=== PATIENT | male | born 1955 | race Caucasian/White ===

== ENCOUNTER 2018-12-09 19:05 | Inpatient (IN) | payer SELFPAY ==
--- NOTE | 2018-12-09 20:26 | C.PDOC ---
History Of Present Illness Hx obtained per , patient has been on residential methadone, today she found him unresponsive in bed. Apparently patient was up all night and slept all day, around 1800 tried to wake him up but patient was not responsive although breathing on his own. Medics arrived and have 2mg intranasal narcan, patient now awake and alert but confused. He moves all extremities but is complaining of being hard of hearing especially on the right which is a new symptom. Denies fever, chills, nausea, or vomiting. Time Seen by Provider: 12/09/18 20:19 Chief Complaint (Nursing): Substance Abuse History Per: Family History/Exam Limitations: no limitations Onset/Duration Of Symptoms: Hrs Current Symptoms Are (Timing): Still Present Suicide/Self Injury Attempted (Context): None Modifying Factor(s): Other (Methadone) Severity: Moderate Pain Scale Rating Of: 4 Involuntary Hold By: None Recent travel outside of the [place]: No Additional History Per: Patient, EMS Past Medical History Reviewed: Historical Data, Nursing Documentation, Vital Signs Vital Signs: Last Vital Signs Temp 95 F L 12/09/18 19:18 Pulse 99 H 12/09/18 19:18 Resp 16 12/09/18 19:18 BP 126/89 12/09/18 19:18 Pulse Ox 93 L 12/09/18 19:18 - Medical History PMH: COPD, HIV, HTN (?) Family History: States: No Known Family Hx - Social History Hx Alcohol Use: No Hx Substance Use: Yes Review Of Systems Constitutional: Negative for: Fever, Chills ENT: Positive for: Other (Hard of hearing especially on right) Cardiovascular: Negative for: Chest Pain, Palpitations Respiratory: Negative for: Cough, Shortness of Breath Gastrointestinal: Negative for: Nausea, Vomiting Neurological: Positive for: Confusion. Negative for: Weakness, Numbness Physical Exam - Physical Exam Appears: Non-toxic, In Acute Distress Skin: Warm, Dry Head: Normacephalic Eye(s): bilateral: Other (Pupils pinpoint but reactive) Ear(s): Bilateral: Normal Oral Mucosa: Dry Neck: Trachea Midline, Supple Chest: Symmetrical, No Tenderness Cardiovascular: Rhythm Regular Respiratory: No Rales, No Rhonchi, No Wheezing Gastrointestinal/Abdominal: Soft, No Tenderness Back: Normal Inspection Extremity: No Tenderness, Other (Moves all extremities) Extremity: Bilateral: Atraumatic Pulses: Left Dorsalis Pedis: Normal, Right Dorsalis Pedis: Normal Neurological/Psych: Slow To Respond With Command, Other (Awake, alert, orien tedx2) Gait: Unable To Assess ED Course And Treatment - Laboratory Results Result Diagrams: 12/09/18 19:45 12/09/18 19:45 ECG: Interpreted By Me, Viewed By Me O2 Sat by Pulse Oximetry: 93 (Room air) Pulse Ox Interpretation: Abnormal - Radiology CXR: Interpreted by Me, Viewed By Me CXR Interpretation: Yes: Other (mild vasc congestion). No: Infiltrates, Fracture, Pnemothorax Progress Note: CT head, EKG, CXR, blood work, and urinalysis ordered. Pt was placed on a becca heating blanket Critical Care Time - Critical Care Note Total Time (in mins): 30 Documented critical care: time excludes all time spent performing seperately billable procedures. Disposition Discussed With : Florin Mak Comment: accepted the pt on his service and took over the care at 10:33 PM Doctor Will See Patient In The: ED Counseled Patient/Family Regarding: Studies Performed, Diagnosis - Disposition Disposition: HOSPITALIZED Disposition Time: 20:26 Condition: FAIR Forms: Legend [employer] (Gabonese) - Clinical Impression Clinical Impression: Drug abuse, Drug dependence, Drug overdose, Hypothermia - Scribe Statement The provider has reviewed the documentation as recorded by the Scribalfredo Dickerson All medical record entries made by the Scribe were at my direction and personally dictated by me. I have reviewed the chart and agree that the record a ccurately reflects my personal performance of the history, physical exam, medical decision making, and the department course for this patient. I have also personally directed, reviewed, and agree with the discharge instructions and disposition. Decision To Admit - Pt Status Changed To: Hospital Disposition Of: Inpatient - Admit Certification Admit to Inpatient:: After my assessment, the patient will require hospitalization for at least two midnights. This is because of the severity of symptoms shown, intensity of services needed, and/or the medical risk in this patient being treated as an outpatient. - InPatient: Physician Admission Certification: I certify that this patient requires 2 or more midnights of care for the following reason:: After my assessment, the patient will require hospitalization for at least two midnights. This is because of the severity of symptoms shown, intensity of services needed, and/or the medical risk in this patient being treated as an outpatient. - . Bed Request Type: Telemetry Admitting Physician: Florin Mak Patient Diagnosis: Drug abuse, Drug dependence, Drug overdose, Hypothermia
[2018-12-09 20:28] LABS: BASO % 0.3 % (0.0-2.0); EOS % 0.1 % (0.0-4.0); HEMOGLOBIN 18.9 g/dL (12.0-18.0); LYMPH # 0.7 K/uL (1.0-4.3); MEAN CELL VOLUME 100.6 fL (80.0-94.0); MEAN CORPUSCULAR HEMOGLOBIN 32.4 pg (27.0-31.0); MEAN CORPUSCULAR HGB CONC 32.2 g/dL (33.0-37.0); MEAN PLATELET VOLUME 9.2 fL (7.2-11.7); MONO # 0.5 K/uL (0.0-0.8); MONO % 5.2 % (0.0-10.0); NEUT % 87.4 % (50.0-75.0); PLATELET COUNT 149 K/uL (130-400); RBC 5.83 Mil/uL (4.40-5.90); RED CELL DISTRIBUTION WIDTH 15.3 % (11.5-14.5); WHITE BLOOD COUNT 10.3 K/uL (4.8-10.8)
[2018-12-09 20:34] LABS: ALB/GLOB RATIO 1.4 (1.0-2.1); ALBUMIN 4.5 g/dL (3.5-5.0); ALT/SGPT 306 U/L (21-72); AST/SGOT 347 U/L (17-59); BLOOD UREA NITROGEN 32 mg/dL (9-20); CALCIUM 9.1 mg/dl (8.6-10.4); GFR NON-AFRICAN AMERICAN 47
[2018-12-09 20:50] LABS: ANISOCYTOSIS SLIGHT; BANDS 5 % (0-2); LYMPHOCYTE 6 % (20-40); MONOCYTE 9 % (0-10); NEUTROPHIL 79 % (50-75); PLATELET ESTIMATE NORMAL (NORMAL); REACTIVE LYMPHOCYTES 1 % (0-0); TOTAL CELLS COUNTED 100
[2018-12-09 21:31] LABS: SQUAMOUS EPITHIAL 1 /hpf (0-5); URINE BACTERIA RARE (<OCC); URINE BILIRUBIN NEGATIVE (NEGATIVE); URINE BLOOD 2+ (NEGATIVE); URINE CLARITY Hazy (Clear); URINE COLOR Amber (YELLOW); URINE GLUCOSE (UA) NORMAL (Normal); URINE LEUKOCYTE ESTERASE NEG Leu/uL (Negative); URINE PROTEIN 2+ mg/dL (NEGATIVE)
[2018-12-09 21:43] LABS: BARBITURATES, UR NEGATIVE (NEGATIVE); OPIATES, UR NEGATIVE (NEGATIVE); PHENCYCLIDINE, UR NEGATIVE (NEGATIVE)
[2018-12-09 21:47] LABS: BENZODIAZEPINES, UR POSITIVE (NEGATIVE)
[2018-12-09] MEDS ORDERED: Piperacillin/Tazobact 3.375 gm 100 ML IVPB STA (22:35)
[2018-12-09 23:10] LABS: ARTERIAL BLOOD GAS HCO3 29.1 mmol/L (21-28); ARTERIAL BLOOD GAS O2 SAT 82.9 % (95-98); ARTERIAL BLOOD GAS PCO2 57 mm/Hg (35-45); ARTERIAL BLOOD GAS PH 7.37 (7.35-7.45); ARTERIAL BLOOD GAS PO2 44 mm/Hg (80-100); ARTERIAL BLOOD GAS TCO2 34.7 mmol/L (22-28)
--- NOTE | 2018-12-09 23:30 | CP.PCM.HP ---
<SchuylerKris - Last Filed: 12/10/18 04:37> History of Present Illness - History of Present Illness History of Present Illness: PGY-1 History and Physical for Dr. Mak Patient is a 63 year old male with past medical history of HTN, COPD, HIV, HCV (currently in remission) BIBEMS after being found unresponsive at home by . Per at bedside, patient was up all night prior and sleeping for majority of the day. She went to wake him up around 6:00 pm but patient was unre sponsive, noted to be breathing however. EMS was called, administered 2 mg intranasal narcan, patient became more alert and rousable but was still somnolent/confused. Patient found to be hypothermic in ED, was placed on a becca heating blanket. Patient is currently more alert, awake, and oriented. He does not recall the events prior to being unresponsive, denies taking any substances. He endorses subjective fevers, chills, productive cough with yellowish sputum production, intermittent palpitations for 2 weeks. He also endorses headaches "for months". No chest pain, shortness of breath, syncope, abdominal pain, n/v/d/c, dysuria, or changes in stool. PMHx: HTN, COPD, HIV, HCV PSHx: none Allergies: NKDA Home Medications: -Xanax 2 mg PO BID -on home methadone for 25 years; confirm home dose-- states about 150 mg total daily -[facility]--65 mg (?) methadone daily -[facility], [facility] Hx: unknown Social Hx: +tobacco: 1 ppd, several years; denies alcohol use; hx heroin abuse (stopped in ), on home methadone 25 years, abuses xanax Present on Admission - Present on Admission Any Indicators Present on Admission: No Review of Systems - Review of Systems All systems: reviewed and no additional remarkable complaints except Review of Systems: as per HPI - Constitutional Constitutional: Chills, Fever, Headache - EENT Eyes: absent: Blurred Vision, Change in Vision Nose/Mouth/Throat: absent: Nasal Congestion, Nasal Discharge - Cardiovascular Cardiovascular: Palpitations. absent: Chest Pain, Dyspnea, Dyspnea on Exertion, Leg Edema, Syncope - Respiratory Respiratory: Cough, Change in Mucous Color. absent: Wheezing - Gastrointestinal Gastrointestinal: absent: Abdominal Pain, Diarrhea, Nausea, Vomiting - Genitourinary Genitourinary: absent: Difficulty Urinating, Dysuria, Urinary Frequency, Urinary Urgency - Musculoskeletal Musculoskeletal: Myalgias - Integumentary Integumentary: As Per HPI - Neurological Neurological: As Per HPI, Confusion, Headaches. absent: Dizziness, Syncope, Tingling, Weakness - Psychiatric Psychiatric: As Per HPI - Endocrine Endocrine: As Per HPI - Hematologic/Lymphatic Hematologic: As Per HPI Past Patient History - Past Social History Smoking Status: Heavy Smoker > 10 Cigarettes Daily - CARDIAC Hx Hypertension: Yes (?) - PULMONARY Hx Chronic Obstructive Pulmonary Disease (COPD): Yes - HEMATOLOGICAL/ONCOLOGICAL Hx Human Immunodeficiency Virus (HIV): Yes - PSYCHIATRIC Hx Substance Use: Yes - SURGICAL HISTORY Hx Surgeries: No Meds Allergies/Adverse Reactions: Allergies Allergy/AdvReac Type Severity Reaction Status Date / Time No Known Allergies Allergy Unverified 12/09/18 19:18 Physical Exam - Constitutional Appears: Non-toxic, Chronically Ill Additional comments: somnolent - Head Exam Head Exam: ATRAUMATIC, NORMAL INSPECTION, NORMOCEPHALIC - Eye Exam Eye Exam: EOMI, Normal appearance Pupil Exam: Miosis, NORMAL ACCOMODATION - ENT Exam ENT Exam: Mucous Membranes Dry, Normal Exam - Neck Exam Neck exam: Positive for: Full Rom, Normal Inspection. Negative for: Tenderness - Respiratory Exam Respiratory Exam: Clear to Auscultation Bilateral, NORMAL BREATHING PATTERN. absent: Accessory Muscle Use, Rales, Rhonchi, Wheezes, Respiratory Distress, Stridor - Cardiovascular Exam Cardiovascular Exam: REGULAR RHYTHM, +S1, +S2 - GI/Abdominal Exam GI & Abdominal Exam: Normal Bowel Sounds, Soft. absent: Distended, Firm, Guarding, Rebound, Rigid - Extremities Exam Extremities exam: Positive for: normal capillary refill, normal inspection, pedal pulses present. Negative for: calf tenderness, pedal edema - Back Exam Back exam: NORMAL INSPECTION - Neurological Exam Neurological exam: Alert, CN II-XII Intact, Oriented x3 - Psychiatric Exam Psychiatric exam: Normal Affect, Normal Mood - Skin Skin Exam: Dry, Intact, Normal Color, Warm Results - Vital Signs Recent Vital Signs: Last Vital Signs Temp 95 F L 12/09/18 19:18 Pulse 99 H 12/09/18 19:18 Resp 16 12/09/18 19:18 BP 126/89 12/09/18 19:18 Pulse Ox 93 L 12/09/18 22:42 - Labs Result Diagrams: 12/09/18 19:45 12/09/18 19:45 Labs: Laboratory Results - last 24 hr 12/09/18 12/09/18 12/09/18 19:26 19:45 19:45 WBC 10.3 RBC 5.83 Hgb 18.9 H Hct 58.7 H MCV 100.6 H MCH 32.4 H MCHC 32.2 L RDW 15.3 H Plt Count 149 MPV 9.2 Neut % (Auto) 87.4 H Lymph % (Auto) 7.0 L [place] % (Auto) 5.2 Eos % (Auto) 0.1 Baso % (Auto) 0.3 Neut # (Auto) 9.0 H Lymph # (Auto) 0.7 L [place] # (Auto) 0.5 Eos # (Auto) 0.0 Baso # (Auto) 0.0 Neutrophils % (Manual) 79 H Band Neutrophils % 5 H Lymphocytes % (Manual) 6 L Reactive Lymphs % 1 H Monocytes % (Manual) 9 Platelet Estimate Normal Anisocytosis (manual) Slight Macrocytosis (manual) Slight Puncture Site pCO2 pO2 HCO3 ABG pH ABG Total CO2 ABG O2 Saturation ABG Base Excess Jorge Test ABG Potassium A-a O2 Difference Respiratory Index Glucose Lactate Liter Flow FiO2 Crit Value Called To Crit Value Called By Crit Value Read Back Blood Gas Notified Time Sodium 139 Potassium 5.2 Chloride 94 L Carbon Dioxide 26 Anion Gap 23 H BUN 32 H Creatinine 1.5 Est GFR ( Amer) 57 Est GFR (Non-Af Amer) 47 POC Glucose (mg/dL) 133 H Random Glucose 170 H Calcium 9.1 Phosphorus 10.6 H Magnesium 2.0 Total Bilirubin 1.8 H AST 347 H ALT 306 H Alkaline Phosphatase 115 Total Protein 7.7 Albumin 4.5 Globulin 3.2 Albumin/Globulin Ratio 1.4 Arterial Blood Potassium Urine Color Urine Clarity Urine pH Ur Specific [place] Urine Protein Urine Glucose (UA) Urine Ketones Urine Blood Urine Nitrate Urine Bilirubin Urine Urobilinogen Ur Leukocyte Esterase Urine WBC (Auto) Urine RBC (Auto) Ur Squamous Epith Cells Urine Bacteria Hyaline Casts Urine Opiates Screen Urine Methadone Screen Ur Barbiturates Screen Ur Phencyclidine Scrn Ur Amphetamines Screen U Benzodiazepines Scrn U Oth Cocaine Metabols U Cannabinoids Screen Alcohol, Quantitative < 10 12/09/18 12/09/18 12/09/18 21:17 21:17 23:07 WBC RBC Hgb Hct MCV MCH MCHC RDW Plt Count MPV Neut % (Auto) Lymph % (Auto) [place] % (Auto) Eos % (Auto) Baso % (Auto) Neut # (Auto) Lymph # (Auto) [place] # (Auto) Eos # (Auto) Baso # (Auto) Neutrophils % (Manual) Band Neutrophils % Lymphocytes % (Manual) Reactive Lymphs % Monocytes % (Manual) Platelet Estimate Anisocytosis (manual) Macrocytosis (manual) Puncture Site Lb pCO2 57 H pO2 44 L* HCO3 29.1 H ABG pH 7.37 ABG Total CO2 34.7 H ABG O2 Saturation 82.9 L ABG Base Excess 6.0 H Jorge Test Na ABG Potassium 4.5 A-a O2 Difference 141.0 Respiratory Index 3.2 Glucose 120 H Lactate 2.8 H Liter Flow 4.0 FiO2 36.0 Crit Value Called To Dr dong Crit Value Called By Janusz chen Crit Value Read Back Y Blood Gas Notified Time 2309 Sodium 138.0 Potassium Chloride 101.0 Carbon Dioxide Anion Gap BUN Creatinine Est GFR ( Amer) Est GFR (Non-Af Amer) POC Glucose (mg/dL) Random Glucose Calcium Phosphorus Magnesium Total Bilirubin AST ALT Alkaline Phosphatase Total Protein Albumin Globulin Albumin/Globulin Ratio Arterial Blood Potassium 4.5 Urine Color Radha Urine Clarity Hazy Urine pH 5.0 Ur Specific [place] 1.017 Urine Protein 2+ H Urine Glucose (UA) Normal Urine Ketones Negative Urine Blood 2+ H Urine Nitrate Negative Urine Bilirubin Negative Urine Urobilinogen 4.0 Ur Leukocyte Esterase Neg Urine WBC (Auto) 2 Urine RBC (Auto) 3 Ur Squamous Epith Cells 1 Urine Bacteria Rare Hyaline Casts 11-20 H Urine Opiates Screen Negative Urine Methadone Screen Positive H Ur Barbiturates Screen Negative Ur Phencyclidine Scrn Negative Ur Amphetamines Screen Negative U Benzodiazepines Scrn Positive U Oth Cocaine Metabols Negative U Cannabinoids Screen Negative Alcohol, Quantitative Assessment & Plan - Assessment and Plan (Free Text) Assessment: 63 year old M with PMHx of HIV, HCV (in remission), HTN, COPD BIBEMS after being found unresponsive by at home, hypothermic on admission. Given 2 mg Narcan on field, more rousable and alert. Plan: Sepsis Criteria -Temp 95 -HR 99 -L shift present -Lactate 2.8 -received 2 mg intranasal Narcan on field, more rousable, alert and oriented -heating blanket -vitals q2h -CXR: mild vascular congestion -f/u official read -f/u CT head -f/u EKG -NS IVF -ID consulted (Dr. Camilo) -vanc/zosyn Shortness of breath, productive cough -s/p zosyn x1 in ED -CXR: mild pulmonary vascular congestion -f/u official read -vanc/zosyn HIV -not on any home meds -CD4 -viral load -ID (Dr. Camilo) consulted Hx of HCV -f/u active hepatitis panel Hx of COPD -duonebs q4 prn -O2 via NC prn Hx Substance Abuse -UDS: (+) methadone, benzos -serum alcohol, acetaminophen negative -confirm home methadone dose -Psychiatry (Dr. Saucedo) on board PPx, Diet, Disposition -DVT ppx: scds, lovenox -GI ppx: protonix 40 daily -Diet: HHD Case discussed with Dr. Aubree Payan DO, PGY-1 <Florin Mak - Last Filed: 12/10/18 06:15> Results - Vital Signs Recent Vital Signs: Last Vital Signs Temp 97.8 F 12/10/18 01:52 Pulse 105 H 12/10/18 01:52 Resp 20 12/10/18 01:52 BP 120/80 12/10/18 01:52 Pulse Ox 100 12/10/18 04:06 - Labs Result Diagrams: 12/09/18 19:45 12/09/18 19:45 Labs: Laboratory Results - last 24 hr 12/09/18 12/09/18 12/09/18 19:26 19:45 19:45 WBC 10.3 RBC 5.83 Hgb 18.9 H Hct 58.7 H MCV 100.6 H MCH 32.4 H MCHC 32.2 L RDW 15.3 H Plt Count 149 MPV 9.2 Neut % (Auto) 87.4 H Lymph % (Auto) 7.0 L [place] % (Auto) 5.2 Eos % (Auto) 0.1 Baso % (Auto) 0.3 Neut # (Auto) 9.0 H Lymph # (Auto) 0.7 L [place] # (Auto) 0.5 Eos # (Auto) 0.0 Baso # (Auto) 0.0 Neutrophils % (Manual) 79 H Band Neutrophils % 5 H Lymphocytes % (Manual) 6 L Reactive Lymphs % 1 H Monocytes % (Manual) 9 Platelet Estimate Normal Anisocytosis (manual) Slight Macrocytosis (manual) Slight Puncture Site pCO2 pO2 HCO3 ABG pH ABG Total CO2 ABG O2 Saturation ABG Base Excess Jorge Test ABG Potassium A-a O2 Difference Respiratory Index Glucose Lactate Liter Flow FiO2 Crit Value Called To Crit Value Called By Crit Value Read Back Blood Gas Notified Time Sodium 139 Potassium 5.2 Chloride 94 L Carbon Dioxide 26 Anion Gap 23 H BUN 32 H Creatinine 1.5 Est GFR ( Amer) 57 Est GFR (Non-Af Amer) 47 POC Glucose (mg/dL) 133 H Random Glucose 170 H Calcium 9.1 Phosphorus 10.6 H Magnesium 2.0 Total Bilirubin 1.8 H AST 347 H ALT 306 H Alkaline Phosphatase 115 Troponin I NT-Pro-B Natriuret Pep Total Protein 7.7 Albumin 4.5 Globulin 3.2 Albumin/Globulin Ratio 1.4 Arterial Blood Potassium Urine Color Urine Clarity Urine pH Ur Specific [place] Urine Protein Urine Glucose (UA) Urine Ketones Urine Blood Urine Nitrate Urine Bilirubin Urine Urobilinogen Ur Leukocyte Esterase Urine WBC (Auto) Urine RBC (Auto) Ur Squamous Epith Cells Urine Bacteria Hyaline Casts Salicylates Urine Opiates Screen Urine Methadone Screen Acetaminophen Ur Barbiturates Screen Ur Phencyclidine Scrn Ur Amphetamines Screen U Benzodiazepines Scrn U Oth Cocaine Metabols U Cannabinoids Screen Alcohol, Quantitative < 10 Hepatitis A IgM Ab Hep Bs Antigen Hep B Core IgM Ab Hepatitis C Antibody 12/09/18 12/09/18 12/09/18 21:17 21:17 23:07 WBC RBC Hgb Hct MCV MCH MCHC RDW Plt Count MPV Neut % (Auto) Lymph % (Auto) [place] % (Auto) Eos % (Auto) Baso % (Auto) Neut # (Auto) Lymph # (Auto) [place] # (Auto) Eos # (Auto) Baso # (Auto) Neutrophils % (Manual) Band Neutrophils % Lymphocytes % (Manual) Reactive Lymphs % Monocytes % (Manual) Platelet Estimate Anisocytosis (manual) Macrocytosis (manual) Puncture Site Lb pCO2 57 H pO2 44 L* HCO3 29.1 H ABG pH 7.37 ABG Total CO2 34.7 H ABG O2 Saturation 82.9 L ABG Base Excess 6.0 H Jorge Test Na ABG Potassium 4.5 A-a O2 Difference 141.0 Respiratory Index 3.2 Glucose 120 H Lactate 2.8 H Liter Flow 4.0 FiO2 36.0 Crit Value Called To Dr dong Crit Value Called By Janusz chen Crit Value Read Back Y Blood Gas Notified Time 2308 Sodium 138.0 Potassium Chloride 101.0 Carbon Dioxide Anion Gap BUN Creatinine Est GFR ( Amer) Est GFR (Non-Af Amer) POC Glucose (mg/dL) Random Glucose Calcium Phosphorus Magnesium Total Bilirubin AST ALT Alkaline Phosphatase Troponin I NT-Pro-B Natriuret Pep Total Protein Albumin Globulin Albumin/Globulin Ratio Arterial Blood Potassium 4.5 Urine Color Radha Urine Clarity Hazy Urine pH 5.0 Ur Specific [place] 1.017 Urine Protein 2+ H Urine Glucose (UA) Normal Urine Ketones Negative Urine Blood 2+ H Urine Nitrate Negative Urine Bilirubin Negative Urine Urobilinogen 4.0 Ur Leukocyte Esterase Neg Urine WBC (Auto) 2 Urine RBC (Auto) 3 Ur Squamous Epith Cells 1 Urine Bacteria Rare Hyaline Casts 11-20 H Salicylates Urine Opiates Screen Negative Urine Methadone Screen Positive H Acetaminophen Ur Barbiturates Screen Negative Ur Phencyclidine Scrn Negative Ur Amphetamines Screen Negative U Benzodiazepines Scrn Positive U Oth Cocaine Metabols Negative U Cannabinoids Screen Negative Alcohol, Quantitative Hepatitis A IgM Ab Hep Bs Antigen Hep B Core IgM Ab Hepatitis C Antibody 12/10/18 12/10/18 12/10/18 00:27 00:27 00:27 WBC RBC Hgb Hct MCV MCH MCHC RDW Plt Count MPV Neut % (Auto) Lymph % (Auto) [place] % (Auto) Eos % (Auto) Baso % (Auto) Neut # (Auto) Lymph # (Auto) [place] # (Auto) Eos # (Auto) Baso # (Auto) Neutrophils % (Manual) Band Neutrophils % Lymphocytes % (Manual) Reactive Lymphs % Monocytes % (Manual) Platelet Estimate Anisocytosis (manual) Macrocytosis (manual) Puncture Site pCO2 pO2 HCO3 ABG pH ABG Total CO2 ABG O2 Saturation ABG Base Excess Jorge Test ABG Potassium A-a O2 Difference Respiratory Index Glucose Lactate Liter Flow FiO2 Crit Value Called To Crit Value Called By Crit Value Read Back Blood Gas Notified Time Sodium Potassium Chloride Carbon Dioxide Anion Gap BUN Creatinine Est GFR ( Amer) Est GFR (Non-Af Amer) POC Glucose (mg/dL) Random Glucose Calcium Phosphorus Magnesium Total Bilirubin AST ALT Alkaline Phosphatase Troponin I 0.6490 H* NT-Pro-B Natriuret Pep 5160 H Total Protein Albumin Globulin Albumin/Globulin Ratio Arterial Blood Potassium Urine Color Urine Clarity Urine pH Ur Specific [place] Urine Protein Urine Glucose (UA) Urine Ketones Urine Blood Urine Nitrate Urine Bilirubin Urine Urobilinogen Ur Leukocyte Esterase Urine WBC (Auto) Urine RBC (Auto) Ur Squamous Epith Cells Urine Bacteria Hyaline Casts Salicylates < 1.0 Urine Opiates Screen Urine Methadone Screen Acetaminophen < 10.0 L Ur Barbiturates Screen Ur Phencyclidine Scrn Ur Amphetamines Screen U Benzodiazepines Scrn U Oth Cocaine Metabols U Cannabinoids Screen Alcohol, Quantitative Hepatitis A IgM Ab Negative Hep Bs Antigen Negative Hep B Core IgM Ab Negative Hepatitis C Antibody Reactive Assessment & Plan - Date & Time Date: 12/10/18 (I have seen and examined the patient. I agree with the findings and plan of care as documented by Dr. Payan. Patient with sepsis. Lactate elevated. Tachy and hypothermic. Vanco and Zosyn. Warming blankets. Monitor vitals closely. History of HIV and Hep C infection. Check CD4 and Viral load. ID consult. Check acute hep panel. Blood cultures. History of substance abuse. Continue patient's methadone dose. Consult to psych. Monitor for acute changes.) Time: 06:13 Attending/Attestation - Attestation I have personally seen and examined this patient.: Yes I have fully participated in the care of the patient.: Yes I have reviewed all pertinent clinical information: Yes
[2018-12-09] MEDS ORDERED: Sodium Chloride 0.9% 1,000 ML IV SCH (23:45)
[2018-12-10 01:07] LABS: ACETAMINOPHEN < 10.0 ug/mL (10.0-30.0); SALICYLATE < 1.0 mg/dL 1
[2018-12-10 01:22] LABS: TROPONIN I 0.649 ng/mL (0.00-0.120)
[2018-12-10 02:08] LABS: HEPATITIS B SURFACE AG Negative (NEGATIVE)
[2018-12-10 02:14] LABS: HEPATITIS A IGM NEGATIVE (NEGATIVE); HEPATITIS B CORE AB NEGATIVE (NEGATIVE)
[2018-12-10] MEDS ORDERED: Albuterol-Ipratrop 3 mg / 0.5 (3 ml) UD INH PRN (04:18)
[2018-12-10 04:25] LABS: HEPATITIS C ANTIBODY REACTIVE (NEGATIVE)
[2018-12-10] MEDS: Piperacill/Tazo 3.375gm in Dex 3.375 GM/50 ML BAG IVPB SCH ×2 (05:12)
[2018-12-10 07:09] LABS: VENOUS BLOOD GAS BASE EXCESS 13.3 mmol/L (0.0-2.0); VENOUS BLOOD GAS PCO2 59 mmHg (40-60); VENOUS BLOOD GAS PO2 40 mm/Hg (30-55); VENOUS BLOOD PH 7.44 (7.32-7.43)
[2018-12-10 07:32] LABS: BASO % 0.6 % (0.0-2.0); EOS % 0.1 % (0.0-4.0); LYMPH # 1.3 K/uL (1.0-4.3); LYMPH % 17.9 % (20.0-40.0); MEAN CORPUSCULAR HEMOGLOBIN 32.1 pg (27.0-31.0); MEAN CORPUSCULAR HGB CONC 33.5 g/dL (33.0-37.0); MEAN PLATELET VOLUME 9.3 fL (7.2-11.7); MONO # 0.7 K/uL (0.0-0.8); MONO % 9.4 % (0.0-10.0); NEUT # 5.3 K/uL (1.8-7.0); RBC 5.23 Mil/uL (4.40-5.90); RED CELL DISTRIBUTION WIDTH 14.5 % (11.5-14.5); WHITE BLOOD COUNT 7.4 K/uL (4.8-10.8)
[2018-12-10 07:44] LABS: HEMOGLOBIN 16.8 g/dL (12.0-18.0); MEAN CELL VOLUME 95.8 fL (80.0-94.0)
[2018-12-10 08:10] LABS: ALB/GLOB RATIO 1.2 (1.0-2.1); ALBUMIN 3.4 g/dL (3.5-5.0); ALT/SGPT 525 U/L (21-72); AST/SGOT 553 U/L (17-59); BLOOD UREA NITROGEN 34 mg/dL (9-20); CALCIUM 8.3 mg/dl (8.6-10.4); GFR NON-AFRICAN AMERICAN > 60
[2018-12-10 08:31] LABS: CK-MB 11.9 ng/mL (0.0-3.38)
[2018-12-10] MEDS: Sodium Chloride 0.9% 1,000 ML IV SCH (09:00)
[2018-12-10] MEDS ORDERED: Iodixanol 320 MG/ML 100 ML BOTTLE IV ONE (09:15)
--- NOTE | 2018-12-10 09:34 | PCM.PSYCH ---
Initial Psychiatric Evaluation - Initial Psychiatric Evaluation Type of Admission: Voluntary Legal Status: Capacity History of Present Illness and Precipitating Events: Patient is a 63 year old male with past medical history of HTN, COPD, HIV, HCV (currently in remission) BIBEMS after being found unresponsive at home by . Per at bedside, patient was up all night prior and sleeping for majority of the day. She went to wake him up around 6:00 pm but patient was unresponsive, noted to be breathing however. EMS was called, administered 2 mg intranasal narcan, patient became more alert and rousable but was still somnolent/confused. Current Medications: Active Medications Generic Name Dose Route Start Last Admin Trade Name Freq PRN Reason Stop Dose Admin Albuterol/Ipratropium 3 ml 12/10/18 12:00 Duoneb 3 Mg/0.5 Mg (3 Ml) Ud INH RQ4 [facility] Aspirin 81 mg 12/11/18 10:00 Ecotrin PO DAILY [facility] Clopidogrel Bisulfate 75 mg 12/11/18 10:00 Plavix PO DAILY [facility] Enoxaparin Sodium 70 mg 12/10/18 09:00 Lovenox SC Q12H [facility] Piperacillin Sod/Tazobactam Sod 3.375 gm in 50 mls @ 100 mls/hr 12/09/18 23:45 12/10/18 05:12 Zosyn 3.375 Gm Iv Premix IVPB 100 mls/hr Q6H [facility] Administration Protocol Sodium Chloride 1,000 mls @ 75 mls/hr 12/10/18 08:25 Sodium Chloride 0.9% IV .[id number] [facility] Azithromycin 500 mg/ Sodium 250 mls @ 250 mls/hr 12/10/18 10:00 Chloride IVPB Q24H [facility] Protocol Vancomycin/Sodium Chloride 1 gm in 200 mls @ 133 mls/hr 12/10/18 10:00 Vancomycin 1 Gm/Ns 200 Ml IVPB 12/15/18 10:01 Q12H [facility] Protocol Influenza Virus Vaccine 60 mcg 12/11/18 10:00 Flucelvax Quad [id number] Syr IM 12/11/18 10:01 .ONCE ONE Methadone HCl 40 mg 12/10/18 09:01 Methadose PO DAILY [facility] Methadone HCl 20 mg 12/10/18 10:00 Methadone PO DAILY [facility] Methadone HCl 5 mg 12/10/18 10:00 Methadone PO DAILY [facility] Methylprednisolone 40 mg 12/10/18 10:00 Solu-Medrol IVP BID [facility] Pantoprazole Sodium 40 mg 12/10/18 10:00 Protonix Inj IVP DAILY [facility] Pneumococcal Polyvalent Vaccine 0.5 ml 12/11/18 10:00 Pneumovax 23 Vaccine IM 12/11/18 10:01 .ONCE ONE Past Psychiatric History - Past Psychiatric History Pertinent Medical Hx (Current Medical&Sleep Prob, Allergies): Allergies Allergy/AdvReac Type Severity Reaction Status Date / Time No Known Allergies Allergy Unverified 12/09/18 19:18 ALPRAZolam 12/09/18 Methadone 12/09/18
--- NOTE | 2018-12-10 09:37 | CT ---
Date of service: 12/09/2018 PROCEDURE: CT HEAD WITHOUT CONTRAST. HISTORY: Mental status change COMPARISON: None available. TECHNIQUE: Axial computed tomography images were obtained through the head/brain without intravenous contrast. Radiation dose: Total exam DLP = 2287.33 mGy-cm. This CT exam was performed using one or more of the following dose reduction techniques: Automated exposure control, adjustment of the mA and/or kV according to patient size, and/or use of iterative reconstruction technique. FINDINGS: Study is limited by motion artifact. HEMORRHAGE: No acute parenchymal, subarachnoid nor extra-axial hemorrhage. BRAIN: Suspect minimal chronic periventricular white matter ischemic changes. Mild moderate generalized volume loss. No obvious parenchymal nor extra-axial masses or collections seen on this noncontrast study. A callus VENTRICLES: Unremarkable. No hydrocephalus. CALVARIUM: No acute calvarial fractures. PARANASAL SINUSES: Unremarkable as visualized. No significant inflammatory changes. MASTOID AIR CELLS: Unremarkable as visualized. No inflammatory changes. OTHER FINDINGS: None. IMPRESSION: Limited motion degraded study. Suspect minimal chronic white matter ischemic changes. Mild to moderate generalized volume loss.
[2018-12-10] MEDS ORDERED: Vancomycin 1 gm/NS 200 ml 1 GM/200 ML BAG IVPB SCH (10:00)
[2018-12-10] MEDS ORDERED: Azithromycin 500 MG in Sodium Chloride 0.9% 250 ML IVPB SCH (10:00)
[2018-12-10] MEDS ORDERED: Enoxaparin 40 mg Syringe SC SCH (10:00)
[2018-12-10] MEDS: Vancomycin 1 gm/NS 200 ml 1 GM/200 ML BAG IVPB SCH ×2 (10:15→21:40)
--- NOTE | 2018-12-10 10:56 | CP.PCM.CON ---
History of Present Illness - History of Present Illness History of Present Illness: 63 year old man with Hep c, on methadone, smoker, HIV, who was at home, found unresponsive by his , 911 was called. In the ER, pt received narcan. and hyperthermia blanket. He has been coughing with sputum for a few weeks. Pt has n o known h/o CAD. TNi is mildly elevated, no ecg changes. CXR report not available and images not opening in viewer Review of Systems - Review of Systems All systems: reviewed and no additional remarkable complaints except (as above) Past Patient History - Past Social History Smoking Status: Heavy Smoker > 10 Cigarettes Daily - CARDIAC Hx Hypertension: Yes (?) - PULMONARY Hx Chronic Obstructive Pulmonary Disease (COPD): Yes - HEMATOLOGICAL/ONCOLOGICAL Hx Human Immunodeficiency Virus (HIV): Yes - MUSCULOSKELETAL/RHEUMATOLOGICAL Hx Falls: No - PSYCHIATRIC Hx Substance Use: Yes - SURGICAL HISTORY Hx Surgeries: No Meds Allergies/Adverse Reactions: Allergies Allergy/AdvReac Type Severity Reaction Status Date / Time No Known Allergies Allergy Unverified 12/09/18 19:18 - Medications Medications: Current Medications Albuterol/Ipratropium (Duoneb 3 Mg/0.5 Mg (3 Ml) Ud) 3 ml INH RQ4 [facility] Aspirin (Ecotrin) 81 mg PO DAILY [facility] Clopidogrel Bisulfate (Plavix) 75 mg PO DAILY [facility] Enoxaparin Sodium (Lovenox) 70 mg SC Q12H [facility] Sodium Chloride (Sodium Chloride 0.9%) 1,000 mls @ 75 mls/hr IV .[id number] [facility] Vancomycin/Sodium Chloride (Vancomycin 1 Gm/Ns 200 Ml) 1 gm in 200 mls @ 133 mls/hr IVPB Q12H [facility]; Protocol Stop: 12/15/18 10:01 Last Admin: 12/10/18 10:15 Dose: 133 mls/hr Ceftriaxone Sodium 1 gm/ (Sodium Chloride) 100 mls @ 100 mls/hr IVPB Q24H [facility]; Protocol Influenza Virus Vaccine (Flucelvax Quad [id number] Syr) 60 mcg IM .ONCE ONE Stop: 12/11/18 10:01 Methadone HCl (Methadose) 40 mg PO DAILY [facility] Methadone HCl (Methadone) 20 mg PO DAILY [facility] Methadone HCl (Methadone) 5 mg PO DAILY [facility] Methylprednisolone (Solu-Medrol) 40 mg IVP BID [facility] Oseltamivir Phosphate (Tamiflu Cap) 75 mg PO BID [facility]; Protocol Stop: 12/15/18 09:54 Pantoprazole Sodium (Protonix Inj) 40 mg IVP DAILY [facility] Pneumococcal Polyvalent Vaccine (Pneumovax 23 Vaccine) 0.5 ml IM .ONCE ONE Stop: 12/11/18 10:01 Trimethoprim/Sulfamethoxazole (Bactrim Ds Tab) 2 tab PO TID [facility]; Protocol Physical Exam - Constitutional Appears: Well - Head Exam Head Exam: ATRAUMATIC - Eye Exam Eye Exam: EOMI Pupil Exam: NORMAL ACCOMODATION - ENT Exam ENT Exam: Mucous Membranes Moist - Neck Exam Neck exam: Positive for: Normal Inspection - Respiratory Exam Respiratory Exam: Rhonchi - Cardiovascular Exam Cardiovascular Exam: REGULAR RHYTHM - GI/Abdominal Exam GI & Abdominal Exam: Normal Bowel Sounds - Exam External exam: NORMAL EXTERNAL EXAM - Extremities Exam Extremities exam: Positive for: normal inspection - Back Exam Back exam: NORMAL INSPECTION - Neurological Exam Neurological exam: Alert, CN II-XII Intact, Oriented x3, Reflexes Normal - Psychiatric Exam Psychiatric exam: Normal Affect, Normal Mood - Skin Skin Exam: Normal Color Results - Vital Signs Recent Vital Signs: Last Vital Signs Temp 102.0 F H 12/10/18 07:00 Pulse 93 H 12/10/18 07:00 Resp 18 12/10/18 07:00 BP 131/86 12/10/18 07:00 Pulse Ox 87 L 12/10/18 07:00 - Labs Result Diagrams: 12/10/18 07:16 12/10/18 07:16 Labs: Laboratory Results - last 24 hr 12/09/18 12/09/18 12/09/18 19:26 19:45 19:45 WBC 10.3 RBC 5.83 Hgb 18.9 H Hct 58.7 H MCV 100.6 H MCH 32.4 H MCHC 32.2 L RDW 15.3 H Plt Count 149 MPV 9.2 Neut % (Auto) 87.4 H Lymph % (Auto) 7.0 L Blair % (Auto) 5.2 Eos % (Auto) 0.1 Baso % (Auto) 0.3 Neut # (Auto) 9.0 H Lymph # (Auto) 0.7 L Blair # (Auto) 0.5 Eos # (Auto) 0.0 Baso # (Auto) 0.0 Neutrophils % (Manual) 79 H Band Neutrophils % 5 H Lymphocytes % (Manual) 6 L Reactive Lymphs % 1 H Monocytes % (Manual) 9 Platelet Estimate Normal Anisocytosis (manual) Slight Macrocytosis (manual) Slight Puncture Site pCO2 pO2 HCO3 ABG pH ABG Total CO2 ABG O2 Saturation ABG Base Excess Jorge Test ABG Potassium VBG pH VBG pCO2 VBG HCO3 VBG Total CO2 VBG O2 Sat (Calc) VBG Base Excess VBG Potassium A-a O2 Difference Respiratory Index Glucose Lactate Liter Flow FiO2 Crit Value Called To Crit Value Called By Crit Value Read Back Blood Gas Notified Time Sodium 139 Potassium 5.2 Chloride 94 L Carbon Dioxide 26 Anion Gap 23 H BUN 32 H Creatinine 1.5 Est GFR ( Amer) 57 Est GFR (Non-Af Amer) 47 POC Glucose (mg/dL) 133 H Random Glucose 170 H Calcium 9.1 Phosphorus 10.6 H Magnesium 2.0 Total Bilirubin 1.8 H AST 347 H ALT 306 H Alkaline Phosphatase 115 Ammonia Total Creatine Kinase CK-MB (Mass) Troponin I NT-Pro-B Natriuret Pep Total Protein 7.7 Albumin 4.5 Globulin 3.2 Albumin/Globulin Ratio 1.4 Arterial Blood Potassium Venous Blood Potassium Urine Color Urine Clarity Urine pH Ur Specific [place] Urine Protein Urine Glucose (UA) Urine Ketones Urine Blood Urine Nitrate Urine Bilirubin Urine Urobilinogen Ur Leukocyte Esterase Urine WBC (Auto) Urine RBC (Auto) Ur Squamous Epith Cells Urine Bacteria Hyaline Casts Salicylates Urine Opiates Screen Urine Methadone Screen Acetaminophen Ur Barbiturates Screen Ur Phencyclidine Scrn Ur Amphetamines Screen U Benzodiazepines Scrn U Oth Cocaine Metabols U Cannabinoids Screen Alcohol, Quantitative < 10 Hepatitis A IgM Ab Hep Bs Antigen Hep B Core IgM Ab Hepatitis C Antibody 12/09/18 12/09/18 12/09/18 21:17 21:17 23:07 WBC RBC Hgb Hct MCV MCH MCHC RDW Plt Count MPV Neut % (Auto) Lymph % (Auto) Blair % (Auto) Eos % (Auto) Baso % (Auto) Neut # (Auto) Lymph # (Auto) Blair # (Auto) Eos # (Auto) Baso # (Auto) Neutrophils % (Manual) Band Neutrophils % Lymphocytes % (Manual) Reactive Lymphs % Monocytes % (Manual) Platelet Estimate Anisocytosis (manual) Macrocytosis (manual) Puncture Site Lb pCO2 57 H pO2 44 L* HCO3 29.1 H ABG pH 7.37 ABG Total CO2 34.7 H ABG O2 Saturation 82.9 L ABG Base Excess 6.0 H Jorge Test Na ABG Potassium 4.5 VBG pH VBG pCO2 VBG HCO3 VBG Total CO2 VBG O2 Sat (Calc) VBG Base Excess VBG Potassium A-a O2 Difference 141.0 Respiratory Index 3.2 Glucose 120 H Lactate 2.8 H Liter Flow 4.0 FiO2 36.0 Crit Value Called To Dr dong Crit Value Called By Janusz chen Crit Value Read Back Y Blood Gas Notified Time 2308 Sodium 138.0 Potassium Chloride 101.0 Carbon Dioxide Anion Gap BUN Creatinine Est GFR ( Amer) Est GFR (Non-Af Amer) POC Glucose (mg/dL) Random Glucose Calcium Phosphorus Magnesium Total Bilirubin AST ALT Alkaline Phosphatase Ammonia Total Creatine Kinase CK-MB (Mass) Troponin I NT-Pro-B Natriuret Pep Total Protein Albumin Globulin Albumin/Globulin Ratio Arterial Blood Potassium 4.5 Venous Blood Potassium Urine Color Radha Urine Clarity Hazy Urine pH 5.0 Ur Specific [place] 1.017 Urine Protein 2+ H Urine Glucose (UA) Normal Urine Ketones Negative Urine Blood 2+ H Urine Nitrate Negative Urine Bilirubin Negative Urine Urobilinogen 4.0 Ur Leukocyte Esterase Neg Urine WBC (Auto) 2 Urine RBC (Auto) 3 Ur Squamous Epith Cells 1 Urine Bacteria Rare Hyaline Casts 11-20 H Salicylates Urine Opiates Screen Negative Urine Methadone Screen Positive H Acetaminophen Ur Barbiturates Screen Negative Ur Phencyclidine Scrn Negative Ur Amphetamines Screen Negative U Benzodiazepines Scrn Positive U Oth Cocaine Metabols Negative U Cannabinoids Screen Negative Alcohol, Quantitative Hepatitis A IgM Ab Hep Bs Antigen Hep B Core IgM Ab Hepatitis C Antibody 12/10/18 12/10/18 12/10/18 00:27 00:27 00:27 WBC RBC Hgb Hct MCV MCH MCHC RDW Plt Count MPV Neut % (Auto) Lymph % (Auto) Blair % (Auto) Eos % (Auto) Baso % (Auto) Neut # (Auto) Lymph # (Auto) Blair # (Auto) Eos # (Auto) Baso # (Auto) Neutrophils % (Manual) Band Neutrophils % Lymphocytes % (Manual) Reactive Lymphs % Monocytes % (Manual) Platelet Estimate Anisocytosis (manual) Macrocytosis (manual) Puncture Site pCO2 pO2 HCO3 ABG pH ABG Total CO2 ABG O2 Saturation ABG Base Excess Jorge Test ABG Potassium VBG pH VBG pCO2 VBG HCO3 VBG Total CO2 VBG O2 Sat (Calc) VBG Base Excess VBG Potassium A-a O2 Difference Respiratory Index Glucose Lactate Liter Flow FiO2 Crit Value Called To Crit Value Called By Crit Value Read Back Blood Gas Notified Time Sodium Potassium Chloride Carbon Dioxide Anion Gap BUN Creatinine Est GFR ( Amer) Est GFR (Non-Af Amer) POC Glucose (mg/dL) Random Glucose Calcium Phosphorus Magnesium Total Bilirubin AST ALT Alkaline Phosphatase Ammonia Total Creatine Kinase CK-MB (Mass) Troponin I 0.6490 H* NT-Pro-B Natriuret Pep 5160 H Total Protein Albumin Globulin Albumin/Globulin Ratio Arterial Blood Potassium Venous Blood Potassium Urine Color Urine Clarity Urine pH Ur Specific [place] Urine Protein Urine Glucose (UA) Urine Ketones Urine Blood Urine Nitrate Urine Bilirubin Urine Urobilinogen Ur Leukocyte Esterase Urine WBC (Auto) Urine RBC (Auto) Ur Squamous Epith Cells Urine Bacteria Hyaline Casts Salicylates < 1.0 Urine Opiates Screen Urine Methadone Screen Acetaminophen < 10.0 L Ur Barbiturates Screen Ur Phencyclidine Scrn Ur Amphetamines Screen U Benzodiazepines Scrn U Oth Cocaine Metabols U Cannabinoids Screen Alcohol, Quantitative Hepatitis A IgM Ab Negative Hep Bs Antigen Negative Hep B Core IgM Ab Negative Hepatitis C Antibody Reactive 12/10/18 12/10/18 12/10/18 07:05 07:16 07:16 WBC 7.4 RBC 5.23 Hgb 16.8 D Hct 50.1 MCV 95.8 H D MCH 32.1 H MCHC 33.5 RDW 14.5 Plt Count 133 MPV 9.3 Neut % (Auto) 72.0 Lymph % (Auto) 17.9 L Blair % (Auto) 9.4 Eos % (Auto) 0.1 Baso % (Auto) 0.6 Neut # (Auto) 5.3 Lymph # (Auto) 1.3 Blair # (Auto) 0.7 Eos # (Auto) 0.0 Baso # (Auto) 0.0 Neutrophils % (Manual) Band Neutrophils % Lymphocytes % (Manual) Reactive Lymphs % Monocytes % (Manual) Platelet Estimate Anisocytosis (manual) Macrocytosis (manual) Puncture Site pCO2 pO2 40 HCO3 ABG pH ABG Total CO2 ABG O2 Saturation ABG Base Excess Jorge Test ABG Potassium VBG pH 7.44 H VBG pCO2 59 VBG HCO3 34.8 VBG Total CO2 41.9 H VBG O2 Sat (Calc) 72.5 H VBG Base Excess 13.3 H VBG Potassium 4.8 A-a O2 Difference Respiratory Index Glucose 89 Lactate 1.8 Liter Flow FiO2 Crit Value Called To Crit Value Called By Crit Value Read Back Blood Gas Notified Time Sodium 140.0 138 Potassium 4.5 Chloride 103.0 98 Carbon Dioxide 36 H Anion Gap 9 L BUN 34 H Creatinine 1.0 Est GFR ( Amer) > 60 Est GFR (Non-Af Amer) > 60 POC Glucose (mg/dL) Random Glucose 90 D Calcium 8.3 L Phosphorus 3.3 Magnesium 1.9 Total Bilirubin 0.7 AST 553 H D ALT 525 H D Alkaline Phosphatase 101 Ammonia Total Creatine Kinase 609 H CK-MB (Mass) 11.9 H Troponin I 1.1600 H* NT-Pro-B Natriuret Pep Total Protein 6.2 L Albumin 3.4 L D Globulin 2.9 Albumin/Globulin Ratio 1.2 Arterial Blood Potassium Venous Blood Potassium 4.8 Urine Color Urine Clarity Urine pH Ur Specific [place] Urine Protein Urine Glucose (UA) Urine Ketones Urine Blood Urine Nitrate Urine Bilirubin Urine Urobilinogen Ur Leukocyte Esterase Urine WBC (Auto) Urine RBC (Auto) Ur Squamous Epith Cells Urine Bacteria Hyaline Casts Salicylates Urine Opiates Screen Urine Methadone Screen Acetaminophen Ur Barbiturates Screen Ur Phencyclidine Scrn Ur Amphetamines Screen U Benzodiazepines Scrn U Oth Cocaine Metabols U Cannabinoids Screen Alcohol, Quantitative Hepatitis A IgM Ab Hep Bs Antigen Hep B Core IgM Ab Hepatitis C Antibody 12/10/18 07:16 WBC RBC Hgb Hct MCV MCH MCHC RDW Plt Count MPV Neut % (Auto) Lymph % (Auto) Blair % (Auto) Eos % (Auto) Baso % (Auto) Neut # (Auto) Lymph # (Auto) Blair # (Auto) Eos # (Auto) Baso # (Auto) Neutrophils % (Manual) Band Neutrophils % Lymphocytes % (Manual) Reactive Lymphs % Monocytes % (Manual) Platelet Estimate Anisocytosis (manual) Macrocytosis (manual) Puncture Site pCO2 pO2 HCO3 ABG pH ABG Total CO2 ABG O2 Saturation ABG Base Excess Jorge Test ABG Potassium VBG pH VBG pCO2 VBG HCO3 VBG Total CO2 VBG O2 Sat (Calc) VBG Base Excess VBG Potassium A-a O2 Difference Respiratory Index Glucose Lactate Liter Flow FiO2 Crit Value Called To Crit Value Called By Crit Value Read Back Blood Gas Notified Time Sodium Potassium Chloride Carbon Dioxide Anion Gap BUN Creatinine Est GFR ( Amer) Est GFR (Non-Af Amer) POC Glucose (mg/dL) Random Glucose Calcium Phosphorus Magnesium Total Bilirubin AST ALT Alkaline Phosphatase Ammonia 40 H Total Creatine Kinase CK-MB (Mass) Troponin I NT-Pro-B Natriuret Pep Total Protein Albumin Globulin Albumin/Globulin Ratio Arterial Blood Potassium Venous Blood Potassium Urine Color Urine Clarity Urine pH Ur Specific [place] Urine Protein Urine Glucose (UA) Urine Ketones Urine Blood Urine Nitrate Urine Bilirubin Urine Urobilinogen Ur Leukocyte Esterase Urine WBC (Auto) Urine RBC (Auto) Ur Squamous Epith Cells Urine Bacteria Hyaline Casts Salicylates Urine Opiates Screen Urine Methadone Screen Acetaminophen Ur Barbiturates Screen Ur Phencyclidine Scrn Ur Amphetamines Screen U Benzodiazepines Scrn U Oth Cocaine Metabols U Cannabinoids Screen Alcohol, Quantitative Hepatitis A IgM Ab Hep Bs Antigen Hep B Core IgM Ab Hepatitis C Antibody - EKG Data EKG Interpreted by: Myself EKG shows normal: Sinus rhythm Rate: Tachycardia (no ischemic changes, normal qrs) Assessment & Plan - Assessment and Plan (Free Text) Assessment: 63 year old man with significant cardiac risk factors, who was found to be unresponsive, hypothermic, with a respiratory illness and fever. He is to be treated for his infection. asa, plavix sq lovenox. Echo. Once pt is afebrile, c cath is advised, I discussed the risks and benefits with the patient. no statin as pt has elevated LFT
--- NOTE | 2018-12-10 11:02 | RAD ---
HISTORY: COPD COMPARISON: No prior chest x-ray available for comparison. TECHNIQUE: Chest, one view. FINDINGS: LUNGS: No focal consolidation. Please note that chest x-ray has limited sensitivity for the detection of pulmonary masses. PLEURA: No significant pleural effusion identified. No definite pneumothorax . CARDIOVASCULAR: Heart size appears top normal. Ectatic aorta. Atherosclerotic calcifications. OSSEOUS STRUCTURES: Degenerative changes. VISUALIZED UPPER ABDOMEN: Unremarkable. OTHER FINDINGS: None. IMPRESSION: No focal consolidation.
[2018-12-10] MEDS: Methadone 40 mg Tab PO SCH (11:08)
[2018-12-10] MEDS: Albuterol-Ipratrop 3 mg / 0.5 (3 ml) UD INH SCH ×2 (11:24→23:41)
--- NOTE | 2018-12-10 11:45 | RAD ---
HISTORY: sepsis COMPARISON: chest x-ray performed 12/09/18 TECHNIQUE: Chest, one view. FINDINGS: LUNGS: Mild right basilar atelectasis. Please note that chest x-ray has limited sensitivity for the detection of pulmonary masses. PLEURA: No significant pleural effusion identified. No definite pneumothorax . CARDIOVASCULAR: Heart size appears top normal. Ectatic aorta. OSSEOUS STRUCTURES: Degenerative changes. VISUALIZED UPPER ABDOMEN: Elevation of the right hemidiaphragm. OTHER FINDINGS: None. IMPRESSION: Mild right basilar atelectasis.
[2018-12-10 12:06] LABS: INR 1.6; PROTHROMBIN TIME 17.1 SECONDS (9.7-12.2)
--- NOTE | 2018-12-10 12:10 | CT ---
Date of service: 12/10/2018 CTA chest PE protocol Indication: r/o PE Technique: Contiguous axial images were obtained through the chest with intravenous contrast enhancement. Sagittal and coronal reconstructions were generated and reviewed. This CT exam was performed using 1 or more of the following dose reduction techniques: Automated exposure control, adjustment of the MAA and/or kV according to patient size, and/or use of iterative reconstruction technique. IV contrast: 100 mL Visipaque 320 IV Radiation dose (DLP): 573.02 MGy-cm. Comparison: Chest x-ray performed 12/10/18 Findings: Visualized portions of the inferior thyroid gland appear unremarkable. The mediastinal and hilar vascular structures appear within normal limits. The heart appears within normal limits of size. Atherosclerotic calcifications of the aorta. Enlarged pulmonary artery trunk may be seen in the setting of pulmonary arterial hypertension. No large central or segmental pulmonary embolus evident. Small right pleural effusion. Trace left pleural effusion. Bilateral dependent consolidations. No suspicious pulmonary nodules measuring greater than 5 mm identified. Distal esophageal wall thickening/small hiatal hernia. Limited visualization of the upper abdomen reveals nodular hepatic contour. Distended gallbladder with calcifications and or sludge. High-density within the gallbladder possibly related to vicarious excretion of contrast. Subtle mild peripancreatic inflammatory changes; correlate for pancreatitis. Numerous subcentimeter peripancreatic/mesenteric and retroperitoneal lymph nodes. Kyphosis. Degenerative changes. Impression: Enlarged pulmonary artery trunk may be seen in the setting of pulmonary arterial hypertension. Correlate clinically. No large central or segmental pulmonary embolus evident. Small right pleural effusion. Trace left pleural effusion. Bilateral dependent consolidations. Distal esophageal wall thickening/small hiatal hernia. Limited visualization of the upper abdomen: Nodular hepatic contour, correlate for cirrhosis. Distended gallbladder with calcifications and or sludge. High-density within the gallbladder possibly related to vicarious excretion of contrast. Subtle mild peripancreatic inflammatory changes; correlate for pancreatitis. Numerous subcentimeter peripancreatic/mesenteric and retroperitoneal lymph nodes.
[2018-12-10] MEDS: MethylPREDNISolone 40 mg Vial IVP SCH ×2 (12:13→17:41)
[2018-12-10] MEDS: Enoxaparin 80 mg Syringe SC SCH ×2 (12:17→22:50)
[2018-12-10 12:48] LABS: TROPONIN I 0.955 ng/mL (0.00-0.120)
[2018-12-10] MEDS ORDERED: Tmp-Smz 800 mg-160 mg DS Tab PO SCH (14:00)
--- NOTE | 2018-12-10 15:19 | US ---
HISTORY: hcv COMPARISON: None available. TECHNIQUE: Sonographic evaluation of the abdomen. FINDINGS: LIVER: Measures 15.7 cm in sagittal dimension. Echogenic liver may be seen in setting of hepatic parenchymal disease or fatty infiltration. No focal hepatic mass identified. The main portal vein appears patent with normal directional flow. No intrahepatic bile duct dilatation. GALLBLADDER: Gallstones. No gallbladder wall thickening. Negative sonographic Toussaint's sign as assessed by the homebirth midwife. COMMON BILE DUCT: Measures 6 mm. PANCREAS: Not well visualized. RIGHT KIDNEY: Measures 11.2 x 4.2 x 4.1cm. No obstructing calculus or hydronephrosis identified. LEFT KIDNEY: Measures 10.8 x 5.0 x 5.0cm. No obstructing calculus or hydronephrosis identified. SPLEEN: Measures approximately 16.3 cm. AORTA: Limited views appear unremarkable. IVC: Limited views appear unremarkable. OTHER FINDINGS: None. IMPRESSION: Cholelithiasis. Echogenic liver may be seen in setting of hepatic parenchymal disease or fatty infiltration. Splenomegaly.
[2018-12-10] MEDS ORDERED: WATER IVPB SCH (15:30)
[2018-12-10] MEDS ORDERED: TRIMETHOPRIM IVPB SCH (15:30)
[2018-12-10] MEDS ORDERED: DEXTROSE 5% IVPB SCH (15:30)
[2018-12-10] MEDS ORDERED: SULFAMETHOXAZOLE IVPB SCH (15:30)
--- NOTE | 2018-12-10 16:25 | CP.PCM.PCO ---
<Elaina Jack - Last Filed: 12/10/18 16:22> Addendum Addendum: 12/10/18 16:22 Came to speak to patient and around 4 PM. There was a significant odor of smoke in the patient's room and into the hallway. Nurse reports that patient was just in the bathroom and went downstairs to get food. Security was called and patient was confronted about smoking in his room. Patient adamantly denied smoking. However, when patient moved a pile of clothing from his bed, a pack of cigarettes fell out. Both patient and were instructed that patient cannot smoke in the room. He will be provided with a nicotine patch. took the cigarette pack and will take them home. <Anoop Zepeda - Last Filed: 12/10/18 17:36> Attending/Attestation - Attestation I have personally seen and examined this patient.: Yes I have fully participated in the care of the patient.: Yes I have reviewed all pertinent clinical information: Yes Notes (Text): Spoke to the patient about risk of smoking with pneumonia on oxygen and NSTMI
--- NOTE | 2018-12-10 16:44 | CARD ---
APPROVED REPORT Date of service: 12/10/2018 EXAM: Two-dimensional and M-mode echocardiogram with Doppler and color Doppler. Other Information Quality : TDSRhythm : INDICATION LV Function:Systolic COPD Drug Abuse/ HIV RISK FACTORS Hypertension 2D DIMENSIONS IVSd1.0 (0.7-1.1cm)LVDd4.2 (3.9-5.9cm) PWd1.2 (0.7-1.1cm)LA Ijagdl40 (18-58mL) LVDs3.2 (2.5-4.0cm)FS (%) 24.0 % LVEF (Rodriguez's)50 % M-Mode DIMENSIONS Left Atrium (MM)3.19 (2.5-4.0cm)IVSd0.95 (0.7-1.1cm) Aortic Root3.21 (2.2-3.7cm)LVDd4.61 (4.0-5.6cm) Aortic Cusp Exc.2.17 (1.5-2.0cm)PWd1.04 (0.7-1.1cm) FS (%) 26 %LVDs3.41 (2.0-3.8cm) LVEF (%)51 (>50%) Mitral Valve MV E Tutwlxjq63.6cm/sMV A Bjzvfsad32.5cm/sE/A ratio0.9 TDI Lateral E' Peak V7.54cm/sMedial E' Peak V7.58cm/sE/Lateral E'11.0 E/Medial E'10.9 Tricuspid Valve TR Peak [id number]/sTR Peak Gr.[id number] LEFT VENTRICLE The left ventricle is normal size. There is normal left ventricular wall thickness. The left ventricular function is at low normal. There is normal LV segmental wall motion. Transmitral Doppler flow pattern is Grade I-abnormal relaxation pattern. RIGHT VENTRICLE The right ventricle is moderately dilated. The right ventricular systolic function is mildly reduced. ATRIA The left atrium size is normal. The right atrium is moderately dilated. AORTIC VALVE The aortic valve is normal in structure. There is trace to mild aortic regurgitation. MITRAL VALVE The mitral valve is normal in structure. There is no mitral valve regurgitation noted. TRICUSPID VALVE The tricuspid valve is normal in structure. There is mild tricuspid regurgitation. Right ventricular systolic pressure is estimated at - 32 mmHg. PULMONIC VALVE The pulmonic valve is not well visualized. GREAT VESSELS The aortic root is normal in size. Dilated IVC with poor inspiration collapse is consistent with elevated right atrial pressure. PERICARDIAL EFFUSION There is no pericardial effusion. <Conclusion> The left ventricular function is at low normal. There is normal LV segmental wall motion. Transmitral Doppler flow pattern is Grade I-abnormal relaxation pattern. The right ventricle is moderately dilated. The right ventricular systolic function is mildly reduced. The right atrium is moderately dilated. There is trace to mild aortic regurgitation. There is mild tricuspid regurgitation. Right ventricular systolic pressure is estimated at - 32 mmHg. (marginally elevated) Dilated IVC with poor inspiration collapse is consistent with elevated right atrial pressure. There is no pericardial effusion.
--- NOTE | 2018-12-10 17:28 | CP.PCM.CON ---
History of Present Illness - History of Present Illness History of Present Illness: 63 year old male with past medical history of HTN, COPD, HIV, HCV (treated ) was found unresponsive at home by . EMS was called, administered 2 mg intranasal narcan, patient became more alert and arousable Admitted with hypothermia , ACS with elevated troponins ,toxic metabolic encephalopathy, possible drug OD, r/o sepsis, pneumonaia and possible PCP pneumonia Has been started on IV antibiotics PMHx: HTN, COPD, HIV, HCV PSHx: none Allergies: NKDA Family Hx: unknown Social Hx: +tobacco: 1 ppd, several years; denies alcohol use; hx heroin abuse (stopped in ), on home methadone 25 years, abuses xanax Review of Systems - Review of Systems All systems: reviewed and no additional remarkable complaints except - Constitutional Constitutional: As Per HPI, Anorexia, Malaise - EENT Eyes: absent: As Per HPI, Blind Spots, Blurred Vision, Change in Vision, Decreased Night Vision, Diplopia, Discharge, Dry Eye, Exophthalmos, Floaters, Irritation, Itchy Eyes, Loss of Peripheral Vision, Pain, Photophobia, Requires Corrective Lenses, Sees Flashes, Spots in Vision, Tunnel Vision, Other Visual Disturbances, Loss of Vision, Other Ears: absent: As Per HPI, Decreased Hearing, Ear Discharge, Ear Pain, Tinnitus, Abnormal Hearing, Disequilibrium, Dizziness, Other Nose/Mouth/Throat: absent: As Per HPI, Epistaxis, Nasal Congestion, Nasal Discharge, Nasal Obstruction, Nasal Trauma, Nose Pain, Post Nasal Drip, Sinus Pain, Sinus Pressure, Bleeding Gums, Change in Voice, Dental Pain, Dry Mouth, Dysphagia, Halitosis, Hoarsness, Lip Swelling, Mouth Lesions, Mouth Pain, Odynophagia, Sore Throat, Throat Swelling, Tongue Swelling, Facial Pain, Neck Pain, Neck Mass, Other - Cardiovascular Cardiovascular: As Per HPI - Respiratory Respiratory: As Per HPI, Cough, Dyspnea. absent: Hemoptysis - Gastrointestinal Gastrointestinal: absent: As Per HPI, Abdominal Pain, Belching, Bloating, Change in Bowel Habits, Change in Stool Character, Coffee Ground Emesis, Constipation, Cramping, Diarrhea, Dyspepsia, Dysphagia, Early Satiety, Excessive Flatus, Fecal Incontinence, Heartburn, Hematemesis, Hematochezia, Loose Stools, Melena, Nausea, Odynophagia, Temesmus, Vomiting, Other - Genitourinary Genitourinary: absent: As Per HPI, Change in Urinary Stream, Difficulty Urinating, Dysuria, Flank Pain, Hematuria, Pyuria, Nocturia, Urinary Incontinence, Urinary Frequency, Urinary Hesitance, Urinary Urgency, Voiding Freq/Small Amts, Freq UTI, Hx Renal/Bladder Calculi, Hx /Renal Surgery, Bladder Distension, Other - Musculoskeletal Musculoskeletal: absent: As Per HPI, Abnormal Gait, Arthralgias, Atrophy, Back Pain, Deformity, Joint Swelling, Limited Range of Motion, Loss of Height, Muscle Cramps, Muscle Weakness, Myalgias, Neck Pain, Numbness, Radiating Pain into Limb, Stiffness, Tingling, Other - Integumentary Integumentary: absent: As Per HPI, Acne, Alopecia, Bleeding Lesions, Change in Hair, Change in Nails, Change in Pigmentation, Changing Lesions, Dry Skin, Erythema, Furuncle, Hirsutism, Lesions, New Lesions, Non-Healing Lesions, Photosensitivity, Pruritus, Rash, Skin Pain, Skin Ulcer, Sores, Striae, Swelling, Unusual Bruising, Wounds, Jaundice, Other - Neurological Neurological: As Per HPI - Psychiatric Psychiatric: As Per HPI - Endocrine Endocrine: absent: As Per HPI, Change in Body Appearance, Change in Libido, Cold Intolorance, Deepening of Voice, Excessive Sweating, Fatigue, Flushing, Heat Intolorance, Increase in Ring/Shoe/Hat Size, Palpitations, Polydipsia, Polyphagia, Polyuria, Other - Hematologic/Lymphatic Hematologic: absent: As Per HPI, Easy Bleeding, Easy Bruising, Lymphadenopathy, Other Past Patient History - Past Social History Smoking Status: Heavy Smoker > 10 Cigarettes Daily - CARDIAC Hx Hypertension: Yes (?) - PULMONARY Hx Chronic Obstructive Pulmonary Disease (COPD): Yes - HEMATOLOGICAL/ONCOLOGICAL Hx Human Immunodeficiency Virus (HIV): Yes - MUSCULOSKELETAL/RHEUMATOLOGICAL Hx Falls: No - PSYCHIATRIC Hx Substance Use: Yes - SURGICAL HISTORY Hx Surgeries: No Meds Allergies/Adverse Reactions: Allergies Allergy/AdvReac Type Severity Reaction Status Date / Time No Known Allergies Allergy Unverified 12/09/18 19:18 - Medications Medications: Current Medications Albuterol/Ipratropium (Duoneb 3 Mg/0.5 Mg (3 Ml) Ud) 3 ml INH RQ4 CAMILO Last Admin: 12/10/18 11:24 Dose: 3 ml Aspirin (Ecotrin) 81 mg PO DAILY [facility] Clopidogrel Bisulfate (Plavix) 75 mg PO DAILY [facility] Enoxaparin Sodium (Lovenox) 70 mg SC Q12H [facility] Last Admin: 12/10/18 12:17 Dose: 70 mg Sodium Chloride (Sodium Chloride 0.9%) 1,000 mls @ 75 mls/hr IV .[id number] [facility] Last Admin: 12/10/18 09:00 Dose: Not Given Vancomycin/Sodium Chloride (Vancomycin 1 Gm/Ns 200 Ml) 1 gm in 200 mls @ 133 mls/hr IVPB Q12H [facility]; Protocol Stop: 12/15/18 10:01 Last Admin: 12/10/18 10:15 Dose: 133 mls/hr Ceftriaxone Sodium 1 gm/ (Sodium Chloride) 100 mls @ 100 mls/hr IVPB Q24H [facility]; Protocol Trimethoprim/Sulfamethoxazole (400 mg/ Dextrose) 500 mls @ 333.333 mls/hr IVPB Q8H [facility] Influenza Virus Vaccine (Flucelvax Quad [id number] Syr) 60 mcg IM .ONCE ONE Stop: 12/11/18 10:01 Methadone HCl (Methadose) 40 mg PO DAILY [facility] Last Admin: 12/10/18 11:08 Dose: 40 mg Methadone HCl (Methadone) 20 mg PO DAILY [facility] Last Admin: 12/10/18 11:09 Dose: 20 mg Methadone HCl (Methadone) 5 mg PO DAILY [facility] Last Admin: 12/10/18 11:09 Dose: 5 mg Methylprednisolone (Solu-Medrol) 40 mg IVP BID [facility] Last Admin: 12/10/18 12:13 Dose: 40 mg Nicotine (Nicoderm Cq) 1 patch TD DAILY [facility] Oseltamivir Phosphate (Tamiflu Cap) 75 mg PO BID [facility]; Protocol Stop: 12/15/18 09:54 Last Admin: 12/10/18 12:14 Dose: 75 mg Pantoprazole Sodium (Protonix Inj) 40 mg IVP DAILY [facility] Last Admin: 12/10/18 12:13 Dose: 40 mg Pneumococcal Polyvalent Vaccine (Pneumovax 23 Vaccine) 0.5 ml IM .ONCE ONE Stop: 12/11/18 10:01 Physical Exam - Constitutional Appears: Non-toxic, No Acute Distress, Chronically Ill - Head Exam Head Exam: ATRAUMATIC, NORMAL INSPECTION, NORMOCEPHALIC - Eye Exam Eye Exam: PERRL. absent: Scleral icterus - ENT Exam ENT Exam: Mucous Membranes Dry, Normal External Ear Exam, Normal Oropharynx - Neck Exam Neck exam: Negative for: Lymphadenopathy - Respiratory Exam Respiratory Exam: Decreased Breath Sounds, Prolonged Expiratory Phase, Rhonchi - Cardiovascular Exam Cardiovascular Exam: REGULAR RHYTHM, +S1, +S2 - GI/Abdominal Exam GI & Abdominal Exam: Diminished Bowel Sounds, Soft. absent: Tenderness - Rectal Exam Rectal Exam: Deferred - Exam Exam: NORMAL INSPECTION - Extremities Exam Extremities exam: Positive for: pedal pulses present. Negative for: calf tenderness, pedal edema, tenderness - Back Exam Back exam: absent: CVA tenderness (L), CVA tenderness (R), paraspinal tenderness - Neurological Exam Neurological exam: Alert, CN II-XII Intact, Oriented x3, Reflexes Normal - Psychiatric Exam Psychiatric exam: Depressed - Skin Skin Exam: Dry Results - Vital Signs Recent Vital Signs: Last Vital Signs Temp 102.0 F H 12/10/18 07:00 Pulse 93 H 12/10/18 07:00 Resp 18 12/10/18 07:00 BP 131/86 12/10/18 07:00 Pulse Ox 87 L 12/10/18 07:00 - Labs Result Diagrams: 12/10/18 07:16 12/10/18 07:16 Labs: Laboratory Results - last 24 hr 12/09/18 12/09/18 12/09/18 19:26 19:45 19:45 WBC 10.3 RBC 5.83 Hgb 18.9 H Hct 58.7 H MCV 100.6 H MCH 32.4 H MCHC 32.2 L RDW 15.3 H Plt Count 149 MPV 9.2 Neut % (Auto) 87.4 H Lymph % (Auto) 7.0 L [place] % (Auto) 5.2 Eos % (Auto) 0.1 Baso % (Auto) 0.3 Neut # (Auto) 9.0 H Lymph # (Auto) 0.7 L [place] # (Auto) 0.5 Eos # (Auto) 0.0 Baso # (Auto) 0.0 Neutrophils % (Manual) 79 H Band Neutrophils % 5 H Lymphocytes % (Manual) 6 L Reactive Lymphs % 1 H Monocytes % (Manual) 9 Platelet Estimate Normal Anisocytosis (manual) Slight Macrocytosis (manual) Slight PT INR Puncture Site pCO2 pO2 HCO3 ABG pH ABG Total CO2 ABG O2 Saturation ABG Base Excess Jorge Test ABG Potassium VBG pH VBG pCO2 VBG HCO3 VBG Total CO2 VBG O2 Sat (Calc) VBG Base Excess VBG Potassium A-a O2 Difference Respiratory Index Glucose Lactate Liter Flow FiO2 Crit Value Called To Crit Value Called By Crit Value Read Back Blood Gas Notified Time Sodium 139 Potassium 5.2 Chloride 94 L Carbon Dioxide 26 Anion Gap 23 H BUN 32 H Creatinine 1.5 Est GFR ( Amer) 57 Est GFR (Non-Af Amer) 47 POC Glucose (mg/dL) 133 H Random Glucose 170 H Calcium 9.1 Phosphorus 10.6 H Magnesium 2.0 Total Bilirubin 1.8 H AST 347 H ALT 306 H Alkaline Phosphatase 115 Ammonia Lactate Dehydrogenase Total Creatine Kinase CK-MB (Mass) Troponin I NT-Pro-B Natriuret Pep Total Protein 7.7 Albumin 4.5 Globulin 3.2 Albumin/Globulin Ratio 1.4 Arterial Blood Potassium Venous Blood Potassium Urine Color Urine Clarity Urine pH Ur Specific Ramsay Urine Protein Urine Glucose (UA) Urine Ketones Urine Blood Urine Nitrate Urine Bilirubin Urine Urobilinogen Ur Leukocyte Esterase Urine WBC (Auto) Urine RBC (Auto) Ur Squamous Epith Cells Urine Bacteria Hyaline Casts Salicylates Urine Opiates Screen Urine Methadone Screen Acetaminophen Ur Barbiturates Screen Ur Phencyclidine Scrn Ur Amphetamines Screen U Benzodiazepines Scrn U Oth Cocaine Metabols U Cannabinoids Screen Alcohol, Quantitative < 10 Hepatitis A IgM Ab Hep Bs Antigen Hep B Core IgM Ab Hepatitis C Antibody Influenza Typ A,B (EIA) 12/09/18 12/09/18 12/09/18 21:17 21:17 23:07 WBC RBC Hgb Hct MCV MCH MCHC RDW Plt Count MPV Neut % (Auto) Lymph % (Auto) [place] % (Auto) Eos % (Auto) Baso % (Auto) Neut # (Auto) Lymph # (Auto) [place] # (Auto) Eos # (Auto) Baso # (Auto) Neutrophils % (Manual) Band Neutrophils % Lymphocytes % (Manual) Reactive Lymphs % Monocytes % (Manual) Platelet Estimate Anisocytosis (manual) Macrocytosis (manual) PT INR Puncture Site Lb pCO2 57 H pO2 44 L* HCO3 29.1 H ABG pH 7.37 ABG Total CO2 34.7 H ABG O2 Saturation 82.9 L ABG Base Excess 6.0 H Jorge Test Na ABG Potassium 4.5 VBG pH VBG pCO2 VBG HCO3 VBG Total CO2 VBG O2 Sat (Calc) VBG Base Excess VBG Potassium A-a O2 Difference 141.0 Respiratory Index 3.2 Glucose 120 H Lactate 2.8 H Liter Flow 4.0 FiO2 36.0 Crit Value Called To Dr dong Crit Value Called By Janusz chen Crit Value Read Back Y Blood Gas Notified Time 230 Sodium 138.0 Potassium Chloride 101.0 Carbon Dioxide Anion Gap BUN Creatinine Est GFR ( Amer) Est GFR (Non-Af Amer) POC Glucose (mg/dL) Random Glucose Calcium Phosphorus Magnesium Total Bilirubin AST ALT Alkaline Phosphatase Ammonia Lactate Dehydrogenase Total Creatine Kinase CK-MB (Mass) Troponin I NT-Pro-B Natriuret Pep Total Protein Albumin Globulin Albumin/Globulin Ratio Arterial Blood Potassium 4.5 Venous Blood Potassium Urine Color Radha Urine Clarity Hazy Urine pH 5.0 Ur Specific Ramsay 1.017 Urine Protein 2+ H Urine Glucose (UA) Normal Urine Ketones Negative Urine Blood 2+ H Urine Nitrate Negative Urine Bilirubin Negative Urine Urobilinogen 4.0 Ur Leukocyte Esterase Neg Urine WBC (Auto) 2 Urine RBC (Auto) 3 Ur Squamous Epith Cells 1 Urine Bacteria Rare Hyaline Casts 11-20 H Salicylates Urine Opiates Screen Negative Urine Methadone Screen Positive H Acetaminophen Ur Barbiturates Screen Negative Ur Phencyclidine Scrn Negative Ur Amphetamines Screen Negative U Benzodiazepines Scrn Positive U Oth Cocaine Metabols Negative U Cannabinoids Screen Negative Alcohol, Quantitative Hepatitis A IgM Ab Hep Bs Antigen Hep B Core IgM Ab Hepatitis C Antibody Influenza Typ A,B (EIA) 12/10/18 12/10/18 12/10/18 00:27 00:27 00:27 WBC RBC Hgb Hct MCV MCH MCHC RDW Plt Count MPV Neut % (Auto) Lymph % (Auto) [place] % (Auto) Eos % (Auto) Baso % (Auto) Neut # (Auto) Lymph # (Auto) [place] # (Auto) Eos # (Auto) Baso # (Auto) Neutrophils % (Manual) Band Neutrophils % Lymphocytes % (Manual) Reactive Lymphs % Monocytes % (Manual) Platelet Estimate Anisocytosis (manual) Macrocytosis (manual) PT INR Puncture Site pCO2 pO2 HCO3 ABG pH ABG Total CO2 ABG O2 Saturation ABG Base Excess Jorge Test ABG Potassium VBG pH VBG pCO2 VBG HCO3 VBG Total CO2 VBG O2 Sat (Calc) VBG Base Excess VBG Potassium A-a O2 Difference Respiratory Index Glucose Lactate Liter Flow FiO2 Crit Value Called To Crit Value Called By Crit Value Read Back Blood Gas Notified Time Sodium Potassium Chloride Carbon Dioxide Anion Gap BUN Creatinine Est GFR ( Amer) Est GFR (Non-Af Amer) POC Glucose (mg/dL) Random Glucose Calcium Phosphorus Magnesium Total Bilirubin AST ALT Alkaline Phosphatase Ammonia Lactate Dehydrogenase Total Creatine Kinase CK-MB (Mass) Troponin I 0.6490 H* NT-Pro-B Natriuret Pep 5160 H Total Protein Albumin Globulin Albumin/Globulin Ratio Arterial Blood Potassium Venous Blood Potassium Urine Color Urine Clarity Urine pH Ur Specific Ramsay Urine Protein Urine Glucose (UA) Urine Ketones Urine Blood Urine Nitrate Urine Bilirubin Urine Urobilinogen Ur Leukocyte Esterase Urine WBC (Auto) Urine RBC (Auto) Ur Squamous Epith Cells Urine Bacteria Hyaline Casts Salicylates < 1.0 Urine Opiates Screen Urine Methadone Screen Acetaminophen < 10.0 L Ur Barbiturates Screen Ur Phencyclidine Scrn Ur Amphetamines Screen U Benzodiazepines Scrn U Oth Cocaine Metabols U Cannabinoids Screen Alcohol, Quantitative Hepatitis A IgM Ab Negative Hep Bs Antigen Negative Hep B Core IgM Ab Negative Hepatitis C Antibody Reactive Influenza Typ A,B (EIA) 12/10/18 12/10/18 12/10/18 07:05 07:16 07:16 WBC 7.4 RBC 5.23 Hgb 16.8 D Hct 50.1 MCV 95.8 H D MCH 32.1 H MCHC 33.5 RDW 14.5 Plt Count 133 MPV 9.3 Neut % (Auto) 72.0 Lymph % (Auto) 17.9 L [place] % (Auto) 9.4 Eos % (Auto) 0.1 Baso % (Auto) 0.6 Neut # (Auto) 5.3 Lymph # (Auto) 1.3 [place] # (Auto) 0.7 Eos # (Auto) 0.0 Baso # (Auto) 0.0 Neutrophils % (Manual) Band Neutrophils % Lymphocytes % (Manual) Reactive Lymphs % Monocytes % (Manual) Platelet Estimate Anisocytosis (manual) Macrocytosis (manual) PT INR Puncture Site pCO2 pO2 40 HCO3 ABG pH ABG Total CO2 ABG O2 Saturation ABG Base Excess Jorge Test ABG Potassium VBG pH 7.44 H VBG pCO2 59 VBG HCO3 34.8 VBG Total CO2 41.9 H VBG O2 Sat (Calc) 72.5 H VBG Base Excess 13.3 H VBG Potassium 4.8 A-a O2 Difference Respiratory Index Glucose 89 Lactate 1.8 Liter Flow FiO2 Crit Value Called To Crit Value Called By Crit Value Read Back Blood Gas Notified Time Sodium 140.0 138 Potassium 4.5 Chloride 103.0 98 Carbon Dioxide 36 H Anion Gap 9 L BUN 34 H Creatinine 1.0 Est GFR ( Amer) > 60 Est GFR (Non-Af Amer) > 60 POC Glucose (mg/dL) Random Glucose 90 D Calcium 8.3 L Phosphorus 3.3 Magnesium 1.9 Total Bilirubin 0.7 AST 553 H D ALT 525 H D Alkaline Phosphatase 101 Ammonia Lactate Dehydrogenase Total Creatine Kinase 609 H CK-MB (Mass) 11.9 H Troponin I 1.1600 H* NT-Pro-B Natriuret Pep Total Protein 6.2 L Albumin 3.4 L D Globulin 2.9 Albumin/Globulin Ratio 1.2 Arterial Blood Potassium Venous Blood Potassium 4.8 Urine Color Urine Clarity Urine pH Ur Specific Ramsay Urine Protein Urine Glucose (UA) Urine Ketones Urine Blood Urine Nitrate Urine Bilirubin Urine Urobilinogen Ur Leukocyte Esterase Urine WBC (Auto) Urine RBC (Auto) Ur Squamous Epith Cells Urine Bacteria Hyaline Casts Salicylates Urine Opiates Screen Urine Methadone Screen Acetaminophen Ur Barbiturates Screen Ur Phencyclidine Scrn Ur Amphetamines Screen U Benzodiazepines Scrn U Oth Cocaine Metabols U Cannabinoids Screen Alcohol, Quantitative Hepatitis A IgM Ab Hep Bs Antigen Hep B Core IgM Ab Hepatitis C Antibody Influenza Typ A,B (EIA) 12/10/18 12/10/18 12/10/18 07:16 11:47 11:47 WBC RBC Hgb Hct MCV MCH MCHC RDW Plt Count MPV Neut % (Auto) Lymph % (Auto) [place] % (Auto) Eos % (Auto) Baso % (Auto) Neut # (Auto) Lymph # (Auto) [place] # (Auto) Eos # (Auto) Baso # (Auto) Neutrophils % (Manual) Band Neutrophils % Lymphocytes % (Manual) Reactive Lymphs % Monocytes % (Manual) Platelet Estimate Anisocytosis (manual) Macrocytosis (manual) PT 17.1 H INR 1.6 Puncture Site pCO2 pO2 HCO3 ABG pH ABG Total CO2 ABG O2 Saturation ABG Base Excess Jorge Test ABG Potassium VBG pH VBG pCO2 VBG HCO3 VBG Total CO2 VBG O2 Sat (Calc) VBG Base Excess VBG Potassium A-a O2 Difference Respiratory Index Glucose Lactate Liter Flow FiO2 Crit Value Called To Crit Value Called By Crit Value Read Back Blood Gas Notified Time Sodium Potassium Chloride Carbon Dioxide Anion Gap BUN Creatinine Est GFR ( Amer) Est GFR (Non-Af Amer) POC Glucose (mg/dL) Random Glucose Calcium Phosphorus Magnesium Total Bilirubin AST ALT Alkaline Phosphatase Ammonia 40 H Lactate Dehydrogenase 1093 H Total Creatine Kinase 814 H CK-MB (Mass) 10.0 H Troponin I 0.9550 H* NT-Pro-B Natriuret Pep Total Protein Albumin Globulin Albumin/Globulin Ratio Arterial Blood Potassium Venous Blood Potassium Urine Color Urine Clarity Urine pH Ur Specific Ramsay Urine Protein Urine Glucose (UA) Urine Ketones Urine Blood Urine Nitrate Urine Bilirubin Urine Urobilinogen Ur Leukocyte Esterase Urine WBC (Auto) Urine RBC (Auto) Ur Squamous Epith Cells Urine Bacteria Hyaline Casts Salicylates Urine Opiates Screen Urine Methadone Screen Acetaminophen Ur Barbiturates Screen Ur Phencyclidine Scrn Ur Amphetamines Screen U Benzodiazepines Scrn U Oth Cocaine Metabols U Cannabinoids Screen Alcohol, Quantitative Hepatitis A IgM Ab Hep Bs Antigen Hep B Core IgM Ab Hepatitis C Antibody Influenza Typ A,B (EIA) 12/10/18 11:47 WBC RBC Hgb Hct MCV MCH MCHC RDW Plt Count MPV Neut % (Auto) Lymph % (Auto) [place] % (Auto) Eos % (Auto) Baso % (Auto) Neut # (Auto) Lymph # (Auto) [place] # (Auto) Eos # (Auto) Baso # (Auto) Neutrophils % (Manual) Band Neutrophils % Lymphocytes % (Manual) Reactive Lymphs % Monocytes % (Manual) Platelet Estimate Anisocytosis (manual) Macrocytosis (manual) PT INR Puncture Site pCO2 pO2 HCO3 ABG pH ABG Total CO2 ABG O2 Saturation ABG Base Excess Jorge Test ABG Potassium VBG pH VBG pCO2 VBG HCO3 VBG Total CO2 VBG O2 Sat (Calc) VBG Base Excess VBG Potassium A-a O2 Difference Respiratory Index Glucose Lactate Liter Flow FiO2 Crit Value Called To Crit Value Called By Crit Value Read Back Blood Gas Notified Time Sodium Potassium Chloride Carbon Dioxide Anion Gap BUN Creatinine Est GFR ( Amer) Est GFR (Non-Af Amer) POC Glucose (mg/dL) Random Glucose Calcium Phosphorus Magnesium Total Bilirubin AST ALT Alkaline Phosphatase Ammonia Lactate Dehydrogenase Total Creatine Kinase CK-MB (Mass) Troponin I NT-Pro-B Natriuret Pep Total Protein Albumin Globulin Albumin/Globulin Ratio Arterial Blood Potassium Venous Blood Potassium Urine Color Urine Clarity Urine pH Ur Specific Ramsay Urine Protein Urine Glucose (UA) Urine Ketones Urine Blood Urine Nitrate Urine Bilirubin Urine Urobilinogen Ur Leukocyte Esterase Urine WBC (Auto) Urine RBC (Auto) Ur Squamous Epith Cells Urine Bacteria Hyaline Casts Salicylates Urine Opiates Screen Urine Methadone Screen Acetaminophen Ur Barbiturates Screen Ur Phencyclidine Scrn Ur Amphetamines Screen U Benzodiazepines Scrn U Oth Cocaine Metabols U Cannabinoids Screen Alcohol, Quantitative Hepatitis A IgM Ab Hep Bs Antigen Hep B Core IgM Ab Hepatitis C Antibody Influenza Typ A,B (EIA) Negative for flu a/b Assessment & Plan (1) Drug abuse Status: Acute (2) Drug dependence Status: Acute (3) Drug overdose Status: Acute (4) Hypothermia Status: Acute - Assessment and Plan (Free Text) Assessment: empiric rx for PCP pneumonia started including steroids T cell subsets pending Started on empiric IV antibiotics dfor pneumonia with coverage for MRSA inview of drug abuse historyu and possible OD Cardio on board for ACS- will need Cath when stable
[2018-12-10] MEDS: SULFAMETHOXAZOLE IVPB SCH (17:39)
[2018-12-10] MEDS: WATER IVPB SCH (17:39)
[2018-12-10] MEDS: TRIMETHOPRIM IVPB SCH (17:39)
[2018-12-10] MEDS: DEXTROSE 5% IVPB SCH (17:39)
--- NOTE | 2018-12-10 18:36 | CP.PCM.PN ---
<Elaina Jack - Last Filed: 12/10/18 20:00> Subjective - Date & Time of Evaluation Date of Evaluation: 12/10/18 Time of Evaluation: 18:35 - Subjective Subjective: PGY-1 Elaina Jack D.O. Medicine progress note for Dr. Zepeda's service: Patient was seen and examined this morning. Patient says he does not feel well but he cannot describe what is specifically wrong. He says that he has not felt right for a week and he does not remember what happened yesterday. Patient admits to noncompliance with meds, particularly HIV med. He goes to a methadone and pain clinic. He does not have a primary care physician. He says he is on disability and lives with his . He is complaining of cough and sputum production. He admits to fevers and chills. Objective - Vital Signs/Intake and Output Vital Signs (last 24 hours): Temp Pulse Resp BP Pulse Ox 102.0 F H 93 H 18 131/86 87 L 12/10/18 07:00 12/10/18 07:00 12/10/18 07:00 12/10/18 07:00 12/10/18 07:00 - Medications Medications: Current Medications Albuterol/Ipratropium (Duoneb 3 Mg/0.5 Mg (3 Ml) Ud) 3 ml INH RQ4 [facility] Last Admin: 12/10/18 11:24 Dose: 3 ml Aspirin (Ecotrin) 81 mg PO DAILY [facility] Clopidogrel Bisulfate (Plavix) 75 mg PO DAILY [facility] Enoxaparin Sodium (Lovenox) 70 mg SC Q12H [facility] Last Admin: 12/10/18 12:17 Dose: 70 mg Sodium Chloride (Sodium Chloride 0.9%) 1,000 mls @ 75 mls/hr IV .[id number] [facility] Last Admin: 12/10/18 09:00 Dose: Not Given Vancomycin/Sodium Chloride (Vancomycin 1 Gm/Ns 200 Ml) 1 gm in 200 mls @ 133 mls/hr IVPB Q12H [facility]; Protocol Stop: 12/15/18 10:01 Last Admin: 12/10/18 10:15 Dose: 133 mls/hr Ceftriaxone Sodium 1 gm/ (Sodium Chloride) 100 mls @ 100 mls/hr IVPB Q24H [facility]; Protocol Trimethoprim/Sulfamethoxazole (400 mg/ Dextrose) 500 mls @ 333.333 mls/hr IVPB Q8H [facility] Last Admin: 12/10/18 17:39 Dose: 333.333 mls/hr Influenza Virus Vaccine (Flucelvax Quad 1824-5241 Syr) 60 mcg IM .ONCE ONE Stop: 12/11/18 10:01 Methadone HCl (Methadose) 40 mg PO DAILY [facility] Last Admin: 12/10/18 11:08 Dose: 40 mg Methadone HCl (Methadone) 20 mg PO DAILY [facility] Last Admin: 12/10/18 11:09 Dose: 20 mg Methadone HCl (Methadone) 5 mg PO DAILY [facility] Last Admin: 12/10/18 11:09 Dose: 5 mg Methylprednisolone (Solu-Medrol) 40 mg IVP BID [facility] Last Admin: 12/10/18 17:41 Dose: 40 mg Nicotine (Nicoderm Cq) 1 patch TD DAILY [facility] Last Admin: 12/10/18 17:38 Dose: 1 patch Oseltamivir Phosphate (Tamiflu Cap) 75 mg PO BID [facility]; Protocol Stop: 12/15/18 09:54 Last Admin: 12/10/18 17:38 Dose: 75 mg Pantoprazole Sodium (Protonix Inj) 40 mg IVP DAILY [facility] Last Admin: 12/10/18 12:13 Dose: 40 mg Pneumococcal Polyvalent Vaccine (Pneumovax 23 Vaccine) 0.5 ml IM .ONCE ONE Stop: 12/11/18 10:01 - Labs Labs: 12/10/18 07:16 12/10/18 07:16 PT 17.1 SECONDS (9.7-12.2) H 12/10/18 11:47 INR 1.6 12/10/18 11:47 - Constitutional Appears: No Acute Distress, Unkempt - Head Exam Head Exam: ATRAUMATIC, NORMAL INSPECTION - Eye Exam Eye Exam: EOMI, Normal appearance, PERRL - ENT Exam ENT Exam: Mucous Membranes Moist - Neck Exam Neck Exam: Normal Inspection - Respiratory Exam Respiratory Exam: Decreased Breath Sounds, Rhonchi. absent: Accessory Muscle Use, Respiratory Distress - Cardiovascular Exam Cardiovascular Exam: Tachycardia, REGULAR RHYTHM - GI/Abdominal Exam GI & Abdominal Exam: Soft. absent: Distended, Tenderness - Extremities Exam Extremities Exam: Normal Inspection. absent: Pedal Edema - Neurological Exam Neurological Exam: Alert, Awake, CN II-XII Intact, Oriented x3 - Psychiatric Exam Psychiatric exam: Normal Affect, Normal Mood - Skin Skin Exam: Diaphoretic, Intact, Normal Color, Warm Assessment and Plan - Assessment and Plan (Free Text) Assessment: Patient is a 63 yo male with a history of HIV (noncompliance), HCV (treated per patient), COPD (untreated), and polysubstance use (methadone clinic) who presented after being found altered by his . He was given Narcan in the field and became alert and responsive. Found to be hypothermic (95) and hypoxic in the ED. Patient then had a fever of 102. Plan: Sepsis- suspect 2/2 PNA, r/o PCP - Hypothermic on admission (95), then fever (102) - No leukocytosis - Lactate 2.8-->1.8 - CT head: negative - CXR: Mild R basilar atelectasis - CTA chest: Small right pleural effusion. Trace left pleural effusion. Bilateral dependent consolidations. - Flu negative - LDH 1093 - f/u sputum Cx - f/u BCx - f/u Gallium scan - f/u T cell subsets - NS @ 75 - Duoneb Q4H - Solumedrol 40 mg IV BID - Tamiflu 75 mg PO BID- started 12/10 - Ceftriaxone 1 g IV daily- started 12/11 - Vancomycin 1 g IV Q12H- started 12/10 - Bactrim 400 mg IV Q8H- started 12/10 - ID consulted (Ton)- empiric rx for PCP pneumonia started including ster oids, started on empiric IV abx for pneumonia with coverage for MRSA in view of drug abuse history and possible OD NSTEMI- no h/o CAD, suspect demand ischemia - Trop 0.649-->1.160-->0.9550 - EKG: NSR, no ST changes - BNP 5160 - Echo: EF 50% - Heart healthy diet - Avoid statin due to transaminitis - ASA 325 mg x 1, ASA 81 mg PO daily - Plavix 75 mg PO daily - Lovenox 70 mg SC Q12H - Cardiology consulted (Oj)- consider cath when afebrile Hypoxia- underlying untreated COPD - CTA chest: No PE. Enlarged pulmonary artery trunk may be seen in the setting of pulmonary arterial hypertension. Correlate clinically. - O2 via [place] HIV- patient noncompliant for 20+ years - Confirmed with patient's pharmacy [facility] in [place] ([address]) that patient has been filling Complera; patient and report that he does not take the meds - f/u viral load and CD4 - ID consulted (Ton) Esophageal thickening with prominent lymph nodes - CTA chest: Distal esophageal wall thickening/small hiatal hernia. Numerous subcentimeter peripancreatic/mesenteric and retroperitoneal lymph nodes. - Consider GI consult when more clinically stable Chronic obstructive pulmonary disease - O2 via [place] - Duoneb Q4H Polysubstance use disorder- methadone, Xanax, tobacco - Patient denies any alcohol use - UDS positive for benzos and methadone - [facility] called and confirmed methadone dose - Methadone 65 mg PO daily - Nicoderm daily - Cessation counseling - Psychiatry consulted (Lewis) Hepatitis C- patient reports treated 10 years ago - Transaminitis worsening (300s-->500s) - Ammonia 40 - Hep C Ab reactive - Abdominal US: Cholelithiasis. Echogenic liver may be seen in setting of hepatic parenchymal disease or fatty infiltration. - CTA chest: Nodular hepatic contour, correlate for cirrhosis. Distended gallbladder with calcifications and or sludge. High-density within the gallbladder possibly related to vicarious excretion of contrast. Subtle mild peripancreatic inflammatory changes; correlate for pancreatitis. Ppx: VTE: SCDs, therapeutic LVX for NSTEMI GI: Protonix 40 mg IV daily Code status: full code Case was discussed with attending, Dr. Zepeda. <Anoop Zepeda - Last Filed: 12/11/18 16:11> Objective - Vital Signs/Intake and Output Vital Signs (last 24 hours): Temp Pulse Resp BP Pulse Ox 98.1 F 61 20 134/82 96 12/11/18 07:00 12/11/18 07:00 12/11/18 07:00 12/11/18 07:00 12/11/18 07:00 Intake and Output: 12/11/18 12/11/18 06:59 18:59 Intake Total 1087 Balance 1087 - Medications Medications: Current Medications Albuterol/Ipratropium (Duoneb 3 Mg/0.5 Mg (3 Ml) Ud) 3 ml INH RQ4 [facility] Last Admin: 12/11/18 11:14 Dose: 3 ml Aspirin (Ecotrin) 81 mg PO DAILY [facility] Last Admin: 12/11/18 09:26 Dose: 81 mg Clopidogrel Bisulfate (Plavix) 75 mg PO DAILY [facility] Last Admin: 12/11/18 09:25 Dose: 75 mg Enoxaparin Sodium (Lovenox) 70 mg SC Q12H [facility] Last Admin: 12/11/18 09:26 Dose: 70 mg Sodium Chloride (Sodium Chloride 0.9%) 1,000 mls @ 75 mls/hr IV .[id number] [facility] Last Admin: 12/11/18 05:20 Dose: 75 mls/hr Vancomycin/Sodium Chloride (Vancomycin 1 Gm/Ns 200 Ml) 1 gm in 200 mls @ 133 mls/hr IVPB Q12H [facility]; Protocol Stop: 12/15/18 10:01 Last Admin: 12/11/18 09:20 Dose: 133 mls/hr Ceftriaxone Sodium 1 gm/ (Sodium Chloride) 100 mls @ 100 mls/hr IVPB Q24H [facility]; Protocol Last Admin: 12/11/18 13:33 Dose: 100 mls/hr Trimethoprim/Sulfamethoxazole (400 mg/ Dextrose) 500 mls @ 333.333 mls/hr IVPB Q8H [facility] Last Admin: 12/11/18 14:04 Dose: 333.333 mls/hr Methadone HCl (Methadose) 40 mg PO DAILY [facility] Last Admin: 12/11/18 09:23 Dose: 40 mg Methadone HCl (Methadone) 20 mg PO DAILY [facility] Last Admin: 12/11/18 09:23 Dose: 20 mg Methadone HCl (Methadone) 5 mg PO DAILY [facility] Last Admin: 12/11/18 09:23 Dose: 5 mg Methylprednisolone (Solu-Medrol) 40 mg IVP BID [facility] Last Admin: 12/11/18 09:32 Dose: 40 mg Nicotine (Nicoderm Cq) 1 patch TD DAILY [facility] Last Admin: 12/11/18 09:24 Dose: 1 patch Pantoprazole Sodium (Protonix Inj) 40 mg IVP DAILY [facility] Last Admin: 12/11/18 09:26 Dose: 40 mg - Labs Labs: 12/11/18 07:19 12/11/18 07:19 PT 17.1 SECONDS (9.7-12.2) H 12/10/18 11:47 INR 1.6 12/10/18 11:47 Attending/Attestation - Attestation I have personally seen and examined this patient.: Yes I have fully participated in the care of the patient.: Yes I have reviewed all pertinent clinical information, including history, physical exam and plan: Yes Notes (Text): seen and examined and spoke to his at bedside Patient looks sick.Found smoking in the bathroom Has fever,high lactate,high LDH/sepsis Likely has PCP pneumonia,noncompliance with HIV meds,has hep c continue antibiotics follow cultures' NSTMI-seen by Dr Mcwilliams. continue lovenox,asprin and plavix Esophageal thickening and LN need GI evaluation once his sepsis improves assessment and the plan discussed with the resident and I agree with the documentation
[2018-12-10 19:58] VITALS: RESP 20
[2018-12-11] MEDS: WATER IVPB SCH ×4 (00:51→22:13)
[2018-12-11] MEDS: SULFAMETHOXAZOLE IVPB SCH ×4 (00:51→22:13)
[2018-12-11] MEDS: DEXTROSE 5% IVPB SCH ×4 (00:51→22:13)
[2018-12-11] MEDS: TRIMETHOPRIM IVPB SCH ×4 (00:51→22:13)
[2018-12-11] MEDS: Albuterol-Ipratrop 3 mg / 0.5 (3 ml) UD INH SCH ×5 (03:07→19:30)
[2018-12-11] MEDS: Sodium Chloride 0.9% 1,000 ML IV SCH (05:20)
[2018-12-11 07:35] LABS: BASO % 0.1 % (0.0-2.0); HEMOGLOBIN 15.6 g/dL (12.0-18.0); LYMPH # 0.8 K/uL (1.0-4.3); MEAN CELL VOLUME 96.5 fL (80.0-94.0); MEAN CORPUSCULAR HEMOGLOBIN 32.2 pg (27.0-31.0); MONO # 0.4 K/uL (0.0-0.8); NEUT # 4.5 K/uL (1.8-7.0); RED CELL DISTRIBUTION WIDTH 14.7 % (11.5-14.5)
[2018-12-11 07:49] LABS: LYMPH % 13.3 % (20.0-40.0); MEAN CORPUSCULAR HGB CONC 33.3 g/dL (33.0-37.0); MEAN PLATELET VOLUME 9.7 fL (7.2-11.7); MONO % 7.2 % (0.0-10.0); NEUT % 79.4 % (50.0-75.0); NRBC % 0.1 % (0.0-2.0); RBC 4.86 Mil/uL (4.40-5.90); WHITE BLOOD COUNT 5.6 K/uL (4.8-10.8)
[2018-12-11 08:00] LABS: ALB/GLOB RATIO 1.2 (1.0-2.1); ALBUMIN 3.4 g/dL (3.5-5.0); ALT/SGPT 383 U/L (21-72); AST/SGOT 245 U/L (17-59); BLOOD UREA NITROGEN 21 mg/dL (9-20); CALCIUM 7.9 mg/dl (8.6-10.4); GFR NON-AFRICAN AMERICAN > 60
[2018-12-11 08:21] LABS: HEPATITIS B SURFACE AG Negative (NEGATIVE)
[2018-12-11 08:23] LABS: HEPATITIS A IGM NEGATIVE (NEGATIVE); HEPATITIS B CORE AB NEGATIVE (NEGATIVE)
[2018-12-11] MEDS: Vancomycin 1 gm/NS 200 ml 1 GM/200 ML BAG IVPB SCH ×2 (09:20→21:25)
[2018-12-11] MEDS: Methadone 40 mg Tab PO SCH (09:23)
[2018-12-11] MEDS: Enoxaparin 80 mg Syringe SC SCH ×2 (09:26→21:26)
[2018-12-11] MEDS: MethylPREDNISolone 40 mg Vial IVP SCH ×2 (09:32→19:00)
[2018-12-11] MEDS ORDERED: Pneumococcal 23-Valent Vaccine IM ONE (10:00)
[2018-12-11] MEDS ORDERED: Influenza Vaccine 60 mcg/0.5 mL SYR (4YR UP) IM ONE (10:00)
--- NOTE | 2018-12-11 16:26 | CP.PCM.PN ---
<Pratik Temple - Last Filed: 12/11/18 16:19> Subjective - Date & Time of Evaluation Date of Evaluation: 12/11/18 Time of Evaluation: 07:20 - Subjective Subjective: Progress note for Dr. Zepeda Patient seen and examined at bedside. Patient is resting in bed comfortable. He reports he cut his face while shaving earlier this morning. Discussed with patient that he should not be shaving given his medical condition and his curren t medication will make the bleeding worse. Patient states he is feel a little better, but still having some cough. Objective - Vital Signs/Intake and Output Vital Signs (last 24 hours): Temp Pulse Resp BP Pulse Ox 98.1 F 61 20 134/82 96 12/11/18 07:00 12/11/18 07:00 12/11/18 07:00 12/11/18 07:00 12/11/18 07:00 Intake and Output: 12/11/18 12/11/18 06:59 18:59 Intake Total 1087 1030 Balance 1087 1030 - Medications Medications: Current Medications Albuterol/Ipratropium (Duoneb 3 Mg/0.5 Mg (3 Ml) Ud) 3 ml INH RQ4 [facility] Last Admin: 12/11/18 11:14 Dose: 3 ml Aspirin (Ecotrin) 81 mg PO DAILY [facility] Last Admin: 12/11/18 09:26 Dose: 81 mg Clopidogrel Bisulfate (Plavix) 75 mg PO DAILY [facility] Last Admin: 12/11/18 09:25 Dose: 75 mg Enoxaparin Sodium (Lovenox) 70 mg SC Q12H [facility] Last Admin: 12/11/18 09:26 Dose: 70 mg Sodium Chloride (Sodium Chloride 0.9%) 1,000 mls @ 75 mls/hr IV .[id number] [facility] Last Admin: 12/11/18 05:20 Dose: 75 mls/hr Vancomycin/Sodium Chloride (Vancomycin 1 Gm/Ns 200 Ml) 1 gm in 200 mls @ 133 mls/hr IVPB Q12H [facility]; Protocol Stop: 12/15/18 10:01 Last Admin: 12/11/18 09:20 Dose: 133 mls/hr Ceftriaxone Sodium 1 gm/ (Sodium Chloride) 100 mls @ 100 mls/hr IVPB Q24H [facility]; Protocol Last Admin: 12/11/18 13:33 Dose: 100 mls/hr Trimethoprim/Sulfamethoxazole (400 mg/ Dextrose) 500 mls @ 333.333 mls/hr IVPB Q8H [facility] Last Admin: 12/11/18 14:04 Dose: 333.333 mls/hr Methadone HCl (Methadose) 40 mg PO DAILY [facility] Last Admin: 12/11/18 09:23 Dose: 40 mg Methadone HCl (Methadone) 20 mg PO DAILY [facility] Last Admin: 12/11/18 09:23 Dose: 20 mg Methadone HCl (Methadone) 5 mg PO DAILY [facility] Last Admin: 12/11/18 09:23 Dose: 5 mg Methylprednisolone (Solu-Medrol) 40 mg IVP BID [facility] Last Admin: 12/11/18 09:32 Dose: 40 mg Nicotine (Nicoderm Cq) 1 patch TD DAILY [facility] Last Admin: 12/11/18 09:24 Dose: 1 patch Pantoprazole Sodium (Protonix Inj) 40 mg IVP DAILY [facility] Last Admin: 12/11/18 09:26 Dose: 40 mg - Labs Labs: 12/11/18 07:19 12/11/18 07:19 PT 17.1 SECONDS (9.7-12.2) H 12/10/18 11:47 INR 1.6 12/10/18 11:47 - Additional Findings Additional findings: - Constitutional Appears: No Acute Distress, Unkempt - Head Exam Head Exam: ATRAUMATIC, NORMAL INSPECTION - Eye Exam Eye Exam: EOMI, Normal appearance, PERRL - ENT Exam ENT Exam: Mucous Membranes Moist - Neck Exam Neck Exam: Normal Inspection - Respiratory Exam Respiratory Exam: Decreased Breath Sounds, Rhonchi. absent: Accessory Muscle Use, Respiratory Distress - Cardiovascular Exam Cardiovascular Exam: Tachycardia, REGULAR RHYTHM - GI/Abdominal Exam GI & Abdominal Exam: Soft. absent: Distended, Tenderness - Extremities Exam Extremities Exam: Normal Inspection. absent: Pedal Edema - Neurological Exam Neurological Exam: Alert, Awake, CN II-XII Intact, Oriented x3 - Psychiatric Exam Psychiatric exam: Normal Affect, Normal Mood - Skin Skin Exam: Diaphoretic, Intact, Normal Color, Warm Assessment and Plan - Assessment and Plan (Free Text) Assessment: Sepsis- suspect 2/2 PNA, r/o PCP pneumonia - Hypothermic and fever on admission, improved - No leukocytosis - Lactate 2.8-->1.8 - CT head: negative - CXR: Mild R basilar atelectasis - CTA chest: Small right pleural effusion. Trace left pleural effusion. Bilateral dependent consolidations. - Flu negative - LDH 1093 - sputum culture pending - blood culture no growth for 24 hours - f/u Gallium scan - f/u T cell subsets - NS @ 75 - Duoneb Q4H - Solumedrol 40 mg IV BID - Tamiflu 75 mg PO BID- started 12/10 - Ceftriaxone 1 g IV daily- started 12/11 - Vancomycin 1 g IV Q12H- started 12/10 - Bactrim 400 mg IV Q8H- started 12/10 - ID consulted (Ton)- empiric rx for PCP pneumonia started including steroids, started on empiric IV abx for pneumonia with coverage for MRSA in view of drug abuse history and possible OD NSTEMI- no h/o CAD, suspect demand ischemia - Trop 0.649-->1.160-->0.9550 - EKG: NSR, no ST changes - BNP 5160 - Echo: EF 50% - Heart healthy diet - Avoid statin due to transaminitis - ASA 325 mg x 1, ASA 81 mg PO daily - Plavix 75 mg PO daily - Lovenox 70 mg SC Q12H - Cardiology consulted (Oj)- consider cath when afebrile Hypoxia- underlying untreated COPD - CTA chest: No PE. Enlarged pulmonary artery trunk may be seen in the setting of pulmonary arterial hypertension. Correlate clinically. - O2 via [place] HIV- patient noncompliant for 20+ years - Confirmed with patient's pharmacy [facility] in [place] ( [address]) that patient has been filling Complera; patient and report that he does not take the meds - f/u viral load and CD4 - ID consulted (Ton) Esophageal thickening with prominent lymph nodes - CTA chest: Distal esophageal wall thickening/small hiatal hernia. Numerous subcentimeter peripancreatic/mesenteric and retroperitoneal lymph nodes. - Consider GI consult when more clinically stable Chronic obstructive pulmonary disease - O2 via [place] - Duoneb Q4H Polysubstance use disorder- methadone, Xanax, tobacco - Patient denies any alcohol use - UDS positive for benzos and methadone - [facility] called and confirmed methadone dose - Methadone 65 mg PO daily - Nicoderm daily - Cessation counseling - Psychiatry consulted (Lewis) - Echocardiogram shows EF 50% with normal valvular structures Hepatitis C- patient reports treated 10 years ago - Transaminitis worsening (300s-->500s) - Ammonia 40 - Hep C Ab reactive - Abdominal US: Cholelithiasis. Echogenic liver may be seen in setting of hepatic parenchymal disease or fatty infiltration. - CTA chest: Nodular hepatic contour, correlate for cirrhosis. Distended gallbladder with calcifications and or sludge. High-density within the gall bladder possibly related to vicarious excretion of contrast. Subtle mild peripancreatic inflammatory changes; correlate for pancreatitis. Ppx: VTE: SCDs, therapeutic LVX for NSTEMI GI: Protonix 40 mg IV daily Code status: full code Case was discussed with attending, Dr. Zepeda. <Anoop Zepeda - Last Filed: 12/11/18 17:12> Objective - Vital Signs/Intake and Output Vital Signs (last 24 hours): Temp Pulse Resp BP Pulse Ox 98 F 89 20 155/90 H 96 12/11/18 15:23 12/11/18 15:23 12/11/18 15:23 12/11/18 15:23 12/11/18 15:23 Intake and Output: 12/11/18 12/11/18 06:59 18:59 Intake Total 1087 1030 Output Total 300 Balance 1087 730 - Medications Medications: Current Medications Albuterol/Ipratropium (Duoneb 3 Mg/0.5 Mg (3 Ml) Ud) 3 ml INH RQ4 [facility] Last Admin: 12/11/18 11:14 Dose: 3 ml Aspirin (Ecotrin) 81 mg PO DAILY [facility] Last Admin: 12/11/18 09:26 Dose: 81 mg Clopidogrel Bisulfate (Plavix) 75 mg PO DAILY [facility] Last Admin: 12/11/18 09:25 Dose: 75 mg Enoxaparin Sodium (Lovenox) 70 mg SC Q12H [facility] Last Admin: 12/11/18 09:26 Dose: 70 mg Sodium Chloride (Sodium Chloride 0.9%) 1,000 mls @ 75 mls/hr IV .[id number] [facility] Last Admin: 12/11/18 05:20 Dose: 75 mls/hr Vancomycin/Sodium Chloride (Vancomycin 1 Gm/Ns 200 Ml) 1 gm in 200 mls @ 133 mls/hr IVPB Q12H [facility]; Protocol Stop: 12/15/18 10:01 Last Admin: 12/11/18 09:20 Dose: 133 mls/hr Ceftriaxone Sodium 1 gm/ (Sodium Chloride) 100 mls @ 100 mls/hr IVPB Q24H [facility]; Protocol Last Admin: 12/11/18 13:33 Dose: 100 mls/hr Trimethoprim/Sulfamethoxazole (400 mg/ Dextrose) 500 mls @ 333.333 mls/hr IVPB Q8H [facility] Last Admin: 12/11/18 14:04 Dose: 333.333 mls/hr Methadone HCl (Methadose) 40 mg PO DAILY [facility] Last Admin: 12/11/18 09:23 Dose: 40 mg Methadone HCl (Methadone) 20 mg PO DAILY [facility] Last Admin: 12/11/18 09:23 Dose: 20 mg Methadone HCl (Methadone) 5 mg PO DAILY [facility] Last Admin: 12/11/18 09:23 Dose: 5 mg Methylprednisolone (Solu-Medrol) 40 mg IVP BID [facility] Last Admin: 12/11/18 09:32 Dose: 40 mg Nicotine (Nicoderm Cq) 1 patch TD DAILY [facility] Last Admin: 12/11/18 09:24 Dose: 1 patch Pantoprazole Sodium (Protonix Inj) 40 mg IVP DAILY [facility] Last Admin: 12/11/18 09:26 Dose: 40 mg - Labs Labs: 12/11/18 07:19 12/11/18 07:19 PT 17.1 SECONDS (9.7-12.2) H 12/10/18 11:47 INR 1.6 12/10/18 11:47 Attending/Attestation - Attestation I have personally seen and examined this patient.: Yes I have fully participated in the care of the patient.: Yes I have reviewed all pertinent clinical information, including history, physical exam and plan: Yes Notes (Text): Patient feels better,sitting comfortable,Want us to restart his xanax.patient was taking his Xanax last few days. we will hold it.ON Methadone denies chest pain,no fever last 24hrs lungs clear,abdomen benign,no focal weakness continue lovenox,asprin and plavix continue Bactrim,ceftriaxone and vanco.last 24hrs no growth on blood culture follow Gallium scan,high LDH
[2018-12-11 17:07] LABS: % CD4 (T HELPER CELL) 35 Percent (30-61); % CD8 (SUPPRESSOR T CELL) 45 Percent (12-42); ABSOLUTE CD3 CELLS 1155 Cells/mcL (840-3060); ABSOLUTE CD4 CELLS 514 Cells/mcL (490-1740); ABSOLUTE CD8 CELLS 658 Cells/mcL (180-1170); ABSOLUTE LYMPHOCYTES 1464 Cells/mcL (850-3900); HELPER/SUPPRESSOR RATIO 0.78 Ratio (0.86-5.00)
[2018-12-12] MEDS: Albuterol-Ipratrop 3 mg / 0.5 (3 ml) UD INH SCH ×4 (00:55→11:58)
[2018-12-12 01:34] VITALS: TEMP 98.2; O2SAT 95
[2018-12-12] MEDS: WATER IVPB SCH (06:05)
[2018-12-12] MEDS: SULFAMETHOXAZOLE IVPB SCH (06:05)
[2018-12-12] MEDS: DEXTROSE 5% IVPB SCH (06:05)
[2018-12-12] MEDS: TRIMETHOPRIM IVPB SCH (06:05)
--- NOTE | 2018-12-12 06:44 | CP.PCM.PCO ---
Physician Communication Note - Physician Communication Note Physician Communication Note: see above
[2018-12-12 08:01] VITALS: BP 156/105; PULSE 87
[2018-12-12] MEDS: Methadone 40 mg Tab PO SCH (09:06)
--- NOTE | 2018-12-12 09:35 | CP.PCM.DIS ---
<MaverickGovindgeovani - Last Filed: 12/12/18 09:26> Provider - Provider Date of Admission: 12/09/18 22:31 Attending physician: Anoop Zepeda MD Primary care physician: none Consults: 12/09/18 23:32 Infectious Disease Consult Routine Comment: Consulting Provider: Jeff Camilo Consulting Physician: Jeff Camilo Reason for Consult: sepsis, HIV, not on meds 12/10/18 01:50 Psychiatry Consult Routine Comment: Consulting Provider: Terrance Saucedo Consulting Physician: Terrance Saucedo Reason for Consult: hx heroin abuse, on home methadone 12/10/18 07:42 Cardiology Consult Routine Comment: Consulting Provider: Shai Mcwilliams Consulting Physician: Shai Mcwilliams Reason for Consult: nstemi Time Spent in preparation of Discharge (in minutes): 35 Diagnosis - Discharge Diagnosis (1) HIV (human immunodeficiency virus infection) Status: Chronic (2) Drug abuse Status: Chronic (3) Hypothermia Status: Chronic (4) Syncope Status: Resolved Hospital Course - Lab Results Lab Results: Micro Results 12/09/18 23:13 Blood Blood Culture - Preliminary NO GROWTH AFTER 48 HOURS 12/09/18 23:13 Blood Blood Culture - Preliminary NO GROWTH AFTER 48 HOURS 12/11/18 03:26 Sputum Gram Stain - Final Most Recent Lab Values WBC 5.6 K/uL (4.8-10.8) 12/11/18 07:19 RBC 4.86 Mil/uL (4.40-5.90) 12/11/18 07:19 Hgb 15.6 g/dL (12.0-18.0) 12/11/18 07:19 Hct 46.9 % (35.0-51.0) 12/11/18 07:19 MCV 96.5 fL (80.0-94.0) H 12/11/18 07:19 MCH 32.2 pg (27.0-31.0) H 12/11/18 07:19 MCHC 33.3 g/dL (33.0-37.0) 12/11/18 07:19 RDW 14.7 % (11.5-14.5) H 12/11/18 07:19 Plt Count 110 K/uL (130-400) L D 12/11/18 07:19 MPV 9.7 fL (7.2-11.7) 12/11/18 07:19 Neut % (Auto) 79.4 % (50.0-75.0) H 12/11/18 07:19 Lymph % (Auto) 13.3 % (20.0-40.0) L 12/11/18 07:19 [place] % (Auto) 7.2 % (0.0-10.0) 12/11/18 07:19 Eos % (Auto) 0.0 % (0.0-4.0) 12/11/18 07:19 Baso % (Auto) 0.1 % (0.0-2.0) 12/11/18 07: Neut # (Auto) 4.5 K/uL (1.8-7.0) 12/11/18 07:19 Lymph # (Auto) 0.8 K/uL (1.0-4.3) L 12/11/18 07:19 [place] # (Auto) 0.4 K/uL (0.0-0.8) 12/11/18 07:19 Eos # (Auto) 0.0 K/uL (0.0-0.7) 12/11/18 07: Baso # (Auto) 0.0 K/uL (0.0-0.2) 12/11/18 07:19 Neutrophils % (Manual) 79 % (50-75) H 12/09/18 19:45 Band Neutrophils % 5 % (0-2) H 12/09/18 19:45 Lymphocytes % (Manual) 6 % (20-40) L 12/09/18 19:45 Reactive Lymphs % 1 % (0-0) H 12/09/18 19:45 Monocytes % (Manual) 9 % (0-10) 12/09/18 19:45 Differential Comment 12/11/18 07:19 Platelet Estimate Normal (NORMAL) 12/09/18 19:45 Anisocytosis (manual) Slight 12/09/18 19:45 Macrocytosis (manual) Slight 12/09/18 19:45 PT 17.1 SECONDS (9.7-12.2) H 12/10/18 11:47 INR 1.6 12/10/18 11:47 Puncture Site Lb 12/09/18 23:07 pCO2 57 mm/Hg (35-45) H 12/09/18 23:07 pO2 40 mm/Hg (30-55) 12/10/18 07:05 HCO3 29.1 mmol/L (21-28) H 12/09/18 23:07 ABG pH 7.37 (7.35-7.45) 12/09/18 23:07 ABG Total CO2 34.7 mmol/L (22-28) H 12/09/18 23:07 ABG O2 Saturation 82.9 % (95-98) L 12/09/18 23:07 ABG Base Excess 6.0 mmol/L (-2.0-3.0) H 12/09/18 23:07 Jorge Test Na 12/09/18 23:07 ABG Potassium 4.5 mmol/L (3.6-5.2) 12/09/18 23:07 VBG pH 7.44 (7.32-7.43) H 12/10/18 07:05 VBG pCO2 59 mmHg (40-60) 12/10/18 07:05 VBG HCO3 34.8 mmol/L 12/10/18 07:05 VBG Total CO2 41.9 mmol/L (22-28) H 12/10/18 07:05 VBG O2 Sat (Calc) 72.5 % (40-65) H 12/10/18 07:05 VBG Base Excess 13.3 mmol/L (0.0-2.0) H 12/10/18 07:05 VBG Potassium 4.8 mmol/L (3.6-5.2) 12/10/18 07:05 A-a O2 Difference 141.0 mm/Hg 12/09/18 23:07 Respiratory Index 3.2 12/09/18 23:07 Sodium 140.0 mmol/l (132-148) 12/10/18 07:05 Chloride 103.0 mmol/L (98-107) 12/10/18 07:05 Glucose 89 mg/dl (75-110) 12/10/18 07:05 Lactate 1.8 mmol/L (0.7-2.1) 12/10/18 07:05 Liter Flow 4.0 12/09/18 23:07 FiO2 36.0 % 12/09/18 23:07 Crit Value Called To Dr dong 12/09/18 23:07 Crit Value Called By Janusz chen 12/09/18 23:07 Crit Value Read Back Y 12/09/18 23:07 Blood Gas Notified Time 23012/09/18 23:07 Sodium 134 mmol/L (132-148) 12/11/18 07:19 Potassium 4.4 mmol/L (3.6-5.2) 12/11/18 07:19 Chloride 95 mmol/L (98-107) L 12/11/18 07:19 Carbon Dioxide 33 mmol/L (22-30) H 12/11/18 07:19 Anion Gap 10 (10-20) 12/11/18 07:19 BUN 21 mg/dL (9-20) H 12/11/18 07:19 Creatinine 0.6 mg/dL (0.8-1.5) L 12/11/18 07:19 Est GFR ( Amer) > 60 12/11/18 07:19 Est GFR (Non-Af Amer) > 60 12/11/18 07:19 POC Glucose (mg/dL) 100 mg/dL (65-110) 12/12/18 06:04 Random Glucose 95 mg/dL (75-110) 12/11/18 07:19 Calcium 7.9 mg/dl (8.6-10.4) L 12/11/18 07:19 Phosphorus 3.4 mg/dL (2.5-4.5) 12/11/18 07:19 Magnesium 2.0 mg/dL (1.6-2.3) 12/11/18 07:19 Total Bilirubin 0.5 mg/dL (0.2-1.3) 12/11/18 07:19 AST 245 U/L (17-59) H D 12/11/18 07:19 ALT 383 U/L (21-72) H D 12/11/18 07:19 Alkaline Phosphatase 97 U/L (38-126) 12/11/18 07:19 Ammonia 40 umol/L (9-33) H 12/10/18 07:16 Lactate Dehydrogenase 1093 U/L (313-618) H 12/10/18 11:47 Total Creatine Kinase 814 U/L (55-170) H 12/10/18 11:47 CK-MB (Mass) 10.0 ng/mL (0.0-3.38) H 12/10/18 11:47 Troponin I 0.9550 ng/mL (0.00-0.120) H* 12/10/18 11:47 NT-Pro-B Natriuret Pep 5160 pg/mL (0-900) H 12/10/18 00:27 Total Protein 6.2 g/dL (6.3-8.3) L 12/11/18 07:19 Albumin 3.4 g/dL (3.5-5.0) L 12/11/18 07:19 Globulin 2.8 gm/dL (2.2-3.9) 12/11/18 07:19 Albumin/Globulin Ratio 1.2 (1.0-2.1) 12/11/18 07:19 Procalcitonin 0.25 NG/ML (0.19-0.49) 12/11/18 07:19 Arterial Blood Potassium 4.5 mmol/L (3.6-5.2) 12/09/18 23:07 Venous Blood Potassium 4.8 mmol/L (3.6-5.2) 12/10/18 07:05 Urine Color Radha (YELLOW) 12/09/18 21:17 Urine Clarity Hazy (Clear) 12/09/18 21:17 Urine pH 5.0 (5.0-8.0) 12/09/18 21:17 Ur Specific Wynot 1.017 (1.003-1.030) 12/09/18 21:17 Urine Protein 2+ mg/dL (NEGATIVE) H 12/09/18 21:17 Urine Glucose (UA) Normal mg/dL (Normal) 12/09/18 21:17 Urine Ketones Negative mg/dL (NEGATIVE) 12/09/18 21:17 Urine Blood 2+ (NEGATIVE) H 12/09/18 21:17 Urine Nitrate Negative (NEGATIVE) 12/09/18 21:17 Urine Bilirubin Negative (NEGATIVE) 12/09/18 21:17 Urine Urobilinogen 4.0 mg/dL (0.2-1.0) 12/09/18 21:17 Ur Leukocyte Esterase Neg Kathleen/uL (Negative) 12/09/18 21:17 Urine WBC (Auto) 2 /hpf (0-5) 12/09/18 21:17 Urine RBC (Auto) 3 /hpf (0-3) 12/09/18 21:17 Ur Squamous Epith Cells 1 /hpf (0-5) 12/09/18 21:17 Urine Bacteria Rare (<OCC) 12/09/18 21:17 Hyaline Casts 11-20 /lpf (0-2) H 12/09/18 21:17 Salicylates < 1.0 mg/dL 1 12/10/18 00:27 Urine Opiates Screen Negative (NEGATIVE) 12/09/18 21:17 Urine Methadone Screen Positive (NEGATIVE) H 12/09/18 21:17 Acetaminophen < 10.0 ug/mL (10.0-30.0) L 12/10/18 00:27 Ur Barbiturates Screen Negative (NEGATIVE) 12/09/18 21:17 Ur Phencyclidine Scrn Negative (NEGATIVE) 12/09/18 21:17 Ur Amphetamines Screen Negative (NEGATIVE) 12/09/18 21:17 U Benzodiazepines Scrn Positive (NEGATIVE) 12/09/18 21:17 U Oth Cocaine Metabols Negative (NEGATIVE) 12/09/18 21:17 U Cannabinoids Screen Negative (NEGATIVE) 12/09/18 21:17 Alcohol, Quantitative < 10 mg/dl (0-10) 12/09/18 19:45 Absolute Lymphs (Flow) 1464 Cells/mcL (850-3900) 12/10/18 07:16 % CD3 Cells 79 Percent (57-85) 12/10/18 07:16 Absolute CD3 Count 1155 Cells/mcL (840-3060) 12/10/18 07:16 % CD4 Cells 35 Percent (30-61) 12/10/18 07:16 Absolute CD4 Count 514 Cells/mcL (490-1740) 12/10/18 07:16 T-Help/Suppress Ratio 0.78 Ratio (0.86-5.00) L 12/10/18 07:16 % CD8 Cells 45 Percent (12-42) H 12/10/18 07:16 Absolute CD8 Count 658 Cells/mcL (180-1170) 12/10/18 07:16 RPR Nonreactive (NONREACTIVE) 12/11/18 07:19 Hepatitis A IgM Ab Negative (NEGATIVE) 12/11/18 07:19 Hepatitis A Ab Total Antibody pos (NEGATIVE) 12/11/18 07:19 Hep Bs Antigen Negative (NEGATIVE) 12/11/18 07:19 Hep Bs Antibody Negative (NEGATIVE) 12/11/18 11:22 Hep B Core IgM Ab Negative (NEGATIVE) 12/11/18 07:19 Hepatitis C Antibody Reactive (NEGATIVE) 12/10/18 00:27 HIV-1 RNA Qnt (RT-PCR) <1.30 detected (Not Detected) H 12/10/18 07:16 Influenza Typ A,B (EIA) Negative for flu a/b (NEGATIVE) 12/10/18 11:47 - Hospital Course Hospital Course: 63 year old male with past medical history of HTN, COPD, HIV, HCV (currently in remission) BIBEMS after being found unresponsive at home by . Per at bedside, patient was up all night prior and sleeping for majority of the day. She went to wake him up around 6:00 pm but patient was unresponsive, noted to be breathing however. EMS was called, administered 2 mg intranasal narcan, patient became more alert and rousable but was still somnolent/confused. Patient found to be hypothermic in ED, was placed on a becca heating blanket. Patient is currently more alert, awake, and oriented. He does not recall the events prior to being unresponsive, denies taking any substances. He endorses subjective fevers, chills, productive cough with yellowish sputum production, intermittent palpitations for 2 weeks. He also endorses headaches "for months". In the hospital, patient was evaluated by fsr whom recommended cardiac cath once patient's infection is stabilized. His echocardiogram shows EF 50% wit hout abnormal structures on valves. Infectious disease also evaluated the patient, recommended antibiotics and testings to rule out PCP pneumonia given patient's history of HIV. On 11/11/19 at 9AM patient requested to sign out against medical advice. He wants to feel more rest at home where he can sleep better and smoke cigarettes. Patient was confronted about smoking in his room/bathroom earlier this week. Risks and dangers of signing out AMA were discussed with the patient extensively. Patient understood the risks an insisted on signing out AMA. CHAKA Schroeder as witness. Attending physician notified. - Date & Time of H&P Date of H&P: 12/09/18 Time of H&P: 23:30 Discharge Exam - Additional Findings Additional findings: - Constitutional Appears: No Acute Distress, Unkempt - Head Exam Head Exam: ATRAUMATIC, NORMAL INSPECTION - Eye Exam Eye Exam: EOMI, Normal appearance, PERRL - ENT Exam ENT Exam: Mucous Membranes Moist - Neck Exam Neck Exam: Normal Inspection - Respiratory Exam Respiratory Exam: Decreased Breath Sounds, Rhonchi. absent: Accessory Muscle Use, Respiratory Distress - Cardiovascular Exam Cardiovascular Exam: Tachycardia, REGULAR RHYTHM - GI/Abdominal Exam GI & Abdominal Exam: Soft. absent: Distended, Tenderness - Extremities Exam Extremities Exam: Normal Inspection. absent: Pedal Edema - Neurological Exam Neurological Exam: Alert, Awake, CN II-XII Intact, Oriented x3 - Psychiatric Exam Psychiatric exam: Normal Affect, Normal Mood - Skin Skin Exam: Diaphoretic, Intact, Normal Color, Warm Discharge Plan - Follow Up Plan Condition: FAIR Disposition: AGAINST MEDICAL ADVICE Additional Instructions: patient was recommended to setup primary care at [facility] if his is unable to get insurance <Anoop Zepeda - Last Filed: 12/12/18 13:15> Provider - Provider Date of Admission: 12/09/18 22:31 Attending physician: Anoop Zepeda MD Consults: 12/09/18 23:32 Infectious Disease Consult Routine Comment: Consulting Provider: Jeff Camilo Consulting Physician: Jeff Camilo Reason for Consult: sepsis, HIV, not on meds 12/10/18 01:50 Psychiatry Consult Routine Comment: Consulting Provider: Terrance Saucedo Consulting Physician: Terrance Saucedo Reason for Consult: hx heroin abuse, 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0-94.0) H 12/11/18 07:19 MCH 32.2 pg (27.0-31.0) H 12/11/18 07:19 MCHC 33.3 g/dL (33.0-37.0) 12/11/18 07:19 RDW 14.7 % (11.5-14.5) H 12/11/18 07:19 Plt Count 110 K/uL (130-400) L D 12/11/18 07:19 MPV 9.7 fL (7.2-11.7) 12/11/18 07:19 Neut % (Auto) 79.4 % (50.0-75.0) H 12/11/18 07:19 Lymph % (Auto) 13.3 % (20.0-40.0) L 12/11/18 07:19 [place] % (Auto) 7.2 % (0.0-10.0) 12/11/18 07:19 Eos % (Auto) 0.0 % (0.0-4.0) 12/11/18 07: Baso % (Auto) 0.1 % (0.0-2.0) 12/11/18 07:19 Neut # (Auto) 4.5 K/uL (1.8-7.0) 12/11/18 07:19 Lymph # (Auto) 0.8 K/uL (1.0-4.3) L 12/11/18 07:19 [place] # (Auto) 0.4 K/uL (0.0-0.8) 12/11/18 07:19 Eos # (Auto) 0.0 K/uL (0.0-0.7) 12/11/18 07:19 Baso # (Auto) 0.0 K/uL (0.0-0.2) 12/11/18 07:19 Neutrophils % (Manual) 79 % (50-75) H 12/09/18 19:45 Band Neutrophils % 5 % (0-2) H 12/09/18 19:45 Lymphocytes % (Manual) 6 % (20-40) L 12/09/18 19:45 Reactive Lymphs % 1 % (0-0) H 12/09/18 19:45 Monocytes % (Manual) 9 % (0-10) 12/09/18 19:45 Differential Comment 12/11/18 07:19 Platelet Estimate Normal (NORMAL) 12/09/18 19:45 Anisocytosis (manual) Slight 12/09/18 19:45 Macrocytosis (manual) Slight 12/09/18 19:45 PT 17.1 SECONDS (9.7-12.2) H 12/10/18 11:47 INR 1.6 12/10/18 11:47 Puncture Site Lb 12/09/18 23:07 pCO2 57 mm/Hg (35-45) H 12/09/18 23:07 pO2 40 mm/Hg (30-55) 12/10/18 07:05 HCO3 29.1 mmol/L (21-28) H 12/09/18 23:07 ABG pH 7.37 (7.35-7.45) 12/09/18 23:07 ABG Total CO2 34.7 mmol/L (22-28) H 12/09/18 23:07 ABG O2 Saturation 82.9 % (95-98) L 12/09/18 23:07 ABG Base Excess 6.0 mmol/L (-2.0-3.0) H 12/09/18 23:07 Jorge Test Na 12/09/18 23:07 ABG Potassium 4.5 mmol/L (3.6-5.2) 12/09/18 23:07 VBG pH 7.44 (7.32-7.43) H 12/10/18 07:05 VBG pCO2 59 mmHg (40-60) 12/10/18 07:05 VBG HCO3 34.8 mmol/L 12/10/18 07:05 VBG Total CO2 41.9 mmol/L (22-28) H 12/10/18 07:05 VBG O2 Sat (Calc) 72.5 % (40-65) H 12/10/18 07:05 VBG Base Excess 13.3 mmol/L (0.0-2.0) H 12/10/18 07:05 VBG Potassium 4.8 mmol/L (3.6-5.2) 12/10/18 07:05 A-a O2 Difference 141.0 mm/Hg 12/09/18 23:07 Respiratory Index 3.2 12/09/18 23:07 Sodium 140.0 mmol/l (132-148) 12/10/18 07:05 Chloride 103.0 mmol/L (98-107) 12/10/18 07:05 Glucose 89 mg/dl (75-110) 12/10/18 07:05 Lactate 1.8 mmol/L (0.7-2.1) 12/10/18 07:05 Liter Flow 4.0 12/09/18 23:07 FiO2 36.0 % 12/09/18 23:07 Crit Value Called To Dr dong 12/09/18 23:07 Crit Value Called By Janusz chen 12/09/18 23:07 Crit Value Read Back Y 12/09/18 23:07 Blood Gas Notified Time 2309 12/09/18 23:07 Sodium 134 mmol/L (132-148) 12/11/18 07:19 Potassium 4.4 mmol/L (3.6-5.2) 12/11/18 07:19 Chloride 95 mmol/L (98-107) L 12/11/18 07:19 Carbon Dioxide 33 mmol/L (22-30) H 12/11/18 07:19 Anion Gap 10 (10-20) 12/11/18 07:19 BUN 21 mg/dL (9-20) H 12/11/18 07:19 Creatinine 0.6 mg/dL (0.8-1.5) L 12/11/18 07:19 Est GFR ( Amer) > 60 12/11/18 07:19 Est GFR (Non-Af Amer) > 60 12/11/18 07:19 POC Glucose (mg/dL) 100 mg/dL (65-110) 12/12/18 06:04 Random Glucose 95 mg/dL (75-110) 12/11/18 07:19 Calcium 7.9 mg/dl (8.6-10.4) L 12/11/18 07:19 Phosphorus 3.4 mg/dL (2.5-4.5) 12/11/18 07:19 Magnesium 2.0 mg/dL (1.6-2.3) 12/11/18 07:19 Total Bilirubin 0.5 mg/dL (0.2-1.3) 12/11/18 07:19 AST 245 U/L (17-59) H D 12/11/18 07:19 ALT 383 U/L (21-72) H D 12/11/18 07:19 Alkaline Phosphatase 97 U/L (38-126) 12/11/18 07:19 Ammonia 40 umol/L (9-33) H 12/10/18 07:16 Lactate Dehydrogenase 1093 U/L (313-618) H 12/10/18 11:47 Total Creatine Kinase 814 U/L (55-170) H 12/10/18 11:47 CK-MB (Mass) 10.0 ng/mL (0.0-3.38) H 12/10/18 11:47 Troponin I 0.9550 ng/mL (0.00-0.120) H* 12/10/18 11:47 NT-Pro-B Natriuret Pep 5160 pg/mL (0-900) H 12/10/18 00:27 Total Protein 6.2 g/dL (6.3-8.3) L 12/11/18 07:19 Albumin 3.4 g/dL (3.5-5.0) L 12/11/18 07:19 Globulin 2.8 gm/dL (2.2-3.9) 12/11/18 07:19 Albumin/Globulin Ratio 1.2 (1.0-2.1) 12/11/18 07:19 Procalcitonin 0.25 NG/ML (0.19-0.49) 12/11/18 07:19 Arterial Blood Potassium 4.5 mmol/L (3.6-5.2) 12/09/18 23:07 Venous Blood Potassium 4.8 mmol/L (3.6-5.2) 12/10/18 07:05 Urine Color Radha (YELLOW) 12/09/18 21:17 Urine Clarity Hazy (Clear) 12/09/18 21:17 Urine pH 5.0 (5.0-8.0) 12/09/18 21:17 Ur Specific Wynot 1.017 (1.003-1.030) 12/09/18 21:17 Urine Protein 2+ mg/dL (NEGATIVE) H 12/09/18 21:17 Urine Glucose (UA) Normal mg/dL (Normal) 12/09/18 21:17 Urine Ketones Negative mg/dL (NEGATIVE) 12/09/18 21:17 Urine Blood 2+ (NEGATIVE) H 12/09/18 21:17 Urine Nitrate Negative (NEGATIVE) 12/09/18 21:17 Urine Bilirubin Negative (NEGATIVE) 12/09/18 21:17 Urine Urobilinogen 4.0 mg/dL (0.2-1.0) 12/09/18 21:17 Ur Leukocyte Esterase Neg Kathleen/uL (Negative) 12/09/18 21:17 Urine WBC (Auto) 2 /hpf (0-5) 12/09/18 21:17 Urine RBC (Auto) 3 /hpf (0-3) 12/09/18 21:17 Ur Squamous Epith Cells 1 /hpf (0-5) 12/09/18 21:17 Urine Bacteria Rare (<OCC) 12/09/18 21:17 Hyaline Casts 11-20 /lpf (0-2) H 12/09/18 21:17 Salicylates < 1.0 mg/dL 1 12/10/18 00:27 Urine Opiates Screen Negative (NEGATIVE) 12/09/18 21:17 Urine Methadone Screen Positive (NEGATIVE) H 12/09/18 21:17 Acetaminophen < 10.0 ug/mL (10.0-30.0) L 12/10/18 00:27 Ur Barbiturates Screen Negative (NEGATIVE) 12/09/18 21:17 Ur Phencyclidine Scrn Negative (NEGATIVE) 12/09/18 21:17 Ur Amphetamines Screen Negative (NEGATIVE) 12/09/18 21:17 U Benzodiazepines Scrn Positive (NEGATIVE) 12/09/18 21:17 U Oth Cocaine Metabols Negative (NEGATIVE) 12/09/18 21:17 U Cannabinoids Screen Negative (NEGATIVE) 12/09/18 21:17 Alcohol, Quantitative < 10 mg/dl (0-10) 12/09/18 19:45 Absolute Lymphs (Flow) 1464 Cells/mcL (850-3900) 12/10/18 07:16 % CD3 Cells 79 Percent (57-85) 12/10/18 07:16 Absolute CD3 Count 1155 Cells/mcL (840-3060) 12/10/18 07:16 % CD4 Cells 35 Percent (30-61) 12/10/18 07:16 Absolute CD4 Count 514 Cells/mcL (490-1740) 12/10/18 07:16 T-Help/Suppress Ratio 0.78 Ratio (0.86-5.00) L 12/10/18 07:16 % CD8 Cells 45 Percent (12-42) H 12/10/18 07:16 Absolute CD8 Count 658 Cells/mcL (180-1170) 12/10/18 07:16 RPR Nonreactive (NONREACTIVE) 12/11/18 07:19 Hepatitis A IgM Ab Negative (NEGATIVE) 12/11/18 07:19 Hepatitis A Ab Total Antibody pos (NEGATIVE) 12/11/18 07:19 Hep Bs Antigen Negative (NEGATIVE) 12/11/18 07:19 Hep Bs Antibody Negative (NEGATIVE) 12/11/18 11:22 Hep B Core IgM Ab Negative (NEGATIVE) 12/11/18 07:19 Hepatitis C Antibody Reactive (NEGATIVE) 12/10/18 00:27 HIV-1 RNA Qnt (RT-PCR) <1.30 detected (Not Detected) H 12/10/18 07:16 Influenza Typ A,B (EIA) Negative for flu a/b (NEGATIVE) 12/10/18 11:47 Attending/Attestation - Attestation I have personally seen and examined this patient.: Yes I have fully participated in the care of the patient.: Yes I have reviewed all pertinent clinical information, including history, physical exam and plan: Yes Notes (Text): Patient left AMA this morning before we see him
--- NOTE | 2018-12-13 16:39 | NM ---
Date of service: 12/10/2018 PROCEDURE: NUCLEAR GALLIUM SCAN HISTORY: r/o PCP COMPARISON: CT ANGIOGRAM CHEST 12/10/2018. TECHNIQUE: Following the intravenous administration of 8.1 mCi of gallium 67 citrate, a nuclear gallium scan was performed but cannot be completed due to patient preferring to leave the hospital against medical advice sometime after the 24 hour imaging of the entire body was acquired. In addition to 24 hr imaging, 6 hour imaging was also obtained of the entire body. FINDINGS: There is no definite suspicious pulmonary uptake appreciated with cardiac uptake noted greater than the lungs throughout all projections. Normal uptake is appreciated in the liver and bowel in both sets of acquisitions which may obscure abdominal abnormalities though none are clearly identified. IMPRESSION: Incomplete examination due to patient's leaving hospital against medical advice sometime after the 24 hr imaging acquisition. Forty-eight 48 hr or even additional extended imaging could not be obtained as result. No suspicious findings are appreciable throughout the exam as submitted with proviso of normal abdominal uptake obscuring underlying potential abnormal uptake..
== END 2018-12-12 11:45 | disposition left against medical advice (07) | DRG 974 ==
LOC: C.ER 19:05 → C.6T 22:31
PROVIDERS: ADMIT Internal Medicine; ATTEND Internal Medicine
DX: B20 Human immunodeficiency virus [HIV] disease (principal); A41.9 Sepsis, unspecified organism; G92 Toxic encephalopathy; B59 Pneumocystosis; I21.A1 Myocardial infarction type 2; F19.20 Other psychoactive substance dependence, uncomplicated; T68.XXXA Hypothermia, initial encounter; J44.9 Chronic obstructive pulmonary disease, unspecified; I10 Essential (primary) hypertension; B19.20 Unspecified viral hepatitis C without hepatic coma; R55 Syncope and collapse; F17.210 Nicotine dependence, cigarettes, uncomplicated; T50.901A Poisoning by unspecified drugs, medicaments and biological substances, accidental (unintentional), initial encounter; R09.02 Hypoxemia; Z91.14 Patient's other noncompliance with medication regimen

== ENCOUNTER 2018-12-19 09:59 | Inpatient (IN) | payer MEDICAID ==
--- NOTE | 2018-12-19 10:28 | C.PDOC ---
History Of Present Illness 63 year old male with a history of HIV is brought into the emergency department by ALS after being found unresponsive this morning by his . As per , patient was on the floor with a noticeable puddle of vomit. As per ALS, gina ent's fingerstick was found to be less than 20, patient was also cold and clammy, given 2 doses of Narcan intranasally and amp of D50. Patient's states that yesterday patient was coughing, and slid off of the couch at 11PM last night but refused to move, constantly stating "I'm okay" and was noted to be minimally responsive. states that she left him and went to sleep. states that she is unclear regarding any drugs he may have taken, but reports that he takes Methadone. Patient recently left AMA on 12-12-18, after being admitted for similar complaints on 12-09-18. Time Seen by Provider: 12/19/18 10:17 Chief Complaint (Nursing): Altered Mental Status History Per: EMS, Family () Onset/Duration Of Symptoms: Days (1) Onset Of Symptoms: Cannot Confirm Onset Past Medical History Reviewed: Historical Data, Nursing Documentation, Vital Signs Vital Signs: Last Vital Signs Temp 93.1 F L 12/19/18 10:12 Pulse 83 12/19/18 10:12 Resp 22 12/19/18 10:12 BP 93/30 L 12/19/18 10:12 Pulse Ox 93 L 12/19/18 10:12 - Medical History PMH: COPD, HIV, HTN (?) Surgical History: No Surg Hx Family History: States: No Known Family Hx - Social History Hx Alcohol Use: No Hx Substance Use: Yes Review Of Systems Constitutional: Negative for: Fever, Chills Gastrointestinal: Positive for: Vomiting. Negative for: Nausea, Diarrhea Neurological: Positive for: Altered Mental Status. Negative for: Weakness, Numbness Physical Exam - Physical Exam Appears: Non-toxic, In Acute Distress, Other (responsive to painful stimuli) Skin: Warm, Dry Head: Atraumatic, Normacephalic Eye(s): bilateral: Normal Inspection, PERRL, EOMI Nose: Normal Oral Mucosa: Moist Neck: Normal, Supple Chest: Symmetrical, No Tenderness Cardiovascular: Rhythm Regular (tachycardic), No Murmur Respiratory: No Rales, No Rhonchi, Wheezing (scattered wheezing bilaterally), Other (scattered crackles bilaterally) Gastrointestinal/Abdominal: Soft, No Tenderness Neurological/Psych: Oriented x3, Normal Speech, Normal Cognition ED Course And Treatment - Laboratory Results Result Diagrams: 12/19/18 12:07 12/19/18 12:02 O2 Sat by Pulse Oximetry: 93 (RA) Pulse Ox Interpretation: Abnormal Central Line Placement - Central Line Placement Indication: Emergent IV Access Central Line Placement: Right: Femoral The Area Was Thoroughly Prepared With: Betadine, Chlorhexidine, Draped Using Sterile Technique Area Was Locally Anesthetized With: Lidocaine 1% Procedure: Triple Lumen, Placed Using Standard Seldinger Technique, Catheter Was Sewn Into Place, Sterile Dressing Placed Over Line, Procedure Tolerated Well Medical Decision Making Medical Decision Making: Plan: VBG CT Head EKG Chemistry Bloodwork Duoneb 3ml INH Narcan 1mg IVP NaCl IV Fluids Blood Culture Urine Culture Urinalysis Progress: 13:15: Case discussed with Evaristo Chou and Alex Harris Patient will go to ICU 1600 pt has had altered mental status during majority of time in ED, responsive to painful stimuli. multiple peripheral iv insertion and central line attempts with few successes. right lower extremity IO line placed. pt at this time is awake, responding appropriately to questions. pt to go to ICU shortly. pt found to have elevated troponin; pt was admitted 12/09- 12/12 to [facility] for similar issues and 'had a small heart attack' while here per . pt left AMA. when comparing triponins to those done when pt admitte last week, today's level is trending down from highest level seen. Disposition Discussed With DrLuis: González Arteaga Doctor Will See Patient In The: Hospital - Disposition Disposition: HOSPITALIZED Disposition Time: 13:19 Condition: CRITICAL - Clinical Impression Clinical Impression: Septic shock - PA / [facility] DEPARTMENT / Resident Statement MD/DO has reviewed & agrees with the documentation as recorded. - Scribe Statement The provider has reviewed the documentation as recorded by the Scribe (Hernandez Lim) All medical record entries made by the Scribe were at my direction and personally dictated by me. I have reviewed the chart and agree that the record accurately reflects my personal performance of the history, physical exam, medical decision making, and the department course for this patient. I have also personally directed, reviewed, and agree with the discharge instructions and disposition.
[2018-12-19] MEDS ORDERED: Sodium Chloride 0.9% 1,000 ML ONE ×3 (10:36→13:28)
[2018-12-19] MEDS ORDERED: Sodium Chloride 0.9% 1,000 ML IV ONE ×4 (10:45→13:15)
[2018-12-19] MEDS ORDERED: Naloxone 0.4 mg/ml Inj (Adult) IVP STA (10:45)
[2018-12-19] MEDS ORDERED: Naloxone 0.4 mg/ml Inj (Adult) IVP ONE ×2 (10:54→11:32)
[2018-12-19] MEDS ORDERED: Naloxone 0.4 mg/ml Inj (Adult) ONE ×2 (10:56→12:08)
[2018-12-19] MEDS ORDERED: Albuterol-Ipratrop 3 mg / 0.5 (3 ml) UD INH STA (11:32)
[2018-12-19 12:04] LABS: SQUAMOUS EPITHIAL 1 /hpf (0-5); URINE AMORPHOUS SEDIMENT OCC /ul (<OCC); URINE BILIRUBIN NEGATIVE (NEGATIVE); URINE BLOOD 3+ (NEGATIVE); URINE CLARITY Hazy (Clear); URINE COLOR Amber (YELLOW); URINE GLUCOSE (UA) NORMAL (Normal); URINE LEUKOCYTE ESTERASE NEG Leu/uL (Negative); URINE PROTEIN 2+ mg/dL (NEGATIVE)
[2018-12-19] MEDS ORDERED: Sodium Chloride 0.9% 250 ML IV ONE (12:08)
[2018-12-19 12:10] LABS: EOS % 0.1 % (0.0-4.0); HEMOGLOBIN 16.6 g/dL (12.0-18.0); LYMPH # 0.7 K/uL (1.0-4.3); MONO # 0.5 K/uL (0.0-0.8); RED CELL DISTRIBUTION WIDTH 15.8 % (11.5-14.5)
[2018-12-19 12:16] LABS: INR 1.5; PROTHROMBIN TIME 16.7 SECONDS (9.7-12.2)
[2018-12-19 12:19] LABS: BARBITURATES, UR NEGATIVE (NEGATIVE); OPIATES, UR NEGATIVE (NEGATIVE); PHENCYCLIDINE, UR NEGATIVE (NEGATIVE)
[2018-12-19 12:23] LABS: BENZODIAZEPINES, UR POSITIVE (NEGATIVE)
[2018-12-19 12:23] LABS: ALB/GLOB RATIO 1.5 (1.0-2.1); ALBUMIN 3.8 g/dL (3.5-5.0); ALT/SGPT 345 U/L (21-72); AST/SGOT 410 U/L (17-59); BLOOD UREA NITROGEN 20 mg/dL (9-20); CALCIUM 7.7 mg/dl (8.6-10.4); GFR NON-AFRICAN AMERICAN 44
[2018-12-19 12:25] LABS: VENOUS BLOOD GAS PCO2 103 mmHg (40-60); VENOUS BLOOD GAS PO2 21 mm/Hg (30-55); VENOUS BLOOD PH 6.99 (7.32-7.43)
[2018-12-19 12:38] LABS: BASO % 0.1 % (0.0-2.0); MEAN CORPUSCULAR HEMOGLOBIN 31.3 pg (27.0-31.0); MEAN CORPUSCULAR HGB CONC 30.6 g/dL (33.0-37.0); MEAN PLATELET VOLUME 9.8 fL (7.2-11.7); MONO % 3.6 % (0.0-10.0); NEUT # 12.5 K/uL (1.8-7.0); NEUT % 91.2 % (50.0-75.0); PLATELET COUNT 92 K/uL (130-400)
[2018-12-19 12:39] LABS: WHITE BLOOD COUNT 13.7 K/uL (4.8-10.8)
[2018-12-19 12:40] LABS: MEAN CELL VOLUME 101.5 fL (80.0-94.0)
[2018-12-19] MEDS ORDERED: Piperacill/Tazo 4.5gm in Dex 4.5 GM/100 ML BAG IVPB STA (12:46)
[2018-12-19] MEDS ORDERED: Vancomycin 1 gm/NS 200 ml 1 GM/200 ML BAG IVPB STA (12:46)
[2018-12-19 12:58] LABS: BANDS 17 % (0-2); LYMPHOCYTE 6 % (20-40); MONOCYTE 6 % (0-10); NEUTROPHIL 71 % (50-75); PLATELET ESTIMATE DECREASED (NORMAL); TOTAL CELLS COUNTED 100
[2018-12-19 12:59] LABS: ANISOCYTOSIS SLIGHT
[2018-12-19 13:00] LABS: POLYCHROMIC SLIGHT
[2018-12-19 13:05] LABS: ABG ALLEN TEST POS; ARTERIAL BLOOD GAS HCO3 20.8 mmol/L (21-28); ARTERIAL BLOOD GAS O2 SAT 100.2 % (95-98); ARTERIAL BLOOD GAS PCO2 69 mm/Hg (35-45); ARTERIAL BLOOD GAS PH 7.16 (7.35-7.45); ARTERIAL BLOOD GAS PO2 405 mm/Hg (80-100); ARTERIAL BLOOD GAS TCO2 26.7 mmol/L (22-28)
[2018-12-19] MEDS ORDERED: Albuterol-Ipratrop 3 mg / 0.5 (3 ml) UD ONE (13:11)
[2018-12-19] MEDS ORDERED: Lactated Ringer's 1,000 ML IV SCH ×2 (13:15→16:45)
--- NOTE | 2018-12-19 13:30 | RAD ---
Chest x-ray single frontal view HISTORY: Altered mental status. Comparison: 12/10/2018 Findings: Mild venous congestion. Right hilar prominence. Cardiomegaly. Biapical pleural thickening with upper lobe granulomatous changes. Small nodular density at the left lung apex. Degenerative changes in the spine. Impression: Mild venous congestion. Right hilar prominence. Cardiomegaly. Biapical pleural thickening with upper lobe granulomatous changes. Small nodular density at the left lung apex.
--- NOTE | 2018-12-19 14:14 | CP.PCM.HP ---
<Elaina Jack - Last Filed: 12/19/18 20:01> History of Present Illness - History of Present Illness History of Present Illness: PGY-1 Elaina Jack D.O. H&P for Dr. González Arteaga's service: Patient is a 63 yo male with a history of HTN, COPD, HIV (noncompliant), HCV, and polysubstance use presents after being found altered by . Patient says that he fell. He is lethargic but alert and oriented. However, patient does not remember details of the incident and is not at bedside, so information obtained from ED note. From ED: "As per , patient was on the floor with a noticeable puddle of vomit. As per ALS, patient's fingerstick was found to be less than 20, patient was also cold and clammy, given 2 doses of Narcan intranasally and amp of D50. Patient's states that yesterday patient was coughing, and slid off of the couch at 11 PM last night but refused to move, constantly stating "I'm okay" and was noted to be minimally responsive. states that she left him and went to sleep. states that she is unclear regarding any drugs he may have taken." Of note, patient was hospitalized last week for sepsis and NSTEMI. He was being worked up for PCP PNA. He left AMA. PMH: HTN, COPD, HIV (noncompliant), HCV (untreated), polysubstance use disorder (alcohol, tobacco, methadone, Xanax) PSH: denies Meds: Methadone 65 mg PO daily, Xanax 2 mg PO BID, Complera (not taking) Allergies: NKDA FH: denies SH: lives with , unemployed, 1 ppd x many years; denies alcohol; h/o heroin, quit in , on methadone 25 years, Rx for Xanax but misuses Present on Admission - Present on Admission Any Indicators Present on Admission: No History of DVT/PE: No History of Uncontrolled Diabetes: No Urinary Catheter: No Decubitus Ulcer Present: No History Surgical Site Infection Following: None Review of Systems - Review of Systems Systems not reviewed;Unavailable: Acuity of Condition (BiPAP) - Cardiovascular Cardiovascular: absent: Chest Pain - Gastrointestinal Gastrointestinal: absent: Abdominal Pain Past Patient History - Infectious Disease Hx of Infectious Diseases: None - Past Social History Smoking Status: Heavy Smoker > 10 Cigarettes Daily - CARDIAC Hx Hypertension: Yes (?) - PULMONARY Hx Chronic Obstructive Pulmonary Disease (COPD): Yes - HEMATOLOGICAL/ONCOLOGICAL Hx Human Immunodeficiency Virus (HIV): Yes - MUSCULOSKELETAL/RHEUMATOLOGICAL Hx Falls: No - PSYCHIATRIC Hx Substance Use: Yes - SURGICAL HISTORY Hx Surgeries: No - ANESTHESIA Hx Anesthesia: No Hx Anesthesia Reactions: No Hx Malignant Hyperthermia: No Meds Allergies/Adverse Reactions: Allergies Allergy/AdvReac Type Severity Reaction Status Date / Time No Known Allergies Allergy Verified 12/19/18 10:19 Physical Exam - Constitutional Appears: No Acute Distress, Unkempt Additional comments: lethargic - Head Exam Head Exam: ATRAUMATIC, NORMAL INSPECTION - Eye Exam Eye Exam: EOMI, Normal appearance, PERRL - ENT Exam ENT Exam: Mucous Membranes Dry - Neck Exam Neck exam: Positive for: Normal Inspection - Respiratory Exam Respiratory Exam: Rales, NORMAL BREATHING PATTERN. absent: Accessory Muscle Use, Respiratory Distress Additional comments: BiPAP - Cardiovascular Exam Cardiovascular Exam: RRR, +S1, +S2 - GI/Abdominal Exam GI & Abdominal Exam: Soft. absent: Distended, Tenderness - Exam External exam: NORMAL EXTERNAL EXAM - Extremities Exam Extremities exam: Positive for: normal inspection, pedal pulses present. Negative for: pedal edema, tenderness Additional comments: TLC in R femoral IO in R tibia - Back Exam Back exam: NORMAL INSPECTION - Neurological Exam Neurological exam: Alert, CN II-XII Intact, Oriented x3 - Psychiatric Exam Psychiatric exam: Flat Affect - Skin Skin Exam: Dry, Normal Color Results - Vital Signs Recent Vital Signs: Last Vital Signs Temp 96.4 F L 12/19/18 12:06 Pulse 88 12/19/18 13:41 Resp 34 H 12/19/18 12:37 BP 100/67 12/19/18 12:37 Pulse Ox 93 L 12/19/18 13:19 - Labs Result Diagrams: 12/19/18 12:07 12/19/18 12:02 Labs: Laboratory Results - last 24 hr 12/19/18 12/19/18 12/19/18 10:01 11:45 11:48 WBC RBC Hgb Hct MCV MCH MCHC RDW Plt Count MPV Neut % (Auto) Lymph % (Auto) [place] % (Auto) Eos % (Auto) Baso % (Auto) Neut # (Auto) Lymph # (Auto) [place] # (Auto) Eos # (Auto) Baso # (Auto) Neutrophils % (Manual) Band Neutrophils % Lymphocytes % (Manual) Monocytes % (Manual) Platelet Estimate Polychromasia Anisocytosis (manual) Macrocytosis (manual) PT INR APTT Puncture Site pCO2 pO2 HCO3 ABG pH ABG Total CO2 ABG O2 Saturation ABG Base Excess Jorge Test ABG Potassium VBG pH VBG pCO2 VBG HCO3 VBG Total CO2 VBG O2 Sat (Calc) VBG Base Excess VBG Potassium A-a O2 Difference Respiratory Index Glucose Lactate FiO2 Inspiratory BiPAP Expiratory BiPAP Crit Value Called To Crit Value Called By Crit Value Read Back Blood Gas Notified Time Sodium Potassium Chloride Carbon Dioxide Anion Gap BUN Creatinine Est GFR ( Amer) Est GFR (Non-Af Amer) POC Glucose (mg/dL) 250 H 319 H Random Glucose Calcium Total Bilirubin AST ALT Alkaline Phosphatase Troponin I Total Protein Albumin Globulin Albumin/Globulin Ratio Arterial Blood Potassium Venous Blood Potassium Urine Color Radha Urine Clarity Hazy Urine pH 5.0 Ur Specific [place] 1.012 Urine Protein 2+ H Urine Glucose (UA) Normal Urine Ketones Trace Urine Blood 3+ H Urine Nitrate Negative Urine Bilirubin Negative Urine Urobilinogen 2.0 Ur Leukocyte Esterase Neg Urine WBC (Auto) 9 H Urine RBC (Auto) 19 H Ur Squamous Epith Cells 1 Amorphous Sediment Occ H Hyaline Casts 6-10 H Urine Opiates Screen Urine Methadone Screen Ur Barbiturates Screen Ur Phencyclidine Scrn Ur Amphetamines Screen U Benzodiazepines Scrn U Oth Cocaine Metabols U Cannabinoids Screen Alcohol, Quantitative 12/19/18 12/19/18 12/19/18 11:48 12:02 12:02 WBC RBC Hgb Hct MCV MCH MCHC RDW Plt Count MPV Neut % (Auto) Lymph % (Auto) [place] % (Auto) Eos % (Auto) Baso % (Auto) Neut # (Auto) Lymph # (Auto) [place] # (Auto) Eos # (Auto) Baso # (Auto) Neutrophils % (Manual) Band Neutrophils % Lymphocytes % (Manual) Monocytes % (Manual) Platelet Estimate Polychromasia Anisocytosis (manual) Macrocytosis (manual) PT 16.7 H INR 1.5 APTT 35 H Puncture Site pCO2 pO2 HCO3 ABG pH ABG Total CO2 ABG O2 Saturation ABG Base Excess Jorge Test ABG Potassium VBG pH VBG pCO2 VBG HCO3 VBG Total CO2 VBG O2 Sat (Calc) VBG Base Excess VBG Potassium A-a O2 Difference Respiratory Index Glucose Lactate FiO2 Inspiratory BiPAP Expiratory BiPAP Crit Value Called To Crit Value Called By Crit Value Read Back Blood Gas Notified Time Sodium 139 Potassium 4.9 Chloride 98 Carbon Dioxide 19 L Anion Gap 27 H BUN 20 Creatinine 1.6 H Est GFR ( Amer) 53 Est GFR (Non-Af Amer) 44 POC Glucose (mg/dL) Random Glucose 198 H D Calcium 7.7 L Total Bilirubin 0.8 AST 410 H D ALT 345 H Alkaline Phosphatase 106 Troponin I 0.8320 H* Total Protein 6.4 Albumin 3.8 Globulin 2.6 Albumin/Globulin Ratio 1.5 Arterial Blood Potassium Venous Blood Potassium Urine Color Urine Clarity Urine pH Ur Specific [place] Urine Protein Urine Glucose (UA) Urine Ketones Urine Blood Urine Nitrate Urine Bilirubin Urine Urobilinogen Ur Leukocyte Esterase Urine WBC (Auto) Urine RBC (Auto) Ur Squamous Epith Cells Amorphous Sediment Hyaline Casts Urine Opiates Screen Negative Urine Methadone Screen Positive H Ur Barbiturates Screen Negative Ur Phencyclidine Scrn Negative Ur Amphetamines Screen Negative U Benzodiazepines Scrn Positive U Oth Cocaine Metabols Negative U Cannabinoids Screen Negative Alcohol, Quantitative < 10 12/19/18 12/19/18 12/19/18 12:07 12:19 13:01 WBC 13.7 H D RBC 5.30 Hgb 16.6 Hct 54.2 H MCV 101.5 H D MCH 31.3 H MCHC 30.6 L RDW 15.8 H Plt Count 92 L MPV 9.8 Neut % (Auto) 91.2 H Lymph % (Auto) 5.0 L [place] % (Auto) 3.6 Eos % (Auto) 0.1 Baso % (Auto) 0.1 Neut # (Auto) 12.5 H Lymph # (Auto) 0.7 L [place] # (Auto) 0.5 Eos # (Auto) 0.0 Baso # (Auto) 0.0 Neutrophils % (Manual) 71 Band Neutrophils % 17 H* Lymphocytes % (Manual) 6 L Monocytes % (Manual) 6 Platelet Estimate Decreased L Polychromasia Slight Anisocytosis (manual) Slight Macrocytosis (manual) Slight PT INR APTT Puncture Site Rr pCO2 69 H pO2 21 L 405 H HCO3 20.8 L ABG pH 7.16 L* ABG Total CO2 26.7 ABG O2 Saturation 100.2 H ABG Base Excess -5.4 L Jorge Test Pos ABG Potassium 4.7 VBG pH 6.99 L* VBG pCO2 103 H* VBG HCO3 15.6 VBG Total CO2 28.0 VBG O2 Sat (Calc) 32.9 L VBG Base Excess -9.0 L VBG Potassium 4.7 A-a O2 Difference 222.0 Respiratory Index 0.5 Glucose 205 H 236 H Lactate 13.7 H* 7.2 H* FiO2 100.0 Inspiratory BiPAP 16 Expiratory BiPAP 8 Crit Value Called To dee Bravo Rn, hart Crit Value Called By Shira robins,mushroom growing supervisor Imani robins Crit Value Read Back Y Y Blood Gas Notified Time 1225 1304 Sodium 139.0 137.0 Potassium Chloride 95.0 L 103.0 Carbon Dioxide Anion Gap BUN Creatinine Est GFR ( Amer) Est GFR (Non-Af Amer) POC Glucose (mg/dL) Random Glucose Calcium Total Bilirubin AST ALT Alkaline Phosphatase Troponin I Total Protein Albumin Globulin Albumin/Globulin Ratio Arterial Blood Potassium 4.7 Venous Blood Potassium 4.7 Urine Color Urine Clarity Urine pH Ur Specific [place] Urine Protein Urine Glucose (UA) Urine Ketones Urine Blood Urine Nitrate Urine Bilirubin Urine Urobilinogen Ur Leukocyte Esterase Urine WBC (Auto) Urine RBC (Auto) Ur Squamous Epith Cells Amorphous Sediment Hyaline Casts Urine Opiates Screen Urine Methadone Screen Ur Barbiturates Screen Ur Phencyclidine Scrn Ur Amphetamines Screen U Benzodiazepines Scrn U Oth Cocaine Metabols U Cannabinoids Screen Alcohol, Quantitative Assessment & Plan - Assessment and Plan (Free Text) Assessment: Patient is a 63 yo male with a history of HIV (noncompliance), HCV (treated per patient), COPD (untreated), and polysubstance use (methadone clinic) who presented after being found altered by his . His glucose was 20 on the field and he was given D50. He was also given Narcan on the field and ED. Patient found to be hypotensive and did not respond to fluids. Therefore, and IO and eventually a central line were inserted, and he was started on a pressor. Admitted to ICU. Patient was admitted 12/09-1/20 for a similar situation and left AMA. Plan: Septic shock- likely 2/2 aspiration pneumonia - Code sepsis - Lactate 13.7-->2.8 - f/u repeat - f/u Blood and sputum Cx - Rocephin 1 g IV Q12H- started 12/19 - Flagyl 500 mg IV Q8H- started 12/19 - Vancomycin 1.2 g IV Q24H (renally dosed)- started 12/19 - R tibia IO placed - R femoral central line placed - Currently on norepinephrine drip - ID consult (Amina) NSTEMI- no h/o CAD, suspect demand ischemia - Trop 0.8320 (lower than most recent trop when patient AMA'd on 12/10/18) - f/u repeat WANDA - Last admission, plan was to perform cardiac cath when sepsis resoled. Will f/u with Dr. Allison concerning further recs. - EKG: NSR, no ST changes - Echo (12/10/18- see full report): EF 50% - Avoid statin due to transaminitis - ASA 325 mg x 1, ASA 81 mg PO daily - Plavix 75 mg PO daily - Lovenox 70 mg SC Q12H - Cardiology consulted (Keegan) Respiratory acidosis- underlying untreated COPD - CT chest/abdomen pending - Currently on BiPAP in ICU Acute kidney failure - Cr increase more than 30% baseline Cr from last week (0.6-->1.6) - f/u CT abdomen - Continue to monitor BUN, creatinine - Consider b/l renal US if no improvement Elevated random glucose- no h/o DM, possibly D50 on field +/- stress reaction - f/u A1c - Accuchecks ACHS - Hypoglycemia protocol - ISS HIV- patient noncompliant for 20+ years - Confirmed with patient's pharmacy [facility] in [place] ([address]) that patient has been filling Complera; patient and report that he does not take the meds - Viral load undetectable - CD4 253- PCP ppx held - ID consulted (Amina) Esophageal thickening with prominent lymph nodes - CTA chest (last admission): Distal esophageal wall thickening/small hiatal hernia. Numerous subcentimeter peripancreatic/mesenteric and retroperitoneal lymph nodes. - f/u pending CT chest/abdomen - Consider GI consult when more clinically stable Chronic obstructive pulmonary disease - Patient does not take meds at home - Currently on BiPAP - Duoneb Q4H - Breo Ellipta 100/25 mcg 1 puff daily Polysubstance use disorder- methadone, Xanax, tobacco - Patient denies any alcohol use - UDS positive for benzos and methadone - [facility] called and confirmed methadone dose last admission - Methadone 65 mg PO daily - Nicoderm daily - Cessation counseling- done upon last admission Hepatitis C- patient reports treated 10 years ago - Transaminitis - Ammonia elevated 259 - Lactulose 20 g PO x1 - Hep C Ab reactive- f/u GI as outpatient after acute issues have resolved - Abdominal US (last admission): Cholelithiasis. Echogenic liver may be seen in setting of hepatic parenchymal disease or fatty infiltration. - CTA chest (last admission): Nodular hepatic contour, correlate for cirrhosis. Distended gallbladder with calcifications and or sludge. High-density within the gallbladder possibly related to vicarious excretion of contrast. Subtle mild peripancreatic inflammatory changes; correlate for pancreatitis. Ppx: VTE: SCDs, therapeutic LVX GI: Protonix 40 mg PO daily Code status: full code Case was discussed with attending, Dr. González Arteaga. <González Arteaga - Last Filed: 12/19/18 23:15> Results - Vital Signs Recent Vital Signs: Last Vital Signs Temp 99.2 F 12/19/18 18:00 Pulse 77 12/19/18 22:08 Resp 15 12/19/18 18:00 BP 96/53 L 12/19/18 18:00 Pulse Ox 97 12/19/18 18:00 - Labs Result Diagrams: 12/19/18 12:07 12/19/18 12:02 Labs: Laboratory Results - last 24 hr 12/19/18 12/19/18 12/19/18 10:01 11:45 11:48 WBC RBC Hgb Hct MCV MCH MCHC RDW Plt Count MPV Neut % (Auto) Lymph % (Auto) [place] % (Auto) Eos % (Auto) Baso % (Auto) Neut # (Auto) Lymph # (Auto) [place] # (Auto) Eos # (Auto) Baso # (Auto) Neutrophils % (Manual) Band Neutrophils % Lymphocytes % (Manual) Monocytes % (Manual) Platelet Estimate Polychromasia Anisocytosis (manual) Macrocytosis (manual) PT INR APTT Puncture Site pCO2 pO2 HCO3 ABG pH ABG Total CO2 ABG O2 Saturation ABG Base Excess Jorge Test ABG Potassium VBG pH VBG pCO2 VBG HCO3 VBG Total CO2 VBG O2 Sat (Calc) VBG Base Excess VBG Potassium A-a O2 Difference Respiratory Index Glucose Lactate FiO2 Inspiratory BiPAP Expiratory BiPAP Crit Value Called To Crit Value Called By Crit Value Read Back Blood Gas Notified Time Sodium Potassium Chloride Carbon Dioxide Anion Gap BUN Creatinine Est GFR ( Amer) Est GFR (Non-Af Amer) POC Glucose (mg/dL) 250 H 319 H Random Glucose Lactic Acid Calcium Total Bilirubin AST ALT Alkaline Phosphatase Ammonia Total Creatine Kinase CK-MB (Mass) Troponin I Total Protein Albumin Globulin Albumin/Globulin Ratio Arterial Blood Potassium Venous Blood Potassium Urine Color Radha Urine Clarity Hazy Urine pH 5.0 Ur Specific [place] 1.012 Urine Protein 2+ H Urine Glucose (UA) Normal Urine Ketones Trace Urine Blood 3+ H Urine Nitrate Negative Urine Bilirubin Negative Urine Urobilinogen 2.0 Ur Leukocyte Esterase Neg Urine WBC (Auto) 9 H Urine RBC (Auto) 19 H Ur Squamous Epith Cells 1 Amorphous Sediment Occ H Hyaline Casts 6-10 H Urine Opiates Screen Urine Methadone Screen Ur Barbiturates Screen Ur Phencyclidine Scrn Ur Amphetamines Screen U Benzodiazepines Scrn U Oth Cocaine Metabols U Cannabinoids Screen Alcohol, Quantitative Influenza Typ A,B (EIA) Mycoplasma pneumon IgM 12/19/18 12/19/18 12/19/18 11:48 12:02 12:02 WBC RBC Hgb Hct MCV MCH MCHC RDW Plt Count MPV Neut % (Auto) Lymph % (Auto) [place] % (Auto) Eos % (Auto) Baso % (Auto) Neut # (Auto) Lymph # (Auto) [place] # (Auto) Eos # (Auto) Baso # (Auto) Neutrophils % (Manual) Band Neutrophils % Lymphocytes % (Manual) Monocytes % (Manual) Platelet Estimate Polychromasia Anisocytosis (manual) Macrocytosis (manual) PT 16.7 H INR 1.5 APTT 35 H Puncture Site pCO2 pO2 HCO3 ABG pH ABG Total CO2 ABG O2 Saturation ABG Base Excess Jorge Test ABG Potassium VBG pH VBG pCO2 VBG HCO3 VBG Total CO2 VBG O2 Sat (Calc) VBG Base Excess VBG Potassium A-a O2 Difference Respiratory Index Glucose Lactate FiO2 Inspiratory BiPAP Expiratory BiPAP Crit Value Called To Crit Value Called By Crit Value Read Back Blood Gas Notified Time Sodium 139 Potassium 4.9 Chloride 98 Carbon Dioxide 19 L Anion Gap 27 H BUN 20 Creatinine 1.6 H Est GFR ( Amer) 53 Est GFR (Non-Af Amer) 44 POC Glucose (mg/dL) Random Glucose 198 H D Lactic Acid Calcium 7.7 L Total Bilirubin 0.8 AST 410 H D ALT 345 H Alkaline Phosphatase 106 Ammonia Total Creatine Kinase CK-MB (Mass) Troponin I 0.8320 H* Total Protein 6.4 Albumin 3.8 Globulin 2.6 Albumin/Globulin Ratio 1.5 Arterial Blood Potassium Venous Blood Potassium Urine Color Urine Clarity Urine pH Ur Specific [place] Urine Protein Urine Glucose (UA) Urine Ketones Urine Blood Urine Nitrate Urine Bilirubin Urine Urobilinogen Ur Leukocyte Esterase Urine WBC (Auto) Urine RBC (Auto) Ur Squamous Epith Cells Amorphous Sediment Hyaline Casts Urine Opiates Screen Negative Urine Methadone Screen Positive H Ur Barbiturates Screen Negative Ur Phencyclidine Scrn Negative Ur Amphetamines Screen Negative U Benzodiazepines Scrn Positive U Oth Cocaine Metabols Negative U Cannabinoids Screen Negative Alcohol, Quantitative < 10 Influenza Typ A,B (EIA) Mycoplasma pneumon IgM 12/19/18 12/19/18 12/19/18 12:02 12:07 12:19 WBC 13.7 H D RBC 5.30 Hgb 16.6 Hct 54.2 H MCV 101.5 H D MCH 31.3 H MCHC 30.6 L RDW 15.8 H Plt Count 92 L MPV 9.8 Neut % (Auto) 91.2 H Lymph % (Auto) 5.0 L [place] % (Auto) 3.6 Eos % (Auto) 0.1 Baso % (Auto) 0.1 Neut # (Auto) 12.5 H Lymph # (Auto) 0.7 L [place] # (Auto) 0.5 Eos # (Auto) 0.0 Baso # (Auto) 0.0 Neutrophils % (Manual) 71 Band Neutrophils % 17 H* Lymphocytes % (Manual) 6 L Monocytes % (Manual) 6 Platelet Estimate Decreased L Polychromasia Slight Anisocytosis (manual) Slight Macrocytosis (manual) Slight PT INR APTT Puncture Site pCO2 pO2 21 L HCO3 ABG pH ABG Total CO2 ABG O2 Saturation ABG Base Excess Jorge Test ABG Potassium VBG pH 6.99 L* VBG pCO2 103 H* VBG HCO3 15.6 VBG Total CO2 28.0 VBG O2 Sat (Calc) 32.9 L VBG Base Excess -9.0 L VBG Potassium 4.7 A-a O2 Difference Respiratory Index Glucose 205 H Lactate 13.7 H* FiO2 Inspiratory BiPAP Expiratory BiPAP Crit Value Called To dee Bravo Crit Value Called By Shira robins,kaylie Crit Value Read Back Y Blood Gas Notified Time 1225 Sodium 139.0 Potassium Chloride 95.0 L Carbon Dioxide Anion Gap BUN Creatinine Est GFR ( Amer) Est GFR (Non-Af Amer) POC Glucose (mg/dL) Random Glucose Lactic Acid Calcium Total Bilirubin AST ALT Alkaline Phosphatase Ammonia 259 H D Total Creatine Kinase CK-MB (Mass) Troponin I Total Protein Albumin Globulin Albumin/Globulin Ratio Arterial Blood Potassium Venous Blood Potassium 4.7 Urine Color Urine Clarity Urine pH Ur Specific [place] Urine Protein Urine Glucose (UA) Urine Ketones Urine Blood Urine Nitrate Urine Bilirubin Urine Urobilinogen Ur Leukocyte Esterase Urine WBC (Auto) Urine RBC (Auto) Ur Squamous Epith Cells Amorphous Sediment Hyaline Casts Urine Opiates Screen Urine Methadone Screen Ur Barbiturates Screen Ur Phencyclidine Scrn Ur Amphetamines Screen U Benzodiazepines Scrn U Oth Cocaine Metabols U Cannabinoids Screen Alcohol, Quantitative Influenza Typ A,B (EIA) Mycoplasma pneumon IgM 12/19/18 12/19/18 12/19/18 13:01 14:31 15:53 WBC RBC Hgb Hct MCV MCH MCHC RDW Plt Count MPV Neut % (Auto) Lymph % (Auto) [place] % (Auto) Eos % (Auto) Baso % (Auto) Neut # (Auto) Lymph # (Auto) [place] # (Auto) Eos # (Auto) Baso # (Auto) Neutrophils % (Manual) Band Neutrophils % Lymphocytes % (Manual) Monocytes % (Manual) Platelet Estimate Polychromasia Anisocytosis (manual) Macrocytosis (manual) PT INR APTT Puncture Site Rr Rr pCO2 69 H 61 H pO2 405 H 52 L HCO3 20.8 L 19.8 L ABG pH 7.16 L* 7.19 L* ABG Total CO2 26.7 25.2 ABG O2 Saturation 100.2 H 89.6 L ABG Base Excess -5.4 L -5.8 L Jorge Test Pos Pos ABG Potassium 4.7 4.4 VBG pH VBG pCO2 VBG HCO3 VBG Total CO2 VBG O2 Sat (Calc) VBG Base Excess VBG Potassium A-a O2 Difference 222.0 86.0 Respiratory Index 0.5 1.7 Glucose 236 H 229 H Lactate 7.2 H* 4.5 H* FiO2 100.0 30.0 Inspiratory BiPAP 16 16 Expiratory BiPAP 8 8 Crit Value Called To dee Bravo Rn, hart Crit Value Called By Imani robnis Crit Value Read Back Y Y Blood Gas Notified Time 1304 1435 Sodium 137.0 137.0 Potassium Chloride 103.0 105.0 Carbon Dioxide Anion Gap BUN Creatinine Est GFR ( Amer) Est GFR (Non-Af Amer) POC Glucose (mg/dL) Random Glucose Lactic Acid Calcium Total Bilirubin AST ALT Alkaline Phosphatase Ammonia Total Creatine Kinase CK-MB (Mass) Troponin I Total Protein Albumin Globulin Albumin/Globulin Ratio Arterial Blood Potassium 4.7 4.4 Venous Blood Potassium Urine Color Urine Clarity Urine pH Ur Specific [place] Urine Protein Urine Glucose (UA) Urine Ketones Urine Blood Urine Nitrate Urine Bilirubin Urine Urobilinogen Ur Leukocyte Esterase Urine WBC (Auto) Urine RBC (Auto) Ur Squamous Epith Cells Amorphous Sediment Hyaline Casts Urine Opiates Screen Urine Methadone Screen Ur Barbiturates Screen Ur Phencyclidine Scrn Ur Amphetamines Screen U Benzodiazepines Scrn U Oth Cocaine Metabols U Cannabinoids Screen Alcohol, Quantitative Influenza Typ A,B (EIA) Negative for flu a/b Mycoplasma pneumon IgM Cancelled 12/19/18 12/19/18 12/19/18 16:31 19:41 19:41 WBC RBC Hgb Hct MCV MCH MCHC RDW Plt Count MPV Neut % (Auto) Lymph % (Auto) [place] % (Auto) Eos % (Auto) Baso % (Auto) Neut # (Auto) Lymph # (Auto) [place] # (Auto) Eos # (Auto) Baso # (Auto) Neutrophils % (Manual) Band Neutrophils % Lymphocytes % (Manual) Monocytes % (Manual) Platelet Estimate Polychromasia Anisocytosis (manual) Macrocytosis (manual) PT INR APTT Puncture Site Rr pCO2 58 H pO2 40 L* HCO3 21.9 ABG pH 7.25 L ABG Total CO2 27.2 ABG O2 Saturation 79.2 L ABG Base Excess -2.8 L Jorge Test Pos ABG Potassium 4.7 VBG pH VBG pCO2 VBG HCO3 VBG Total CO2 VBG O2 Sat (Calc) VBG Base Excess VBG Potassium A-a O2 Difference 101.0 Respiratory Index 2.5 Glucose 176 H Lactate 2.8 H FiO2 30.0 Inspiratory BiPAP 20 Expiratory BiPAP 8 Crit Value Called To dee Bravo Crit Value Called By Imani robins Crit Value Read Back Y Blood Gas Notified Time 1643 Sodium 137.0 Potassium Chloride 106.0 Carbon Dioxide Anion Gap BUN Creatinine Est GFR ( Amer) Est GFR (Non-Af Amer) POC Glucose (mg/dL) Random Glucose Lactic Acid 1.8 Calcium Total Bilirubin AST ALT Alkaline Phosphatase Ammonia Total Creatine Kinase 6343 H CK-MB (Mass) 67.9 H Troponin I 4.6200 H* Total Protein Albumin Globulin Albumin/Globulin Ratio Arterial Blood Potassium 4.7 Venous Blood Potassium Urine Color Urine Clarity Urine pH Ur Specific [place] Urine Protein Urine Glucose (UA) Urine Ketones Urine Blood Urine Nitrate Urine Bilirubin Urine Urobilinogen Ur Leukocyte Esterase Urine WBC (Auto) Urine RBC (Auto) Ur Squamous Epith Cells Amorphous Sediment Hyaline Casts Urine Opiates Screen Urine Methadone Screen Ur Barbiturates Screen Ur Phencyclidine Scrn Ur Amphetamines Screen U Benzodiazepines Scrn U Oth Cocaine Metabols U Cannabinoids Screen Alcohol, Quantitative Influenza Typ A,B (EIA) Mycoplasma pneumon IgM 12/19/18 21:07 WBC RBC Hgb Hct MCV MCH MCHC RDW Plt Count MPV Neut % (Auto) Lymph % (Auto) [place] % (Auto) Eos % (Auto) Baso % (Auto) Neut # (Auto) Lymph # (Auto) [place] # (Auto) Eos # (Auto) Baso # (Auto) Neutrophils % (Manual) Band Neutrophils % Lymphocytes % (Manual) Monocytes % (Manual) Platelet Estimate Polychromasia Anisocytosis (manual) Macrocytosis (manual) PT INR APTT Puncture Site pCO2 pO2 HCO3 ABG pH ABG Total CO2 ABG O2 Saturation ABG Base Excess Jorge Test ABG Potassium VBG pH VBG pCO2 VBG HCO3 VBG Total CO2 VBG O2 Sat (Calc) VBG Base Excess VBG Potassium A-a O2 Difference Respiratory Index Glucose Lactate FiO2 Inspiratory BiPAP Expiratory BiPAP Crit Value Called To Crit Value Called By Crit Value Read Back Blood Gas Notified Time Sodium Potassium Chloride Carbon Dioxide Anion Gap BUN Creatinine Est GFR ( Amer) Est GFR (Non-Af Amer) POC Glucose (mg/dL) 93 Random Glucose Lactic Acid Calcium Total Bilirubin AST ALT Alkaline Phosphatase Ammonia Total Creatine Kinase CK-MB (Mass) Troponin I Total Protein Albumin Globulin Albumin/Globulin Ratio Arterial Blood Potassium Venous Blood Potassium Urine Color Urine Clarity Urine pH Ur Specific [place] Urine Protein Urine Glucose (UA) Urine Ketones Urine Blood Urine Nitrate Urine Bilirubin Urine Urobilinogen Ur Leukocyte Esterase Urine WBC (Auto) Urine RBC (Auto) Ur Squamous Epith Cells Amorphous Sediment Hyaline Casts Urine Opiates Screen Urine Methadone Screen Ur Barbiturates Screen Ur Phencyclidine Scrn Ur Amphetamines Screen U Benzodiazepines Scrn U Oth Cocaine Metabols U Cannabinoids Screen Alcohol, Quantitative Influenza Typ A,B (EIA) Mycoplasma pneumon IgM Attending/Attestation - Attestation I have personally seen and examined this patient.: Yes I have fully participated in the care of the patient.: Yes I have reviewed all pertinent clinical information: Yes Notes (Text): 12/19/18 23:13 This patient was seen and examined with resident Dr. Jack in the ICU. History, physical, assessment and plan were gone over in detail with Dr. Jack. In light of the Acute Renal Failure please note that the Lovenox was discontinued and patient was started on Heparin Drip. Await further recommendations concerning elevated Troponin from Dr. Allison. González Arteaga D.O.
[2018-12-19 14:36] LABS: ABG ALLEN TEST POS; ARTERIAL BLOOD GAS HCO3 19.8 mmol/L (21-28); ARTERIAL BLOOD GAS O2 SAT 89.6 % (95-98); ARTERIAL BLOOD GAS PCO2 61 mm/Hg (35-45); ARTERIAL BLOOD GAS PH 7.19 (7.35-7.45); ARTERIAL BLOOD GAS PO2 52 mm/Hg (80-100); ARTERIAL BLOOD GAS TCO2 25.2 mmol/L (22-28)
[2018-12-19] MEDS ORDERED: Lidocaine 2 Grams in D5W 0 MG/0 ML BAG IV ONE (14:36)
[2018-12-19] MEDS ORDERED: metroNIDAZOLE IV 500 mg/100 ml 500 MG/100 ML BAG ONE (15:25)
--- NOTE | 2018-12-19 15:35 | CP.CCUPN ---
CCU Subjective - Physician Review Events Since Last Encounter (Free Text): 12/19/18 15:33 63yo M. PMHx HTN, COPD, HIV (noncompliant), HCV (untreated), polysubstance use disorder (alcohol, tobacco, methadone, Xanax). p/w drug overdose (positive for methadone and benzodiazepine's), acute respiratory failure with hypercarbia, and hyperlacticemia. Patient was obtunded on presentation. CCU Objective - Vital Signs / Intake & Output Vital Signs (Last 4 hours): Vital Signs Temp Pulse Resp BP Pulse Ox 12/19/18 15:20 90 14 100/50 L 92 L 12/19/18 15:17 93 L 12/19/18 15:07 90 14 84/57 L 100 12/19/18 13:57 97.9 F 85 28 H 84/48 L 100 12/19/18 13:47 85 20 78/48 L 100 12/19/18 13:41 88 12/19/18 13:36 81/56 L 12/19/18 12:37 88 34 H 100/67 100 12/19/18 12:13 88 30 H 118/84 100 12/19/18 12:06 96.4 F L 90 90 H 83/47 L 100 12/19/18 11:36 95.4 F L Intake and Output (Last 8hrs): Intake & Output 12/19/18 12/19/18 12/19/18 06:59 14:59 22:59 Weight 185 lb - Physical Exam Physical Exam Limitations: Positive for: Altered Mental Status Head: Positive for: Atraumatic, Normocephalic Pupils: Positive for: PERRL, Sluggish Extroacular Muscles: Positive for: EOMI Conjunctiva: Positive for: Normal Mouth: Positive for: Moist Mucous Membranes Pharnyx: Positive for: Normal Neck: Positive for: Normal Range of Motion Respiratory/Chest: Positive for: Clear to Auscultation, Good Air Exchange Abdomen: Negative for: Tenderness, Distention, Normal Bowel Sounds Upper Extremity: Positive for: Normal Inspection Lower Extremity: Positive for: Normal Inspection Psychiatric: Negative for: Alert, Oriented x 3 - Medications Active Medications: Active Medications Generic Name Dose Route Start Last Admin Trade Name Freq PRN Reason Stop Dose Admin Norepinephrine Bitartrate 4 mg 254 mls @ 15.24 mls/hr 12/19/18 13:12 12/19/18 15:07 / Dextrose IV 4 mcg/min .[id number] PRN 15.24 mls/hr TITRATE PER MD ORDER Administration Protocol 4 MCG/MIN Ceftriaxone Sodium 1 gm/ 100 mls @ 100 mls/hr 12/19/18 15:00 12/19/18 15:20 Sodium Chloride IVPB 100 mls/hr Q12H CAMILO Administration Protocol Metronidazole 500 mg in 100 mls @ 100 mls/hr 12/19/18 15:00 Flagyl IVPB Q8H CAMILO Protocol Vancomycin HCl 1,200 mg/ 250 mls @ 166.7 mls/hr 12/20/18 13:00 Sodium Chloride IVPB Q24H CAMILO Protocol - Patient Studies Lab Studies: Lab Studies 12/19/18 12/19/18 12/19/18 Range/Units 14:31 13:01 12:19 WBC (4.8-10.8) K/uL RBC (4.40-5.90) Mil/uL Hgb (12.0-18.0) g/dL Hct (35.0-51.0) % MCV (80.0-94.0) fL MCH (27.0-31.0) pg MCHC (33.0-37.0) g/dL RDW (11.5-14.5) % Plt Count (130-400) K/uL MPV (7.2-11.7) fL Neut % (Auto) (50.0-75.0) % Lymph % (Auto) (20.0-40.0) % [place] % (Auto) (0.0-10.0) % Eos % (Auto) (0.0-4.0) % Baso % (Auto) (0.0-2.0) % Neut # (Auto) (1.8-7.0) K/uL Lymph # (Auto) (1.0-4.3) K/uL [place] # (Auto) (0.0-0.8) K/uL Eos # (Auto) (0.0-0.7) K/uL Baso # (Auto) (0.0-0.2) K/uL Neutrophils % (Manual) (50-75) % Band Neutrophils % (0-2) % Lymphocytes % (Manual) (20-40) % Monocytes % (Manual) (0-10) % Platelet Estimate (NORMAL) Polychromasia Anisocytosis (manual) Macrocytosis (manual) PT (9.7-12.2) SECONDS INR APTT (21-34) SECONDS Puncture Site Rr Rr pCO2 61 H 69 H (35-45) mm/Hg pO2 52 L 405 H 21 L (30-55) mm/Hg HCO3 19.8 L 20.8 L (21-28) mmol/L ABG pH 7.19 L* 7.16 L* (7.35-7.45) ABG Total CO2 25.2 26.7 (22-28) mmol/L ABG O2 Saturation 89.6 L 100.2 H (95-98) % ABG Base Excess -5.8 L -5.4 L (-2.0-3.0) mmol/L Jorge Test Pos Pos ABG Potassium 4.4 4.7 (3.6-5.2) mmol/L VBG pH 6.99 L* (7.32-7.43) VBG pCO2 103 H* (40-60) mmHg VBG HCO3 15.6 mmol/L VBG Total CO2 28.0 (22-28) mmol/L VBG O2 Sat (Calc) 32.9 L (40-65) % VBG Base Excess -9.0 L (0.0-2.0) mmol/L VBG Potassium 4.7 (3.6-5.2) mmol/L A-a O2 Difference 86.0 222.0 mm/Hg Respiratory Index 1.7 0.5 Glucose 229 H 236 H 205 H (75-110) mg/dl Lactate 4.5 H* 7.2 H* 13.7 H* (0.7-2.1) mmol/L FiO2 30.0 100.0 % Inspiratory BiPAP 16 16 Expiratory BiPAP 8 8 Crit Value Called To dee Bravo Rn,dee price Rn Crit Value Called By Imani robins,coordinator of genetic services Crit Value Read Back Y Y Y Blood Gas Notified Time 1435 1304 1225 Sodium 137.0 137.0 139.0 (132-148) mmol/L Potassium (3.6-5.2) mmol/L Chloride 105.0 103.0 95.0 L (98-107) mmol/L Carbon Dioxide (22-30) mmol/L Anion Gap (10-20) BUN (9-20) mg/dL Creatinine (0.8-1.5) mg/dL Est GFR ( Amer) Est GFR (Non-Af Amer) POC Glucose (mg/dL) (65-110) mg/dL Random Glucose (75-110) mg/dL Calcium (8.6-10.4) mg/dl Total Bilirubin (0.2-1.3) mg/dL AST (17-59) U/L ALT (21-72) U/L Alkaline Phosphatase (38-126) U/L Troponin I (0.00-0.120) ng/mL Total Protein (6.3-8.3) g/dL Albumin (3.5-5.0) g/dL Globulin (2.2-3.9) gm/dL Albumin/Globulin Ratio (1.0-2.1) Arterial Blood Potassium 4.4 4.7 (3.6-5.2) mmol/L Venous Blood Potassium 4.7 (3.6-5.2) mmol/L Urine Color (YELLOW) Urine Clarity (Clear) Urine pH (5.0-8.0) Ur Specific [place] (1.003-1.030) Urine Protein (NEGATIVE) mg/dL Urine Glucose (UA) (Normal) mg/dL Urine Ketones (NEGATIVE) mg/dL Urine Blood (NEGATIVE) Urine Nitrate (NEGATIVE) Urine Bilirubin (NEGATIVE) Urine Urobilinogen (0.2-1.0) mg/dL Ur Leukocyte Esterase (Negative) Kathleen/uL Urine WBC (Auto) (0-5) /hpf Urine RBC (Auto) (0-3) /hpf Ur Squamous Epith Cells (0-5) /hpf Amorphous Sediment (<OCC) /ul Hyaline Casts (0-2) /lpf Urine Opiates Screen (NEGATIVE) Urine Methadone Screen (NEGATIVE) Ur Barbiturates Screen (NEGATIVE) Ur Phencyclidine Scrn (NEGATIVE) Ur Amphetamines Screen (NEGATIVE) U Benzodiazepines Scrn (NEGATIVE) U Oth Cocaine Metabols (NEGATIVE) U Cannabinoids Screen (NEGATIVE) Alcohol, Quantitative (0-10) mg/dl 12/19/18 12/19/18 12/19/18 Range/Units 12:07 12:02 12:02 WBC 13.7 H D (4.8-10.8) K/uL RBC 5.30 (4.40-5.90) Mil/uL Hgb 16.6 (12.0-18.0) g/dL Hct 54.2 H (35.0-51.0) % MCV 101.5 H D (80.0-94.0) fL MCH 31.3 H (27.0-31.0) pg MCHC 30.6 L (33.0-37.0) g/dL RDW 15.8 H (11.5-14.5) % Plt Count 92 L (130-400) K/uL MPV 9.8 (7.2-11.7) fL Neut % (Auto) 91.2 H (50.0-75.0) % Lymph % (Auto) 5.0 L (20.0-40.0) % [place] % (Auto) 3.6 (0.0-10.0) % Eos % (Auto) 0.1 (0.0-4.0) % Baso % (Auto) 0.1 (0.0-2.0) % Neut # (Auto) 12.5 H (1.8-7.0) K/uL Lymph # (Auto) 0.7 L (1.0-4.3) K/uL [place] # (Auto) 0.5 (0.0-0.8) K/uL Eos # (Auto) 0.0 (0.0-0.7) K/uL Baso # (Auto) 0.0 (0.0-0.2) K/uL Neutrophils % (Manual) 71 (50-75) % Band Neutrophils % 17 H* (0-2) % Lymphocytes % (Manual) 6 L (20-40) % Monocytes % (Manual) 6 (0-10) % Platelet Estimate Decreased L (NORMAL) Polychromasia Slight Anisocytosis (manual) Slight Macrocytosis (manual) Slight PT 16.7 H (9.7-12.2) SECONDS INR 1.5 APTT 35 H (21-34) SECONDS Puncture Site pCO2 (35-45) mm/Hg pO2 (30-55) mm/Hg HCO3 (21-28) mmol/L ABG pH (7.35-7.45) ABG Total CO2 (22-28) mmol/L ABG O2 Saturation (95-98) % ABG Base Excess (-2.0-3.0) mmol/L Jorge Test ABG Potassium (3.6-5.2) mmol/L VBG pH (7.32-7.43) VBG pCO2 (40-60) mmHg VBG HCO3 mmol/L VBG Total CO2 (22-28) mmol/L VBG O2 Sat (Calc) (40-65) % VBG Base Excess (0.0-2.0) mmol/L VBG Potassium (3.6-5.2) mmol/L A-a O2 Difference mm/Hg Respiratory Index Glucose (75-110) mg/dl Lactate (0.7-2.1) mmol/L FiO2 % Inspiratory BiPAP Expiratory BiPAP Crit Value Called To Crit Value Called By Crit Value Read Back Blood Gas Notified Time Sodium 139 (132-148) mmol/L Potassium 4.9 (3.6-5.2) mmol/L Chloride 98 (98-107) mmol/L Carbon Dioxide 19 L (22-30) mmol/L Anion Gap 27 H (10-20) BUN 20 (9-20) mg/dL Creatinine 1.6 H (0.8-1.5) mg/dL Est GFR ( Amer) 53 Est GFR (Non-Af Amer) 44 POC Glucose (mg/dL) (65-110) mg/dL Random Glucose 198 H D (75-110) mg/dL Calcium 7.7 L (8.6-10.4) mg/dl Total Bilirubin 0.8 (0.2-1.3) mg/dL AST 410 H D (17-59) U/L ALT 345 H (21-72) U/L Alkaline Phosphatase 106 (38-126) U/L Troponin I 0.8320 H* (0.00-0.120) ng/mL Total Protein 6.4 (6.3-8.3) g/dL Albumin 3.8 (3.5-5.0) g/dL Globulin 2.6 (2.2-3.9) gm/dL Albumin/Globulin Ratio 1.5 (1.0-2.1) Arterial Blood Potassium (3.6-5.2) mmol/L Venous Blood Potassium (3.6-5.2) mmol/L Urine Color (YELLOW) Urine Clarity (Clear) Urine pH (5.0-8.0) Ur Specific [place] (1.003-1.030) Urine Protein (NEGATIVE) mg/dL Urine Glucose (UA) (Normal) mg/dL Urine Ketones (NEGATIVE) mg/dL Urine Blood (NEGATIVE) Urine Nitrate (NEGATIVE) Urine Bilirubin (NEGATIVE) Urine Urobilinogen (0.2-1.0) mg/dL Ur Leukocyte Esterase (Negative) Kathleen/uL Urine WBC (Auto) (0-5) /hpf Urine RBC (Auto) (0-3) /hpf Ur Squamous Epith Cells (0-5) /hpf Amorphous Sediment (<OCC) /ul Hyaline Casts (0-2) /lpf Urine Opiates Screen (NEGATIVE) Urine Methadone Screen (NEGATIVE) Ur Barbiturates Screen (NEGATIVE) Ur Phencyclidine Scrn (NEGATIVE) Ur Amphetamines Screen (NEGATIVE) U Benzodiazepines Scrn (NEGATIVE) U Oth Cocaine Metabols (NEGATIVE) U Cannabinoids Screen (NEGATIVE) Alcohol, Quantitative < 10 (0-10) mg/dl 12/19/18 12/19/18 12/19/18 Range/Units 11:48 11:48 11:45 WBC (4.8-10.8) K/uL RBC (4.40-5.90) Mil/uL Hgb (12.0-18.0) g/dL Hct (35.0-51.0) % MCV (80.0-94.0) fL MCH (27.0-31.0) pg MCHC (33.0-37.0) g/dL RDW (11.5-14.5) % Plt Count (130-400) K/uL MPV (7.2-11.7) fL Neut % (Auto) (50.0-75.0) % Lymph % (Auto) (20.0-40.0) % [place] % (Auto) (0.0-10.0) % Eos % (Auto) (0.0-4.0) % Baso % (Auto) (0.0-2.0) % Neut # (Auto) (1.8-7.0) K/uL Lymph # (Auto) (1.0-4.3) K/uL [place] # (Auto) (0.0-0.8) K/uL Eos # (Auto) (0.0-0.7) K/uL Baso # (Auto) (0.0-0.2) K/uL Neutrophils % (Manual) (50-75) % Band Neutrophils % (0-2) % Lymphocytes % (Manual) (20-40) % Monocytes % (Manual) (0-10) % Platelet Estimate (NORMAL) Polychromasia Anisocytosis (manual) Macrocytosis (manual) PT (9.7-12.2) SECONDS INR APTT (21-34) SECONDS Puncture Site pCO2 (35-45) mm/Hg pO2 (30-55) mm/Hg HCO3 (21-28) mmol/L ABG pH (7.35-7.45) ABG Total CO2 (22-28) mmol/L ABG O2 Saturation (95-98) % ABG Base Excess (-2.0-3.0) mmol/L Jorge Test ABG Potassium (3.6-5.2) mmol/L VBG pH (7.32-7.43) VBG pCO2 (40-60) mmHg VBG HCO3 mmol/L VBG Total CO2 (22-28) mmol/L VBG O2 Sat (Calc) (40-65) % VBG Base Excess (0.0-2.0) mmol/L VBG Potassium (3.6-5.2) mmol/L A-a O2 Difference mm/Hg Respiratory Index Glucose (75-110) mg/dl Lactate (0.7-2.1) mmol/L FiO2 % Inspiratory BiPAP Expiratory BiPAP Crit Value Called To Crit Value Called By Crit Value Read Back Blood Gas Notified Time Sodium (132-148) mmol/L Potassium (3.6-5.2) mmol/L Chloride (98-107) mmol/L Carbon Dioxide (22-30) mmol/L Anion Gap (10-20) BUN (9-20) mg/dL Creatinine (0.8-1.5) mg/dL Est GFR ( Amer) Est GFR (Non-Af Amer) POC Glucose (mg/dL) 319 H (65-110) mg/dL Random Glucose (75-110) mg/dL Calcium (8.6-10.4) mg/dl Total Bilirubin (0.2-1.3) mg/dL AST (17-59) U/L ALT (21-72) U/L Alkaline Phosphatase (38-126) U/L Troponin I (0.00-0.120) ng/mL Total Protein (6.3-8.3) g/dL Albumin (3.5-5.0) g/dL Globulin (2.2-3.9) gm/dL Albumin/Globulin Ratio (1.0-2.1) Arterial Blood Potassium (3.6-5.2) mmol/L Venous Blood Potassium (3.6-5.2) mmol/L Urine Color Radha (YELLOW) Urine Clarity Hazy (Clear) Urine pH 5.0 (5.0-8.0) Ur Specific [place] 1.012 (1.003-1.030) Urine Protein 2+ H (NEGATIVE) mg/dL Urine Glucose (UA) Normal (Normal) mg/dL Urine Ketones Trace (NEGATIVE) mg/dL Urine Blood 3+ H (NEGATIVE) Urine Nitrate Negative (NEGATIVE) Urine Bilirubin Negative (NEGATIVE) Urine Urobilinogen 2.0 (0.2-1.0) mg/dL Ur Leukocyte Esterase Neg (Negative) Kathleen/uL Urine WBC (Auto) 9 H (0-5) /hpf Urine RBC (Auto) 19 H (0-3) /hpf Ur Squamous Epith Cells 1 (0-5) /hpf Amorphous Sediment Occ H (<OCC) /ul Hyaline Casts 6-10 H (0-2) /lpf Urine Opiates Screen Negative (NEGATIVE) Urine Methadone Screen Positive H (NEGATIVE) Ur Barbiturates Screen Negative (NEGATIVE) Ur Phencyclidine Scrn Negative (NEGATIVE) Ur Amphetamines Screen Negative (NEGATIVE) U Benzodiazepines Scrn Positive (NEGATIVE) U Oth Cocaine Metabols Negative (NEGATIVE) U Cannabinoids Screen Negative (NEGATIVE) Alcohol, Quantitative (0-10) mg/dl 12/19/18 Range/Units 10:01 WBC (4.8-10.8) K/uL RBC (4.40-5.90) Mil/uL Hgb (12.0-18.0) g/dL Hct (35.0-51.0) % MCV (80.0-94.0) fL MCH (27.0-31.0) pg MCHC (33.0-37.0) g/dL RDW (11.5-14.5) % Plt Count (130-400) K/uL MPV (7.2-11.7) fL Neut % (Auto) (50.0-75.0) % Lymph % (Auto) (20.0-40.0) % [place] % (Auto) (0.0-10.0) % Eos % (Auto) (0.0-4.0) % Baso % (Auto) (0.0-2.0) % Neut # (Auto) (1.8-7.0) K/uL Lymph # (Auto) (1.0-4.3) K/uL [place] # (Auto) (0.0-0.8) K/uL Eos # (Auto) (0.0-0.7) K/uL Baso # (Auto) (0.0-0.2) K/uL Neutrophils % (Manual) (50-75) % Band Neutrophils % (0-2) % Lymphocytes % (Manual) (20-40) % Monocytes % (Manual) (0-10) % Platelet Estimate (NORMAL) Polychromasia Anisocytosis (manual) Macrocytosis (manual) PT (9.7-12.2) SECONDS INR APTT (21-34) SECONDS Puncture Site pCO2 (35-45) mm/Hg pO2 (30-55) mm/Hg HCO3 (21-28) mmol/L ABG pH (7.35-7.45) ABG Total CO2 (22-28) mmol/L ABG O2 Saturation (95-98) % ABG Base Excess (-2.0-3.0) mmol/L Jorge Test ABG Potassium (3.6-5.2) mmol/L VBG pH (7.32-7.43) VBG pCO2 (40-60) mmHg VBG HCO3 mmol/L VBG Total CO2 (22-28) mmol/L VBG O2 Sat (Calc) (40-65) % VBG Base Excess (0.0-2.0) mmol/L VBG Potassium (3.6-5.2) mmol/L A-a O2 Difference mm/Hg Respiratory Index Glucose (75-110) mg/dl Lactate (0.7-2.1) mmol/L FiO2 % Inspiratory BiPAP Expiratory BiPAP Crit Value Called To Crit Value Called By Crit Value Read Back Blood Gas Notified Time Sodium (132-148) mmol/L Potassium (3.6-5.2) mmol/L Chloride (98-107) mmol/L Carbon Dioxide (22-30) mmol/L Anion Gap (10-20) BUN (9-20) mg/dL Creatinine (0.8-1.5) mg/dL Est GFR ( Amer) Est GFR (Non-Af Amer) POC Glucose (mg/dL) 250 H (65-110) mg/dL Random Glucose (75-110) mg/dL Calcium (8.6-10.4) mg/dl Total Bilirubin (0.2-1.3) mg/dL AST (17-59) U/L ALT (21-72) U/L Alkaline Phosphatase (38-126) U/L Troponin I (0.00-0.120) ng/mL Total Protein (6.3-8.3) g/dL Albumin (3.5-5.0) g/dL Globulin (2.2-3.9) gm/dL Albumin/Globulin Ratio (1.0-2.1) Arterial Blood Potassium (3.6-5.2) mmol/L Venous Blood Potassium (3.6-5.2) mmol/L Urine Color (YELLOW) Urine Clarity (Clear) Urine pH (5.0-8.0) Ur Specific [place] (1.003-1.030) Urine Protein (NEGATIVE) mg/dL Urine Glucose (UA) (Normal) mg/dL Urine Ketones (NEGATIVE) mg/dL Urine Blood (NEGATIVE) Urine Nitrate (NEGATIVE) Urine Bilirubin (NEGATIVE) Urine Urobilinogen (0.2-1.0) mg/dL Ur Leukocyte Esterase (Negative) Kathleen/uL Urine WBC (Auto) (0-5) /hpf Urine RBC (Auto) (0-3) /hpf Ur Squamous Epith Cells (0-5) /hpf Amorphous Sediment (<OCC) /ul Hyaline Casts (0-2) /lpf Urine Opiates Screen (NEGATIVE) Urine Methadone Screen (NEGATIVE) Ur Barbiturates Screen (NEGATIVE) Ur Phencyclidine Scrn (NEGATIVE) Ur Amphetamines Screen (NEGATIVE) U Benzodiazepines Scrn (NEGATIVE) U Oth Cocaine Metabols (NEGATIVE) U Cannabinoids Screen (NEGATIVE) Alcohol, Quantitative (0-10) mg/dl Laboratory Results - last 24 hr 12/19/18 12/19/18 12/19/18 10:01 11:45 11:48 WBC RBC Hgb Hct MCV MCH MCHC RDW Plt Count MPV Neut % (Auto) Lymph % (Auto) [place] % (Auto) Eos % (Auto) Baso % (Auto) Neut # (Auto) Lymph # (Auto) [place] # (Auto) Eos # (Auto) Baso # (Auto) Neutrophils % (Manual) Band Neutrophils % Lymphocytes % (Manual) Monocytes % (Manual) Platelet Estimate Polychromasia Anisocytosis (manual) Macrocytosis (manual) PT INR APTT Puncture Site pCO2 pO2 HCO3 ABG pH ABG Total CO2 ABG O2 Saturation ABG Base Excess Jorge Test ABG Potassium VBG pH VBG pCO2 VBG HCO3 VBG Total CO2 VBG O2 Sat (Calc) VBG Base Excess VBG Potassium A-a O2 Difference Respiratory Index Glucose Lactate FiO2 Inspiratory BiPAP Expiratory BiPAP Crit Value Called To Crit Value Called By Crit Value Read Back Blood Gas Notified Time Sodium Potassium Chloride Carbon Dioxide Anion Gap BUN Creatinine Est GFR ( Amer) Est GFR (Non-Af Amer) POC Glucose (mg/dL) 250 H 319 H Random Glucose Calcium Total Bilirubin AST ALT Alkaline Phosphatase Troponin I Total Protein Albumin Globulin Albumin/Globulin Ratio Arterial Blood Potassium Venous Blood Potassium Urine Color Radha Urine Clarity Hazy Urine pH 5.0 Ur Specific [place] 1.012 Urine Protein 2+ H Urine Glucose (UA) Normal Urine Ketones Trace Urine Blood 3+ H Urine Nitrate Negative Urine Bilirubin Negative Urine Urobilinogen 2.0 Ur Leukocyte Esterase Neg Urine WBC (Auto) 9 H Urine RBC (Auto) 19 H Ur Squamous Epith Cells 1 Amorphous Sediment Occ H Hyaline Casts 6-10 H Urine Opiates Screen Urine Methadone Screen Ur Barbiturates Screen Ur Phencyclidine Scrn Ur Amphetamines Screen U Benzodiazepines Scrn U Oth Cocaine Metabols U Cannabinoids Screen Alcohol, Quantitative 12/19/18 12/19/18 12/19/18 11:48 12:02 12:02 WBC RBC Hgb Hct MCV MCH MCHC RDW Plt Count MPV Neut % (Auto) Lymph % (Auto) [place] % (Auto) Eos % (Auto) Baso % (Auto) Neut # (Auto) Lymph # (Auto) [place] # (Auto) Eos # (Auto) Baso # (Auto) Neutrophils % (Manual) Band Neutrophils % Lymphocytes % (Manual) Monocytes % (Manual) Platelet Estimate Polychromasia Anisocytosis (manual) Macrocytosis (manual) PT 16.7 H INR 1.5 APTT 35 H Puncture Site pCO2 pO2 HCO3 ABG pH ABG Total CO2 ABG O2 Saturation ABG Base Excess Jorge Test ABG Potassium VBG pH VBG pCO2 VBG HCO3 VBG Total CO2 VBG O2 Sat (Calc) VBG Base Excess VBG Potassium A-a O2 Difference Respiratory Index Glucose Lactate FiO2 Inspiratory BiPAP Expiratory BiPAP Crit Value Called To Crit Value Called By Crit Value Read Back Blood Gas Notified Time Sodium 139 Potassium 4.9 Chloride 98 Carbon Dioxide 19 L Anion Gap 27 H BUN 20 Creatinine 1.6 H Est GFR ( Amer) 53 Est GFR (Non-Af Amer) 44 POC Glucose (mg/dL) Random Glucose 198 H D Calcium 7.7 L Total Bilirubin 0.8 AST 410 H D ALT 345 H Alkaline Phosphatase 106 Troponin I 0.8320 H* Total Protein 6.4 Albumin 3.8 Globulin 2.6 Albumin/Globulin Ratio 1.5 Arterial Blood Potassium Venous Blood Potassium Urine Color Urine Clarity Urine pH Ur Specific [place] Urine Protein Urine Glucose (UA) Urine Ketones Urine Blood Urine Nitrate Urine Bilirubin Urine Urobilinogen Ur Leukocyte Esterase Urine WBC (Auto) Urine RBC (Auto) Ur Squamous Epith Cells Amorphous Sediment Hyaline Casts Urine Opiates Screen Negative Urine Methadone Screen Positive H Ur Barbiturates Screen Negative Ur Phencyclidine Scrn Negative Ur Amphetamines Screen Negative U Benzodiazepines Scrn Positive U Oth Cocaine Metabols Negative U Cannabinoids Screen Negative Alcohol, Quantitative < 10 12/19/18 12/19/18 12/19/18 12:07 12:19 13:01 WBC 13.7 H D RBC 5.30 Hgb 16.6 Hct 54.2 H MCV 101.5 H D MCH 31.3 H MCHC 30.6 L RDW 15.8 H Plt Count 92 L MPV 9.8 Neut % (Auto) 91.2 H Lymph % (Auto) 5.0 L [place] % (Auto) 3.6 Eos % (Auto) 0.1 Baso % (Auto) 0.1 Neut # (Auto) 12.5 H Lymph # (Auto) 0.7 L [place] # (Auto) 0.5 Eos # (Auto) 0.0 Baso # (Auto) 0.0 Neutrophils % (Manual) 71 Band Neutrophils % 17 H* Lymphocytes % (Manual) 6 L Monocytes % (Manual) 6 Platelet Estimate Decreased L Polychromasia Slight Anisocytosis (manual) Slight Macrocytosis (manual) Slight PT INR APTT Puncture Site Rr pCO2 69 H pO2 21 L 405 H HCO3 20.8 L ABG pH 7.16 L* ABG Total CO2 26.7 ABG O2 Saturation 100.2 H ABG Base Excess -5.4 L Jorge Test Pos ABG Potassium 4.7 VBG pH 6.99 L* VBG pCO2 103 H* VBG HCO3 15.6 VBG Total CO2 28.0 VBG O2 Sat (Calc) 32.9 L VBG Base Excess -9.0 L VBG Potassium 4.7 A-a O2 Difference 222.0 Respiratory Index 0.5 Glucose 205 H 236 H Lactate 13.7 H* 7.2 H* FiO2 100.0 Inspiratory BiPAP 16 Expiratory BiPAP 8 Crit Value Called To dee Bravo Rn, hart Crit Value Called By Shira robins,coordinator of genetic services Imani robins Crit Value Read Back Y Y Blood Gas Notified Time 1225 1304 Sodium 139.0 137.0 Potassium Chloride 95.0 L 103.0 Carbon Dioxide Anion Gap BUN Creatinine Est GFR ( Amer) Est GFR (Non-Af Amer) POC Glucose (mg/dL) Random Glucose Calcium Total Bilirubin AST ALT Alkaline Phosphatase Troponin I Total Protein Albumin Globulin Albumin/Globulin Ratio Arterial Blood Potassium 4.7 Venous Blood Potassium 4.7 Urine Color Urine Clarity Urine pH Ur Specific [place] Urine Protein Urine Glucose (UA) Urine Ketones Urine Blood Urine Nitrate Urine Bilirubin Urine Urobilinogen Ur Leukocyte Esterase Urine WBC (Auto) Urine RBC (Auto) Ur Squamous Epith Cells Amorphous Sediment Hyaline Casts Urine Opiates Screen Urine Methadone Screen Ur Barbiturates Screen Ur Phencyclidine Scrn Ur Amphetamines Screen U Benzodiazepines Scrn U Oth Cocaine Metabols U Cannabinoids Screen Alcohol, Quantitative 12/19/18 14:31 WBC RBC Hgb Hct MCV MCH MCHC RDW Plt Count MPV Neut % (Auto) Lymph % (Auto) [place] % (Auto) Eos % (Auto) Baso % (Auto) Neut # (Auto) Lymph # (Auto) [place] # (Auto) Eos # (Auto) Baso # (Auto) Neutrophils % (Manual) Band Neutrophils % Lymphocytes % (Manual) Monocytes % (Manual) Platelet Estimate Polychromasia Anisocytosis (manual) Macrocytosis (manual) PT INR APTT Puncture Site Rr pCO2 61 H pO2 52 L HCO3 19.8 L ABG pH 7.19 L* ABG Total CO2 25.2 ABG O2 Saturation 89.6 L ABG Base Excess -5.8 L Jorge Test Pos ABG Potassium 4.4 VBG pH VBG pCO2 VBG HCO3 VBG Total CO2 VBG O2 Sat (Calc) VBG Base Excess VBG Potassium A-a O2 Difference 86.0 Respiratory Index 1.7 Glucose 229 H Lactate 4.5 H* FiO2 30.0 Inspiratory BiPAP 16 Expiratory BiPAP 8 Crit Value Called To dee Bravo Crit Value Called By Imani robins Crit Value Read Back Y Blood Gas Notified Time 1435 Sodium 137.0 Potassium Chloride 105.0 Carbon Dioxide Anion Gap BUN Creatinine Est GFR ( Amer) Est GFR (Non-Af Amer) POC Glucose (mg/dL) Random Glucose Calcium Total Bilirubin AST ALT Alkaline Phosphatase Troponin I Total Protein Albumin Globulin Albumin/Globulin Ratio Arterial Blood Potassium 4.4 Venous Blood Potassium Urine Color Urine Clarity Urine pH Ur Specific [place] Urine Protein Urine Glucose (UA) Urine Ketones Urine Blood Urine Nitrate Urine Bilirubin Urine Urobilinogen Ur Leukocyte Esterase Urine WBC (Auto) Urine RBC (Auto) Ur Squamous Epith Cells Amorphous Sediment Hyaline Casts Urine Opiates Screen Urine Methadone Screen Ur Barbiturates Screen Ur Phencyclidine Scrn Ur Amphetamines Screen U Benzodiazepines Scrn U Oth Cocaine Metabols U Cannabinoids Screen Alcohol, Quantitative Radiology Impressions: Radiology Impressions Chest X-Ray 12/19/18 10:46 Impression: Mild venous congestion. Right hilar prominence. Cardiomegaly. Biapical pleural thickening with upper lobe granulomatous changes. Small nodular density at the left lung apex. EKG/Cardiology Studies: Cardiology / EKG Studies 12/19/18 10:46 ELECTROCARDIOGRAM Stat Comment: Mode Of Transportation: BED Reason For Exam: AMS 12/19/18 12:46 ELECTROCARDIOGRAM Stat Comment: Mode Of Transportation: Reason For Exam: Sepsis Patient Fingerstick Blood Sugar Results: 319 Review of Systems - Review of Systems Systems not reviewed;Unavailable: Altered Mental Status Assessment/Plan (1) Drug overdose Assessment and plan: 63yo M. PMHx HTN, COPD, HIV (noncompliant), HCV (untreated), polysubstance use disorder (alcohol, tobacco, methadone, Xanax). p/w overdose, acute respiratory failure with hypercarbia, and hyperlacticemia. Neuro: obtunded secondary to drug overdose and/or hypercarbia Pulm: acute respiratory failure with hypercarbia, started on BIPAP CV: hemodynamically unstable, low blood pressure from uncertain etiology, possibly septic shock. Hyperlacticemia, obtaining CT head/chest/abd/pelvis, r/o stroke, aspiration pneumonia or ischemic bowel. Hem: no acute issues Renal: respiratory and metabolic acidosis. Endo: no acute issues GI: NPO ID: empiric broad spectrum abx, continue Vanco and Zosyn DVT proph - heparin sq GI proph - not currently indicated encarnacion for strict I/O's during acute illness Code status - full code Critical Care Time spent 35 minutes Multi-disciplinary rounds were performed with house staff, nursing, speech therapy, respiratory therapy, pharmacy and nutrition with integrated input from the primary team/attending and other consulting services. The documented time is cumulative and includes review of patient data/exams/labs/chart review and examination of the patient on rounds and throughout the day; time is exclusive of any procedures or teaching time. Current Visit: No Status: Acute
[2018-12-19] MEDS: metroNIDAZOLE IV 500 mg/100 ml 500 MG/100 ML BAG IVPB SCH ×2 (16:28→23:15)
[2018-12-19 16:43] LABS: ABG ALLEN TEST POS; ARTERIAL BLOOD GAS HCO3 21.9 mmol/L (21-28); ARTERIAL BLOOD GAS O2 SAT 79.2 % (95-98); ARTERIAL BLOOD GAS PCO2 58 mm/Hg (35-45); ARTERIAL BLOOD GAS PH 7.25 (7.35-7.45); ARTERIAL BLOOD GAS PO2 40 mm/Hg (80-100); ARTERIAL BLOOD GAS TCO2 27.2 mmol/L (22-28)
[2018-12-19] MEDS ORDERED: Iodixanol 320 MG/ML 100 ML BOTTLE IV ONE (17:26)
[2018-12-19] MEDS ORDERED: Lidocaine 126 MG in Sodium Chloride 0.9% 100 ML IV STA (17:34)
[2018-12-19] MEDS ORDERED: Dextrose 50% SYRINGE Inj (50 ml) IV PRN (19:29)
[2018-12-19] MEDS ORDERED: Glucagon Recombinant 1 mg Inj IM PRN (19:29)
[2018-12-19 20:28] LABS: CK-MB 67.9 ng/mL (0.0-3.38)
[2018-12-19 20:47] LABS: TROPONIN I 4.62 ng/mL (0.00-0.120)
[2018-12-19] MEDS ORDERED: Heparin25000 units/250ml 1/2NS 25,000 UNITS/250 ML BAG IV PRN (21:30)
[2018-12-19] MEDS: Lactobacillus Acidophilus 500 MU Cap PO SCH (21:30)
[2018-12-19] MEDS: Lactated Ringer's 1,000 ML IV SCH (21:30)
[2018-12-19] MEDS ORDERED: Enoxaparin 60 mg Syringe SC SCH (22:00)
[2018-12-19] MEDS: (Novolin R) Insulin Human Regular 100 units/ml vial SC SCH (22:00)
--- NOTE | 2018-12-19 22:48 | CP.PCM.CON ---
History of Present Illness - History of Present Illness History of Present Illness: dictated Past Patient History - Infectious Disease Hx of Infectious Diseases: None - Past Medical History & Family History Past Medical History?: Yes - Past Social History Smoking Status: Heavy Smoker > 10 Cigarettes Daily - CARDIAC Hx Hypertension: Yes (?) - PULMONARY Hx Chronic Obstructive Pulmonary Disease (COPD): Yes - HEMATOLOGICAL/ONCOLOGICAL Hx Human Immunodeficiency Virus (HIV): Yes - MUSCULOSKELETAL/RHEUMATOLOGICAL Hx Falls: No - PSYCHIATRIC Hx Substance Use: Yes - SURGICAL HISTORY Hx Surgeries: No - ANESTHESIA Hx Anesthesia: No Hx Anesthesia Reactions: No Hx Malignant Hyperthermia: No Meds Allergies/Adverse Reactions: Allergies Allergy/AdvReac Type Severity Reaction Status Date / Time No Known Allergies Allergy Verified 12/19/18 10:19 - Medications Medications: Current Medications Albuterol/Ipratropium (Duoneb 3 Mg/0.5 Mg (3 Ml) Ud) 3 ml INH RQ4 [facility] Aspirin (Aspirin Chewable) 81 mg PO DAILY [facility] Clopidogrel Bisulfate (Plavix) 75 mg PO DAILY [facility] Dextrose (Dextrose 50% Inj) 0 ml IV STAT PRN; Protocol PRN Reason: Hypoglycemia Protocol Dextrose (Glutose 15) 0 gm PO ONCE PRN; Protocol PRN Reason: Hypoglycemia Protocol Fluticasone/Vilanterol (Breo Ellipta 100-25 Mcg Inh) 1 puff INH RQD [facility] Glucagon (Glucagen Diagnostic Kit) 0 mg IM STAT PRN; Protocol PRN Reason: Hypoglycemia Protocol Norepinephrine Bitartrate 4 mg (/ Dextrose) 254 mls @ 15.24 mls/hr IV .[id number] PRN; Protocol PRN Reason: TITRATE PER MD ORDER Last Titration: 12/19/18 21:55 Dose: 3 mcg/min, 11.43 mls/hr Ceftriaxone Sodium 1 gm/ (Sodium Chloride) 100 mls @ 100 mls/hr IVPB Q12H [facility]; Protocol Last Admin: 12/19/18 15:20 Dose: 100 mls/hr Metronidazole (Flagyl) 500 mg in 100 mls @ 100 mls/hr IVPB Q8H [facility]; Protocol Last Admin: 12/19/18 16:28 Dose: 100 mls/hr Vancomycin HCl 1,200 mg/ (Sodium Chloride) 250 mls @ 166.7 mls/hr IVPB Q24H [facility]; Protocol Dextrose (Dextrose 5% In Water 1000 Ml) 1,000 mls @ 0 mls/hr IV .Q0M PRN; Protocol PRN Reason: Hypoglycemia Protocol Heparin Sodium/Sodium Chloride (Heparin 95170 Units/250ml 1/2 Normal Saline) 25,000 units in 250 mls @ 9.336 mls/hr IV .Q24H PRN; Protocol PRN Reason: PROTOCOL Last Admin: 12/19/18 21:30 Dose: 12 units/kg/hr, 9.336 mls/hr Lactated Ringer's (Lactated Ringer's) 1,000 mls @ 150 mls/hr IV .Q6H40M [facility] Last Admin: 12/19/18 21:30 Dose: 150 mls/hr Insulin Human Regular (Novolin R) 0 unit SC ACHS [facility]; Protocol Last Admin: 12/19/18 22:00 Dose: Not Given Lactobacillus Acidophilus (Bacid Acidophilus) 1 cap PO BID [facility] Last Admin: 12/19/18 21:30 Dose: 1 cap Nicotine (Nicoderm Cq) 1 patch TD DAILY [facility] Pantoprazole Sodium (Protonix Ec Tab) 40 mg PO DAILY [facility] Results - Vital Signs Recent Vital Signs: Last Vital Signs Temp 99.2 F 12/19/18 18:00 Pulse 77 12/19/18 22:08 Resp 15 12/19/18 18:00 BP 96/53 L 12/19/18 18:00 Pulse Ox 97 12/19/18 18:00 - Labs Result Diagrams: 12/19/18 12:07 12/19/18 12:02 Labs: Laboratory Results - last 24 hr 12/19/18 12/19/18 12/19/18 10:01 11:45 11:48 WBC RBC Hgb Hct MCV MCH MCHC RDW Plt Count MPV Neut % (Auto) Lymph % (Auto) Faulk % (Auto) Eos % (Auto) Baso % (Auto) Neut # (Auto) Lymph # (Auto) Faulk # (Auto) Eos # (Auto) Baso # (Auto) Neutrophils % (Manual) Band Neutrophils % Lymphocytes % (Manual) Monocytes % (Manual) Platelet Estimate Polychromasia Anisocytosis (manual) Macrocytosis (manual) PT INR APTT Puncture Site pCO2 pO2 HCO3 ABG pH ABG Total CO2 ABG O2 Saturation ABG Base Excess Jorge Test ABG Potassium VBG pH VBG pCO2 VBG HCO3 VBG Total CO2 VBG O2 Sat (Calc) VBG Base Excess VBG Potassium A-a O2 Difference Respiratory Index Glucose Lactate FiO2 Inspiratory BiPAP Expiratory BiPAP Crit Value Called To Crit Value Called By Crit Value Read Back Blood Gas Notified Time Sodium Potassium Chloride Carbon Dioxide Anion Gap BUN Creatinine Est GFR ( Amer) Est GFR (Non-Af Amer) POC Glucose (mg/dL) 250 H 319 H Random Glucose Lactic Acid Calcium Total Bilirubin AST ALT Alkaline Phosphatase Ammonia Total Creatine Kinase CK-MB (Mass) Troponin I Total Protein Albumin Globulin Albumin/Globulin Ratio Arterial Blood Potassium Venous Blood Potassium Urine Color Radha Urine Clarity Hazy Urine pH 5.0 Ur Specific [place] 1.012 Urine Protein 2+ H Urine Glucose (UA) Normal Urine Ketones Trace Urine Blood 3+ H Urine Nitrate Negative Urine Bilirubin Negative Urine Urobilinogen 2.0 Ur Leukocyte Esterase Neg Urine WBC (Auto) 9 H Urine RBC (Auto) 19 H Ur Squamous Epith Cells 1 Amorphous Sediment Occ H Hyaline Casts 6-10 H Urine Opiates Screen Urine Methadone Screen Ur Barbiturates Screen Ur Phencyclidine Scrn Ur Amphetamines Screen U Benzodiazepines Scrn U Oth Cocaine Metabols U Cannabinoids Screen Alcohol, Quantitative Influenza Typ A,B (EIA) Mycoplasma pneumon IgM 12/19/18 12/19/18 12/19/18 11:48 12:02 12:02 WBC RBC Hgb Hct MCV MCH MCHC RDW Plt Count MPV Neut % (Auto) Lymph % (Auto) Faulk % (Auto) Eos % (Auto) Baso % (Auto) Neut # (Auto) Lymph # (Auto) Faulk # (Auto) Eos # (Auto) Baso # (Auto) Neutrophils % (Manual) Band Neutrophils % Lymphocytes % (Manual) Monocytes % (Manual) Platelet Estimate Polychromasia Anisocytosis (manual) Macrocytosis (manual) PT 16.7 H INR 1.5 APTT 35 H Puncture Site pCO2 pO2 HCO3 ABG pH ABG Total CO2 ABG O2 Saturation ABG Base Excess Jorge Test ABG Potassium VBG pH VBG pCO2 VBG HCO3 VBG Total CO2 VBG O2 Sat (Calc) VBG Base Excess VBG Potassium A-a O2 Difference Respiratory Index Glucose Lactate FiO2 Inspiratory BiPAP Expiratory BiPAP Crit Value Called To Crit Value Called By Crit Value Read Back Blood Gas Notified Time Sodium 139 Potassium 4.9 Chloride 98 Carbon Dioxide 19 L Anion Gap 27 H BUN 20 Creatinine 1.6 H Est GFR ( Amer) 53 Est GFR (Non-Af Amer) 44 POC Glucose (mg/dL) Random Glucose 198 H D Lactic Acid Calcium 7.7 L Total Bilirubin 0.8 AST 410 H D ALT 345 H Alkaline Phosphatase 106 Ammonia Total Creatine Kinase CK-MB (Mass) Troponin I 0.8320 H* Total Protein 6.4 Albumin 3.8 Globulin 2.6 Albumin/Globulin Ratio 1.5 Arterial Blood Potassium Venous Blood Potassium Urine Color Urine Clarity Urine pH Ur Specific [place] Urine Protein Urine Glucose (UA) Urine Ketones Urine Blood Urine Nitrate Urine Bilirubin Urine Urobilinogen Ur Leukocyte Esterase Urine WBC (Auto) Urine RBC (Auto) Ur Squamous Epith Cells Amorphous Sediment Hyaline Casts Urine Opiates Screen Negative Urine Methadone Screen Positive H Ur Barbiturates Screen Negative Ur Phencyclidine Scrn Negative Ur Amphetamines Screen Negative U Benzodiazepines Scrn Positive U Oth Cocaine Metabols Negative U Cannabinoids Screen Negative Alcohol, Quantitative < 10 Influenza Typ A,B (EIA) Mycoplasma pneumon IgM 12/19/18 12/19/18 12/19/18 12:02 12:07 12:19 WBC 13.7 H D RBC 5.30 Hgb 16.6 Hct 54.2 H MCV 101.5 H D MCH 31.3 H MCHC 30.6 L RDW 15.8 H Plt Count 92 L MPV 9.8 Neut % (Auto) 91.2 H Lymph % (Auto) 5.0 L Faulk % (Auto) 3.6 Eos % (Auto) 0.1 Baso % (Auto) 0.1 Neut # (Auto) 12.5 H Lymph # (Auto) 0.7 L Faulk # (Auto) 0.5 Eos # (Auto) 0.0 Baso # (Auto) 0.0 Neutrophils % (Manual) 71 Band Neutrophils % 17 H* Lymphocytes % (Manual) 6 L Monocytes % (Manual) 6 Platelet Estimate Decreased L Polychromasia Slight Anisocytosis (manual) Slight Macrocytosis (manual) Slight PT INR APTT Puncture Site pCO2 pO2 21 L HCO3 ABG pH ABG Total CO2 ABG O2 Saturation ABG Base Excess Jorge Test ABG Potassium VBG pH 6.99 L* VBG pCO2 103 H* VBG HCO3 15.6 VBG Total CO2 28.0 VBG O2 Sat (Calc) 32.9 L VBG Base Excess -9.0 L VBG Potassium 4.7 A-a O2 Difference Respiratory Index Glucose 205 H Lactate 13.7 H* FiO2 Inspiratory BiPAP Expiratory BiPAP Crit Value Called To dee Bravo Crit Value Called By Shira robins rrt Crit Value Read Back Y Blood Gas Notified Time 1225 Sodium 139.0 Potassium Chloride 95.0 L Carbon Dioxide Anion Gap BUN Creatinine Est GFR ( Amer) Est GFR (Non-Af Amer) POC Glucose (mg/dL) Random Glucose Lactic Acid Calcium Total Bilirubin AST ALT Alkaline Phosphatase Ammonia 259 H D Total Creatine Kinase CK-MB (Mass) Troponin I Total Protein Albumin Globulin Albumin/Globulin Ratio Arterial Blood Potassium Venous Blood Potassium 4.7 Urine Color Urine Clarity Urine pH Ur Specific [place] Urine Protein Urine Glucose (UA) Urine Ketones Urine Blood Urine Nitrate Urine Bilirubin Urine Urobilinogen Ur Leukocyte Esterase Urine WBC (Auto) Urine RBC (Auto) Ur Squamous Epith Cells Amorphous Sediment Hyaline Casts Urine Opiates Screen Urine Methadone Screen Ur Barbiturates Screen Ur Phencyclidine Scrn Ur Amphetamines Screen U Benzodiazepines Scrn U Oth Cocaine Metabols U Cannabinoids Screen Alcohol, Quantitative Influenza Typ A,B (EIA) Mycoplasma pneumon IgM 12/19/18 12/19/18 12/19/18 13:01 14:31 15:53 WBC RBC Hgb Hct MCV MCH MCHC RDW Plt Count MPV Neut % (Auto) Lymph % (Auto) Faulk % (Auto) Eos % (Auto) Baso % (Auto) Neut # (Auto) Lymph # (Auto) Faulk # (Auto) Eos # (Auto) Baso # (Auto) Neutrophils % (Manual) Band Neutrophils % Lymphocytes % (Manual) Monocytes % (Manual) Platelet Estimate Polychromasia Anisocytosis (manual) Macrocytosis (manual) PT INR APTT Puncture Site Rr Rr pCO2 69 H 61 H pO2 405 H 52 L HCO3 20.8 L 19.8 L ABG pH 7.16 L* 7.19 L* ABG Total CO2 26.7 25.2 ABG O2 Saturation 100.2 H 89.6 L ABG Base Excess -5.4 L -5.8 L Jorge Test Pos Pos ABG Potassium 4.7 4.4 VBG pH VBG pCO2 VBG HCO3 VBG Total CO2 VBG O2 Sat (Calc) VBG Base Excess VBG Potassium A-a O2 Difference 222.0 86.0 Respiratory Index 0.5 1.7 Glucose 236 H 229 H Lactate 7.2 H* 4.5 H* FiO2 100.0 30.0 Inspiratory BiPAP 16 16 Expiratory BiPAP 8 8 Crit Value Called To Lawrence,dee Bravo,dee Crit Value Called By Imani robins Crit Value Read Back Y Y Blood Gas Notified Time 1304 1435 Sodium 137.0 137.0 Potassium Chloride 103.0 105.0 Carbon Dioxide Anion Gap BUN Creatinine Est GFR ( Amer) Est GFR (Non-Af Amer) POC Glucose (mg/dL) Random Glucose Lactic Acid Calcium Total Bilirubin AST ALT Alkaline Phosphatase Ammonia Total Creatine Kinase CK-MB (Mass) Troponin I Total Protein Albumin Globulin Albumin/Globulin Ratio Arterial Blood Potassium 4.7 4.4 Venous Blood Potassium Urine Color Urine Clarity Urine pH Ur Specific [place] Urine Protein Urine Glucose (UA) Urine Ketones Urine Blood Urine Nitrate Urine Bilirubin Urine Urobilinogen Ur Leukocyte Esterase Urine WBC (Auto) Urine RBC (Auto) Ur Squamous Epith Cells Amorphous Sediment Hyaline Casts Urine Opiates Screen Urine Methadone Screen Ur Barbiturates Screen Ur Phencyclidine Scrn Ur Amphetamines Screen U Benzodiazepines Scrn U Oth Cocaine Metabols U Cannabinoids Screen Alcohol, Quantitative Influenza Typ A,B (EIA) Negative for flu a/b Mycoplasma pneumon IgM Cancelled 12/19/18 12/19/18 12/19/18 16:31 19:41 19:41 WBC RBC Hgb Hct MCV MCH MCHC RDW Plt Count MPV Neut % (Auto) Lymph % (Auto) Faulk % (Auto) Eos % (Auto) Baso % (Auto) Neut # (Auto) Lymph # (Auto) Faulk # (Auto) Eos # (Auto) Baso # (Auto) Neutrophils % (Manual) Band Neutrophils % Lymphocytes % (Manual) Monocytes % (Manual) Platelet Estimate Polychromasia Anisocytosis (manual) Macrocytosis (manual) PT INR APTT Puncture Site Rr pCO2 58 H pO2 40 L* HCO3 21.9 ABG pH 7.25 L ABG Total CO2 27.2 ABG O2 Saturation 79.2 L ABG Base Excess -2.8 L Jorge Test Pos ABG Potassium 4.7 VBG pH VBG pCO2 VBG HCO3 VBG Total CO2 VBG O2 Sat (Calc) VBG Base Excess VBG Potassium A-a O2 Difference 101.0 Respiratory Index 2.5 Glucose 176 H Lactate 2.8 H FiO2 30.0 Inspiratory BiPAP 20 Expiratory BiPAP 8 Crit Value Called To dee Bravo Crit Value Called By Imani robins Crit Value Read Back Y Blood Gas Notified Time 1643 Sodium 137.0 Potassium Chloride 106.0 Carbon Dioxide Anion Gap BUN Creatinine Est GFR ( Amer) Est GFR (Non-Af Amer) POC Glucose (mg/dL) Random Glucose Lactic Acid 1.8 Calcium Total Bilirubin AST ALT Alkaline Phosphatase Ammonia Total Creatine Kinase 6343 H CK-MB (Mass) 67.9 H Troponin I 4.6200 H* Total Protein Albumin Globulin Albumin/Globulin Ratio Arterial Blood Potassium 4.7 Venous Blood Potassium Urine Color Urine Clarity Urine pH Ur Specific [place] Urine Protein Urine Glucose (UA) Urine Ketones Urine Blood Urine Nitrate Urine Bilirubin Urine Urobilinogen Ur Leukocyte Esterase Urine WBC (Auto) Urine RBC (Auto) Ur Squamous Epith Cells Amorphous Sediment Hyaline Casts Urine Opiates Screen Urine Methadone Screen Ur Barbiturates Screen Ur Phencyclidine Scrn Ur Amphetamines Screen U Benzodiazepines Scrn U Oth Cocaine Metabols U Cannabinoids Screen Alcohol, Quantitative Influenza Typ A,B (EIA) Mycoplasma pneumon IgM 12/19/18 21:07 WBC RBC Hgb Hct MCV MCH MCHC RDW Plt Count MPV Neut % (Auto) Lymph % (Auto) Faulk % (Auto) Eos % (Auto) Baso % (Auto) Neut # (Auto) Lymph # (Auto) Faulk # (Auto) Eos # (Auto) Baso # (Auto) Neutrophils % (Manual) Band Neutrophils % Lymphocytes % (Manual) Monocytes % (Manual) Platelet Estimate Polychromasia Anisocytosis (manual) Macrocytosis (manual) PT INR APTT Puncture Site pCO2 pO2 HCO3 ABG pH ABG Total CO2 ABG O2 Saturation ABG Base Excess Jorge Test ABG Potassium VBG pH VBG pCO2 VBG HCO3 VBG Total CO2 VBG O2 Sat (Calc) VBG Base Excess VBG Potassium A-a O2 Difference Respiratory Index Glucose Lactate FiO2 Inspiratory BiPAP Expiratory BiPAP Crit Value Called To Crit Value Called By Crit Value Read Back Blood Gas Notified Time Sodium Potassium Chloride Carbon Dioxide Anion Gap BUN Creatinine Est GFR ( Amer) Est GFR (Non-Af Amer) POC Glucose (mg/dL) 93 Random Glucose Lactic Acid Calcium Total Bilirubin AST ALT Alkaline Phosphatase Ammonia Total Creatine Kinase CK-MB (Mass) Troponin I Total Protein Albumin Globulin Albumin/Globulin Ratio Arterial Blood Potassium Venous Blood Potassium Urine Color Urine Clarity Urine pH Ur Specific [place] Urine Protein Urine Glucose (UA) Urine Ketones Urine Blood Urine Nitrate Urine Bilirubin Urine Urobilinogen Ur Leukocyte Esterase Urine WBC (Auto) Urine RBC (Auto) Ur Squamous Epith Cells Amorphous Sediment Hyaline Casts Urine Opiates Screen Urine Methadone Screen Ur Barbiturates Screen Ur Phencyclidine Scrn Ur Amphetamines Screen U Benzodiazepines Scrn U Oth Cocaine Metabols U Cannabinoids Screen Alcohol, Quantitative Influenza Typ A,B (EIA) Mycoplasma pneumon IgM
[2018-12-19] MEDS: Albuterol-Ipratrop 3 mg / 0.5 (3 ml) UD INH SCH (23:40)
[2018-12-20] MEDS: Albuterol-Ipratrop 3 mg / 0.5 (3 ml) UD INH SCH ×5 (03:13→19:48)
[2018-12-20] MEDS: Lactated Ringer's 1,000 ML IV SCH ×4 (04:00→23:21)
[2018-12-20 04:45] LABS: ABG ALLEN TEST POS; ARTERIAL BLOOD GAS HCO3 26.9 mmol/L (21-28); ARTERIAL BLOOD GAS HEMOGLOBIN 14.8 g/dL (11.7-17.4); ARTERIAL BLOOD GAS O2 SAT 98.4 % (95-98); ARTERIAL BLOOD GAS PCO2 65 mm/Hg (35-45); ARTERIAL BLOOD GAS PH 7.29 (7.35-7.45); ARTERIAL BLOOD GAS PO2 90 mm/Hg (80-100); ARTERIAL BLOOD GAS TCO2 33.3 mmol/L (22-28)
[2018-12-20 06:12] LABS: BASO % 0.3 % (0.0-2.0); EOS % 0.2 % (0.0-4.0); HEMOGLOBIN 15.3 g/dL (12.0-18.0); LYMPH # 1.1 K/uL (1.0-4.3); LYMPH % 12.4 % (20.0-40.0); MEAN CELL VOLUME 97.8 fL (80.0-94.0); MEAN CORPUSCULAR HEMOGLOBIN 31.8 pg (27.0-31.0); MEAN CORPUSCULAR HGB CONC 32.5 g/dL (33.0-37.0); MEAN PLATELET VOLUME 9.3 fL (7.2-11.7); MONO # 0.4 K/uL (0.0-0.8); MONO % 4.9 % (0.0-10.0); NEUT # 7.3 K/uL (1.8-7.0); NEUT % 82.2 % (50.0-75.0); NRBC % 0.1 % (0.0-2.0); RBC 4.8 Mil/uL (4.40-5.90); WHITE BLOOD COUNT 8.9 K/uL (4.8-10.8)
[2018-12-20 06:32] LABS: ALB/GLOB RATIO 1.2 (1.0-2.1); ALBUMIN 3.1 g/dL (3.5-5.0); ALT/SGPT 490 U/L (21-72); AST/SGOT 640 U/L (17-59); BLOOD UREA NITROGEN 23 mg/dL (9-20); CALCIUM 7.3 mg/dl (8.6-10.4); GFR NON-AFRICAN AMERICAN > 60
[2018-12-20] MEDS: metroNIDAZOLE IV 500 mg/100 ml 500 MG/100 ML BAG IVPB SCH (06:35)
--- NOTE | 2018-12-20 07:09 | CON ---
DATE: 12/19/2018 INFECTIOUS DISEASE CONSULT REQUESTED BY: González Arteaga DO HISTORY OF PRESENT ILLNESS: This patient is a 63-year-old male. He has a history of hypertension, HIV, COPD, hepatitis C; and he has polysubstance abuse problem, was found lethargic at home and was brought in. He was in a puddle of vomit and his fingerstick was less than 20. He was cold and clammy with his sugar 20, and he was given Narcan and 2 ampules of D50, and he was on a BiPAP when I saw him, was brought over by the EMS. He was here 2 days ago, and he has left AMA. His drug screen is positive for benzodiazepines, and other substance. I will have to go over it. Last week, he was admitted with sepsis and Non-STEMI, and he was worked up for PCP. However, his CD4 count one day was more than 500, and the other day was around 250 which is unexplainable how it can drop that fast within a day, but he comes in with severe acidosis at this time with hypoglycemia. He is arousable. I asked him where he is, and answers me [place]. I think he is kidding, and he is coming back now. Surgical history is unknown. He was on methadone and Xanax. HE IS NOT ALLERGIC TO ANY MEDICINE. He lives with his . He is unemployed. He has one pack for many years, pack per day history of heroin use, he quit in . I think he must be IV drug abuser as he has HIV and hep C positive. His past medical history is reviewed from the chart. He has history of COPD, history of hypertension, HIV, hep C. Psych history of substance abuse is positive. He had drug overdose last time, and this time, may be the sugar that put him into drowsiness. He was started on vancomycin, Rocephin, and Flagyl already. He is on Ventimask. PHYSICAL EXAMINATION: VITAL SIGNS: On examination, I find his temperature was 99.2, pulse 90, blood pressure 96/53, respirations are 15, saturation 97%. HEENT: Head is atraumatic and normocephalic. Pupils are reacting to light. NECK: Supple. LUNGS: Clear. No crackles or rales present. HEART: S1, S2. Regular. ABDOMEN: Soft, nontender. No guarding, no rigidity present. EXTREMITIES: Have no edema. They did have to put in a right medullary port which was removed later on as they got a groin line at this time. White count is 13.7, hemoglobin 16.6, hematocrit 54.2, and it appears that he may be dry and platelets are 92, bands are 17. ABG was done which showed pH of 7.19, it was repeated and the pH is 7.25. This is probably venous, his pO2 is on the 40 and CO2 is 58. He came in initially, looks like with a pH of 6.99. Lactate level was 4.5, it is now 2.8, and before that, troponins are positive at this time, 4.620. UA shows methadone positive, benzodiazepines positive. UA showed wbc 9, rbc 19, and hyaline cast 6 to 10. Chest and abdomen CT and head CT has been done, results of which are pending at this time. Chest x-ray shows biapical pleural thickening with upper lobe granulomatous changes, small nodular density in the left apex, mild venous congestion, biapical pleural cardiomegaly, it does not show anything else going on. He did receive Rocephin 1 g, and he is on Flagyl and Rocephin, and he is on vancomycin. At this time, I will leave him on these medications for possible aspiration pneumonia. I doubt CD4 count is more than 250 so he does not have any PCP. However, he is probably overdosing him or came in with hypoglycemia and severe acidosis, and we need to monitor the lactate level and LFTs which may have gone up due to hypotension. He also has troponins positive, so we will follow at this time, and we will get a vancomycin random level in a.m. as the patient may have been hypotensive and his kidney functions may worsen in the morning precluding for the dosing of vancomycin. Altered mental status is probably due to overdose and/or hypoglycemia. Arianna Huynh MD
[2018-12-20] MEDS: (Novolin R) Insulin Human Regular 100 units/ml vial SC SCH ×3 (07:49→16:41)
--- NOTE | 2018-12-20 08:16 | CT ---
Date of service: 12/19/2018 PROCEDURE: CT HEAD WITHOUT CONTRAST. HISTORY: Altered mental status COMPARISON: 12/19/2018 TECHNIQUE: Axial computed tomography images were obtained through the head/brain without intravenous contrast. Radiation dose: Total exam DLP = 1184.08 mGy-cm. This CT exam was performed using one or more of the following dose reduction techniques: Automated exposure control, adjustment of the mA and/or kV according to patient size, and/or use of iterative reconstruction technique. FINDINGS: HEMORRHAGE: No intracranial hemorrhage. BRAIN: No mass effect or edema. Scattered focal lucencies in the subcortical and periventricular white matter suggestive for chronic microvascular ischemic change. VENTRICLES: Unremarkable. No hydrocephalus. CALVARIUM: Unremarkable. PARANASAL SINUSES: Unremarkable as visualized. No significant inflammatory changes. MASTOID AIR CELLS: Unremarkable as visualized. No inflammatory changes. OTHER FINDINGS: Intracranial arterial calcifications. IMPRESSION: No acute intracranial abnormality. Chronic microvascular ischemic change. If symptoms persists, consider correlation with MRI. A preliminary report was generated at 6:24 p.m. on 12/19/[address] Kristofer Cordova from [facility].
[2018-12-20] MEDS: Lactobacillus Acidophilus 500 MU Cap PO SCH ×2 (09:21→17:24)
[2018-12-20] MEDS: Pantoprazole 40 mg EC Tab PO SCH (09:21)
[2018-12-20] MEDS: Fluticasone-Vilanterol 100/25mcg Diskus INH SCH (09:27)
--- NOTE | 2018-12-20 10:28 | CP.PCM.PN ---
Subjective - Date & Time of Evaluation Date of Evaluation: 12/20/18 Time of Evaluation: 10:27 - Subjective Subjective: Cardiology Service: Dr. Allison Objective - Vital Signs/Intake and Output Vital Signs (last 24 hours): Temp Pulse Resp BP Pulse Ox 97.0 F L 84 13 134/86 92 L 12/20/18 07:48 12/20/18 09:03 12/20/18 09:03 12/20/18 09:03 12/20/18 09:03 Intake and Output: 12/20/18 12/20/18 06:59 18:59 Intake Total 2359.0 827.2 Output Total 1250 Balance 1109.0 827.2 - Medications Medications: Current Medications Albuterol/Ipratropium (Duoneb 3 Mg/0.5 Mg (3 Ml) Ud) 3 ml INH RQ4 [facility] Last Admin: 12/20/18 08:05 Dose: 3 ml Aspirin (Aspirin Chewable) 81 mg PO DAILY [facility] Last Admin: 12/20/18 09:20 Dose: 81 mg Clopidogrel Bisulfate (Plavix) 75 mg PO DAILY [facility] Last Admin: 12/20/18 09:21 Dose: 75 mg Dextrose (Dextrose 50% Inj) 0 ml IV STAT PRN; Protocol PRN Reason: Hypoglycemia Protocol Dextrose (Glutose 15) 0 gm PO ONCE PRN; Protocol PRN Reason: Hypoglycemia Protocol Fluticasone/Vilanterol (Breo Ellipta 100-25 Mcg Inh) 1 puff INH RQD [facility] Last Admin: 12/20/18 09:27 Dose: 1 puff Glucagon (Glucagen Diagnostic Kit) 0 mg IM STAT PRN; Protocol PRN Reason: Hypoglycemia Protocol Ceftriaxone Sodium 1 gm/ (Sodium Chloride) 100 mls @ 100 mls/hr IVPB Q12H [facility]; Protocol Last Admin: 12/20/18 04:00 Dose: 100 mls/hr Dextrose (Dextrose 5% In Water 1000 Ml) 1,000 mls @ 0 mls/hr IV .Q0M PRN; Protocol PRN Reason: Hypoglycemia Protocol Heparin Sodium/Sodium Chloride (Heparin 23572 Units/250ml 1/2 Normal Saline) 25,000 units in 250 mls @ 9.336 mls/hr IV .Q24H PRN; Protocol PRN Reason: PROTOCOL Last Admin: 12/19/18 21:30 Dose: 12 units/kg/hr, 9.336 mls/hr Lactated Ringer's (Lactated Ringer's) 1,000 mls @ 150 mls/hr IV .Q6H40M [facility] Last Admin: 12/20/18 04:00 Dose: 150 mls/hr Insulin Human Regular (Novolin R) 0 unit SC ACHS [facility]; Protocol Last Admin: 12/20/18 07:49 Dose: Not Given Lactobacillus Acidophilus (Bacid Acidophilus) 1 cap PO BID [facility] Last Admin: 12/20/18 09:21 Dose: 1 cap Methadone HCl (Methadone) 65 mg PO DAILY [facility] Nicotine (Nicoderm Cq) 1 patch TD DAILY [facility] Last Admin: 12/20/18 09:21 Dose: 1 patch Pantoprazole Sodium (Protonix Ec Tab) 40 mg PO DAILY [facility] Last Admin: 12/20/18 09:21 Dose: 40 mg - Labs Labs: 12/20/18 06:07 12/20/18 06:05 PT 16.7 SECONDS (9.7-12.2) H 12/19/18 12:02 INR 1.5 12/19/18 12:02 APTT 78 SECONDS (21-34) H D 12/20/18 06:07 - Head Exam Head Exam: NORMAL INSPECTION - Eye Exam Eye Exam: Normal appearance, PERRL Pupil Exam: NORMAL ACCOMODATION - ENT Exam ENT Exam: Mucous Membranes Moist, Normal Oropharynx - Respiratory Exam Respiratory Exam: Clear to Ausculation Bilateral, NORMAL BREATHING PATTERN. absent: Prolonged Expiratory Phase, Respiratory Distress - Cardiovascular Exam Cardiovascular Exam: REGULAR RHYTHM, +S1, +S2 - GI/Abdominal Exam GI & Abdominal Exam: Soft, Normal Bowel Sounds. absent: Hyperactive Bowel Sounds - Back Exam Back Exam: NORMAL INSPECTION. absent: CVA tenderness (R), paraspinal tenderness - Neurological Exam Neurological Exam: Alert, Awake, Oriented x3 - Psychiatric Exam Psychiatric exam: Normal Affect, Normal Mood - Skin Skin Exam: Dry, Intact
--- NOTE | 2018-12-20 10:29 | CP.PCM.CON ---
<Roberto Martinez - Last Filed: 12/20/18 18:44> History of Present Illness - History of Present Illness History of Present Illness: 63 year old male with a history of COPD, hypertension, HIV (noncompliant), Hepatitis C, and polysubstance use presents after being found altered by . Patient says that he fell. He is lethargic but alert and oriented. However, patient does not remember details of the incident and is not at bedside, so information obtained from ED note. Patient reports feeling fatigued upon examination today. Patient denies any chest pain, fevers, chills, abdominal p ain, lightheadedness, dizziness, syncopal episodes, or any other complaints. Patient recently left AMA from [place]. PMH: HTN, COPD, HIV (noncompliant), HCV (untreated), polysubstance use disorder (alcohol, tobacco, methadone, Xanax) PSH: denies Meds: Methadone 65 mg PO daily, Xanax 2 mg PO BID, Complera (not taking) Allergies: NKDA FH: denies SH: lives with , unemployed, 1 ppd x many years; denies alcohol; h/o heroin, quit in , on methadone 25 years, Rx for Xanax but misuses Review of Systems - Constitutional Constitutional: Fatigue. absent: Anorexia, Chills, Fever, Frequent Falls, Night Sweats, Weakness - EENT Eyes: absent: Blurred Vision, Diplopia, Discharge, Requires Corrective Lenses, Other Visual Disturbances Ears: absent: Ear Discharge Nose/Mouth/Throat: absent: Nasal Congestion, Nose Pain, Bleeding Gums, Dysphagia, Mouth Pain - Cardiovascular Cardiovascular: absent: Chest Pain, Irregular Heart Rhythm, Leg Edema, Palpitations, Syncope - Respiratory Respiratory: absent: Cough, Dyspnea, Hemoptysis, Excessive Mucous Production - Gastrointestinal Gastrointestinal: absent: Belching, Diarrhea, Dyspepsia, Fecal Incontinence, Loose Stools, Vomiting - Genitourinary Genitourinary: absent: Change in Urinary Stream, Nocturia, Urinary Hesitance, Freq UTI, Bladder Distension - Musculoskeletal Musculoskeletal: absent: Atrophy, Back Pain, Myalgias, Stiffness, Tingling - Integumentary Integumentary: absent: Alopecia, Sores, Striae, Swelling - Neurological Neurological: absent: Abnormal Hearing, Dizziness, Focal Weakness, Loss of Vision, Tremor, Vertigo, Weakness - Psychiatric Psychiatric: absent: Anhedonia, Anxiety, Depression, Panic Attacks - Endocrine Endocrine: absent: Polydipsia, Polyphagia, Polyuria Past Patient History - Infectious Disease Hx of Infectious Diseases: None - Past Medical History & Family History Past Medical History?: Yes - Past Social History Smoking Status: Heavy Smoker > 10 Cigarettes Daily - CARDIAC Hx Hypertension: Yes (?) - PULMONARY Hx Chronic Obstructive Pulmonary Disease (COPD): Yes - HEMATOLOGICAL/ONCOLOGICAL Hx Human Immunodeficiency Virus (HIV): Yes - MUSCULOSKELETAL/RHEUMATOLOGICAL Hx Falls: No - PSYCHIATRIC Hx Substance Use: Yes - SURGICAL HISTORY Hx Surgeries: No - ANESTHESIA Hx Anesthesia: No Hx Anesthesia Reactions: No Hx Malignant Hyperthermia: No Meds Allergies/Adverse Reactions: Allergies Allergy/AdvReac Type Severity Reaction Status Date / Time No Known Allergies Allergy Verified 12/19/18 10:19 - Medications Medications: Current Medications Albuterol/Ipratropium (Duoneb 3 Mg/0.5 Mg (3 Ml) Ud) 3 ml INH RQ4 [facility] Last Admin: 12/20/18 08:05 Dose: 3 ml Aspirin (Aspirin Chewable) 81 mg PO DAILY [facility] Last Admin: 12/20/18 09:20 Dose: 81 mg Clopidogrel Bisulfate (Plavix) 75 mg PO DAILY [facility] Last Admin: 12/20/18 09:21 Dose: 75 mg Dextrose (Dextrose 50% Inj) 0 ml IV STAT PRN; Protocol PRN Reason: Hypoglycemia Protocol Dextrose (Glutose 15) 0 gm PO ONCE PRN; Protocol PRN Reason: Hypoglycemia Protocol Fluticasone/Vilanterol (Breo Ellipta 100-25 Mcg Inh) 1 puff INH RQD [facility] Last Admin: 12/20/18 09:27 Dose: 1 puff Glucagon (Glucagen Diagnostic Kit) 0 mg IM STAT PRN; Protocol PRN Reason: Hypoglycemia Protocol Ceftriaxone Sodium 1 gm/ (Sodium Chloride) 100 mls @ 100 mls/hr IVPB Q12H [facility]IL[facility]; Protocol Last Admin: 12/20/18 04:00 Dose: 100 mls/hr Dextrose (Dextrose 5% In Water 1000 Ml) 1,000 mls @ 0 mls/hr IV .Q0M PRN; Protocol PRN Reason: Hypoglycemia Protocol Heparin Sodium/Sodium Chloride (Heparin 63498 Units/250ml 1/2 Normal Saline) 25,000 units in 250 mls @ 9.336 mls/hr IV .Q24H PRN; Protocol PRN Reason: PROTOCOL Last Admin: 12/19/18 21:30 Dose: 12 units/kg/hr, 9.336 mls/hr Lactated Ringer's (Lactated Ringer's) 1,000 mls @ 150 mls/hr IV .Q6H40M [facility] Last Admin: 12/20/18 04:00 Dose: 150 mls/hr Insulin Human Regular (Novolin R) 0 unit SC ACHS [facility]; Protocol Last Admin: 12/20/18 07:49 Dose: Not Given Lactobacillus Acidophilus (Bacid Acidophilus) 1 cap PO BID [facility] Last Admin: 12/20/18 09:21 Dose: 1 cap Methadone HCl (Methadone) 65 mg PO DAILY [facility] Nicotine (Nicoderm Cq) 1 patch TD DAILY [facility] Last Admin: 12/20/18 09:21 Dose: 1 patch Pantoprazole Sodium (Protonix Ec Tab) 40 mg PO DAILY [facility] Last Admin: 12/20/18 09:21 Dose: 40 mg Physical Exam - Head Exam Head Exam: ATRAUMATIC, NORMAL INSPECTION - Eye Exam Eye Exam: EOMI, Normal appearance, PERRL. absent: Periorbital tenderness Pupil Exam: NORMAL ACCOMODATION - ENT Exam ENT Exam: Mucous Membranes Moist, Normal Oropharynx - Respiratory Exam Respiratory Exam: Clear to Auscultation Bilateral, NORMAL BREATHING PATTERN. absent: Prolonged Expiratory Phase, Respiratory Distress - Cardiovascular Exam Cardiovascular Exam: REGULAR RHYTHM, +S1, +S2. absent: Rubs - Extremities Exam Extremities exam: Positive for: normal inspection. Negative for: pedal edema - Back Exam Back exam: NORMAL INSPECTION. absent: CVA tenderness (R), paraspinal tenderness - Neurological Exam Neurological exam: Alert, CN II-XII Intact, Oriented x3 - Psychiatric Exam Psychiatric exam: Normal Affect, Normal Mood - Skin Skin Exam: Dry, Intact Results - Vital Signs Recent Vital Signs: Last Vital Signs Temp 97.0 F L 12/20/18 07:48 Pulse 84 12/20/18 09:03 Resp 13 12/20/18 09:03 BP 134/86 12/20/18 09:03 Pulse Ox 92 L 12/20/18 09:03 - Labs Result Diagrams: 12/20/18 06:07 12/20/18 06:05 Labs: Laboratory Results - last 24 hr 12/19/18 12/19/18 12/19/18 11:45 11:48 11:48 WBC RBC Hgb Hct MCV MCH MCHC RDW Plt Count MPV Neut % (Auto) Lymph % (Auto) [place] % (Auto) Eos % (Auto) Baso % (Auto) Neut # (Auto) Lymph # (Auto) [place] # (Auto) Eos # (Auto) Baso # (Auto) Neutrophils % (Manual) Band Neutrophils % Lymphocytes % (Manual) Monocytes % (Manual) Platelet Estimate Polychromasia Anisocytosis (manual) Macrocytosis (manual) PT INR APTT Puncture Site pCO2 pO2 HCO3 ABG pH ABG Total CO2 ABG O2 Saturation ABG Base Excess ABG Hemoglobin ABG Carboxyhemoglobin POC ABG HHb (Measured) ABG Methemoglobin Jorge Test ABG Potassium VBG pH VBG pCO2 VBG HCO3 VBG Total CO2 VBG O2 Sat (Calc) VBG Base Excess VBG Potassium A-a O2 Difference Respiratory Index Hgb O2 Saturation Glucose Lactate Vent Mode FiO2 Inspiratory BiPAP Expiratory BiPAP Crit Value Called To Crit Value Called By Crit Value Read Back Blood Gas Notified Time Sodium Potassium Chloride Carbon Dioxide Anion Gap BUN Creatinine Est GFR ( Amer) Est GFR (Non-Af Amer) POC Glucose (mg/dL) 319 H Random Glucose Hemoglobin A1c Lactic Acid Calcium Phosphorus Magnesium Total Bilirubin AST ALT Alkaline Phosphatase Ammonia Total Creatine Kinase CK-MB (Mass) Troponin I Total Protein Albumin Globulin Albumin/Globulin Ratio Arterial Blood Potassium Venous Blood Potassium Urine Color Radha Urine Clarity Hazy Urine pH 5.0 Ur Specific [place] 1.012 Urine Protein 2+ H Urine Glucose (UA) Normal Urine Ketones Trace Urine Blood 3+ H Urine Nitrate Negative Urine Bilirubin Negative Urine Urobilinogen 2.0 Ur Leukocyte Esterase Neg Urine WBC (Auto) 9 H Urine RBC (Auto) 19 H Ur Squamous Epith Cells 1 Amorphous Sediment Occ H Hyaline Casts 6-10 H Random Vancomycin Urine Opiates Screen Negative Urine Methadone Screen Positive H Ur Barbiturates Screen Negative Ur Phencyclidine Scrn Negative Ur Amphetamines Screen Negative U Benzodiazepines Scrn Positive U Oth Cocaine Metabols Negative U Cannabinoids Screen Negative Alcohol, Quantitative Influenza Typ A,B (EIA) Mycoplasma pneumon IgM 12/19/18 12/19/18 12/19/18 12:02 12:02 12:02 WBC RBC Hgb Hct MCV MCH MCHC RDW Plt Count MPV Neut % (Auto) Lymph % (Auto) [place] % (Auto) Eos % (Auto) Baso % (Auto) Neut # (Auto) Lymph # (Auto) [place] # (Auto) Eos # (Auto) Baso # (Auto) Neutrophils % (Manual) Band Neutrophils % Lymphocytes % (Manual) Monocytes % (Manual) Platelet Estimate Polychromasia Anisocytosis (manual) Macrocytosis (manual) PT 16.7 H INR 1.5 APTT 35 H Puncture Site pCO2 pO2 HCO3 ABG pH ABG Total CO2 ABG O2 Saturation ABG Base Excess ABG Hemoglobin ABG Carboxyhemoglobin POC ABG HHb (Measured) ABG Methemoglobin Jorge Test ABG Potassium VBG pH VBG pCO2 VBG HCO3 VBG Total CO2 VBG O2 Sat (Calc) VBG Base Excess VBG Potassium A-a O2 Difference Respiratory Index Hgb O2 Saturation Glucose Lactate Vent Mode FiO2 Inspiratory BiPAP Expiratory BiPAP Crit Value Called To Crit Value Called By Crit Value Read Back Blood Gas Notified Time Sodium 139 Potassium 4.9 Chloride 98 Carbon Dioxide 19 L Anion Gap 27 H BUN 20 Creatinine 1.6 H Est GFR ( Amer) 53 Est GFR (Non-Af Amer) 44 POC Glucose (mg/dL) Random Glucose 198 H D Hemoglobin A1c Lactic Acid Calcium 7.7 L Phosphorus Magnesium Total Bilirubin 0.8 AST 410 H D ALT 345 H Alkaline Phosphatase 106 Ammonia 259 H D Total Creatine Kinase CK-MB (Mass) Troponin I 0.8320 H* Total Protein 6.4 Albumin 3.8 Globulin 2.6 Albumin/Globulin Ratio 1.5 Arterial Blood Potassium Venous Blood Potassium Urine Color Urine Clarity Urine pH Ur Specific [place] Urine Protein Urine Glucose (UA) Urine Ketones Urine Blood Urine Nitrate Urine Bilirubin Urine Urobilinogen Ur Leukocyte Esterase Urine WBC (Auto) Urine RBC (Auto) Ur Squamous Epith Cells Amorphous Sediment Hyaline Casts Random Vancomycin Urine Opiates Screen Urine Methadone Screen Ur Barbiturates Screen Ur Phencyclidine Scrn Ur Amphetamines Screen U Benzodiazepines Scrn U Oth Cocaine Metabols U Cannabinoids Screen Alcohol, Quantitative < 10 Influenza Typ A,B (EIA) Mycoplasma pneumon IgM 12/19/18 12/19/18 12/19/18 12:07 12:19 13:01 WBC 13.7 H D RBC 5.30 Hgb 16.6 Hct 54.2 H MCV 101.5 H D MCH 31.3 H MCHC 30.6 L RDW 15.8 H Plt Count 92 L MPV 9.8 Neut % (Auto) 91.2 H Lymph % (Auto) 5.0 L [place] % (Auto) 3.6 Eos % (Auto) 0.1 Baso % (Auto) 0.1 Neut # (Auto) 12.5 H Lymph # (Auto) 0.7 L [place] # (Auto) 0.5 Eos # (Auto) 0.0 Baso # (Auto) 0.0 Neutrophils % (Manual) 71 Band Neutrophils % 17 H* Lymphocytes % (Manual) 6 L Monocytes % (Manual) 6 Platelet Estimate Decreased L Polychromasia Slight Anisocytosis (manual) Slight Macrocytosis (manual) Slight PT INR APTT Puncture Site Rr pCO2 69 H pO2 21 L 405 H HCO3 20.8 L ABG pH 7.16 L* ABG Total CO2 26.7 ABG O2 Saturation 100.2 H ABG Base Excess -5.4 L ABG Hemoglobin ABG Carboxyhemoglobin POC ABG HHb (Measured) ABG Methemoglobin Jorge Test Pos ABG Potassium 4.7 VBG pH 6.99 L* VBG pCO2 103 H* VBG HCO3 15.6 VBG Total CO2 28.0 VBG O2 Sat (Calc) 32.9 L VBG Base Excess -9.0 L VBG Potassium 4.7 A-a O2 Difference 222.0 Respiratory Index 0.5 Hgb O2 Saturation Glucose 205 H 236 H Lactate 13.7 H* 7.2 H* Vent Mode FiO2 100.0 Inspiratory BiPAP 16 Expiratory BiPAP 8 Crit Value Called To dee Bravo Rn, hart Crit Value Called By Shira robins,distributed energy systems consultant Imani robins Crit Value Read Back Y Y Blood Gas Notified Time 1225 1304 Sodium 139.0 137.0 Potassium Chloride 95.0 L 103.0 Carbon Dioxide Anion Gap BUN Creatinine Est GFR ( Amer) Est GFR (Non-Af Amer) POC Glucose (mg/dL) Random Glucose Hemoglobin A1c Lactic Acid Calcium Phosphorus Magnesium Total Bilirubin AST ALT Alkaline Phosphatase Ammonia Total Creatine Kinase CK-MB (Mass) Troponin I Total Protein Albumin Globulin Albumin/Globulin Ratio Arterial Blood Potassium 4.7 Venous Blood Potassium 4.7 Urine Color Urine Clarity Urine pH Ur Specific [place] Urine Protein Urine Glucose (UA) Urine Ketones Urine Blood Urine Nitrate Urine Bilirubin Urine Urobilinogen Ur Leukocyte Esterase Urine WBC (Auto) Urine RBC (Auto) Ur Squamous Epith Cells Amorphous Sediment Hyaline Casts Random Vancomycin Urine Opiates Screen Urine Methadone Screen Ur Barbiturates Screen Ur Phencyclidine Scrn Ur Amphetamines Screen U Benzodiazepines Scrn U Oth Cocaine Metabols U Cannabinoids Screen Alcohol, Quantitative Influenza Typ A,B (EIA) Mycoplasma pneumon IgM 12/19/18 12/19/18 12/19/18 14:31 15:53 16:31 WBC RBC Hgb Hct MCV MCH MCHC RDW Plt Count MPV Neut % (Auto) Lymph % (Auto) [place] % (Auto) Eos % (Auto) Baso % (Auto) Neut # (Auto) Lymph # (Auto) [place] # (Auto) Eos # (Auto) Baso # (Auto) Neutrophils % (Manual) Band Neutrophils % Lymphocytes % (Manual) Monocytes % (Manual) Platelet Estimate Polychromasia Anisocytosis (manual) Macrocytosis (manual) PT INR APTT Puncture Site Rr Rr pCO2 61 H 58 H pO2 52 L 40 L* HCO3 19.8 L 21.9 ABG pH 7.19 L* 7.25 L ABG Total CO2 25.2 27.2 ABG O2 Saturation 89.6 L 79.2 L ABG Base Excess -5.8 L -2.8 L ABG Hemoglobin ABG Carboxyhemoglobin POC ABG HHb (Measured) ABG Methemoglobin Jorge Test Pos Pos ABG Potassium 4.4 4.7 VBG pH VBG pCO2 VBG HCO3 VBG Total CO2 VBG O2 Sat (Calc) VBG Base Excess VBG Potassium A-a O2 Difference 86.0 101.0 Respiratory Index 1.7 2.5 Hgb O2 Saturation Glucose 229 H 176 H Lactate 4.5 H* 2.8 H Vent Mode FiO2 30.0 30.0 Inspiratory BiPAP 16 20 Expiratory BiPAP 8 8 Crit Value Called To dee Bravo Rn, hart Crit Value Called By Imani robins Crit Value Read Back Y Y Blood Gas Notified Time 1435 1643 Sodium 137.0 137.0 Potassium Chloride 105.0 106.0 Carbon Dioxide Anion Gap BUN Creatinine Est GFR ( Amer) Est GFR (Non-Af Amer) POC Glucose (mg/dL) Random Glucose Hemoglobin A1c Lactic Acid Calcium Phosphorus Magnesium Total Bilirubin AST ALT Alkaline Phosphatase Ammonia Total Creatine Kinase CK-MB (Mass) Troponin I Total Protein Albumin Globulin Albumin/Globulin Ratio Arterial Blood Potassium 4.4 4.7 Venous Blood Potassium Urine Color Urine Clarity Urine pH Ur Specific [place] Urine Protein Urine Glucose (UA) Urine Ketones Urine Blood Urine Nitrate Urine Bilirubin Urine Urobilinogen Ur Leukocyte Esterase Urine WBC (Auto) Urine RBC (Auto) Ur Squamous Epith Cells Amorphous Sediment Hyaline Casts Random Vancomycin Urine Opiates Screen Urine Methadone Screen Ur Barbiturates Screen Ur Phencyclidine Scrn Ur Amphetamines Screen U Benzodiazepines Scrn U Oth Cocaine Metabols U Cannabinoids Screen Alcohol, Quantitative Influenza Typ A,B (EIA) Negative for flu a/b Mycoplasma pneumon IgM Cancelled 12/19/18 12/19/18 12/19/18 19:41 19:41 21:07 WBC RBC Hgb Hct MCV MCH MCHC RDW Plt Count MPV Neut % (Auto) Lymph % (Auto) [place] % (Auto) Eos % (Auto) Baso % (Auto) Neut # (Auto) Lymph # (Auto) [place] # (Auto) Eos # (Auto) Baso # (Auto) Neutrophils % (Manual) Band Neutrophils % Lymphocytes % (Manual) Monocytes % (Manual) Platelet Estimate Polychromasia Anisocytosis (manual) Macrocytosis (manual) PT INR APTT Puncture Site pCO2 pO2 HCO3 ABG pH ABG Total CO2 ABG O2 Saturation ABG Base Excess ABG Hemoglobin ABG Carboxyhemoglobin POC ABG HHb (Measured) ABG Methemoglobin Jorge Test ABG Potassium VBG pH VBG pCO2 VBG HCO3 VBG Total CO2 VBG O2 Sat (Calc) VBG Base Excess VBG Potassium A-a O2 Difference Respiratory Index Hgb O2 Saturation Glucose Lactate Vent Mode FiO2 Inspiratory BiPAP Expiratory BiPAP Crit Value Called To Crit Value Called By Crit Value Read Back Blood Gas Notified Time Sodium Potassium Chloride Carbon Dioxide Anion Gap BUN Creatinine Est GFR ( Amer) Est GFR (Non-Af Amer) POC Glucose (mg/dL) 93 Random Glucose Hemoglobin A1c Lactic Acid 1.8 Calcium Phosphorus Magnesium Total Bilirubin AST ALT Alkaline Phosphatase Ammonia Total Creatine Kinase 6343 H CK-MB (Mass) 67.9 H Troponin I 4.6200 H* Total Protein Albumin Globulin Albumin/Globulin Ratio Arterial Blood Potassium Venous Blood Potassium Urine Color Urine Clarity Urine pH Ur Specific [place] Urine Protein Urine Glucose (UA) Urine Ketones Urine Blood Urine Nitrate Urine Bilirubin Urine Urobilinogen Ur Leukocyte Esterase Urine WBC (Auto) Urine RBC (Auto) Ur Squamous Epith Cells Amorphous Sediment Hyaline Casts Random Vancomycin Urine Opiates Screen Urine Methadone Screen Ur Barbiturates Screen Ur Phencyclidine Scrn Ur Amphetamines Screen U Benzodiazepines Scrn U Oth Cocaine Metabols U Cannabinoids Screen Alcohol, Quantitative Influenza Typ A,B (EIA) Mycoplasma pneumon IgM 12/20/18 12/20/18 12/20/18 04:35 06:05 06:05 WBC RBC Hgb Hct MCV MCH MCHC RDW Plt Count MPV Neut % (Auto) Lymph % (Auto) [place] % (Auto) Eos % (Auto) Baso % (Auto) Neut # (Auto) Lymph # (Auto) [place] # (Auto) Eos # (Auto) Baso # (Auto) Neutrophils % (Manual) Band Neutrophils % Lymphocytes % (Manual) Monocytes % (Manual) Platelet Estimate Polychromasia Anisocytosis (manual) Macrocytosis (manual) PT INR APTT Puncture Site Rr pCO2 65 H pO2 90 HCO3 26.9 ABG pH 7.29 L ABG Total CO2 33.3 H ABG O2 Saturation 98.4 H ABG Base Excess 2.6 ABG Hemoglobin 14.8 ABG Carboxyhemoglobin 2.5 H POC ABG HHb (Measured) 1.5 ABG Methemoglobin 1.0 Jorge Test Pos ABG Potassium VBG pH VBG pCO2 VBG HCO3 VBG Total CO2 VBG O2 Sat (Calc) VBG Base Excess VBG Potassium A-a O2 Difference 114.0 Respiratory Index 1.3 Hgb O2 Saturation 95.1 Glucose Lactate Vent Mode Bipap FiO2 40.0 Inspiratory BiPAP 20 Expiratory BiPAP 8 Crit Value Called To Crit Value Called By Crit Value Read Back Blood Gas Notified Time Sodium 139 Potassium 4.2 Chloride 101 Carbon Dioxide 36 H Anion Gap 6 L BUN 23 H Creatinine 0.8 Est GFR ( Amer) > 60 Est GFR (Non-Af Amer) > 60 POC Glucose (mg/dL) Random Glucose 88 D Hemoglobin A1c Lactic Acid Calcium 7.3 L Phosphorus 3.4 Magnesium 1.8 Total Bilirubin 0.5 AST 640 H D ALT 490 H D Alkaline Phosphatase 104 Ammonia 11 D Total Creatine Kinase 5952 H CK-MB (Mass) 72.0 H Troponin I 3.8800 H* Total Protein 5.6 L Albumin 3.1 L Globulin 2.6 Albumin/Globulin Ratio 1.2 Arterial Blood Potassium Venous Blood Potassium Urine Color Urine Clarity Urine pH Ur Specific [place] Urine Protein Urine Glucose (UA) Urine Ketones Urine Blood Urine Nitrate Urine Bilirubin Urine Urobilinogen Ur Leukocyte Esterase Urine WBC (Auto) Urine RBC (Auto) Ur Squamous Epith Cells Amorphous Sediment Hyaline Casts Random Vancomycin Urine Opiates Screen Urine Methadone Screen Ur Barbiturates Screen Ur Phencyclidine Scrn Ur Amphetamines Screen U Benzodiazepines Scrn U Oth Cocaine Metabols U Cannabinoids Screen Alcohol, Quantitative Influenza Typ A,B (EIA) Mycoplasma pneumon IgM 12/20/18 12/20/18 12/20/18 06:05 06:07 06:07 WBC 8.9 RBC 4.80 Hgb 15.3 Hct 47.0 MCV 97.8 H D MCH 31.8 H MCHC 32.5 L RDW 15.0 H Plt Count 102 L MPV 9.3 Neut % (Auto) 82.2 H Lymph % (Auto) 12.4 L [place] % (Auto) 4.9 Eos % (Auto) 0.2 Baso % (Auto) 0.3 Neut # (Auto) 7.3 H Lymph # (Auto) 1.1 [place] # (Auto) 0.4 Eos # (Auto) 0.0 Baso # (Auto) 0.0 Neutrophils % (Manual) Band Neutrophils % Lymphocytes % (Manual) Monocytes % (Manual) Platelet Estimate Polychromasia Anisocytosis (manual) Macrocytosis (manual) PT INR APTT Puncture Site pCO2 pO2 HCO3 ABG pH ABG Total CO2 ABG O2 Saturation ABG Base Excess ABG Hemoglobin ABG Carboxyhemoglobin POC ABG HHb (Measured) ABG Methemoglobin Jorge Test ABG Potassium VBG pH VBG pCO2 VBG HCO3 VBG Total CO2 VBG O2 Sat (Calc) VBG Base Excess VBG Potassium A-a O2 Difference Respiratory Index Hgb O2 Saturation Glucose Lactate Vent Mode FiO2 Inspiratory BiPAP Expiratory BiPAP Crit Value Called To Crit Value Called By Crit Value Read Back Blood Gas Notified Time Sodium Potassium Chloride Carbon Dioxide Anion Gap BUN Creatinine Est GFR ( Amer) Est GFR (Non-Af Amer) POC Glucose (mg/dL) Random Glucose Hemoglobin A1c 5.7 Lactic Acid Calcium Phosphorus Magnesium Total Bilirubin AST ALT Alkaline Phosphatase Ammonia Total Creatine Kinase CK-MB (Mass) Troponin I Total Protein Albumin Globulin Albumin/Globulin Ratio Arterial Blood Potassium Venous Blood Potassium Urine Color Urine Clarity Urine pH Ur Specific [place] Urine Protein Urine Glucose (UA) Urine Ketones Urine Blood Urine Nitrate Urine Bilirubin Urine Urobilinogen Ur Leukocyte Esterase Urine WBC (Auto) Urine RBC (Auto) Ur Squamous Epith Cells Amorphous Sediment Hyaline Casts Random Vancomycin < 5.0 Urine Opiates Screen Urine Methadone Screen Ur Barbiturates Screen Ur Phencyclidine Scrn Ur Amphetamines Screen U Benzodiazepines Scrn U Oth Cocaine Metabols U Cannabinoids Screen Alcohol, Quantitative Influenza Typ A,B (EIA) Mycoplasma pneumon IgM 12/20/18 06:07 WBC RBC Hgb Hct MCV MCH MCHC RDW Plt Count MPV Neut % (Auto) Lymph % (Auto) [place] % (Auto) Eos % (Auto) Baso % (Auto) Neut # (Auto) Lymph # (Auto) [place] # (Auto) Eos # (Auto) Baso # (Auto) Neutrophils % (Manual) Band Neutrophils % Lymphocytes % (Manual) Monocytes % (Manual) Platelet Estimate Polychromasia Anisocytosis (manual) Macrocytosis (manual) PT INR APTT 78 H D Puncture Site pCO2 pO2 HCO3 ABG pH ABG Total CO2 ABG O2 Saturation ABG Base Excess ABG Hemoglobin ABG Carboxyhemoglobin POC ABG HHb (Measured) ABG Methemoglobin Jorge Test ABG Potassium VBG pH VBG pCO2 VBG HCO3 VBG Total CO2 VBG O2 Sat (Calc) VBG Base Excess VBG Potassium A-a O2 Difference Respiratory Index Hgb O2 Saturation Glucose Lactate Vent Mode FiO2 Inspiratory BiPAP Expiratory BiPAP Crit Value Called To Crit Value Called By Crit Value Read Back Blood Gas Notified Time Sodium Potassium Chloride Carbon Dioxide Anion Gap BUN Creatinine Est GFR ( Amer) Est GFR (Non-Af Amer) POC Glucose (mg/dL) Random Glucose Hemoglobin A1c Lactic Acid Calcium Phosphorus Magnesium Total Bilirubin AST ALT Alkaline Phosphatase Ammonia Total Creatine Kinase CK-MB (Mass) Troponin I Total Protein Albumin Globulin Albumin/Globulin Ratio Arterial Blood Potassium Venous Blood Potassium Urine Color Urine Clarity Urine pH Ur Specific [place] Urine Protein Urine Glucose (UA) Urine Ketones Urine Blood Urine Nitrate Urine Bilirubin Urine Urobilinogen Ur Leukocyte Esterase Urine WBC (Auto) Urine RBC (Auto) Ur Squamous Epith Cells Amorphous Sediment Hyaline Casts Random Vancomycin Urine Opiates Screen Urine Methadone Screen Ur Barbiturates Screen Ur Phencyclidine Scrn Ur Amphetamines Screen U Benzodiazepines Scrn U Oth Cocaine Metabols U Cannabinoids Screen Alcohol, Quantitative Influenza Typ A,B (EIA) Mycoplasma pneumon IgM Assessment & Plan - Assessment and Plan (Free Text) Assessment: Patient is a 63 yo male with a history of HIV (noncompliance), HCV (treated per patient), COPD (untreated), and polysubstance use (methadone clinic) who presented after being found altered by his . Cardiology consulted for positive troponins. Plan: 1.NSTEMI Troponins: .83 --> 4.62--> 3.88 Will repeat Troponin for A.M. Cardiac cath when stabilized. Medications: Plavix 75mg PO Daily CAMILO Aspirin 81mg PO Daily 2.DM ISS 3.Heroin Abuse history -Methadone 4. Smoking cessation -Nicoderm 1 patch Daily PPPX -Heparin -Protonix <Scout Allison - Last Filed: 12/20/18 22:23> Meds - Medications Medications: Current Medications Albuterol/Ipratropium (Duoneb 3 Mg/0.5 Mg (3 Ml) Ud) 3 ml INH RQ4 [facility] Last Admin: 12/20/18 19:48 Dose: 3 ml Aspirin (Aspirin Chewable) 81 mg PO DAILY [facility] Last Admin: 12/20/18 09:20 Dose: 81 mg Clopidogrel Bisulfate (Plavix) 75 mg PO DAILY [facility] Last Admin: 12/20/18 09:21 Dose: 75 mg Dextrose (Dextrose 50% Inj) 0 ml IV STAT PRN; Protocol PRN Reason: Hypoglycemia Protocol Dextrose (Glutose 15) 0 gm PO ONCE PRN; Protocol PRN Reason: Hypoglycemia Protocol Fluticasone/Vilanterol (Breo Ellipta 100-25 Mcg Inh) 1 puff INH RQD [facility] Last Admin: 12/20/18 09:27 Dose: 1 puff Glucagon (Glucagen Diagnostic Kit) 0 mg IM STAT PRN; Protocol PRN Reason: Hypoglycemia Protocol Heparin Sodium (Porcine) (Heparin) 5,000 units SC Q12 [facility] Ceftriaxone Sodium 1 gm/ (Sodium Chloride) 100 mls @ 100 mls/hr IVPB Q12H [facility]; Protocol Last Admin: 12/20/18 17:23 Dose: 100 mls/hr Dextrose (Dextrose 5% In Water 1000 Ml) 1,000 mls @ 0 mls/hr IV .Q0M PRN; Prot ocol PRN Reason: Hypoglycemia Protocol Lactated Ringer's (Lactated Ringer's) 1,000 mls @ 150 mls/hr IV .Q6H40M [facility] Last Admin: 12/20/18 17:23 Dose: 150 mls/hr Insulin Human Regular (Novolin R) 0 unit [facility]; Protocol Last Admin: 12/20/18 16:41 Dose: Not Given Lactobacillus Acidophilus (Bacid Acidophilus) 1 cap PO BID [facility] Last Admin: 12/20/18 17:24 Dose: 1 cap Methadone HCl (Methadose) 40 mg PO DAILY [facility] Last Admin: 12/20/18 10:51 Dose: 40 mg Methadone HCl (Methadone) 5 mg PO DAILY [facility] Last Admin: 12/20/18 10:51 Dose: 5 mg Methadone HCl (Methadone) 20 mg PO DAILY [facility] Last Admin: 12/20/18 10:51 Dose: 20 mg Nicotine (Nicoderm Cq) 1 patch TD DAILY [facility] Last Admin: 12/20/18 09:21 Dose: 1 patch Pantoprazole Sodium (Protonix Ec Tab) 40 mg PO DAILY [facility] Last Admin: 12/20/18 09:21 Dose: 40 mg Results - Vital Signs Recent Vital Signs: Last Vital Signs Temp 98.2 F 12/20/18 16:00 Pulse 108 H 12/20/18 19:00 Resp 23 12/20/18 19:00 BP 123/79 12/20/18 19:00 Pulse Ox 84 L 12/20/18 19:00 - Labs Result Diagrams: 12/20/18 06:07 12/20/18 06:05 Labs: Laboratory Results - last 24 hr 12/20/18 12/20/18 12/20/18 04:35 06:05 06:05 WBC RBC Hgb Hct MCV MCH MCHC RDW Plt Count MPV Neut % (Auto) Lymph % (Auto) [place] % (Auto) Eos % (Auto) Baso % (Auto) Neut # (Auto) Lymph # (Auto) [place] # (Auto) Eos # (Auto) Baso # (Auto) APTT Puncture Site Rr pCO2 65 H pO2 90 HCO3 26.9 ABG pH 7.29 L ABG Total CO2 33.3 H ABG O2 Saturation 98.4 H ABG Base Excess 2.6 ABG Hemoglobin 14.8 ABG Carboxyhemoglobin 2.5 H POC ABG HHb (Measured) 1.5 ABG Methemoglobin 1.0 Jorge Test Pos A-a O2 Difference 114.0 Respiratory Index 1.3 Hgb O2 Saturation 95.1 Vent Mode Bipap FiO2 40.0 Inspiratory BiPAP 20 Expiratory BiPAP 8 Sodium 139 Potassium 4.2 Chloride 101 Carbon Dioxide 36 H Anion Gap 6 L BUN 23 H Creatinine 0.8 Est GFR ( Amer) > 60 Est GFR (Non-Af Amer) > 60 POC Glucose (mg/dL) Random Glucose 88 D Hemoglobin A1c Calcium 7.3 L Phosphorus 3.4 Magnesium 1.8 Total Bilirubin 0.5 AST 640 H D ALT 490 H D Alkaline Phosphatase 104 Ammonia 11 D Total Creatine Kinase 5952 H CK-MB (Mass) 72.0 H Troponin I 3.8800 H* Total Protein 5.6 L Albumin 3.1 L Globulin 2.6 Albumin/Globulin Ratio 1.2 Random Vancomycin 12/20/18 12/20/18 12/20/18 06:05 06:07 06:07 WBC 8.9 RBC 4.80 Hgb 15.3 Hct 47.0 MCV 97.8 H D MCH 31.8 H MCHC 32.5 L RDW 15.0 H Plt Count 102 L MPV 9.3 Neut % (Auto) 82.2 H Lymph % (Auto) 12.4 L [place] % (Auto) 4.9 Eos % (Auto) 0.2 Baso % (Auto) 0.3 Neut # (Auto) 7.3 H Lymph # (Auto) 1.1 [place] # (Auto) 0.4 Eos # (Auto) 0.0 Baso # (Auto) 0.0 APTT Puncture Site pCO2 pO2 HCO3 ABG pH ABG Total CO2 ABG O2 Saturation ABG Base Excess ABG Hemoglobin ABG Carboxyhemoglobin POC ABG HHb (Measured) ABG Methemoglobin Jorge Test A-a O2 Difference Respiratory Index Hgb O2 Saturation Vent Mode FiO2 Inspiratory BiPAP Expiratory BiPAP Sodium Potassium Chloride Carbon Dioxide Anion Gap BUN Creatinine Est GFR ( Amer) Est GFR (Non-Af Amer) POC Glucose (mg/dL) Random Glucose Hemoglobin A1c 5.7 Calcium Phosphorus Magnesium Total Bilirubin AST ALT Alkaline Phosphatase Ammonia Total Creatine Kinase CK-MB (Mass) Troponin I Total Protein Albumin Globulin Albumin/Globulin Ratio Random Vancomycin < 5.0 12/20/18 12/20/18 12/20/18 06:07 07:23 10:41 WBC RBC Hgb Hct MCV MCH MCHC RDW Plt Count MPV Neut % (Auto) Lymph % (Auto) [place] % (Auto) Eos % (Auto) Baso % (Auto) Neut # (Auto) Lymph # (Auto) [place] # (Auto) Eos # (Auto) Baso # (Auto) APTT 78 H D 92 H D Puncture Site pCO2 pO2 HCO3 ABG pH ABG Total CO2 ABG O2 Saturation ABG Base Excess ABG Hemoglobin ABG Carboxyhemoglobin POC ABG HHb (Measured) ABG Methemoglobin Jorge Test A-a O2 Difference Respiratory Index Hgb O2 Saturation Vent Mode FiO2 Inspiratory BiPAP Expiratory BiPAP Sodium Potassium Chloride Carbon Dioxide Anion Gap BUN Creatinine Est GFR ( Amer) Est GFR (Non-Af Amer) POC Glucose (mg/dL) 90 Random Glucose Hemoglobin A1c Calcium Phosphorus Magnesium Total Bilirubin AST ALT Alkaline Phosphatase Ammonia Total Creatine Kinase CK-MB (Mass) Troponin I Total Protein Albumin Globulin Albumin/Globulin Ratio Random Vancomycin 12/20/18 12/20/18 12/20/18 11:11 16:22 20:52 WBC RBC Hgb Hct MCV MCH MCHC RDW Plt Count MPV Neut % (Auto) Lymph % (Auto) [place] % (Auto) Eos % (Auto) Baso % (Auto) Neut # (Auto) Lymph # (Auto) [place] # (Auto) Eos # (Auto) Baso # (Auto) APTT Puncture Site pCO2 pO2 HCO3 ABG pH ABG Total CO2 ABG O2 Saturation ABG Base Excess ABG Hemoglobin ABG Carboxyhemoglobin POC ABG HHb (Measured) ABG Methemoglobin Jorge Test A-a O2 Difference Respiratory Index Hgb O2 Saturation Vent Mode FiO2 Inspiratory BiPAP Expiratory BiPAP Sodium Potassium Chloride Carbon Dioxide Anion Gap BUN Creatinine Est GFR ( Amer) Est GFR (Non-Af Amer) POC Glucose (mg/dL) 122 H 102 145 H Random Glucose Hemoglobin A1c Calcium Phosphorus Magnesium Total Bilirubin AST ALT Alkaline Phosphatase Ammonia Total Creatine Kinase CK-MB (Mass) Troponin I Total Protein Albumin Globulin Albumin/Globulin Ratio Random Vancomycin Assessment & Plan - Assessment and Plan (Free Text) Plan: Patient seen and evaluated personally by me. Plan of care d/w the biomedical technician and as documented
[2018-12-20] MEDS: Methadone 40 mg Tab PO SCH (10:51)
--- NOTE | 2018-12-20 12:53 | CP.CCUPN ---
CCU Subjective - Physician Review Subjective (Free Text): PGY-[address] ICU progress note for Dr Mann Beth Patient is seen and examined at bedside. Patient is more awake and oriented this morning, follows commands. Patient has no complaints at this time. Patient denies any fever, chills, chest pain, shortness of breath, n/v/d/c. In afternoon, nurse reported bleeding from right TLC insertion site and site where stitches were place. Patient denies pain in the area. Critical Care Time Spent (in minutes): 35 CCU Objective - Vital Signs / Intake & Output Vital Signs (Last 4 hours): Vital Signs Pulse Resp BP Pulse Ox 12/20/18 11:00 79 13 113/80 95 12/20/18 10:00 84 16 96 12/20/18 09:03 84 13 134/86 92 L Intake and Output (Last 8hrs): Intake & Output 12/19/18 12/20/18 12/20/18 22:59 06:59 14:59 Intake Total 973.6 1400.4 1145.8 Output Total 450 800 300 Balance 523.6 600.4 845.8 Weight 171 lb 8.314 oz 169 lb 8.568 oz Intake: IV 103 61 Intake, IV Amount 530.6 1219.4 905.8 Right Distal Port Femoral 41.3 45.0 0 Right Medial Port Femoral 100 Right Proximal Port 380 1100 850 Femoral Right Thumb 9.3 74.4 55.8 Oral 340 120 240 Output: Urine 450 800 300 Urine, Voided 450 800 300 Other: # Voids Urine, Voided 1 1 1 - Physical Exam Head: Positive for: Atraumatic, Normocephalic Pupils: Positive for: PERRL, Sluggish Extroacular Muscles: Positive for: EOMI Conjunctiva: Positive for: Normal Mouth: Positive for: Moist Mucous Membranes Pharnyx: Positive for: Normal Neck: Positive for: Normal Range of Motion Respiratory/Chest: Positive for: Clear to Auscultation, Good Air Exchange Abdomen: Negative for: Tenderness, Distention, Normal Bowel Sounds Upper Extremity: Positive for: Normal Inspection Lower Extremity: Positive for: Normal Inspection Neurological: Positive for: CN II-XII Intact, Speech Normal Psychiatric: Positive for: Alert, Oriented x 3, Normal Insight - Medications Active Medications: Active Medications Generic Name Dose Route Start Last Admin Trade Name Freq PRN Reason Stop Dose Admin Albuterol/Ipratropium 3 ml 12/20/18 00:00 12/20/18 11:05 Duoneb 3 Mg/0.5 Mg (3 Ml) Ud INH 3 ml RQ4 CAMILO Administration Aspirin 81 mg 12/20/18 10:00 12/20/18 09:20 Aspirin Chewable PO 81 mg DAILY CAMILO Administration Clopidogrel Bisulfate 75 mg 12/20/18 10:00 12/20/18 09:21 Plavix PO 75 mg DAILY CAMILO Administration Dextrose 0 ml 12/19/18 19:29 Dextrose 50% Inj IV STAT PRN Hypoglycemia Protocol Protocol Dextrose 0 gm 12/19/18 19:29 Glutose 15 PO ONCE PRN Hypoglycemia Protocol Protocol Fluticasone/Vilanterol 1 puff 12/20/18 08:00 12/20/18 09:27 Breo Ellipta 100-25 Mcg Inh INH 1 puff RQD CAMILO Administration Glucagon 0 mg 12/19/18 19:29 Glucagen Diagnostic Kit IM STAT PRN Hypoglycemia Protocol Protocol Ceftriaxone Sodium 1 gm/ 100 mls @ 100 mls/hr 12/19/18 15:00 12/20/18 04:00 Sodium Chloride IVPB 100 mls/hr Q12H CAMILO Administration Protocol Dextrose 1,000 mls @ 0 mls/hr 12/19/18 19:29 Dextrose 5% In Water 1000 Ml IV .Q0M PRN Hypoglycemia Protocol Protocol Per Protocol Heparin Sodium/Sodium Chloride 25,000 units in 250 mls @ 9.336 mls/hr 12/19/18 21:30 12/19/18 21:30 Heparin 07188 Units/250ml 1/2 Normal Saline IV 12 units/kg/hr .Q24H PRN 9.336 mls/hr PROTOCOL Administration Protocol 12 UNITS/KG/HR Lactated Ringer's 1,000 mls @ 150 mls/hr 12/19/18 21:01 12/20/18 11:37 Lactated Ringer's IV Not Given .Q6H40M CAMILO Insulin Human Regular 0 unit 12/19/18 22:00 12/20/18 11:36 Novolin R SC Not Given ACHS CAMILO Protocol Lactobacillus Acidophilus 1 cap 12/19/18 18:45 12/20/18 09:21 Bacid Acidophilus PO 1 cap BID CAMILO Administration Methadone HCl 40 mg 12/20/18 10:45 12/20/18 10:51 Methadose PO 40 mg DAILY CAMILO Administration Methadone HCl 5 mg 12/20/18 10:45 12/20/18 10:51 Methadone PO 5 mg DAILY CAMILO Administration Methadone HCl 20 mg 12/20/18 10:45 12/20/18 10:51 Methadone PO 20 mg DAILY CAMILO Administration Nicotine 1 patch 12/20/18 10:00 12/20/18 09:21 Nicoderm Cq TD 1 patch DAILY CAMILO Administration Pantoprazole Sodium 40 mg 12/20/18 10:00 12/20/18 09:21 Protonix Ec Tab PO 40 mg DAILY CAMILO Administration - Patient Studies Lab Studies: Microbiology Studies 12/19/18 12:18 Blood Culture - Preliminary Blood NO GROWTH AFTER 24 HOURS 12/19/18 12:17 Blood Culture - Preliminary Blood NO GROWTH AFTER 24 HOURS 12/19/18 11:48 Urine Culture - Final Urine Random No Growth (<1,000 CFU/ML) 12/19/18 19:45 Gram Stain - Final Sputum Lab Studies 12/20/18 12/20/18 12/20/18 Range/Units 11:11 10:41 07:23 WBC (4.8-10.8) K/uL RBC (4.40-5.90) Mil/uL Hgb (12.0-18.0) g/dL Hct (35.0-51.0) % MCV (80.0-94.0) fL MCH (27.0-31.0) pg MCHC (33.0-37.0) g/dL RDW (11.5-14.5) % Plt Count (130-400) K/uL MPV (7.2-11.7) fL Neut % (Auto) (50.0-75.0) % Lymph % (Auto) (20.0-40.0) % [place] % (Auto) (0.0-10.0) % Eos % (Auto) (0.0-4.0) % Baso % (Auto) (0.0-2.0) % Neut # (Auto) (1.8-7.0) K/uL Lymph # (Auto) (1.0-4.3) K/uL [place] # (Auto) (0.0-0.8) K/uL Eos # (Auto) (0.0-0.7) K/uL Baso # (Auto) (0.0-0.2) K/uL Neutrophils % (Manual) (50-75) % Band Neutrophils % (0-2) % Lymphocytes % (Manual) (20-40) % Monocytes % (Manual) (0-10) % Platelet Estimate (NORMAL) Polychromasia Anisocytosis (manual) Macrocytosis (manual) APTT 92 H D (21-34) SECONDS Puncture Site pCO2 (35-45) mm/Hg pO2 (80-100) mm/Hg HCO3 (21-28) mmol/L ABG pH (7.35-7.45) ABG Total CO2 (22-28) mmol/L ABG O2 Saturation (95-98) % ABG Base Excess (-2.0-3.0) mmol/L ABG Hemoglobin (11.7-17.4) g/dL ABG Carboxyhemoglobin (0.5-1.5) % POC ABG HHb (Measured) (0.0-5.0) % ABG Methemoglobin (0.0-3.0) % Jorge Test ABG Potassium (3.6-5.2) mmol/L A-a O2 Difference mm/Hg Respiratory Index Hgb O2 Saturation (95.0-98.0) % Sodium (132-148) mmol/l Chloride (98-107) mmol/L Glucose (75-110) mg/dl Lactate (0.7-2.1) mmol/L Vent Mode FiO2 % Inspiratory BiPAP Expiratory BiPAP Crit Value Called To Crit Value Called By Crit Value Read Back Blood Gas Notified Time Potassium (3.6-5.2) mmol/L Carbon Dioxide (22-30) mmol/L Anion Gap (10-20) BUN (9-20) mg/dL Creatinine (0.8-1.5) mg/dL Est GFR ( Amer) Est GFR (Non-Af Amer) POC Glucose (mg/dL) 122 H 90 (65-110) mg/dL Random Glucose (75-110) mg/dL Hemoglobin A1c (4.2-6.5) % Lactic Acid (0.7-2.1) mmol/L Calcium (8.6-10.4) mg/dl Phosphorus (2.5-4.5) mg/dL Magnesium (1.6-2.3) mg/dL Total Bilirubin (0.2-1.3) mg/dL AST (17-59) U/L ALT (21-72) U/L Alkaline Phosphatase (38-126) U/L Ammonia (9-33) umol/L Total Creatine Kinase (55-170) U/L CK-MB (Mass) (0.0-3.38) ng/mL Troponin I (0.00-0.120) ng/mL Total Protein (6.3-8.3) g/dL Albumin (3.5-5.0) g/dL Globulin (2.2-3.9) gm/dL Albumin/Globulin Ratio (1.0-2.1) Arterial Blood Potassium (3.6-5.2) mmol/L Random Vancomycin ug/mL Influenza Typ A,B (EIA) (NEGATIVE) Mycoplasma pneumon IgM 12/20/18 12/20/18 12/20/18 Range/Units 06:07 06:07 06:07 WBC 8.9 (4.8-10.8) K/uL RBC 4.80 (4.40-5.90) Mil/uL Hgb 15.3 (12.0-18.0) g/dL Hct 47.0 (35.0-51.0) % MCV 97.8 H D (80.0-94.0) fL MCH 31.8 H (27.0-31.0) pg MCHC 32.5 L (33.0-37.0) g/dL RDW 15.0 H (11.5-14.5) % Plt Count 102 L (130-400) K/uL MPV 9.3 (7.2-11.7) fL Neut % (Auto) 82.2 H (50.0-75.0) % Lymph % (Auto) 12.4 L (20.0-40.0) % [place] % (Auto) 4.9 (0.0-10.0) % Eos % (Auto) 0.2 (0.0-4.0) % Baso % (Auto) 0.3 (0.0-2.0) % Neut # (Auto) 7.3 H (1.8-7.0) K/uL Lymph # (Auto) 1.1 (1.0-4.3) K/uL [place] # (Auto) 0.4 (0.0-0.8) K/uL Eos # (Auto) 0.0 (0.0-0.7) K/uL Baso # (Auto) 0.0 (0.0-0.2) K/uL Neutrophils % (Manual) (50-75) % Band Neutrophils % (0-2) % Lymphocytes % (Manual) (20-40) % Monocytes % (Manual) (0-10) % Platelet Estimate (NORMAL) Polychromasia Anisocytosis (manual) Macrocytosis (manual) APTT 78 H D (21-34) SECONDS Puncture Site pCO2 (35-45) mm/Hg pO2 (80-100) mm/Hg HCO3 (21-28) mmol/L ABG pH (7.35-7.45) ABG Total CO2 (22-28) mmol/L ABG O2 Saturation (95-98) % ABG Base Excess (-2.0-3.0) mmol/L ABG Hemoglobin (11.7-17.4) g/dL ABG Carboxyhemoglobin (0.5-1.5) % POC ABG HHb (Measured) (0.0-5.0) % ABG Methemoglobin (0.0-3.0) % Jorge Test ABG Potassium (3.6-5.2) mmol/L A-a O2 Difference mm/Hg Respiratory Index Hgb O2 Saturation (95.0-98.0) % Sodium (132-148) mmol/l Chloride (98-107) mmol/L Glucose (75-110) mg/dl Lactate (0.7-2.1) mmol/L Vent Mode FiO2 % Inspiratory BiPAP Expiratory BiPAP Crit Value Called To Crit Value Called By Crit Value Read Back Blood Gas Notified Time Potassium (3.6-5.2) mmol/L Carbon Dioxide (22-30) mmol/L Anion Gap (10-20) BUN (9-20) mg/dL Creatinine (0.8-1.5) mg/dL Est GFR ( Amer) Est GFR (Non-Af Amer) POC Glucose (mg/dL) (65-110) mg/dL Random Glucose (75-110) mg/dL Hemoglobin A1c 5.7 (4.2-6.5) % Lactic Acid (0.7-2.1) mmol/L Calcium (8.6-10.4) mg/dl Phosphorus (2.5-4.5) mg/dL Magnesium (1.6-2.3) mg/dL Total Bilirubin (0.2-1.3) mg/dL AST (17-59) U/L ALT (21-72) U/L Alkaline Phosphatase (38-126) U/L Ammonia (9-33) umol/L Total Creatine Kinase (55-170) U/L CK-MB (Mass) (0.0-3.38) ng/mL Troponin I (0.00-0.120) ng/mL Total Protein (6.3-8.3) g/dL Albumin (3.5-5.0) g/dL Globulin (2.2-3.9) gm/dL Albumin/Globulin Ratio (1.0-2.1) Arterial Blood Potassium (3.6-5.2) mmol/L Random Vancomycin ug/mL Influenza Typ A,B (EIA) (NEGATIVE) Mycoplasma pneumon IgM 12/20/18 12/20/18 12/20/18 Range/Units 06:05 06:05 06:05 WBC (4.8-10.8) K/uL RBC (4.40-5.90) Mil/uL Hgb (12.0-18.0) g/dL Hct (35.0-51.0) % MCV (80.0-94.0) fL MCH (27.0-31.0) pg MCHC (33.0-37.0) g/dL RDW (11.5-14.5) % Plt Count (130-400) K/uL MPV (7.2-11.7) fL Neut % (Auto) (50.0-75.0) % Lymph % (Auto) (20.0-40.0) % [place] % (Auto) (0.0-10.0) % Eos % (Auto) (0.0-4.0) % Baso % (Auto) (0.0-2.0) % Neut # (Auto) (1.8-7.0) K/uL Lymph # (Auto) (1.0-4.3) K/uL [place] # (Auto) (0.0-0.8) K/uL Eos # (Auto) (0.0-0.7) K/uL Baso # (Auto) (0.0-0.2) K/uL Neutrophils % (Manual) (50-75) % Band Neutrophils % (0-2) % Lymphocytes % (Manual) (20-40) % Monocytes % (Manual) (0-10) % Platelet Estimate (NORMAL) Polychromasia Anisocytosis (manual) Macrocytosis (manual) APTT (21-34) SECONDS Puncture Site pCO2 (35-45) mm/Hg pO2 (80-100) mm/Hg HCO3 (21-28) mmol/L ABG pH (7.35-7.45) ABG Total CO2 (22-28) mmol/L ABG O2 Saturation (95-98) % ABG Base Excess (-2.0-3.0) mmol/L ABG Hemoglobin (11.7-17.4) g/dL ABG Carboxyhemoglobin (0.5-1.5) % POC ABG HHb (Measured) (0.0-5.0) % ABG Methemoglobin (0.0-3.0) % Jorge Test ABG Potassium (3.6-5.2) mmol/L A-a O2 Difference mm/Hg Respiratory Index Hgb O2 Saturation (95.0-98.0) % Sodium 139 (132-148) mmol/l Chloride 101 (98-107) mmol/L Glucose (75-110) mg/dl Lactate (0.7-2.1) mmol/L Vent Mode FiO2 % Inspiratory BiPAP Expiratory BiPAP Crit Value Called To Crit Value Called By Crit Value Read Back Blood Gas Notified Time Potassium 4.2 (3.6-5.2) mmol/L Carbon Dioxide 36 H (22-30) mmol/L Anion Gap 6 L (10-20) BUN 23 H (9-20) mg/dL Creatinine 0.8 (0.8-1.5) mg/dL Est GFR ( Amer) > 60 Est GFR (Non-Af Amer) > 60 POC Glucose (mg/dL) (65-110) mg/dL Random Glucose 88 D (75-110) mg/dL Hemoglobin A1c (4.2-6.5) % Lactic Acid (0.7-2.1) mmol/L Calcium 7.3 L (8.6-10.4) mg/dl Phosphorus 3.4 (2.5-4.5) mg/dL Magnesium 1.8 (1.6-2.3) mg/dL Total Bilirubin 0.5 (0.2-1.3) mg/dL AST 640 H D (17-59) U/L ALT 490 H D (21-72) U/L Alkaline Phosphatase 104 (38-126) U/L Ammonia 11 D (9-33) umol/L Total Creatine Kinase 5952 H (55-170) U/L CK-MB (Mass) 72.0 H (0.0-3.38) ng/mL Troponin I 3.8800 H* (0.00-0.120) ng/mL Total Protein 5.6 L (6.3-8.3) g/dL Albumin 3.1 L (3.5-5.0) g/dL Globulin 2.6 (2.2-3.9) gm/dL Albumin/Globulin Ratio 1.2 (1.0-2.1) Arterial Blood Potassium (3.6-5.2) mmol/L Random Vancomycin < 5.0 ug/mL Influenza Typ A,B (EIA) (NEGATIVE) Mycoplasma pneumon IgM 12/20/18 12/19/18 12/19/18 Range/Units 04:35 21:07 19:41 WBC (4.8-10.8) K/uL RBC (4.40-5.90) Mil/uL Hgb (12.0-18.0) g/dL Hct (35.0-51.0) % MCV (80.0-94.0) fL MCH (27.0-31.0) pg MCHC (33.0-37.0) g/dL RDW (11.5-14.5) % Plt Count (130-400) K/uL MPV (7.2-11.7) fL Neut % (Auto) (50.0-75.0) % Lymph % (Auto) (20.0-40.0) % [place] % (Auto) (0.0-10.0) % Eos % (Auto) (0.0-4.0) % Baso % (Auto) (0.0-2.0) % Neut # (Auto) (1.8-7.0) K/uL Lymph # (Auto) (1.0-4.3) K/uL [place] # (Auto) (0.0-0.8) K/uL Eos # (Auto) (0.0-0.7) K/uL Baso # (Auto) (0.0-0.2) K/uL Neutrophils % (Manual) (50-75) % Band Neutrophils % (0-2) % Lymphocytes % (Manual) (20-40) % Monocytes % (Manual) (0-10) % Platelet Estimate (NORMAL) Polychromasia Anisocytosis (manual) Macrocytosis (manual) APTT (21-34) SECONDS Puncture Site Rr pCO2 65 H (35-45) mm/Hg pO2 90 (80-100) mm/Hg HCO3 26.9 (21-28) mmol/L ABG pH 7.29 L (7.35-7.45) ABG Total CO2 33.3 H (22-28) mmol/L ABG O2 Saturation 98.4 H (95-98) % ABG Base Excess 2.6 (-2.0-3.0) mmol/L ABG Hemoglobin 14.8 (11.7-17.4) g/dL ABG Carboxyhemoglobin 2.5 H (0.5-1.5) % POC ABG HHb (Measured) 1.5 (0.0-5.0) % ABG Methemoglobin 1.0 (0.0-3.0) % Jorge Test Pos ABG Potassium (3.6-5.2) mmol/L A-a O2 Difference 114.0 mm/Hg Respiratory Index 1.3 Hgb O2 Saturation 95.1 (95.0-98.0) % Sodium (132-148) mmol/l Chloride (98-107) mmol/L Glucose (75-110) mg/dl Lactate (0.7-2.1) mmol/L Vent Mode Bipap FiO2 40.0 % Inspiratory BiPAP 20 Expiratory BiPAP 8 Crit Value Called To Crit Value Called By Crit Value Read Back Blood Gas Notified Time Potassium (3.6-5.2) mmol/L Carbon Dioxide (22-30) mmol/L Anion Gap (10-20) BUN (9-20) mg/dL Creatinine (0.8-1.5) mg/dL Est GFR ( Amer) Est GFR (Non-Af Amer) POC Glucose (mg/dL) 93 (65-110) mg/dL Random Glucose (75-110) mg/dL Hemoglobin A1c (4.2-6.5) % Lactic Acid (0.7-2.1) mmol/L Calcium (8.6-10.4) mg/dl Phosphorus (2.5-4.5) mg/dL Magnesium (1.6-2.3) mg/dL Total Bilirubin (0.2-1.3) mg/dL AST (17-59) U/L ALT (21-72) U/L Alkaline Phosphatase (38-126) U/L Ammonia (9-33) umol/L Total Creatine Kinase 6343 H (55-170) U/L CK-MB (Mass) 67.9 H (0.0-3.38) ng/mL Troponin I 4.6200 H* (0.00-0.120) ng/mL Total Protein (6.3-8.3) g/dL Albumin (3.5-5.0) g/dL Globulin (2.2-3.9) gm/dL Albumin/Globulin Ratio (1.0-2.1) Arterial Blood Potassium (3.6-5.2) mmol/L Random Vancomycin ug/mL Influenza Typ A,B (EIA) (NEGATIVE) Mycoplasma pneumon IgM 12/19/18 12/19/18 12/19/18 Range/Units 19:41 16:31 15:53 WBC (4.8-10.8) K/uL RBC (4.40-5.90) Mil/uL Hgb (12.0-18.0) g/dL Hct (35.0-51.0) % MCV (80.0-94.0) fL MCH (27.0-31.0) pg MCHC (33.0-37.0) g/dL RDW (11.5-14.5) % Plt Count (130-400) K/uL MPV (7.2-11.7) fL Neut % (Auto) (50.0-75.0) % Lymph % (Auto) (20.0-40.0) % [place] % (Auto) (0.0-10.0) % Eos % (Auto) (0.0-4.0) % Baso % (Auto) (0.0-2.0) % Neut # (Auto) (1.8-7.0) K/uL Lymph # (Auto) (1.0-4.3) K/uL [place] # (Auto) (0.0-0.8) K/uL Eos # (Auto) (0.0-0.7) K/uL Baso # (Auto) (0.0-0.2) K/uL Neutrophils % (Manual) (50-75) % Band Neutrophils % (0-2) % Lymphocytes % (Manual) (20-40) % Monocytes % (Manual) (0-10) % Platelet Estimate (NORMAL) Polychromasia Anisocytosis (manual) Macrocytosis (manual) APTT (21-34) SECONDS Puncture Site Rr pCO2 58 H (35-45) mm/Hg pO2 40 L* (80-100) mm/Hg HCO3 21.9 (21-28) mmol/L ABG pH 7.25 L (7.35-7.45) ABG Total CO2 27.2 (22-28) mmol/L ABG O2 Saturation 79.2 L (95-98) % ABG Base Excess -2.8 L (-2.0-3.0) mmol/L ABG Hemoglobin (11.7-17.4) g/dL ABG Carboxyhemoglobin (0.5-1.5) % POC ABG HHb (Measured) (0.0-5.0) % ABG Methemoglobin (0.0-3.0) % Jorge Test Pos ABG Potassium 4.7 (3.6-5.2) mmol/L A-a O2 Difference 101.0 mm/Hg Respiratory Index 2.5 Hgb O2 Saturation (95.0-98.0) % Sodium 137.0 (132-148) mmol/l Chloride 106.0 (98-107) mmol/L Glucose 176 H (75-110) mg/dl Lactate 2.8 H (0.7-2.1) mmol/L Vent Mode FiO2 30.0 % Inspiratory BiPAP 20 Expiratory BiPAP 8 Crit Value Called To dee Bravo Crit Value Called By Imani robins Crit Value Read Back Y Blood Gas Notified Time 1643 Potassium (3.6-5.2) mmol/L Carbon Dioxide (22-30) mmol/L Anion Gap (10-20) BUN (9-20) mg/dL Creatinine (0.8-1.5) mg/dL Est GFR ( Amer) Est GFR (Non-Af Amer) POC Glucose (mg/dL) (65-110) mg/dL Random Glucose (75-110) mg/dL Hemoglobin A1c (4.2-6.5) % Lactic Acid 1.8 (0.7-2.1) mmol/L Calcium (8.6-10.4) mg/dl Phosphorus (2.5-4.5) mg/dL Magnesium (1.6-2.3) mg/dL Total Bilirubin (0.2-1.3) mg/dL AST (17-59) U/L ALT (21-72) U/L Alkaline Phosphatase (38-126) U/L Ammonia (9-33) umol/L Total Creatine Kinase (55-170) U/L CK-MB (Mass) (0.0-3.38) ng/mL Troponin I (0.00-0.120) ng/mL Total Protein (6.3-8.3) g/dL Albumin (3.5-5.0) g/dL Globulin (2.2-3.9) gm/dL Albumin/Globulin Ratio (1.0-2.1) Arterial Blood Potassium 4.7 (3.6-5.2) mmol/L Random Vancomycin ug/mL Influenza Typ A,B (EIA) Negative for flu a/b (NEGATIVE) Mycoplasma pneumon IgM Cancelled 12/19/18 12/19/18 12/19/18 Range/Units 14:31 13:01 12:07 WBC (4.8-10.8) K/uL RBC (4.40-5.90) Mil/uL Hgb (12.0-18.0) g/dL Hct (35.0-51.0) % MCV (80.0-94.0) fL MCH (27.0-31.0) pg MCHC (33.0-37.0) g/dL RDW (11.5-14.5) % Plt Count (130-400) K/uL MPV (7.2-11.7) fL Neut % (Auto) (50.0-75.0) % Lymph % (Auto) (20.0-40.0) % [place] % (Auto) (0.0-10.0) % Eos % (Auto) (0.0-4.0) % Baso % (Auto) (0.0-2.0) % Neut # (Auto) (1.8-7.0) K/uL Lymph # (Auto) (1.0-4.3) K/uL [place] # (Auto) (0.0-0.8) K/uL Eos # (Auto) (0.0-0.7) K/uL Baso # (Auto) (0.0-0.2) K/uL Neutrophils % (Manual) 71 (50-75) % Band Neutrophils % 17 H* (0-2) % Lymphocytes % (Manual) 6 L (20-40) % Monocytes % (Manual) 6 (0-10) % Platelet Estimate Decreased L (NORMAL) Polychromasia Slight Anisocytosis (manual) Slight Macrocytosis (manual) Slight APTT (21-34) SECONDS Puncture Site Rr Rr pCO2 61 H 69 H (35-45) mm/Hg pO2 52 L 405 H (80-100) mm/Hg HCO3 19.8 L 20.8 L (21-28) mmol/L ABG pH 7.19 L* 7.16 L* (7.35-7.45) ABG Total CO2 25.2 26.7 (22-28) mmol/L ABG O2 Saturation 89.6 L 100.2 H (95-98) % ABG Base Excess -5.8 L -5.4 L (-2.0-3.0) mmol/L ABG Hemoglobin (11.7-17.4) g/dL ABG Carboxyhemoglobin (0.5-1.5) % POC ABG HHb (Measured) (0.0-5.0) % ABG Methemoglobin (0.0-3.0) % Jorge Test Pos Pos ABG Potassium 4.4 4.7 (3.6-5.2) mmol/L A-a O2 Difference 86.0 222.0 mm/Hg Respiratory Index 1.7 0.5 Hgb O2 Saturation (95.0-98.0) % Sodium 137.0 137.0 (132-148) mmol/l Chloride 105.0 103.0 (98-107) mmol/L Glucose 229 H 236 H (75-110) mg/dl Lactate 4.5 H* 7.2 H* (0.7-2.1) mmol/L Vent Mode FiO2 30.0 100.0 % Inspiratory BiPAP 16 16 Expiratory BiPAP 8 8 Crit Value Called To dee Bravo Rn, hart Crit Value Called By Imani robins Crit Value Read Back Y Y Blood Gas Notified Time 1435 1304 Potassium (3.6-5.2) mmol/L Carbon Dioxide (22-30) mmol/L Anion Gap (10-20) BUN (9-20) mg/dL Creatinine (0.8-1.5) mg/dL Est GFR ( Amer) Est GFR (Non-Af Amer) POC Glucose (mg/dL) (65-110) mg/dL Random Glucose (75-110) mg/dL Hemoglobin A1c (4.2-6.5) % Lactic Acid (0.7-2.1) mmol/L Calcium (8.6-10.4) mg/dl Phosphorus (2.5-4.5) mg/dL Magnesium (1.6-2.3) mg/dL Total Bilirubin (0.2-1.3) mg/dL AST (17-59) U/L ALT (21-72) U/L Alkaline Phosphatase (38-126) U/L Ammonia (9-33) umol/L Total Creatine Kinase (55-170) U/L CK-MB (Mass) (0.0-3.38) ng/mL Troponin I (0.00-0.120) ng/mL Total Protein (6.3-8.3) g/dL Albumin (3.5-5.0) g/dL Globulin (2.2-3.9) gm/dL Albumin/Globulin Ratio (1.0-2.1) Arterial Blood Potassium 4.4 4.7 (3.6-5.2) mmol/L Random Vancomycin ug/mL Influenza Typ A,B (EIA) (NEGATIVE) Mycoplasma pneumon IgM 12/19/18 Range/Units 12:02 WBC (4.8-10.8) K/uL RBC (4.40-5.90) Mil/uL Hgb (12.0-18.0) g/dL Hct (35.0-51.0) % MCV (80.0-94.0) fL MCH (27.0-31.0) pg MCHC (33.0-37.0) g/dL RDW (11.5-14.5) % Plt Count (130-400) K/uL MPV (7.2-11.7) fL Neut % (Auto) (50.0-75.0) % Lymph % (Auto) (20.0-40.0) % [place] % (Auto) (0.0-10.0) % Eos % (Auto) (0.0-4.0) % Baso % (Auto) (0.0-2.0) % Neut # (Auto) (1.8-7.0) K/uL Lymph # (Auto) (1.0-4.3) K/uL [place] # (Auto) (0.0-0.8) K/uL Eos # (Auto) (0.0-0.7) K/uL Baso # (Auto) (0.0-0.2) K/uL Neutrophils % (Manual) (50-75) % Band Neutrophils % (0-2) % Lymphocytes % (Manual) (20-40) % Monocytes % (Manual) (0-10) % Platelet Estimate (NORMAL) Polychromasia Anisocytosis (manual) Macrocytosis (manual) APTT (21-34) SECONDS Puncture Site pCO2 (35-45) mm/Hg pO2 (80-100) mm/Hg HCO3 (21-28) mmol/L ABG pH (7.35-7.45) ABG Total CO2 (22-28) mmol/L ABG O2 Saturation (95-98) % ABG Base Excess (-2.0-3.0) mmol/L ABG Hemoglobin (11.7-17.4) g/dL ABG Carboxyhemoglobin (0.5-1.5) % POC ABG HHb (Measured) (0.0-5.0) % ABG Methemoglobin (0.0-3.0) % Jorge Test ABG Potassium (3.6-5.2) mmol/L A-a O2 Difference mm/Hg Respiratory Index Hgb O2 Saturation (95.0-98.0) % Sodium (132-148) mmol/l Chloride (98-107) mmol/L Glucose (75-110) mg/dl Lactate (0.7-2.1) mmol/L Vent Mode FiO2 % Inspiratory BiPAP Expiratory BiPAP Crit Value Called To Crit Value Called By Crit Value Read Back Blood Gas Notified Time Potassium (3.6-5.2) mmol/L Carbon Dioxide (22-30) mmol/L Anion Gap (10-20) BUN (9-20) mg/dL Creatinine (0.8-1.5) mg/dL Est GFR ( Amer) Est GFR (Non-Af Amer) POC Glucose (mg/dL) (65-110) mg/dL Random Glucose (75-110) mg/dL Hemoglobin A1c (4.2-6.5) % Lactic Acid (0.7-2.1) mmol/L Calcium (8.6-10.4) mg/dl Phosphorus (2.5-4.5) mg/dL Magnesium (1.6-2.3) mg/dL Total Bilirubin (0.2-1.3) mg/dL AST (17-59) U/L ALT (21-72) U/L Alkaline Phosphatase (38-126) U/L Ammonia 259 H D (9-33) umol/L Total Creatine Kinase (55-170) U/L CK-MB (Mass) (0.0-3.38) ng/mL Troponin I (0.00-0.120) ng/mL Total Protein (6.3-8.3) g/dL Albumin (3.5-5.0) g/dL Globulin (2.2-3.9) gm/dL Albumin/Globulin Ratio (1.0-2.1) Arterial Blood Potassium (3.6-5.2) mmol/L Random Vancomycin ug/mL Influenza Typ A,B (EIA) (NEGATIVE) Mycoplasma pneumon IgM Laboratory Results - last 24 hr 12/19/18 12/19/18 12/19/18 12:02 12:07 13:01 WBC RBC Hgb Hct MCV MCH MCHC RDW Plt Count MPV Neut % (Auto) Lymph % (Auto) [place] % (Auto) Eos % (Auto) Baso % (Auto) Neut # (Auto) Lymph # (Auto) [place] # (Auto) Eos # (Auto) Baso # (Auto) Neutrophils % (Manual) 71 Band Neutrophils % 17 H* Lymphocytes % (Manual) 6 L Monocytes % (Manual) 6 Platelet Estimate Decreased L Polychromasia Slight Anisocytosis (manual) Slight Macrocytosis (manual) Slight APTT Puncture Site Rr pCO2 69 H pO2 405 H HCO3 20.8 L ABG pH 7.16 L* ABG Total CO2 26.7 ABG O2 Saturation 100.2 H ABG Base Excess -5.4 L ABG Hemoglobin ABG Carboxyhemoglobin POC ABG HHb (Measured) ABG Methemoglobin Jorge Test Pos ABG Potassium 4.7 A-a O2 Difference 222.0 Respiratory Index 0.5 Hgb O2 Saturation Sodium 137.0 Chloride 103.0 Glucose 236 H Lactate 7.2 H* Vent Mode FiO2 100.0 Inspiratory BiPAP 16 Expiratory BiPAP 8 Crit Value Called To dee Bravo Crit Value Called By Imani robins Crit Value Read Back Y Blood Gas Notified Time 1304 Potassium Carbon Dioxide Anion Gap BUN Creatinine Est GFR ( Amer) Est GFR (Non-Af Amer) POC Glucose (mg/dL) Random Glucose Hemoglobin A1c Lactic Acid Calcium Phosphorus Magnesium Total Bilirubin AST ALT Alkaline Phosphatase Ammonia 259 H D Total Creatine Kinase CK-MB (Mass) Troponin I Total Protein Albumin Globulin Albumin/Globulin Ratio Arterial Blood Potassium 4.7 Random Vancomycin Influenza Typ A,B (EIA) Mycoplasma pneumon IgM 12/19/18 12/19/18 12/19/18 14:31 15:53 16:31 WBC RBC Hgb Hct MCV MCH MCHC RDW Plt Count MPV Neut % (Auto) Lymph % (Auto) [place] % (Auto) Eos % (Auto) Baso % (Auto) Neut # (Auto) Lymph # (Auto) [place] # (Auto) Eos # (Auto) Baso # (Auto) Neutrophils % (Manual) Band Neutrophils % Lymphocytes % (Manual) Monocytes % (Manual) Platelet Estimate Polychromasia Anisocytosis (manual) Macrocytosis (manual) APTT Puncture Site Rr Rr pCO2 61 H 58 H pO2 52 L 40 L* HCO3 19.8 L 21.9 ABG pH 7.19 L* 7.25 L ABG Total CO2 25.2 27.2 ABG O2 Saturation 89.6 L 79.2 L ABG Base Excess -5.8 L -2.8 L ABG Hemoglobin ABG Carboxyhemoglobin POC ABG HHb (Measured) ABG Methemoglobin Jorge Test Pos Pos ABG Potassium 4.4 4.7 A-a O2 Difference 86.0 101.0 Respiratory Index 1.7 2.5 Hgb O2 Saturation Sodium 137.0 137.0 Chloride 105.0 106.0 Glucose 229 H 176 H Lactate 4.5 H* 2.8 H Vent Mode FiO2 30.0 30.0 Inspiratory BiPAP 16 20 Expiratory BiPAP 8 8 Crit Value Called To dee Bravo Rn, hart Crit Value Called By Imani robins Crit Value Read Back Y Y Blood Gas Notified Time 1435 1643 Potassium Carbon Dioxide Anion Gap BUN Creatinine Est GFR ( Amer) Est GFR (Non-Af Amer) POC Glucose (mg/dL) Random Glucose Hemoglobin A1c Lactic Acid Calcium Phosphorus Magnesium Total Bilirubin AST ALT Alkaline Phosphatase Ammonia Total Creatine Kinase CK-MB (Mass) Troponin I Total Protein Albumin Globulin Albumin/Globulin Ratio Arterial Blood Potassium 4.4 4.7 Random Vancomycin Influenza Typ A,B (EIA) Negative for flu a/b Mycoplasma pneumon IgM Cancelled 12/19/18 12/19/18 12/19/18 19:41 19:41 21:07 WBC RBC Hgb Hct MCV MCH MCHC RDW Plt Count MPV Neut % (Auto) Lymph % (Auto) [place] % (Auto) Eos % (Auto) Baso % (Auto) Neut # (Auto) Lymph # (Auto) [place] # (Auto) Eos # (Auto) Baso # (Auto) Neutrophils % (Manual) Band Neutrophils % Lymphocytes % (Manual) Monocytes % (Manual) Platelet Estimate Polychromasia Anisocytosis (manual) Macrocytosis (manual) APTT Puncture Site pCO2 pO2 HCO3 ABG pH ABG Total CO2 ABG O2 Saturation ABG Base Excess ABG Hemoglobin ABG Carboxyhemoglobin POC ABG HHb (Measured) ABG Methemoglobin Jorge Test ABG Potassium A-a O2 Difference Respiratory Index Hgb O2 Saturation Sodium Chloride Glucose Lactate Vent Mode FiO2 Inspiratory BiPAP Expiratory BiPAP Crit Value Called To Crit Value Called By Kristin Value Read Back Blood Gas Notified Time Potassium Carbon Dioxide Anion Gap BUN Creatinine Est GFR ( Amer) Est GFR (Non-Af Amer) POC Glucose (mg/dL) 93 Random Glucose Hemoglobin A1c Lactic Acid 1.8 Calcium Phosphorus Magnesium Total Bilirubin AST ALT Alkaline Phosphatase Ammonia Total Creatine Kinase 6343 H CK-MB (Mass) 67.9 H Troponin I 4.6200 H* Total Protein Albumin Globulin Albumin/Globulin Ratio Arterial Blood Potassium Random Vancomycin Influenza Typ A,B (EIA) Mycoplasma pneumon IgM 12/20/18 12/20/18 12/20/18 04:35 06:05 06:05 WBC RBC Hgb Hct MCV MCH MCHC RDW Plt Count MPV Neut % (Auto) Lymph % (Auto) [place] % (Auto) Eos % (Auto) Baso % (Auto) Neut # (Auto) Lymph # (Auto) [place] # (Auto) Eos # (Auto) Baso # (Auto) Neutrophils % (Manual) Band Neutrophils % Lymphocytes % (Manual) Monocytes % (Manual) Platelet Estimate Polychromasia Anisocytosis (manual) Macrocytosis (manual) APTT Puncture Site Rr pCO2 65 H pO2 90 HCO3 26.9 ABG pH 7.29 L ABG Total CO2 33.3 H ABG O2 Saturation 98.4 H ABG Base Excess 2.6 ABG Hemoglobin 14.8 ABG Carboxyhemoglobin 2.5 H POC ABG HHb (Measured) 1.5 ABG Methemoglobin 1.0 Jorge Test Pos ABG Potassium A-a O2 Difference 114.0 Respiratory Index 1.3 Hgb O2 Saturation 95.1 Sodium 139 Chloride 101 Glucose Lactate Vent Mode Bipap FiO2 40.0 Inspiratory BiPAP 20 Expiratory BiPAP 8 Crit Value Called To Crit Value Called By Crit Value Read Back Blood Gas Notified Time Potassium 4.2 Carbon Dioxide 36 H Anion Gap 6 L BUN 23 H Creatinine 0.8 Est GFR ( Amer) > 60 Est GFR (Non-Af Amer) > 60 POC Glucose (mg/dL) Random Glucose 88 D Hemoglobin A1c Lactic Acid Calcium 7.3 L Phosphorus 3.4 Magnesium 1.8 Total Bilirubin 0.5 AST 640 H D ALT 490 H D Alkaline Phosphatase 104 Ammonia 11 D Total Creatine Kinase 5952 H CK-MB (Mass) 72.0 H Troponin I 3.8800 H* Total Protein 5.6 L Albumin 3.1 L Globulin 2.6 Albumin/Globulin Ratio 1.2 Arterial Blood Potassium Random Vancomycin Influenza Typ A,B (EIA) Mycoplasma pneumon IgM 12/20/18 12/20/18 12/20/18 06:05 06:07 06:07 WBC 8.9 RBC 4.80 Hgb 15.3 Hct 47.0 MCV 97.8 H D MCH 31.8 H MCHC 32.5 L RDW 15.0 H Plt Count 102 L MPV 9.3 Neut % (Auto) 82.2 H Lymph % (Auto) 12.4 L [place] % (Auto) 4.9 Eos % (Auto) 0.2 Baso % (Auto) 0.3 Neut # (Auto) 7.3 H Lymph # (Auto) 1.1 [place] # (Auto) 0.4 Eos # (Auto) 0.0 Baso # (Auto) 0.0 Neutrophils % (Manual) Band Neutrophils % Lymphocytes % (Manual) Monocytes % (Manual) Platelet Estimate Polychromasia Anisocytosis (manual) Macrocytosis (manual) APTT Puncture Site pCO2 pO2 HCO3 ABG pH ABG Total CO2 ABG O2 Saturation ABG Base Excess ABG Hemoglobin ABG Carboxyhemoglobin POC ABG HHb (Measured) ABG Methemoglobin Jorge Test ABG Potassium A-a O2 Difference Respiratory Index Hgb O2 Saturation Sodium Chloride Glucose Lactate Vent Mode FiO2 Inspiratory BiPAP Expiratory BiPAP Crit Value Called To Crit Value Called By Crit Value Read Back Blood Gas Notified Time Potassium Carbon Dioxide Anion Gap BUN Creatinine Est GFR ( Amer) Est GFR (Non-Af Amer) POC Glucose (mg/dL) Random Glucose Hemoglobin A1c 5.7 Lactic Acid Calcium Phosphorus Magnesium Total Bilirubin AST ALT Alkaline Phosphatase Ammonia Total Creatine Kinase CK-MB (Mass) Troponin I Total Protein Albumin Globulin Albumin/Globulin Ratio Arterial Blood Potassium Random Vancomycin < 5.0 Influenza Typ A,B (EIA) Mycoplasma pneumon IgM 12/20/18 12/20/18 12/20/18 06:07 07:23 10:41 WBC RBC Hgb Hct MCV MCH MCHC RDW Plt Count MPV Neut % (Auto) Lymph % (Auto) [place] % (Auto) Eos % (Auto) Baso % (Auto) Neut # (Auto) Lymph # (Auto) [place] # (Auto) Eos # (Auto) Baso # (Auto) Neutrophils % (Manual) Band Neutrophils % Lymphocytes % (Manual) Monocytes % (Manual) Platelet Estimate Polychromasia Anisocytosis (manual) Macrocytosis (manual) APTT 78 H D 92 H D Puncture Site pCO2 pO2 HCO3 ABG pH ABG Total CO2 ABG O2 Saturation ABG Base Excess ABG Hemoglobin ABG Carboxyhemoglobin POC ABG HHb (Measured) ABG Methemoglobin Jorge Test ABG Potassium A-a O2 Difference Respiratory Index Hgb O2 Saturation Sodium Chloride Glucose Lactate Vent Mode FiO2 Inspiratory BiPAP Expiratory BiPAP Crit Value Called To Crit Value Called By Crit Value Read Back Blood Gas Notified Time Potassium Carbon Dioxide Anion Gap BUN Creatinine Est GFR ( Amer) Est GFR (Non-Af Amer) POC Glucose (mg/dL) 90 Random Glucose Hemoglobin A1c Lactic Acid Calcium Phosphorus Magnesium Total Bilirubin AST ALT Alkaline Phosphatase Ammonia Total Creatine Kinase CK-MB (Mass) Troponin I Total Protein Albumin Globulin Albumin/Globulin Ratio Arterial Blood Potassium Random Vancomycin Influenza Typ A,B (EIA) Mycoplasma pneumon IgM 12/20/18 11:11 WBC RBC Hgb Hct MCV MCH MCHC RDW Plt Count MPV Neut % (Auto) Lymph % (Auto) [place] % (Auto) Eos % (Auto) Baso % (Auto) Neut # (Auto) Lymph # (Auto) [place] # (Auto) Eos # (Auto) Baso # (Auto) Neutrophils % (Manual) Band Neutrophils % Lymphocytes % (Manual) Monocytes % (Manual) Platelet Estimate Polychromasia Anisocytosis (manual) Macrocytosis (manual) APTT Puncture Site pCO2 pO2 HCO3 ABG pH ABG Total CO2 ABG O2 Saturation ABG Base Excess ABG Hemoglobin ABG Carboxyhemoglobin POC ABG HHb (Measured) ABG Methemoglobin Jorge Test ABG Potassium A-a O2 Difference Respiratory Index Hgb O2 Saturation Sodium Chloride Glucose Lactate Vent Mode FiO2 Inspiratory BiPAP Expiratory BiPAP Crit Value Called To Crit Value Called By Crit Value Read Back Blood Gas Notified Time Potassium Carbon Dioxide Anion Gap BUN Creatinine Est GFR ( Amer) Est GFR (Non-Af Amer) POC Glucose (mg/dL) 122 H Random Glucose Hemoglobin A1c Lactic Acid Calcium Phosphorus Magnesium Total Bilirubin AST ALT Alkaline Phosphatase Ammonia Total Creatine Kinase CK-MB (Mass) Troponin I Total Protein Albumin Globulin Albumin/Globulin Ratio Arterial Blood Potassium Random Vancomycin Influenza Typ A,B (EIA) Mycoplasma pneumon IgM Radiology Impressions: Radiology Impressions Chest X-Ray 12/19/18 10:46 Impression: Mild venous congestion. Right hilar prominence. Cardiomegaly. Biapical pleural thickening with upper lobe granulomatous changes. Small nodular density at the left lung apex. Head CT 12/19/18 10:46 IMPRESSION: No acute intracranial abnormality. Chronic microvascular ischemic change. If symptoms persists, consider correlation with MRI. A preliminary report was generated at 6:24 p.m. on 12/19/[address] Kristofer Cordova from [facility]. EKG/Cardiology Studies: Cardiology / EKG Studies 12/19/18 12:30 ELECTROCARDIOGRAM Stat Comment: Mode Of Transportation: Reason For Exam: Sepsis Patient 12/19/18 12:46 ELECTROCARDIOGRAM Stat Comment: Mode Of Transportation: Reason For Exam: Sepsis Patient 12/19/18 21:02 EKG [ELECTROCARDIOGRAM] Stat Comment: Mode Of Transportation: Reason For Exam: elev trop 12/20/18 08:00 EKG [ELECTROCARDIOGRAM] DAILY Comment: Mode Of Transportation: Reason For Exam: elev trop 12/21/18 08:00 EKG [ELECTROCARDIOGRAM] DAILY Comment: Mode Of Transportation: Reason For Exam: elev trop 12/22/18 08:00 EKG [ELECTROCARDIOGRAM] DAILY Comment: Mode Of Transportation: Reason For Exam: elev trop Fingerstick Blood Sugar Results: 122 Critical Care Progress Note - Nutrition Nutrition: Nutrition Category Date Time Status Heart Healthy Diet [DIET] Diets 12/20/18 Breakfast Active Assessment/Plan - Assessment and Plan (Free Text) Plan: 63yo M. PMHx HTN, COPD, HIV (noncompliant), HCV (untreated), polysubstance use disorder (alcohol, tobacco, methadone, Xanax) came to drug overdose (positive for methadone and benzodiazepine's), acute respiratory failure with hypercarbia, and hyperlacticemia. Neuro More Alert and Oriented x 3 continue Methadone 60 mg PO daily -dose was confirmed with methadone clinic Pulm acute respiratory failure with hypercarbia d/c Bipap continue monitor sat duoneb and breo ellipta CV Hemodynamically stable this morning troponin x 3 positive/ downtrending Heparin drip - D/C as per Dr Allison due to patient bleeding from right femoral line/TLC site - hold TLC removal Heparin SC 5000 Q12H continue plavix, ASA Cardio consult - Dr Allison Heme H/H stable f/u PT/PTT /INR Renal respiratory and metabolic acidosis Endo ISS accuchecks ACHS hypoglycemia protocol GI resume diet, HHD ID WBC downtrending, no bands D/C Vanco and Zosyn continue ceftriaxone Dr Huynh - follow up recs blood and urine cx no growth 24 hours DVT proph - heparin SC, SCDs GI proph - protonix encarnacion for strict I/O's during acute illness Plan discussed with Dr Tono Kelly, PGY-1 - Date & Time Date: 12/20/18 Time: 09:00
--- NOTE | 2018-12-20 13:22 | CP.PCM.PN ---
Subjective - Date & Time of Evaluation Date of Evaluation: 12/20/18 Time of Evaluation: 13:22 - Subjective Subjective: sitting on bed and eating lunch denies pain,He state that he is going to stay this time. He is not leaving AMA risking his life No sob,no cough,no nausea,no vomiting,no diarrhea Objective - Vital Signs/Intake and Output Vital Signs (last 24 hours): Temp Pulse Resp BP Pulse Ox 97.0 F L 85 14 123/77 94 L 12/20/18 07:48 12/20/18 12:00 12/20/18 12:00 12/20/18 12:00 12/20/18 12:00 Intake and Output: 12/20/18 12/20/18 06:59 18:59 Intake Total 2359.0 1305.1 Output Total 1250 300 Balance 1109.0 1005.1 - Medications Medications: Current Medications Albuterol/Ipratropium (Duoneb 3 Mg/0.5 Mg (3 Ml) Ud) 3 ml INH RQ4 [facility] Last Admin: 12/20/18 11:05 Dose: 3 ml Aspirin (Aspirin Chewable) 81 mg PO DAILY [facility] Last Admin: 12/20/18 09:20 Dose: 81 mg Clopidogrel Bisulfate (Plavix) 75 mg PO DAILY [facility] Last Admin: 12/20/18 09:21 Dose: 75 mg Dextrose (Dextrose 50% Inj) 0 ml IV STAT PRN; Protocol PRN Reason: Hypoglycemia Protocol Dextrose (Glutose 15) 0 gm PO ONCE PRN; Protocol PRN Reason: Hypoglycemia Protocol Fluticasone/Vilanterol (Breo Ellipta 100-25 Mcg Inh) 1 puff INH RQD [facility] Last Admin: 12/20/18 09:27 Dose: 1 puff Glucagon (Glucagen Diagnostic Kit) 0 mg IM STAT PRN; Protocol PRN Reason: Hypoglycemia Protocol Ceftriaxone Sodium 1 gm/ (Sodium Chloride) 100 mls @ 100 mls/hr IVPB Q12H [facility]; Protocol Last Admin: 12/20/18 04:00 Dose: 100 mls/hr Dextrose (Dextrose 5% In Water 1000 Ml) 1,000 mls @ 0 mls/hr IV .Q0M PRN; Protocol PRN Reason: Hypoglycemia Protocol Heparin Sodium/Sodium Chloride (Heparin 77432 Units/250ml 1/2 Normal Saline) 2 5,000 units in 250 mls @ 9.336 mls/hr IV .Q24H PRN; Protocol PRN Reason: PROTOCOL Last Admin: 12/19/18 21:30 Dose: 12 units/kg/hr, 9.336 mls/hr Lactated Ringer's (Lactated Ringer's) 1,000 mls @ 150 mls/hr IV .Q6H40M [facility] Last Admin: 12/20/18 11:37 Dose: Not Given Insulin Human Regular (Novolin R) 0 unit SC ACHS [facility]; Protocol Last Admin: 12/20/18 11:36 Dose: Not Given Lactobacillus Acidophilus (Bacid Acidophilus) 1 cap PO BID [facility] Last Admin: 12/20/18 09:21 Dose: 1 cap Methadone HCl (Methadose) 40 mg PO DAILY [facility] Last Admin: 12/20/18 10:51 Dose: 40 mg Methadone HCl (Methadone) 5 mg PO DAILY [facility] Last Admin: 12/20/18 10:51 Dose: 5 mg Methadone HCl (Methadone) 20 mg PO DAILY [facility] Last Admin: 12/20/18 10:51 Dose: 20 mg Nicotine (Nicoderm Cq) 1 patch TD DAILY [facility] Last Admin: 12/20/18 09:21 Dose: 1 patch Pantoprazole Sodium (Protonix Ec Tab) 40 mg PO DAILY [facility] Last Admin: 12/20/18 09:21 Dose: 40 mg - Labs Labs: 12/20/18 06:07 12/20/18 06:05 PT 16.7 SECONDS (9.7-12.2) H 12/19/18 12:02 INR 1.5 12/19/18 12:02 APTT 92 SECONDS (21-34) H D 12/20/18 10:41 - Constitutional Appears: No Acute Distress - Head Exam Head Exam: NORMAL INSPECTION - Eye Exam Eye Exam: Normal appearance - ENT Exam ENT Exam: Mucous Membranes Moist - Neck Exam Neck Exam: Full ROM - Respiratory Exam Respiratory Exam: Clear to Ausculation Bilateral, NORMAL BREATHING PATTERN - Cardiovascular Exam Cardiovascular Exam: REGULAR RHYTHM - GI/Abdominal Exam GI & Abdominal Exam: Soft, Normal Bowel Sounds - Extremities Exam Extremities Exam: Full ROM - Neurological Exam Neurological Exam: Awake, Oriented x3 - Psychiatric Exam Psychiatric exam: Normal Mood - Skin Skin Exam: Dry Assessment and Plan - Assessment and Plan (Free Text) Assessment: Patient is a 63 yo male with a history of HIV (noncompliance), HCV (treated per patient), COPD (untreated), and polysubstance use (methadone clinic) who presented after being found altered by his . His glucose was 20 on the field and he was given D50. He was also given Narcan on the field and ED. Patient found to be hypotensive and did not respond to fluids. Therefore, and IO and eventually a central line were inserted, and he was started on a pressor. Admitted to ICU. Patient was admitted 12/09-12/12 for a similar situation and left AMA. Plan: s/p Hypotension and shock and Respiratory acidosis- underlying untreated COPD likely 2/2 aspiration pneumonia and Code sepsis His Lactate 13.7-->1.8 Blood no growth for 24 hours Rocephin 1 g IV Q12H- started 12/19 ( Flagyl 500 mg IV Q8H- started 12/19 and Vancomycin 1.2 g IV Q24H (renally dosed)- started 12/19) off vanco and flagyl. spoke to Dr Huynh. we will follow with her. off norepinephrine NSTEMI no h/o CAD, suspect demand ischemia (Last admission, plan was to perform cardiac cath when sepsis resoled,patient left AMA). EKG: NSR, no ST changes Echo (12/10/18- see full report): EF 50% Avoid statin due to transaminitis ASA 81 mg PO daily and Plavix 75 mg PO daily Cardiology consulted (Keegan) Will f/u with Dr. Allison concerning further recs Acute kidney failure-resolved likely he was dehydrated Elevated random glucose A1c 5.6 Accuchecks ACHS HIV- patient noncompliant for 20+ years Confirmed with patient's pharmacy [facility] in [place] ([address]) that patient has been filling Complera; patient and report that he does noncompliance,not taking currently - Viral load undetectable, CD4 253 - ID consulted (Amina) Esophageal thickening with prominent lymph nodes CTA chest (last admission): Distal esophageal wall thickening/small hiatal hernia. Numerous subcentimeter peripancreatic/mesenteric and retroperitoneal lymph nodes. f/u pending CT chest/abdomen Consider GI consult when more clinically stable Chronic obstructive pulmonary disease Patient does not take meds at home Duoneb Q4H Breo Ellipta 100/25 mcg 1 puff daily Polysubstance use disorder- methadone, Xanax, tobacco Patient denies any alcohol use UDS positive for benzos and methadone [facility] called and confirmed methadone dose last adm ission Methadone 65 mg PO daily Nicoderm daily Hepatitis C- patient reports treated 10 years ago Transaminitis Ammonia level is down Hep C Ab reactive- f/u GI as outpatient after acute issues have resolved Abdominal US (last admission): Cholelithiasis. Echogenic liver may be seen in setting of hepatic parenchyma disease or fatty infiltration. CTA chest (last admission): Nodular hepatic contour, correlate for cirrhosis. Distended gallbladder with calcifications and or sludge. High-density within the gallbladder possibly related to vicarious excretion of contrast. Subtle mild peripancreatic inflammatory changes; correlate for pancreatitis. Ppx: heparin sq GI: Protonix 40 mg PO daily
--- NOTE | 2018-12-20 21:03 | CP.PCM.PN ---
Subjective - Date & Time of Evaluation Date of Evaluation: 12/20/18 Time of Evaluation: 17:00 - Subjective Subjective: dictated Objective - Vital Signs/Intake and Output Vital Signs (last 24 hours): Temp Pulse Resp BP Pulse Ox 98.2 F 108 H 23 123/79 84 L 12/20/18 16:00 12/20/18 19:00 12/20/18 19:00 12/20/18 19:00 12/20/18 19:00 Intake and Output: 12/20/18 12/21/18 18:59 06:59 Intake Total 2183.0 150 Output Total 600 Balance 1583.0 150 - Medications Medications: Current Medications Albuterol/Ipratropium (Duoneb 3 Mg/0.5 Mg (3 Ml) Ud) 3 ml INH RQ4 [facility] Last Admin: 12/20/18 19:48 Dose: 3 ml Aspirin (Aspirin Chewable) 81 mg PO DAILY [facility] Last Admin: 12/20/18 09:20 Dose: 81 mg Clopidogrel Bisulfate (Plavix) 75 mg PO DAILY [facility] Last Admin: 12/20/18 09:21 Dose: 75 mg Dextrose (Dextrose 50% Inj) 0 ml IV STAT PRN; Protocol PRN Reason: Hypoglycemia Protocol Dextrose (Glutose 15) 0 gm PO ONCE PRN; Protocol PRN Reason: Hypoglycemia Protocol Fluticasone/Vilanterol (Breo Ellipta 100-25 Mcg Inh) 1 puff INH RQD [facility] Last Admin: 12/20/18 09:27 Dose: 1 puff Glucagon (Glucagen Diagnostic Kit) 0 mg IM STAT PRN; Protocol PRN Reason: Hypoglycemia Protocol Heparin Sodium (Porcine) (Heparin) 5,000 units SC Q12 [facility] Ceftriaxone Sodium 1 gm/ (Sodium Chloride) 100 mls @ 100 mls/hr IVPB Q12H [facility]; Protocol Last Admin: 12/20/18 17:23 Dose: 100 mls/hr Dextrose (Dextrose 5% In Water 1000 Ml) 1,000 mls @ 0 mls/hr IV .Q0M PRN; Protocol PRN Reason: Hypoglycemia Protocol Lactated Ringer's (Lactated Ringer's) 1,000 mls @ 150 mls/hr IV .Q6H40M [facility] Last Admin: 12/20/18 17:23 Dose: 150 mls/hr Insulin Human Regular (Novolin R) 0 unit SC ACHS [facility]; Protocol Last Admin: 12/20/18 16:41 Dose: Not Given Lactobacillus Acidophilus (Bacid Acidophilus) 1 cap PO BID [facility] Last Admin: 12/20/18 17:24 Dose: 1 cap Methadone HCl (Methadose) 40 mg PO DAILY [facility] Last Admin: 12/20/18 10:51 Dose: 40 mg Methadone HCl (Methadone) 5 mg PO DAILY [facility] Last Admin: 12/20/18 10:51 Dose: 5 mg Methadone HCl (Methadone) 20 mg PO DAILY [facility] Last Admin: 12/20/18 10:51 Dose: 20 mg Nicotine (Nicoderm Cq) 1 patch TD DAILY [facility] Last Admin: 12/20/18 09:21 Dose: 1 patch Pantoprazole Sodium (Protonix Ec Tab) 40 mg PO DAILY [facility] Last Admin: 12/20/18 09:21 Dose: 40 mg - Labs Labs: 12/20/18 06:07 12/20/18 06:05 PT 16.7 SECONDS (9.7-12.2) H 12/19/18 12:02 INR 1.5 12/19/18 12:02 APTT 92 SECONDS (21-34) H D 12/20/18 10:41
[2018-12-21] MEDS: Albuterol-Ipratrop 3 mg / 0.5 (3 ml) UD INH SCH ×6 (00:23→19:35)
--- NOTE | 2018-12-21 02:00 | PN ---
DATE: 12/20/2018 SUBJECTIVE: I went to see him. He was in the ICU but he was in no acute respiratory distress. He denied any pains. No cough. He had minimal cough. No shortness of breath. No vomiting. No diarrhea. He does not remember what happened. I told him his sugar was low, and he probably overtook the pain medications, and he tells me he developed HIV disease after he had female he was going out with in between, and she was also on drugs and that is how he got that. He gives me history of having been treated for hep C twice, first with interferon and then with Ribavirin and interferon. He told him that if he decides to get treatment for HIV, he should find out from the Social Service where he can go and he can get medications also as he has no insurance but he needs to be compliant with them. Otherwise, there is no use to go on them. His last CD4 was in 500 range which was on the last admission, not too long ago. Hence we have not repeated the CD4 count on this admission. OBJECTIVE: VITAL SIGNS: T-max is 97, pulse 85, blood pressure is 123/77, respirations are 14. HEENT: Head is atraumatic and normocephalic. NECK: Supple. LUNGS: Clear. HEART: S1, S2 regular. ABDOMEN: Soft, nontender. No guarding, no rigidity present. EXTREMITIES: Have no edema. LABORATORY DATA: His white count is 8.9, hemoglobin 15.3, hematocrit 47, platelet count is 102, and they did ABG today, this was on BiPAP actually before, CO2 was still 65 but pH was 7.29, O2 was 90. He is off the BiPAP also now, and his CO2 is 36, anion gap is 6, BUN is 23, creatinine 0.8. His hemoglobin A1c is 7.3, AST is 640, and CPK is 5952. Troponin is 3.88. Troponins are positive. Vancomycin random is less than 5. [place], they did blood cultures and MRSA was negative. Blood cultures are negative. Urine culture is negative. Sputum is pending at this time. He also had an chest and abdominal CT yesterday, results of which are still pending, and he had biapical pleural thickening with upper lobe granulomatous changes, small nodular density at left lung base. He came in unresponsive, most likely have some aspiration. He was given vancomycin, Rocephin, and Flagyl yesterday. Right now, he is on Rocephin and on DuoNebs, and we will continue the same as he seems to be recovering, and he is on fluticasone, Breo, and heparin subcu with methadone. We will continue Rocephin at this time. I do not think much is going on but we will check the chest and abdominal CT reports which are still pending, and he is positive for troponins as really his pH has decreased, and he was acidotic when he came in. We will follow as needed. Arianna Huynh MD
[2018-12-21] MEDS: Lactated Ringer's 1,000 ML IV SCH ×2 (04:29→07:17)
[2018-12-21] MEDS: (Novolin R) Insulin Human Regular 100 units/ml vial SC SCH ×5 (04:36→22:16)
[2018-12-21 06:07] LABS: BASO % 0.3 % (0.0-2.0); EOS % 0.6 % (0.0-4.0); HEMOGLOBIN 13.6 g/dL (12.0-18.0); LYMPH # 0.9 K/uL (1.0-4.3); LYMPH % 20.1 % (20.0-40.0); MEAN CELL VOLUME 97.8 fL (80.0-94.0); MEAN CORPUSCULAR HEMOGLOBIN 32.3 pg (27.0-31.0); MEAN PLATELET VOLUME 9.8 fL (7.2-11.7); MONO # 0.3 K/uL (0.0-0.8); NEUT # 3.1 K/uL (1.8-7.0); RBC 4.21 Mil/uL (4.40-5.90); RED CELL DISTRIBUTION WIDTH 14.9 % (11.5-14.5); WHITE BLOOD COUNT 4.3 K/uL (4.8-10.8)
[2018-12-21 06:26] LABS: ALB/GLOB RATIO 1.2 (1.0-2.1); ALBUMIN 2.9 g/dL (3.5-5.0); ALT/SGPT 373 U/L (21-72); AST/SGOT 507 U/L (17-59); BLOOD UREA NITROGEN 15 mg/dL (9-20); CALCIUM 7.3 mg/dl (8.6-10.4); GFR NON-AFRICAN AMERICAN > 60
[2018-12-21] MEDS: Fluticasone-Vilanterol 100/25mcg Diskus INH SCH (08:04)
--- NOTE | 2018-12-21 09:13 | CP.PCM.PN ---
<Roberto Martinez - Last Filed: 12/21/18 18:26> Subjective - Date & Time of Evaluation Date of Evaluation: 12/21/18 Time of Evaluation: 09:11 - Subjective Subjective: Cardiology Service Dr. Allison Patient seen and examined at bedside. Per nursing no acute events occurred overnight. Patient denies any chest pain, shortness of breath, fevers, chills, abdominal pain, headaches, or any other complaints during examination. Objective - Vital Signs/Intake and Output Vital Signs (last 24 hours): Temp Pulse Resp BP Pulse Ox 99.9 F H 86 16 135/82 88 L 12/21/18 08:00 12/21/18 08:00 12/21/18 08:00 12/21/18 08:00 12/21/18 08:00 Intake and Output: 12/21/18 12/21/18 06:59 18:59 Intake Total 150 Output Total 0 Balance 150 - Medications Medications: Current Medications Albuterol/Ipratropium (Duoneb 3 Mg/0.5 Mg (3 Ml) Ud) 3 ml INH RQ4 [facility] Last Admin: 12/21/18 08:04 Dose: 3 ml Aspirin (Aspirin Chewable) 81 mg PO DAILY [facility] Last Admin: 12/20/18 09:20 Dose: 81 mg Clopidogrel Bisulfate (Plavix) 75 mg PO DAILY [facility] Last Admin: 12/20/18 09:21 Dose: 75 mg Dextrose (Dextrose 50% Inj) 0 ml IV STAT PRN; Protocol PRN Reason: Hypoglycemia Protocol Dextrose (Glutose 15) 0 gm PO ONCE PRN; Protocol PRN Reason: Hypoglycemia Protocol Fluticasone/Vilanterol (Breo Ellipta 100-25 Mcg Inh) 1 puff INH RQD [facility] Last Admin: 12/21/18 08:04 Dose: 1 puff Glucagon (Glucagen Diagnostic Kit) 0 mg IM STAT PRN; Protocol PRN Reason: Hypoglycemia Protocol Heparin Sodium (Porcine) (Heparin) 5,000 units SC Q12 [facility] Last Admin: 12/20/18 23:20 Dose: 5,000 units Ceftriaxone Sodium 1 gm/ (Sodium Chloride) 100 mls @ 100 mls/hr IVPB Q12H [facility]; Protocol Last Admin: 12/21/18 04:32 Dose: 100 mls/hr Dextrose (Dextrose 5% In Water 1000 Ml) 1,000 mls @ 0 mls/hr IV .Q0M PRN; Protocol PRN Reason: Hypoglycemia Protocol Lactated Ringer's (Lactated Ringer's) 1,000 mls @ 150 mls/hr IV .Q6H40M [facility] Last Admin: 12/21/18 07:17 Dose: Not Given Insulin Human Regular (Novolin R) 0 unit SC ACHS [facility]; Protocol Last Admin: 12/21/18 08:06 Dose: Not Given Lactobacillus Acidophilus (Bacid Acidophilus) 1 cap PO BID [facility] Last Admin: 12/20/18 17:24 Dose: 1 cap Methadone HCl (Methadose) 40 mg PO DAILY [facility] Last Admin: 12/20/18 10:51 Dose: 40 mg Methadone HCl (Methadone) 5 mg PO DAILY [facility] Last Admin: 12/20/18 10:51 Dose: 5 mg Methadone HCl (Methadone) 20 mg PO DAILY [facility] Last Admin: 12/20/18 10:51 Dose: 20 mg Nicotine (Nicoderm Cq) 1 patch TD DAILY [facility] Last Admin: 12/20/18 09:21 Dose: 1 patch Pantoprazole Sodium (Protonix Ec Tab) 40 mg PO DAILY [facility] Last Admin: 12/20/18 09:21 Dose: 40 mg - Labs Labs: 12/21/18 05:53 12/21/18 05:51 PT 16.7 SECONDS (9.7-12.2) H 12/19/18 12:02 INR 1.5 12/19/18 12:02 APTT 92 SECONDS (21-34) H D 12/20/18 10:41 - Head Exam Head Exam: NORMAL INSPECTION - Eye Exam Eye Exam: EOMI, Normal appearance, PERRL. absent: Scleral icterus Pupil Exam: NORMAL ACCOMODATION - ENT Exam ENT Exam: Mucous Membranes Moist, Normal Exam - Respiratory Exam Respiratory Exam: NORMAL BREATHING PATTERN - Cardiovascular Exam Cardiovascular Exam: +S1, +S2 - GI/Abdominal Exam GI & Abdominal Exam: Soft, Normal Bowel Sounds. absent: Hernia, Organomegaly - Neurological Exam Neurological Exam: Alert, Awake, CN II-XII Intact, Oriented x3 - Psychiatric Exam Psychiatric exam: Normal Affect, Normal Mood - Skin Skin Exam: Dry, Intact, Warm Assessment and Plan - Assessment and Plan (Free Text) Assessment: Patient is a 63 yo male with a history of HIV (noncompliance), HCV (treated per patient), COPD (untreated), and polysubstance use (methadone clinic) who prese nted after being found altered by his . Cardiology consulted for positive troponins. Plan: Plan: 1.NSTEMI Troponins: .83 --> 4.62--> 3.88 Repeat troponin 1.79. Trending down. Cardiac cath when stabilized. Medications: Aspirin 81mg PO Daily 2.DM ISS 3.Heroin Abuse history -Methadone 4. Smoking cessation -Nicoderm 1 patch Daily 5. COPD -Breo Ellipta 1 puff INH RQD [facility] PPPX -Heparin -Protonix Plan discussed with Dr. Allison. Roberto Martinez, PGY-2 <Scout Allison - Last Filed: 12/22/18 23:02> Objective - Vital Signs/Intake and Output Vital Signs (last 24 hours): Temp Pulse Resp BP Pulse Ox 98.8 F 90 20 142/87 91 L 12/22/18 15:00 12/22/18 15:00 12/22/18 15:00 12/22/18 15:00 12/22/18 15:00 - Medications Medications: Current Medications Albuterol/Ipratropium (Duoneb 3 Mg/0.5 Mg (3 Ml) Ud) 3 ml INH RQ4 [facility] Last Admin: 12/22/18 19:07 Dose: Not Given Aspirin (Aspirin Chewable) 81 mg PO DAILY [facility] Last Admin: 12/22/18 09:06 Dose: 81 mg Clopidogrel Bisulfate (Plavix) 75 mg PO DAILY [facility] Last Admin: 12/22/18 09:07 Dose: 75 mg Dextrose (Dextrose 50% Inj) 0 ml IV STAT PRN; Protocol PRN Reason: Hypoglycemia Protocol Dextrose (Glutose 15) 0 gm PO ONCE PRN; Protocol PRN Reason: Hypoglycemia Protocol Fluticasone/Vilanterol (Breo Ellipta 100-25 Mcg Inh) 1 puff INH RQD [facility] Last Admin: 12/22/18 09:10 Dose: Not Given Glucagon (Glucagen Diagnostic Kit) 0 mg IM STAT PRN; Protocol PRN Reason: Hypoglycemia Protocol Dextrose (Dextrose 5% In Water 1000 Ml) 1,000 mls @ 0 mls/hr IV .Q0M PRN; Protocol PRN Reason: Hypoglycemia Protocol Insulin Human Regular (Novolin R) 0 unit [facility]; Protocol Last Admin: 12/22/18 22:23 Dose: Not Given Lactobacillus Acidophilus (Bacid Acidophilus) 1 cap PO BID [facility] Last Admin: 12/22/18 17:51 Dose: 1 cap Methadone HCl (Methadose) 40 mg PO DAILY [facility] Last Admin: 12/22/18 09:06 Dose: 40 mg Methadone HCl (Methadone) 5 mg PO DAILY [facility] Last Admin: 12/22/18 09:11 Dose: 5 mg Methadone HCl (Methadone) 20 mg PO DAILY [facility] Last Admin: 12/22/18 09:06 Dose: 20 mg Nicotine (Nicoderm Cq) 1 patch TD DAILY [facility] Last Admin: 12/22/18 09:07 Dose: 1 patch Pantoprazole Sodium (Protonix Ec Tab) 40 mg PO DAILY [facility] Last Admin: 12/22/18 09:06 Dose: 40 mg - Labs Labs: 12/22/18 11:34 12/22/18 11:34 PT 16.7 SECONDS (9.7-12.2) H 12/19/18 12:02 INR 1.5 12/19/18 12:02 APTT 92 SECONDS (21-34) H D 12/20/18 10:41 Assessment and Plan - Assessment and Plan (Free Text) Plan: Patient seen and evaluated personally by me. Plan of care d/w the medical claims assistant and as documented
[2018-12-21] MEDS: Pantoprazole 40 mg EC Tab PO SCH (09:19)
[2018-12-21] MEDS: Methadone 40 mg Tab PO SCH (09:19)
[2018-12-21] MEDS: Lactobacillus Acidophilus 500 MU Cap PO SCH ×2 (09:32→17:38)
--- NOTE | 2018-12-21 13:30 | CT ---
Date of service: 12/19/2018 CT chest and abdomen with IV contrast Indication: elevated lactate, non responsive Technique: Contiguous axial images of the chest and abdomen. Coronal and Sagittal reformats generated and reviewed. This CT exam was performed using 1 or more of the following dose reduction techniques: Automated exposure control, adjustment of the MAA and/or kV according to patient size, and/or use of iterative reconstruction technique. Contrast: 100 mL Visipaque 320 IV Radiation dose: Total exam DLP = 1060.9 MGy-cm. Comparison: Chest x-ray performed 12/19/18, abdominal ultrasound performed 12/10/18 Findings: Visualized portions of the inferior thyroid gland appear unremarkable. The mediastinal and hilar vascular structures appear within normal limits. Cardiomegaly. Atherosclerotic calcifications present. Dilated main pulmonary artery may be seen in setting of pulmonary arterial hypertension. Left lower lobe patchy consolidation. Bibasilar atelectasis. No significant pleural effusion. No pneumothorax. Small hiatal hernia/distal esophageal wall thickening. Nodular hepatic contour consistent with cirrhosis. Distended gallbladder with numerous gallstones. Small pericholecystic edema. Fatty atrophy of the pancreas. Mild mesenteric inflammatory stranding; possibility of acute pancreatitis cannot be excluded. Mild bilateral adrenal gland hypertrophy. The kidneys enhance symmetrically. No evidence hydronephrosis or obstructing calculus. Splenomegaly. 2.6 x 2.5 x 4.1 cm aneurysmal dilatation of the infrarenal abdominal aorta with atherosclerotic calcifications and peripheral noncalcified mural plaque. The stomach is nondistended. Limited visualization of the upper abdominal bowel loops appear within normal limits of caliber without evidence of obstruction. There is no definite free air. Degenerative changes. Impression: Cardiomegaly. Atherosclerotic calcifications present. No large central or segmental pulmonary embolus evident. Dilated main pulmonary artery may be seen in setting of pulmonary arterial hypertension. Left lower lobe patchy consolidation. Bibasilar atelectasis. No significant pleural effusion. No pneumothorax. Small hiatal hernia/distal esophageal wall thickening. Nodular hepatic contour consistent with cirrhosis. Distended gallbladder with numerous gallstones which appear gas containing. Possibility of emphysematous cholecystitis considered less likely however not entirely excluded. Small pericholecystic edema. Correlate clinically for possibility of acute cholecystitis. Suggest right upper quadrant ultrasound if indicated. Fatty atrophy of the pancreas. Mild mesenteric inflammatory changes noted; possibility of acute pancreatitis cannot be excluded. Correlate clinically including amylase and lipase. Splenomegaly. 2.6 x 2.5 x 4.1 cm aneurysmal dilatation of the infrarenal abdominal aorta with atherosclerotic calcifications and peripheral noncalcified mural plaque. Preliminary impression was provided by [facility]. Study marked for PA review. Divergent findings discussed with LORENA Mcdonough on 12/21/18 at 1:19 p.m.
--- NOTE | 2018-12-21 18:03 | CP.PCM.PN ---
Subjective - Date & Time of Evaluation Date of Evaluation: 12/21/18 Time of Evaluation: 15:30 - Subjective Subjective: lying comfortable,no complain,Denies nausea,no vomiting,no abdominal pain,no SOB no fever Objective - Vital Signs/Intake and Output Vital Signs (last 24 hours): Temp Pulse Resp BP Pulse Ox 98.0 F 82 16 138/89 92 L 12/21/18 16:00 12/21/18 16:01 12/21/18 16:01 12/21/18 16:01 12/21/18 16:01 Intake and Output: 12/21/18 12/21/18 06:59 18:59 Intake Total 150 960 Output Total 0 1500 Balance 150 -540 - Medications Medications: Current Medications Albuterol/Ipratropium (Duoneb 3 Mg/0.5 Mg (3 Ml) Ud) 3 ml INH RQ4 [facility] Last Admin: 12/21/18 16:16 Dose: Not Given Aspirin (Aspirin Chewable) 81 mg PO DAILY [facility] Last Admin: 12/21/18 09:18 Dose: 81 mg Clopidogrel Bisulfate (Plavix) 75 mg PO DAILY [facility] Last Admin: 12/21/18 09:19 Dose: 75 mg Dextrose (Dextrose 50% Inj) 0 ml IV STAT PRN; Protocol PRN Reason: Hypoglycemia Protocol Dextrose (Glutose 15) 0 gm PO ONCE PRN; Protocol PRN Reason: Hypoglycemia Protocol Fluticasone/Vilanterol (Breo Ellipta 100-25 Mcg Inh) 1 puff INH RQD [facility] Last Admin: 12/21/18 08:04 Dose: 1 puff Glucagon (Glucagen Diagnostic Kit) 0 mg IM STAT PRN; Protocol PRN Reason: Hypoglycemia Protocol Ceftriaxone Sodium 1 gm/ (Sodium Chloride) 100 mls @ 100 mls/hr IVPB Q12H [facility]; Protocol Last Admin: 12/21/18 14:34 Dose: 100 mls/hr Dextrose (Dextrose 5% In Water 1000 Ml) 1,000 mls @ 0 mls/hr IV .Q0M PRN; Protocol PRN Reason: Hypoglycemia Protocol Insulin Human Regular (Novolin R) 0 unit SC ACHS [facility]; Protocol Last Admin: 12/21/18 16:21 Dose: Not Given Lactobacillus Acidophilus (Bacid Acidophilus) 1 cap PO BID [facility] Last Admin: 12/21/18 17:38 Dose: 1 cap Methadone HCl (Methadose) 40 mg PO DAILY [facility] Last Admin: 12/21/18 09:19 Dose: 40 mg Methadone HCl (Methadone) 5 mg PO DAILY [facility] Last Admin: 12/21/18 09:19 Dose: 5 mg Methadone HCl (Methadone) 20 mg PO DAILY [facility] Last Admin: 12/21/18 09:19 Dose: 20 mg Nicotine (Nicoderm Cq) 1 patch TD DAILY [facility] Last Admin: 12/21/18 09:32 Dose: 1 patch Pantoprazole Sodium (Protonix Ec Tab) 40 mg PO DAILY [facility] Last Admin: 12/21/18 09:19 Dose: 40 mg - Labs Labs: 12/21/18 05:53 12/21/18 05:51 PT 16.7 SECONDS (9.7-12.2) H 12/19/18 12:02 INR 1.5 12/19/18 12:02 APTT 92 SECONDS (21-34) H D 12/20/18 10:41 - Constitutional Appears: No Acute Distress - Head Exam Head Exam: NORMAL INSPECTION - Eye Exam Eye Exam: Normal appearance - ENT Exam ENT Exam: Mucous Membranes Moist - Neck Exam Neck Exam: Full ROM - Respiratory Exam Respiratory Exam: Clear to Ausculation Bilateral, NORMAL BREATHING PATTERN - Cardiovascular Exam Cardiovascular Exam: REGULAR RHYTHM - GI/Abdominal Exam GI & Abdominal Exam: Soft, Normal Bowel Sounds - Extremities Exam Extremities Exam: Full ROM, Pedal Edema - Back Exam Back Exam: NORMAL INSPECTION - Neurological Exam Neurological Exam: Awake, Oriented x3 - Psychiatric Exam Psychiatric exam: Normal Mood - Skin Skin Exam: Dry Assessment and Plan - Assessment and Plan (Free Text) Plan: 1. s/p Hypotension and shock,code sepsis and Respiratory acidosis Aspiration pneumonia Improving Blood no growth x 48hours Rocephin 1 g IV Q12H- started 12/19 ( Flagyl 500 mg IV Q8H- started 12/19 and Vancomycin 1.2 g IV Q24H (renally dosed)- started 12/19) off vanco and flagyl. spoke to Dr Huynh. we will follow with her. off norepinephrine NSTEMI no h/o CAD, suspect demand ischemia (Last admission, plan was to perform cardiac cath when sepsis resoled,patient left AMA). EKG: NSR, no ST changes Echo (12/10/18- see full report): EF 50% Avoid statin due to transaminitis ASA 81 mg PO daily and Plavix 75 mg PO daily Cardiology consulted (Keegan) Will f/u with Dr. Allison concerning further recs Acute kidney failure-resolved likely he was dehydrated Elevated random glucose A1c 5.6 Accuchecks ACHS HIV- patient noncompliant for 20+ years Confirmed with patient's pharmacy [facility] in [place] ([address]) that patient has been filling Complera; patient and report that he does noncompliance,not taking currently - Viral load undetectable, CD4 253 - ID consulted (Amina) Esophageal thickening with prominent lymph nodes CTA chest (last admission): Distal esophageal wall thickening/small hiatal hernia. Numerous subcentimeter peripancreatic/mesenteric and retroperitoneal lymph nodes. Consider GI consult when more clinically stable/out patient GI Chronic obstructive pulmonary disease Patient does not take meds at home Duoneb Q4H Breo Ellipta 100/25 mcg 1 puff daily Polysubstance use disorder- methadone, Xanax, tobacco Patient denies any alcohol use UDS positive for benzos and methadone [facility] called and confirmed methadone dose last admission Methadone 65 mg PO daily Nicoderm daily Hepatitis C- patient reports treated 10 years ago Transaminitis Ammonia level is down Hep C Ab reactive- f/u GI as outpatient after acute issues have resolved Abdominal US (last admission): Cholelithiasis. Echogenic liver may be seen in setting of hepatic parenchyma disease or fatty infiltration. CTA chest (last admission): Nodular hepatic contour, correlate for cirrhosis. Distended gallbladder with calcifications and or sludge. High-density within the gallbladder possibly related to vicarious excretion of contrast. Subtle mild peripancreatic inflammatory changes; correlate for pancreatitis. Ppx: heparin sq GI: Protonix 40 mg PO daily
--- NOTE | 2018-12-21 20:40 | CARD ---
APPROVED REPORT Date of service: 12/20/2018 EKG Measurement Heart [id number] <Conclusion> Normal sinus rhythm Normal ECG
[2018-12-22] MEDS: Albuterol-Ipratrop 3 mg / 0.5 (3 ml) UD INH SCH ×7 (00:09→23:47)
--- NOTE | 2018-12-22 07:17 | CP.PCM.PN ---
Subjective - Date & Time of Evaluation Date of Evaluation: 12/22/18 Time of Evaluation: 07:13 - Subjective Subjective: PGY1 Progress Note for Dr. Zepeda Patient was seen and evaluated at bedside this morning. No acute events overnight. Patient had no complaints and is asking "When can I go home?" Patient otherwise denies chest pain, shortness of breath, abdominal pain, headache, dizziness, fever, chills, nausea, and/or vomiting. Objective - Vital Signs/Intake and Output Vital Signs (last 24 hours): Temp Pulse Resp BP Pulse Ox 97.7 F 78 20 135/82 94 L 12/22/18 00:00 12/22/18 00:00 12/22/18 00:00 12/22/18 00:00 12/22/18 00:00 Intake and Output: 12/22/18 12/22/18 06:59 18:59 Output Total 0 Balance 0 - Medications Medications: Current Medications Albuterol/Ipratropium (Duoneb 3 Mg/0.5 Mg (3 Ml) Ud) 3 ml INH RQ4 [facility] Last Admin: 12/22/18 03:32 Dose: Not Given Aspirin (Aspirin Chewable) 81 mg PO DAILY [facility] Last Admin: 12/21/18 09:18 Dose: 81 mg Clopidogrel Bisulfate (Plavix) 75 mg PO DAILY [facility] Last Admin: 12/21/18 09:19 Dose: 75 mg Dextrose (Dextrose 50% Inj) 0 ml IV STAT PRN; Protocol PRN Reason: Hypoglycemia Protocol Dextrose (Glutose 15) 0 gm PO ONCE PRN; Protocol PRN Reason: Hypoglycemia Protocol Fluticasone/Vilanterol (Breo Ellipta 100-25 Mcg Inh) 1 puff INH RQD [facility] Last Admin: 12/21/18 08:04 Dose: 1 puff Glucagon (Glucagen Diagnostic Kit) 0 mg IM STAT PRN; Protocol PRN Reason: Hypoglycemia Protocol Ceftriaxone Sodium 1 gm/ (Sodium Chloride) 100 mls @ 100 mls/hr IVPB Q12H [facility]; Protocol Last Admin: 12/21/18 14:34 Dose: 100 mls/hr Dextrose (Dextrose 5% In Water 1000 Ml) 1,000 mls @ 0 mls/hr IV .Q0M PRN; Protocol PRN Reason: Hypoglycemia Protocol Insulin Human Regular (Novolin R) 0 unit SC ACHS [facility]; Protocol Last Admin: 12/21/18 22:16 Dose: Not Given Lactobacillus Acidophilus (Bacid Acidophilus) 1 cap PO BID [facility] Last Admin: 12/21/18 17:38 Dose: 1 cap Methadone HCl (Methadose) 40 mg PO DAILY [facility] Last Admin: 12/21/18 09:19 Dose: 40 mg Methadone HCl (Methadone) 5 mg PO DAILY [facility] Last Admin: 12/21/18 09:19 Dose: 5 mg Methadone HCl (Methadone) 20 mg PO DAILY [facility] Last Admin: 12/21/18 09:19 Dose: 20 mg Nicotine (Nicoderm Cq) 1 patch TD DAILY [facility] Last Admin: 12/21/18 09:32 Dose: 1 patch Pantoprazole Sodium (Protonix Ec Tab) 40 mg PO DAILY [facility] Last Admin: 12/21/18 09:19 Dose: 40 mg - Labs Labs: 12/21/18 05:53 12/21/18 05:51 PT 16.7 SECONDS (9.7-12.2) H 12/19/18 12:02 INR 1.5 12/19/18 12:02 APTT 92 SECONDS (21-34) H D 12/20/18 10:41 - Additional Findings Additional findings: - Constitutional Appears: No Acute Distress - Head Exam Head Exam: NORMAL INSPECTION - Eye Exam Eye Exam: Normal appearance - ENT Exam ENT Exam: Mucous Membranes Moist - Neck Exam Neck Exam: Full ROM - Respiratory Exam Respiratory Exam: Rales appreciated in left lower lung field, otherwise clear to auscultation. No NORMAL BREATHING PATTERN - Cardiovascular Exam Cardiovascular Exam: REGULAR RHYTHM - GI/Abdominal Exam GI & Abdominal Exam: Soft, Normal Bowel Sounds - Extremities Exam Extremities Exam: Full ROM, Pedal Edema - Back Exam Back Exam: NORMAL INSPECTION - Neurological Exam Neurological Exam: Awake, Oriented x3 - Psychiatric Exam Psychiatric exam: Normal Mood - Skin Skin Exam: Dry, pale Assessment and Plan - Assessment and Plan (Free Text) Assessment: 63yo M. PMHx HTN, COPD, HIV (noncompliant), HCV (untreated), polysubstance use disorder (alcohol, tobacco, methadone, Xanax) who presents with overdose, acute respiratory failure with hypercarbia, hyperlacticemia, and altered mental status. Patient was first admitted to the ICU and now in medical surgical floor. Currently pending Cardiology's recommendations regarding cardiac status and next step. Aspiration pneumonia, improving - On admission: Hypotension, shock and Respiratory acidosis, resolved - [facility] called - ID (Dr. Huynh) consulted; recommendations appreciated - Blood no growth x 72 hours - Continue Rocephin 1 g IV Q12H started 12/19 - Off vanco and flagyl. spoke to Dr Huynh. we will follow with her. - off norepinephrine NSTEMI - No h/o CAD, suspect demand ischemia (Last admission, plan was to perform cardiac cath when sepsis resoled,patient left AMA). - EKG: NSR, no ST changes - Echo 12/10/18: EF 50% - Cardiology consulted (Keegan) Will f/u with Dr. Allison concerning further recs - Avoid statin due to transaminitis - Continue ASA 81 mg PO daily and Plavix 75 mg PO daily - Troponins trending downward HIV - History of patient noncompliant for 20+ years - Note: Patient and report noncompliance. Patient currently not taking this medication - Confirmed with patient's pharmacy [facility] in [place] ( and ) that patient has been filling Complera - Viral load undetectable, CD4 253 - ID consulted (Amina); recommendations appreciated Acute kidney failure, resolved - Likely secondary to dehydration Elevated random glucose - Hgb A1c 5.6 - Accuchecks ACHS - Hypoglycemic protocol Esophageal thickening with prominent lymph nodes - CTA chest (last admission): Distal esophageal wall thickening/small hiatal hernia. Numerous subcentimeter peripancreatic/mesenteric and retroperitoneal lymph nodes. - Patient has seen a distribution coordinator in [facility], recommend to follow-up as an outpatient once medically stable Chronic obstructive pulmonary disease - Patient denies home-meds - Continue Duoneb Q4H - Continue Breo Ellipta 100/25 mcg 1 puff daily Polysubstance use disorder - Patient admits to methadone, Xanax, tobacco - Patient denies any alcohol use - UDS positive for benzos and methadone - [facility] called and confirmed methadone dose last admission - Methadone 65 mg PO daily - Nicoderm daily History of Hepatitis C - Patient reports treated 10 years ago - Ammonia level is down - Hep C Ab reactive- f/u GI as outpatient after acute issues have resolved - Abdominal US (last admission): Cholelithiasis. Echogenic liver may be seen in setting of hepatic parenchyma disease or fatty infiltration. - CTA chest (last admission): Nodular hepatic contour, correlate for cirrhosis. Distended gallbladder with calcifications and or sludge. High-density within the gallbladder possibly related to vicarious excretion of contrast. Subtle mild peripancreatic inflammatory changes; correlate for pancreatitis. Transaminitis, improving - Positive history of Hepatitis C - ENN=056; LZM=791 (downtrending) - Avoid hepatotoxic agents Ppx: heparin sq GI: Protonix 40 mg PO daily Patient was seen and evaluated with Dr. Duane Bang PGY1
[2018-12-22] MEDS: (Novolin R) Insulin Human Regular 100 units/ml vial SC SCH ×4 (07:31→22:23)
[2018-12-22] MEDS: Pantoprazole 40 mg EC Tab PO SCH (09:06)
[2018-12-22] MEDS: Lactobacillus Acidophilus 500 MU Cap PO SCH ×2 (09:06→17:51)
[2018-12-22] MEDS: Methadone 40 mg Tab PO SCH (09:06)
[2018-12-22] MEDS: Fluticasone-Vilanterol 100/25mcg Diskus INH SCH (09:10)
[2018-12-22 11:40] LABS: BASO % 0.3 % (0.0-2.0); EOS % 1.2 % (0.0-4.0); HEMOGLOBIN 14.4 g/dL (12.0-18.0); LYMPH # 0.8 K/uL (1.0-4.3); MEAN CELL VOLUME 97.4 fL (80.0-94.0); MEAN CORPUSCULAR HGB CONC 32.8 g/dL (33.0-37.0); MEAN PLATELET VOLUME 9.4 fL (7.2-11.7); MONO # 0.3 K/uL (0.0-0.8); MONO % 8.3 % (0.0-10.0); NEUT # 2.5 K/uL (1.8-7.0); NEUT % 68.2 % (50.0-75.0); RBC 4.51 Mil/uL (4.40-5.90); RED CELL DISTRIBUTION WIDTH 14.6 % (11.5-14.5); WHITE BLOOD COUNT 3.6 K/uL (4.8-10.8)
[2018-12-22 12:15] LABS: ALB/GLOB RATIO 1.2 (1.0-2.1); ALBUMIN 3.1 g/dL (3.5-5.0); ALT/SGPT 302 U/L (21-72); AST/SGOT 370 U/L (17-59); BLOOD UREA NITROGEN 11 mg/dL (9-20); GFR NON-AFRICAN AMERICAN > 60
--- NOTE | 2018-12-22 12:47 | CP.PCM.PN ---
<[place] - Last Filed: 12/22/18 18:11> Subjective - Date & Time of Evaluation Date of Evaluation: 12/22/18 Time of Evaluation: 12:47 - Subjective Subjective: Cardiology Service Dr. Allison Patient seen and examined at bedside. Per nursing no acute events occurred overnight. Patient denies any chest pain, shortness of breath, fevers, chills, abdominal pain, headaches, or any other complaints during examination. Objective - Vital Signs/Intake and Output Vital Signs (last 24 hours): Temp Pulse Resp BP Pulse Ox 98 F 98 H 20 135/72 94 L 12/22/18 08:25 12/22/18 08:25 12/22/18 08:25 12/22/18 08:25 12/22/18 08:25 Intake and Output: 12/22/18 12/22/18 06:59 18:59 Output Total 0 Balance 0 - Medications Medications: Current Medications Albuterol/Ipratropium (Duoneb 3 Mg/0.5 Mg (3 Ml) Ud) 3 ml INH RQ4 [facility] Last Admin: 12/22/18 11:13 Dose: 3 ml Aspirin (Aspirin Chewable) 81 mg PO DAILY [facility] Last Admin: 12/22/18 09:06 Dose: 81 mg Clopidogrel Bisulfate (Plavix) 75 mg PO DAILY [facility] Last Admin: 12/22/18 09:07 Dose: 75 mg Dextrose (Dextrose 50% Inj) 0 ml IV STAT PRN; Protocol PRN Reason: Hypoglycemia Protocol Dextrose (Glutose 15) 0 gm PO ONCE PRN; Protocol PRN Reason: Hypoglycemia Protocol Fluticasone/Vilanterol (Breo Ellipta 100-25 Mcg Inh) 1 puff INH RQD [facility] Last Admin: 12/22/18 09:10 Dose: Not Given Glucagon (Glucagen Diagnostic Kit) 0 mg IM STAT PRN; Protocol PRN Reason: Hypoglycemia Protocol Ceftriaxone Sodium 1 gm/ (Sodium Chloride) 100 mls @ 100 mls/hr IVPB Q12H [facility]; Protocol Last Admin: 12/21/18 14:34 Dose: 100 mls/hr Dextrose (Dextrose 5% In Water 1000 Ml) 1,000 mls @ 0 mls/hr IV .Q0M PRN; Protocol PRN Reason: Hypoglycemia Protocol Insulin Human Regular (Novolin R) 0 unit SC ACHS [facility]; Protocol Last Admin: 12/22/18 12:39 Dose: Not Given Lactobacillus Acidophilus (Bacid Acidophilus) 1 cap PO BID [facility] Last Admin: 12/22/18 09:06 Dose: 1 cap Methadone HCl (Methadose) 40 mg PO DAILY [facility] Last Admin: 12/22/18 09:06 Dose: 40 mg Methadone HCl (Methadone) 5 mg PO DAILY [facility] Last Admin: 12/22/18 09:11 Dose: 5 mg Methadone HCl (Methadone) 20 mg PO DAILY [facility] Last Admin: 12/22/18 09:06 Dose: 20 mg Nicotine (Nicoderm Cq) 1 patch TD DAILY [facility] Last Admin: 12/22/18 09:07 Dose: 1 patch Pantoprazole Sodium (Protonix Ec Tab) 40 mg PO DAILY [facility] Last Admin: 12/22/18 09:06 Dose: 40 mg - Labs Labs: 12/22/18 11:34 12/22/18 11:34 PT 16.7 SECONDS (9.7-12.2) H 12/19/18 12:02 INR 1.5 12/19/18 12:02 APTT 92 SECONDS (21-34) H D 12/20/18 10:41 - Head Exam Head Exam: ATRAUMATIC, NORMAL INSPECTION - Eye Exam Eye Exam: EOMI, Normal appearance, PERRL Pupil Exam: NORMAL ACCOMODATION - ENT Exam ENT Exam: Mucous Membranes Moist, Normal Oropharynx - Neck Exam Neck Exam: Normal Inspection. absent: Meningismus - Respiratory Exam Respiratory Exam: Clear to Ausculation Bilateral, NORMAL BREATHING PATTERN. absent: Prolonged Expiratory Phase, Respiratory Distress - Cardiovascular Exam Cardiovascular Exam: +S1, +S2 - GI/Abdominal Exam GI & Abdominal Exam: Soft, Normal Bowel Sounds. absent: Hyperactive Bowel Sounds - Extremities Exam Extremities Exam: Full ROM, Normal Inspection. absent: Pedal Edema - Back Exam Back Exam: NORMAL INSPECTION. absent: CVA tenderness (R), paraspinal tenderness - Neurological Exam Neurological Exam: Alert, Awake, CN II-XII Intact - Psychiatric Exam Psychiatric exam: Normal Affect, Normal Mood - Skin Skin Exam: Dry, Intact Assessment and Plan - Assessment and Plan (Free Text) Assessment: Patient is a 63 yo male with a history of HIV (noncompliance), HCV (treated per patient), COPD (untreated), and polysubstance use (methadone clinic) who presented after being found altered by his . Cardiology consulted for positive troponins. Plan: 1.NSTEMI Troponins: .83 --> 4.62--> 3.88 Repeat troponin 1.79. Trending down. Cardiac cath in the A.M. with Dr. Allison. JANNET after midnnight. Medications: Aspirin 81mg PO Daily Plavix 75mg PO Daily 2.DM ISS 3.Heroin Abuse history -Methadone 4. Smoking cessation -Nicoderm 1 patch Daily 5. COPD -Breo Ellipta 1 puff INH RQD [facility] -Duoneb 3ml INH RQ4 [facility] PPPX -Heparin -Protonix Plan discussed with Dr. Allison. Roberto Martinez, PGY-2 <Scout Allison - Last Filed: 12/22/18 23:03> Subjective - Subjective Subjective: Patient seen and evaluated personally by me. Plan of care d/w the medical equipment sales and as documented Objective - Vital Signs/Intake and Output Vital Signs (last 24 hours): Temp Pulse Resp BP Pulse Ox 98.8 F 90 20 142/87 91 L 12/22/18 15:00 12/22/18 15:00 12/22/18 15:00 12/22/18 15:00 12/22/18 15:00 - Medications Medications: Current Medications Albuterol/Ipratropium (Duoneb 3 Mg/0.5 Mg (3 Ml) Ud) 3 ml INH RQ4 [facility] Last Admin: 12/22/18 19:07 Dose: Not Given Aspirin (Aspirin Chewable) 81 mg PO DAILY [facility] Last Admin: 12/22/18 09:06 Dose: 81 mg Clopidogrel Bisulfate (Plavix) 75 mg PO DAILY [facility] Last Admin: 12/22/18 09:07 Dose: 75 mg Dextrose (Dextrose 50% Inj) 0 ml IV STAT PRN; Protocol PRN Reason: Hypoglycemia Protocol Dextrose (Glutose 15) 0 gm PO ONCE PRN; Protocol PRN Reason: Hypoglycemia Protocol Fluticasone/Vilanterol (Breo Ellipta 100-25 Mcg Inh) 1 puff INH RQD [facility] Last Admin: 12/22/18 09:10 Dose: Not Given Glucagon (Glucagen Diagnostic Kit) 0 mg IM STAT PRN; Protocol PRN Reason: Hypoglycemia Protocol Dextrose (Dextrose 5% In Water 1000 Ml) 1,000 mls @ 0 mls/hr IV .Q0M PRN; Protocol PRN Reason: Hypoglycemia Protocol Insulin Human Regular (Novolin R) 0 unit SC ACHS [facility]; Protocol Last Admin: 12/22/18 22:23 Dose: Not Given Lactobacillus Acidophilus (Bacid Acidophilus) 1 cap PO BID [facility] Last Admin: 12/22/18 17:51 Dose: 1 cap Methadone HCl (Methadose) 40 mg PO DAILY [facility] Last Admin: 12/22/18 09:06 Dose: 40 mg Methadone HCl (Methadone) 5 mg PO DAILY [facility] Last Admin: 12/22/18 09:11 Dose: 5 mg Methadone HCl (Methadone) 20 mg PO DAILY [facility] Last Admin: 12/22/18 09:06 Dose: 20 mg Nicotine (Nicoderm Cq) 1 patch TD DAILY [facility] Last Admin: 12/22/18 09:07 Dose: 1 patch Pantoprazole Sodium (Protonix Ec Tab) 40 mg PO DAILY [facility] Last Admin: 12/22/18 09:06 Dose: 40 mg - Labs Labs: 12/22/18 11:34 12/22/18 11:34 PT 16.7 SECONDS (9.7-12.2) H 12/19/18 12:02 INR 1.5 12/19/18 12:02 APTT 92 SECONDS (21-34) H D 12/20/18 10:41
--- NOTE | 2018-12-22 13:53 | CARD ---
APPROVED REPORT Date of service: 12/21/2018 EKG Measurement Heart [id number] <Conclusion> Normal sinus rhythm Normal ECG
[2018-12-22 17:47] LABS: TROPONIN I 0.778 ng/mL (0.00-0.120)
--- NOTE | 2018-12-22 22:29 | CARD ---
APPROVED REPORT Date of service: 12/19/2018 EKG Measurement Heart [id number] IN [id number] <Conclusion> Normal sinus rhythm T wave abnormality, consider anterior ischemia Prolonged QT Abnormal ECG
--- NOTE | 2018-12-22 22:39 | CARD ---
APPROVED REPORT Date of service: 12/19/2018 EKG Measurement Heart [id number] ME [id number] <Conclusion> Normal sinus rhythm ST & T wave abnormality, consider inferior ischemia Prolonged QT Abnormal ECG
[2018-12-23] MEDS: Albuterol-Ipratrop 3 mg / 0.5 (3 ml) UD INH SCH ×3 (03:21→12:59)
--- NOTE | 2018-12-23 07:05 | CP.PCM.PN ---
<[place] - Last Filed: 12/23/18 16:27> Subjective - Date & Time of Evaluation Date of Evaluation: 12/23/18 Time of Evaluation: 07:05 - Subjective Subjective: HOSPITALIST SERVICE Pt seen and examined at bedside. Reports no new complaints overnight. Pt understands need for cath today with Dr Allison, Pt educated on procedure process. Pt agrees with plan and understands current status. Pt denies CP SOB FC NV palpitations. Pt mentioned he wants to leave AMA. Explained risks involved with his current condition PT LEFT AMA @ 4PM Objective - Vital Signs/Intake and Output Vital Signs (last 24 hours): Temp Pulse Resp BP Pulse Ox 98.6 F 88 20 151/91 H 94 L 12/22/18 23:51 12/22/18 23:51 12/22/18 23:51 12/22/18 23:51 12/22/18 23:51 - Medications Medications: Current Medications Albuterol/Ipratropium (Duoneb 3 Mg/0.5 Mg (3 Ml) Ud) 3 ml INH RQ4 [facility] Last Admin: 12/23/18 03:21 Dose: Not Given Aspirin (Aspirin Chewable) 81 mg PO DAILY [facility] Last Admin: 12/22/18 09:06 Dose: 81 mg Clopidogrel Bisulfate (Plavix) 75 mg PO DAILY [facility] Last Admin: 12/22/18 09:07 Dose: 75 mg Dextrose (Dextrose 50% Inj) 0 ml IV STAT PRN; Protocol PRN Reason: Hypoglycemia Protocol Dextrose (Glutose 15) 0 gm PO ONCE PRN; Protocol PRN Reason: Hypoglycemia Protocol Fluticasone/Vilanterol (Breo Ellipta 100-25 Mcg Inh) 1 puff INH RQD [facility] Last Admin: 12/22/18 09:10 Dose: Not Given Glucagon (Glucagen Diagnostic Kit) 0 mg IM STAT PRN; Protocol PRN Reason: Hypoglycemia Protocol Dextrose (Dextrose 5% In Water 1000 Ml) 1,000 mls @ 0 mls/hr IV .Q0M PRN; Protocol PRN Reason: Hypoglycemia Protocol Insulin Human Regular (Novolin R) 0 unit SC ACHS [facility]; Protocol Last Admin: 12/22/18 22:23 Dose: Not Given Lactobacillus Acidophilus (Bacid Acidophilus) 1 cap PO BID [facility] Last Admin: 12/22/18 17:51 Dose: 1 cap Methadone HCl (Methadose) 40 mg PO DAILY [facility] Last Admin: 12/22/18 09:06 Dose: 40 mg Methadone HCl (Methadone) 5 mg PO DAILY [facility] Last Admin: 12/22/18 09:11 Dose: 5 mg Methadone HCl (Methadone) 20 mg PO DAILY [facility] Last Admin: 12/22/18 09:06 Dose: 20 mg Nicotine (Nicoderm Cq) 1 patch TD DAILY [facility] Last Admin: 12/22/18 09:07 Dose: 1 patch Pantoprazole Sodium (Protonix Ec Tab) 40 mg PO DAILY [facility] Last Admin: 12/22/18 09:06 Dose: 40 mg - Labs Labs: 12/22/18 11:34 12/22/18 11:34 PT 16.7 SECONDS (9.7-12.2) H 12/19/18 12:02 INR 1.5 12/19/18 12:02 APTT 92 SECONDS (21-34) H D 12/20/18 10:41 - Constitutional Appears: No Acute Distress - Head Exam Head Exam: ATRAUMATIC, NORMAL INSPECTION - Eye Exam Eye Exam: EOMI, Normal appearance - ENT Exam ENT Exam: Mucous Membranes Moist - Respiratory Exam Respiratory Exam: Clear to Ausculation Bilateral. absent: Wheezes, Respiratory Distress - Cardiovascular Exam Cardiovascular Exam: RRR, +S1, +S2 - GI/Abdominal Exam GI & Abdominal Exam: Soft. absent: Tenderness - Extremities Exam Additional comments: Right groin hematoma s/p cath - Neurological Exam Neurological Exam: Alert, Awake, CN II-XII Intact, Oriented x3 - Psychiatric Exam Psychiatric exam: Normal Affect, Normal Mood - Skin Skin Exam: Dry, Warm Assessment and Plan - Assessment and Plan (Free Text) Assessment: PT LEFT AMA 63yo M. PMHx HTN, COPD, HIV (noncompliant), HCV (untreated), polysubstance use disorder (alcohol, tobacco, methadone, Xanax) who presents with overdose, acute respiratory failure with hypercarbia, hyperlacticemia, and altered mental status. Patient was first admitted to the ICU and now in medical surgical floor. s/p Cath w/ Dr Allison 12/23 : LAD >80% stenosis, PCI planned for thursday @ [facility] Aspiration pneumonia, improving - On admission: Hypotension, shock and Respiratory acidosis, resolved - [facility] called - ID (Dr. Huynh) consulted; recommendations appreciated - Blood no growth x 72 hours - Continue Rocephin 1 g IV Q12H started 12/19 - Off vanco and flagyl. spoke to Dr Huynh. we will follow with her. - off norepinephrine NSTEMI -s/p Cath Today with Dr Allison: LAD 85% mid stenosis- plan for PCI Thursday @ [facility] R groin developed hematome f/u duplex - No h/o CAD, suspect demand ischemia (Last admission, plan was to perform cardiac cath when sepsis resoled,patient left AMA). - EKG: NSR, no ST changes - Echo 12/10/18: EF 50% - Cardiology consulted (Keegan) Will f/u with Dr. Allison concerning further recs - Avoid statin due to transaminitis - Continue ASA 81 mg PO daily and Plavix 75 mg PO daily - Troponins trending downward HIV - History of patient noncompliant for 20+ years - Note: Patient and report noncompliance. Patient currently not taking this medication - Confirmed with patient's pharmacy [facility] in [place] (e and ) that patient has been filling Complera - Viral load undetectable, CD4 253 - ID consulted (Amina); recommendations appreciated Acute kidney failure, resolved - Likely secondary to dehydration Elevated random glucose - Hgb A1c 5.6 - Accuchecks ACHS - Hypoglycemic protocol Esophageal thickening with prominent lymph nodes - CTA chest (last admission): Distal esophageal wall thickening/small hiatal hernia. Numerous subcentimeter peripancreatic/mesenteric and retroperitoneal lymph nodes. - Patient has seen a environmental science professor in [facility], recommend to follow-up as an outpatient once medically stable Chronic obstructive pulmonary disease - Patient denies home-meds - Continue Duoneb Q4H - Continue Breo Ellipta 100/25 mcg 1 puff daily Polysubstance use disorder - Patient admits to methadone, Xanax, tobacco - Patient denies any alcohol use - UDS positive for benzos and methadone - [facility] called and confirmed methadone dose last admission - Methadone 65 mg PO daily - Nicoderm daily History of Hepatitis C - Patient reports treated 10 years ago - Ammonia level is down - Hep C Ab reactive- f/u GI as outpatient after acute issues have resolved - Abdominal US (last admission): Cholelithiasis. Echogenic liver may be seen in setting of hepatic parenchyma disease or fatty infiltration. - CTA chest (last admission): Nodular hepatic contour, correlate for cirrhosis. Distended gallbladder with calcifications and or sludge. High-density within the gallbladder possibly related to vicarious excretion of contrast. Subtle mild peripancreatic inflammatory changes; correlate for pancreatitis. Transaminitis, improving - Positive history of Hepatitis C - FSV=560; YVV=485 (downtrending) - Avoid hepatotoxic agents Ppx: heparin sq GI: Protonix 40 mg PO daily Patient was seen and evaluated with Dr. Zepeda <Anoop Zepeda - Last Filed: 12/24/18 13:05> Objective - Vital Signs/Intake and Output Vital Signs (last 24 hours): Temp Pulse Resp BP Pulse Ox 97.8 F 97 H 18 132/81 97 12/23/18 13:00 12/23/18 13:00 12/23/18 13:00 12/23/18 13:00 12/23/18 13:00 - Labs Labs: 12/22/18 11:34 12/22/18 11:34 PT 16.7 SECONDS (9.7-12.2) H 12/19/18 12:02 INR 1.5 12/19/18 12:02 APTT 92 SECONDS (21-34) H D 12/20/18 10:41 Attending/Attestation - Attestation I have personally seen and examined this patient.: Yes I have fully participated in the care of the patient.: Yes I have reviewed all pertinent clinical information, including history, physical exam and plan: Yes
[2018-12-23] MEDS: (Novolin R) Insulin Human Regular 100 units/ml vial SC SCH ×2 (07:30→11:30)
[2018-12-23] MEDS ORDERED: Iohexol 350mg/ml 100 ML ONE (08:06)
[2018-12-23] MEDS ORDERED: Verapamil 2 ML ONE (08:37)
[2018-12-23] MEDS ORDERED: Nitroglycerin 50mg in D5W 50 MG/250 ML BOTTLE IV ONE (08:37)
[2018-12-23] MEDS: Fluticasone-Vilanterol 100/25mcg Diskus INH SCH (08:49)
[2018-12-23] MEDS ORDERED: Midazolam 2 MG/2 ML VIAL ONE (09:09)
--- NOTE | 2018-12-23 09:50 | CP.PCM.PN ---
Subjective - Date & Time of Evaluation Date of Evaluation: 12/23/18 Time of Evaluation: 09:48 - Subjective Subjective: Patient s/p Cath Single vessel CAD (LAD mid 85%) For PCI on Thursday at [place] Have to delay PCI due dimitry right groin hematoma Patient has right groin hematoma Check duplex r/o pseuo aneurysm Objective - Vital Signs/Intake and Output Vital Signs (last 24 hours): Temp Pulse Resp BP Pulse Ox 98.6 F 88 20 151/91 H 94 L 12/22/18 23:51 12/22/18 23:51 12/22/18 23:51 12/22/18 23:51 12/22/18 23:51 - Medications Medications: Current Medications Albuterol/Ipratropium (Duoneb 3 Mg/0.5 Mg (3 Ml) Ud) 3 ml INH RQ4 [facility] Last Admin: 12/23/18 03:21 Dose: Not Given Aspirin (Aspirin Chewable) 81 mg PO DAILY [facility] Last Admin: 12/22/18 09:06 Dose: 81 mg Clopidogrel Bisulfate (Plavix) 75 mg PO DAILY [facility] Last Admin: 12/22/18 09:07 Dose: 75 mg Dextrose (Dextrose 50% Inj) 0 ml IV STAT PRN; Protocol PRN Reason: Hypoglycemia Protocol Dextrose (Glutose 15) 0 gm PO ONCE PRN; Protocol PRN Reason: Hypoglycemia Protocol Fluticasone/Vilanterol (Breo Ellipta 100-25 Mcg Inh) 1 puff INH RQD [facility] Last Admin: 12/22/18 09:10 Dose: Not Given Glucagon (Glucagen Diagnostic Kit) 0 mg IM STAT PRN; Protocol PRN Reason: Hypoglycemia Protocol Dextrose (Dextrose 5% In Water 1000 Ml) 1,000 mls @ 0 mls/hr IV .Q0M PRN; Protocol PRN Reason: Hypoglycemia Protocol Insulin Human Regular (Novolin R) 0 unit SC ACHS [facility]; Protocol Last Admin: 12/22/18 22:23 Dose: Not Given Lactobacillus Acidophilus (Bacid Acidophilus) 1 cap PO BID [facility] Last Admin: 12/22/18 17:51 Dose: 1 cap Methadone HCl (Methadose) 40 mg PO DAILY [facility] Last Admin: 12/22/18 09:06 Dose: 40 mg Methadone HCl (Methadone) 5 mg PO DAILY [facility] Last Admin: 12/22/18 09:11 Dose: 5 mg Methadone HCl (Methadone) 20 mg PO DAILY [facility] Last Admin: 12/22/18 09:06 Dose: 20 mg Nicotine (Nicoderm Cq) 1 patch TD DAILY [facility] Last Admin: 12/22/18 09:07 Dose: 1 patch Pantoprazole Sodium (Protonix Ec Tab) 40 mg PO DAILY [facility] Last Admin: 12/22/18 09:06 Dose: 40 mg - Labs Labs: 12/22/18 11:34 12/22/18 11:34 PT 16.7 SECONDS (9.7-12.2) H 12/19/18 12:02 INR 1.5 12/19/18 12:02 APTT 92 SECONDS (21-34) H D 12/20/18 10:41
[2018-12-23] MEDS: Methadone 40 mg Tab PO SCH (10:00)
[2018-12-23] MEDS: Pantoprazole 40 mg EC Tab PO SCH (10:00)
[2018-12-23] MEDS: Lactobacillus Acidophilus 500 MU Cap PO SCH (10:00)
[2018-12-23 13:18] VITALS: BP 132/81; PULSE 97; RESP 18; TEMP 97.8; O2SAT 97
--- NOTE | 2018-12-24 04:55 | CARDCATH ---
PROCEDURE DATE: 12/23/2018 PROCEDURES: 1. Left heart catheterization. 2. Coronary angiogram. CLINICAL INDICATIONS: 1. Non-ST elevation myocardial infarction. 2. Hypertension. 3. Hyperlipidemia. REFERRING PHYSICIAN: González Arteaga DO DESCRIPTION OF PROCEDURE: After informed consent, the patient was prepped and draped in the usual sterile fashion. A 2% lidocaine was given in the right wrist for local anesthesia. Using micropuncture technique, 6-Guyanese sheath was introduced into right radial artery. A JR4 6-Guyanese diagnostic catheter was inserted into the left ventricle across the aortic valve. LV end-diastolic pressure measured. Contrast injected and LV angiogram was done. The catheter was pulled back across the aortic valve. The gradient across the aortic valve was measured. Then, the same catheter engaged into right coronary artery. Contrast injected and right coronary angiogram was done. Then, the catheter was exchanged to 6-Guyanese [place] catheter. The catheter was engaged into left main coronary artery. Contrast injected and left coronary angiogram was done. The patient tolerated the procedure very well. Postprocedure, Terumo radial band applied to right wrist with excellent hemostasis. FINDINGS: 1. Left main coronary artery is patent. 2. Mid LAD has 95% concentric stenosis. Proximal and distal LAD and diagonal branches are patent. 3. Left circumflex and coronary arteries are codominant and patent. 4. Right coronary artery is codominant and patent. 5. LV ejection fraction is approximately 50%. Mild anterior and apical hypokinesis. IMPRESSION: 1. Single vessel coronary artery disease of left anterior descending as described above. Mid left anterior descending has a 90% to 95% concentric stenosis. 2. Mildly decreased left ventricular systolic function. RECOMMENDATIONS: Recommend coronary intervention of the left anterior descending coronary artery. Scout Allison MD
--- NOTE | 2018-12-24 12:11 | VASCLAB ---
Date of service: 12/23/2018 PROCEDURE: Right Groin Duplex Scan HISTORY: TLC right groin large hematoma. COMPARISON: None available. TECHNIQUE: Grayscale and duplex Doppler evaluation of the right common femoral, femoral, profunda femoral, popliteal, posterior tibial, anterior tibial and dorsalis pedis arteries was performed. Report prepared by KAILEY Kasper FINDINGS: RIGHT LOWER EXTREMITY: * Common Femoral Artery: Peak Systolic Velocity - 86: Doppler Waveform: Triphasic.: Plaque description - * Profunda Femoral Artery: Peak Systolic Velocity - 65 Doppler Waveform: Biphasic.: Plaque description - * Proximal Femoral Artery Peak Systolic Velocity - 84: Doppler Waveform: Triphasic.: Plaque description - * Common Femoral Vein: Compressible, Phasic Flow * Proximal Femoral Vein: Compressible OTHER FINDINGS: None. IMPRESSION: No evidence pseudoaneurysm, DVT or hematoma noted in right groin.
== END 2018-12-23 15:36 | disposition left against medical advice (07) | DRG 720 ==
LOC: C.ER 09:59 → C.9E 13:17 → C.9I 16:10 → C.5S 12-21 19:41
PROVIDERS: ADMIT Family Medicine; ATTEND Family Medicine
PROC: 5A09457 Assistance with Respiratory Ventilation, 24-96 Consecutive Hours, Continuous Positive Airway Pressure (ICD-10-PCS; 2018-12-19)
PROC: 06HY33Z Insertion of Infusion Device into Lower Vein, Percutaneous Approach (ICD-10-PCS; 2018-12-19)
PROC: 3E033XZ Introduction of Vasopressor into Peripheral Vein, Percutaneous Approach (ICD-10-PCS; 2018-12-20)
PROC: 4A023N7 Measurement of Cardiac Sampling and Pressure, Left Heart, Percutaneous Approach (ICD-10-PCS; principal; 2018-12-23)
PROC: B2111ZZ Fluoroscopy of Multiple Coronary Arteries using Low Osmolar Contrast (ICD-10-PCS; 2018-12-23)
PROC: B2151ZZ Fluoroscopy of Left Heart using Low Osmolar Contrast (ICD-10-PCS; 2018-12-23)
DX: A41.9 Sepsis, unspecified organism (principal); J96.02 Acute respiratory failure with hypercapnia; I21.4 Non-ST elevation (NSTEMI) myocardial infarction; R65.21 Severe sepsis with septic shock; J69.0 Pneumonitis due to inhalation of food and vomit; E87.2 Acidosis; E11.641 Type 2 diabetes mellitus with hypoglycemia with coma; N17.9 Acute kidney failure, unspecified; Z21 Asymptomatic human immunodeficiency virus [HIV] infection status; E86.0 Dehydration; I25.10 Atherosclerotic heart disease of native coronary artery without angina pectoris; B19.20 Unspecified viral hepatitis C without hepatic coma; J44.9 Chronic obstructive pulmonary disease, unspecified; F17.210 Nicotine dependence, cigarettes, uncomplicated; I10 Essential (primary) hypertension; Z91.19 Patient's noncompliance with other medical treatment and regimen; F11.10 Opioid abuse, uncomplicated; Z79.4 Long term (current) use of insulin

== ENCOUNTER 2019-03-11 09:02 | Inpatient (IN) | payer MEDICAID | END 2019-03-16 14:00 | disposition home or self-care (01) | DRG 812 | LOC: C.ER 09:02 → C.5S 03-12 20:15 → C.9I 10:38 → C.5S 03-15 19:50 | PROC: 5A09457 Assistance with Respiratory Ventilation, 24-96 Consecutive Hours, Continuous Positive Airway Pressure (ICD-10-PCS; principal; 2019-03-11) | DX: T40.3X1A Poisoning by methadone, accidental (unintentional), initial encounter (principal); R65.21 Severe sepsis with septic shock; A41.9 Sepsis, unspecified organism; G93.40 Encephalopathy, unspecified; J18.9 Pneumonia, unspecified organism; B20 Human immunodeficiency virus [HIV] disease; E87.2 Acidosis; D69.59 Other secondary thrombocytopenia; J43.2 Centrilobular emphysema; T42.4X1A Poisoning by benzodiazepines, accidental (unintentional), initial encounter; Y92.009 Unspecified place in unspecified non-institutional (private) residence as the place of occurrence of the external cause; B19.20 Unspecified viral hepatitis C without hepatic coma; D73.1 Hypersplenism; F17.210 Nicotine dependence, cigarettes, uncomplicated; F41.9 Anxiety disorder, unspecified; I25.10 Atherosclerotic heart disease of native coronary artery without angina pectoris; J98.11 Atelectasis; J44.9 Chronic obstructive pulmonary disease, unspecified; Z79.899 Other long term (current) drug therapy; Z91.14 Patient's other noncompliance with medication regimen; N18.9 Chronic kidney disease, unspecified; K74.60 Unspecified cirrhosis of liver; I71.4 Abdominal aortic aneurysm, without rupture ==